=== PATIENT | female | born 1955 | race Caucasian/White ===

== ENCOUNTER 2024-01-09 12:54 | Outpatient (OUT) | payer BC, SELFPAY ==
--- NOTE | 2024-01-09 12:58 | VEIN_ITS ---
Patient Name: JS JETT MR#: [id number] : 1955 Exam Date: 01/09/2024 Ordering Doctor: DR VELVET GARCIA M.D. RADIOLOGY REPORT PROCEDURE: [facility] - OFFICE VISIT INITIAL COMPARISON: None. PROGRESS NOTES: [age] year old female who presents with a 36 year history of dilated bulging veins, discolored veins, leg pain and swelling, muscle cramping, itching. The patient's leg symptoms are symmetric bilaterally. There has been a progression of symptoms over time. This increases with prolonged leg dependency. The patient describes an improvement with rest, elevation, compression stockings. The patient denies any signs and symptoms to suggest arterial ischemia. The patient describes a family history of varicose veins on maternal side. The patient has drinking and smoking history of : Occasional alcohol consumption; remote history of smoking.. Patient has a past medical history significant for main disease. The patient denies a history of deep venous thrombus or pulmonary embolus. See separate history and physical for medication list. Prior treatment for varicose in 2018 consisting of ablation of the great saphenous veins. Current use of compression stockings. After review of nurse notes, history and physical exam I discussed at length the pathophysiology of venous hypertension and possible treatments, therapies and strategies available. We discussed at length the importance of elevating the lower extremities above the level of the heart, increased physical activity and compression stocking use. Ultrasound venous reflux study performed today was discussed at length with the patient. The report demonstrates abnormally dilated and incompetent branch saphenous varicosities bilaterally. Closure of right great saphenous vein and majority of left great saphenous vein. PHYSICAL EXAM: The right leg demonstrates several superficial varicosities, numerous reticular and spider veins, no ulceration, mild edema, no skin discoloration. The left leg demonstrates several superficial varicosities, numerous reticular and spider veins, no ulceration, mild edema, no skin discoloration. Both thighs, legs and feet were symmetrically warm to the touch. Good posterior tibial and dorsalis pedis pulses were present bilaterally. VEIN/[facility] Facility EST Comprehensive IMPRESSION: 1. Bilateral lower extremity venous insufficiency 2. Bilateral lower extremity varicose veins 3. Mild bilateral lower extremity subcutaneous edema 4. No flow significant arterial disease 5. CEAP: C3, EC, , CT PLAN: 1. Continued use of compression stockings 2. Elevated legs and increased physical activity symptomatic relief 3. Microfoam chemical ablation of dilated and incompetent branch saphenous varicosities of right leg and left leg. 4. Sclerotherapy of numerous bilateral reticular and spider veins. Nurse notes, history and physical were reviewed and confirmed, see attached forms. The nurse was present throughout the physical exam and consultation Dictated by: Ike Horvath M.D. on 01/09/2024 at 15:43 Approved by: Ike Horvath M.D. on 01/09/2024 at 15:48
--- NOTE | 2024-01-09 12:58 | VEIN_ITS ---
Patient Name: JS JETT MR#: [id number] : 1955 Exam Date: 01/09/2024 Ordering Doctor: DR VELVET GARCIA M.D. RADIOLOGY REPORT PROCEDURE: [facility] EXT VENOUS REFLUX DANIELLA LMTD COMPARISON: None. INDICATIONS: Pain due to varicose veins of bilateral legs I83.813 TECHNIQUE: Duplex imaging of the lower extremity to assess the deep and superficial venous system for the presence of deep or superficial venous incompetence and to document the location and severity of disease. The study includes evaluation of the great saphenous vein (GSV), anterior accessory saphenous vein (AASV) and small saphenous vein (SSV). Patient scanned in reverse Trendelenburg and standing. FINDINGS: RIGHT LOWER EXTREMITY: Saphenofemoral Junction Reflux: Yes mm sec GSV: Diam (mm) Reflux/ Time (sec) Proximal Thigh No Mid Thigh No Distal Thigh No Prox Calf No Mid Calf No Saphenopopliteal Junction Reflux: 3.0mm No SSV: Proximal Calf 2.2 No Mid Calf 2.7 No AASV: Not present Proximal Thigh Mid Thigh Distal Thigh Thrombi: No acute or chronic thrombus visualized. Compressibility: Normal Flow: Normal Preforator: Mid/Med calf 1.4 mm with 0s. Tech Note: GSV previously treated. Patent varicose vein Mid/Med calf 4.4 mm with 2.1s of reflux. Patent varicose vein Mid/Med calf 6.0 mm with 2.8s of reflux. LEFT LOWER EXTREMITY: Saphenofemoral Junction Reflux: mm sec GSV: Diam (mm) Reflux/Time (sec) Proximal Thigh No Mid Thigh 4.5 N/A Distal Thigh 5.1 Yes 1.8 Prox Calf N/A Mid Calf N/A Saphenopopliteal Junction Relux: 2.5 mm No SSV: Proximal Calf 2.9 No Mid Calf 2.9 No AASV: Proximal Thigh 4.5 No Mid Thigh 3.6 Yes 1.7 Distal Thigh Thrombi: Chronic thrombus visualized in GSV. Compressibility: Partial compression to GSV. Flow: Normal Interactive Media Designer: Distal/Med calf 3.1 mm with 0s. Tech Note: GSV previously treated. Patent varicose vein Prox/Med calf with 4.2 mm with 3.2s of reflux. Patent varicose vein Prox/Med calf with 4.7mm with 3.8s of reflux. CONCLUSION: 1. Prior ablation of great saphenous vein bilaterally. 2. Dilated and incompetent branch saphenous varicosities bilaterally. Dictated by: Ike Horvath M.D. on 01/09/2024 at 14:32 Approved by: Ike Horvath M.D. on 01/09/2024 at 15:43
== END 2024-01-09 12:55 | disposition home or self-care (01) ==
LOC: VC 12:55
PROVIDERS: PCP Radiology Diagnostic Radiology; Visit Provider Radiology Diagnostic Radiology
DX: I83.813 Varicose veins of bilateral lower extremities with pain (principal)
CPT/HCPCS: 93970; G0463

== ENCOUNTER 2024-05-13 10:59 | Outpatient (OUT) | payer BC, SELFPAY ==
--- NOTE | 2024-05-10 13:50 | V.VEINS.HP ---
Vital Signs 05/13/24 11:10 Height 5 ft 2 in Weight 68.039 kg BMI 27.4 BP 118/70 BP Location Right Brachial BP Position Sitting BP Cuff Size Adult BP Source Manual Cuff Respiration 16 Pulse 75 Pulse Source Monitor Pulse Oximetry (%) 97 Oxygen Delivery Method Room Air Varicose Veins Patient is a 68 year old female in this day with c/o bilateral leg pain and edema. Patient has a history of varicose vein disease and has been breated with vein stripping in 2017. Patient in this day for microfoam chemical ablation. Haresh Yates MD personally performed the services described in this documentation, as scribed by Sergo Ríos RN in my presence and it is both accurate and complete. ISergo RN, am scribing for, and in the presence of, Dr. Haresh King and in the presence of the patient. . thigh: bilateral (bilateral symptoms), knee: bilateral, calf: bilateral, ankle: bilateral and yousif: bilateral aching, cramping, intermittent and tender 4 36 years Worsened in recent months: Yes standing analgesics, elevating extremities, compression stockings and exercise Reports muscle spasms of leg, fatigue, heaviness, limb pain, edema and leg edema History of lower extremity trauma: No Superficial thrombophlebitis: No Family history of varicose veins: yes (Patient's grandmother) Has patient had previous lower extremity venous surgery: Yes Patient has previously received the following treatment(s) for lower extremity varicose veins: Reports vein ablation, sclerotherapy and foam therapy Does patient have a history of : yes Does patient intend to have future pregnancies: no Has patient had lower extremity venous scan with relux testing: Yes Support hose used: Yes Problems walking or doing physical activity: Yes How does it affect you: often has to stop exercise rest and elevate legs due to pain Do you walk much: Yes Do you stand much: Yes Review of Systems ROS Narrative Haresh Yates MD personally performed the services described in this documentation, as scribed by Sergo Ríos RN in my presence and it is both accurate and complete. Sergo Yates RN, am scribing for, and in the presence of, Dr. Haresh King and in the presence of the patient. Status of ROS 10 or more systems reviewed and unremarkable except as noted in history and below Cardiovascular Reports: edema Integumentary/Breast Reports: itching and changes in skin color Neurological Reports: weakness in extremities PFSH PFS Medical History (Updated 05/13/24 @ 12:01 by Sergo Ríos) Varicose veins of bilateral lower extremities with pain ?I83.813 - Varicose veins of bilateral lower extremities with pain (ICD-10) Surgical History (Updated 05/13/24 @ 12:49 by Sergo Ríos) H/O medial meniscus repair of left knee ?Z98.890 - Other specified postprocedural states (ICD-10) H/O lateral meniscus repair of right knee ?Z98.890 - Other specified postprocedural states (ICD-10) Hx laparoscopic cholecystectomy ?Z90.49 - Acquired absence of other specified parts of digestive tract (ICD-10) Family History (Updated 05/13/24 @ 12:50 by Sergo Ríos) Other Heart disease Parkinson disease Varicose veins of bilateral lower extremities with pain Social History (Updated 05/13/24 @ 12:49 by Sergo Ríos) Within the past year, how often did you have a drink containing alcohol: 2-4 times a month Smoking status: Never smoker Non-prescribed substance use: denies use Meds Home Medications and Allergies Home Medications ?Medication ?Instructions ?Recorded ?Confirmed ?Type No Known Home Medications 05/13/24 05/13/24 History Allergies Allergy/AdvReac Type Severity Reaction Status Date / Time No Known Drug Allergies Allergy Verified 05/13/24 12:03 Exam Narrative Exam Narrative: Haresh Yates MD personally performed the services described in this documentation, as scribed by Sergo Ríos RN in my presence and it is both accurate and complete. Sergo Yates RN, am scribing for, and in the presence of, Dr. Haresh King and in the presence of the patient. Constitutional Documenting provider has reviewed patient's vital signs: yes Common normals: oriented x3 Cardio Peripheral pulses: posterior tibial pulses present and dorsalis pedis pulses present Extremity Common normals: normal capillary refill General: edema Right lower extremity: lower leg Right lower leg: inspection and palpation Left lower extremity: lower leg Left lower leg: inspection and palpation Neuro Common normals: oriented x3 Assessment and Plan Assessment and Plan (1) Varicose veins of bilateral lower extremities with pain: Plan f/u evaluation with physician along with right leg limited u/s Haresh Yates MD personally performed the services described in this documentation, as scribed by Sergo Ríos RN in my presence and it is both accurate and complete. ISergo RN, am scribing for, and in the presence of, Dr. Haresh King and in the presence of the patient. Procedures Procedure Instructions Procedures Right leg microfoam chemical ablation/Varithena: Risks and benefits of the procedure were discussed at length and informed written consent was obtained.? Time-out procedure was performed and the correct patient and procedure were confirmed.? Staff present during time-out: Sergo Ríos RN and Haresh King MD.? Patient prepped and procedure performed in usual sterile fashion.? Patient was placed in Trendelenburg prior to Polidocanol/Varithena injections. Sclerosing Agent:?? 15cc 1% Polidocanol/Varithena Site Injected: 8cc varithena administered in to a mid medial lower leg 7cc varithena administered in to a proximal medial lower leg Number of Injections:? 2 The patient tolerated the procedure well without complication.? Hemostasis was obtained and thigh-high compression stocking was applied with foam pads.? Instructed patient to wear stocking for at least 96 hours and sleep with it and only remove for showering.? The patient was instructed to? wear stocking for 2 weeks.? Patient verbalizes understanding and states they will comply.? Patient was given post-procedure instructions. Patient was discharged in good condition.? Scheduled to undergo limited venous ultrasound and? exam on 05/20/2024. Haresh Yates MD personally performed the services described in this documentation, as scribed by Sergo Ríos RN in my presence and it is both accurate and complete. ISergo RN, am scribing for, and in the presence of, Dr. Haresh King and in the presence of the patient.
--- NOTE | 2024-05-13 07:19 | P.DS_ITS ---
Discharge Plan Discharge Disposition: Home, Self-Care Outpatient Diagnostics: [facility] Facility EST LMTD (Routine) Timeframe: 2 Weeks Facility: [facility] - Location: Vein Center Ordered By: Haresh King VC EXT Venous RT LMTD (Routine) Timeframe: 2 Weeks Facility: [facility] - Location: Vein Center Ordered By: Haresh King Follow Up Appointments: 05/20/2024 Plan of Treatment: f/u evaluation with physician along with right leg limited u/s Patient Instructions: Polidocanol (By injection) (Mona Blankenship) Print Language: Ethiopian Discharge Date/Time: 05/13/24 12:05
--- NOTE | 2024-05-13 11:02 | VEIN_ITS ---
[address] [address] Patient Name: JS JETT MRN: [id number] date: 1955 Sex: F Assigned Patient Location: Current Patient Location: Accession/Order Number: [id number] Exam Date: 05/13/2024 11:02 Report Date: 05/13/2024 14:55 At the request of: VELVET GARCIA Procedure: VC INJ Foam Sclerosant WUS PLAY WRITER PROCEDURE: VC INJ Foam Sclerosant WUS PLAY WRITER COMPARISON: None. HISTORY: Pain due to varicose veins of bilateral legs I83.813 Pre-operative Diagnosis: CEAP class C3 venous insufficiency with pain, tenderness, edema and incompetent right saphenous and varicose vein(s), chronic venous insufficiency right leg secondary to venous incompetence Post-operative Diagnosis: CEAP class C3 venous insufficiency with pain, tenderness, edema and incompetent right saphenous and varicose vein(s), chronic venous insufficiency right leg secondary to venous incompetence Procedure Performed: 1. Ultrasound-guided microfoam chemical ablation with Varithenaregistered 2. Intraoperative ultrasound guidance Anesthesia: None Indications for Procedure: 68-year-old female who presents with a long history of lower extremity pain and swelling. The patient failed conservative medical therapy including medical compression stockings, exercise and analgesics. Prior procedures include saphenous ablation performed elsewhere. Multiple incompetent varicosities of the right leg. Duplex scan showed reflux and enlarged diameters up to 6 mm. The patient underwent informed consent including management options where the complications of infection, bleeding, pain, and skin injury were discussed. Particular attention was spent discussing thrombus extension and deep vein thrombosis as well as the possibility of pulmonary embolus and treatment with oral or injectable blood thinners. Procedure: The patient walked to the procedure room. All applicable staff donned appropriate apparel. A procedure timeout was performed to confirm correct patient, correct extremity, correct procedure, and correct room set-up including presence of all applicable supplies, devices, and drugs. A duplex ultrasound, performed by myself confirmed the location and incompetence of branch saphenous varicosities and their course was marked on the skin together with the dilated tributaries. The extent of treatment of the vein and the associated varicosities was determined through ultrasound mapping. The skin was prepped and then punctured with a butterfly needle and advanced under ultrasound guidance. The Varithenaregistered canister was activated and the canister was primed and purged as required in the instructions for use. Varithenaregistered was drawn into a sterile syringe. The following injections were made: 8 cc injected into a 6 mm varicose vein mid medial right lower leg 7 cc into a 5 mm varicose vein proximal medial right lower leg Varithenaregistered was slowly administered at 0.5-1.0 cc/second with close observation by ultrasound of its course in the vessels. Total volume utilized was: 15 cc. Following administration of Varithenaregistered the leg was elevated and the patient was asked to repeatedly dorsiflex the ankle to limit flow of Varithenaregistered into perforating veins. Once appropriate spasm had been confirmed in the treated veins, the vascular catheter was removed from the leg and light pressure was applied over the puncture site for hemostasis. The common femoral and deep superficial veins were then evaluated for flow and compressibility prior to dressing placement. The lower extremity was kept elevated at 45 degrees above the horizontal and cording material was applied over the saphenous segments and tributaries to allow for eccentric compression over the target vessels including the targeted saphenous vein(s). A multilayer dressing was applied consisting of foam pads, coban and thigh-high 20-30 mm Hg compression elastic support hose were placed on the patient. The leg was lowered only after compression had been applied and the patient was immediately ambulatory. The patient ambulated 10 minutes under supervision and was without apparent concerns at time of release. Post-care instructions include advising patient to keep post-treatment bandages in place and dry for 48 hours, avoid extended periods of inactivity, avoid heavy exercise for one week, wear compression stockings on the treated leg continuously for two weeks, to walk daily for 10 minutes over the next month. The patient was instructed to take an anti-inflammatory medicine as needed and to follow up for color duplex scan of the Saphenous veins, the treated branch saphenous varicosities, the adjacent deep veins, and additional treatment within 7 days. PERSONNEL: Sergo Ríos RN Electronically authenticated by: VELVET GARCIA Date: 05/13/2024 14:55
[2024-05-13 11:10] VITALS: BP 118/70; PULSE 75; O2SAT 97; BMI 27.4
--- OUTSIDE RECORDS SUMMARY | 2024-05-13 11:20 | XMS_ITS | CCD ---
Author Organization [facility] Care Team Providers Care Tack Cutter Name Role Phone SAIDA BENSON Admitting Unavailable SAIDA BENSON Attending Unavailable SAIDA BENSON Referring Unavailable Jasmin Bobby Unavailable TUTU Bobby Primary Care Provider TUTU Bobby Attending Provider [phone] SAMI ADAMS Attending Unavailable Chicho Kauffman DO Unavailable [phone] Jasmin Bobby Attending Unavailable Jasmin Bobby Admitting Unavailable Jasmin Bobby Primary Care Unavailable Jasmin Bobby Attending Unavailable Jasmin Bobby Admitting Unavailable Jasmin Bobby Primary Care Unavailable Jasmin Bobby CNP Primary Care Provider [phone] JENNIFER DEGROOT Attending Unavailable Medications Current Medications Medication Drug Class(es) Dates Sig (Normalized) Sig (Original) aspirin 81 mg delayed release oral tablet (1 source) Platelet Aggregation Inhibitor, Nonsteroidal Anti-inflammatory Drug Start: 09-25-2023 take 1 tablet by mouth every twenty-four hours Aspirin 81 81 MG 1 tablet Orally Once a day for 30 day(s) Sep, Active Biotin (3 sources) take 1 capsule by mouth once daily Biotin 5000 5 MG 1 capsule Orally Once a day OTC Active cholecalciferol 0.125 mg oral capsule (3 sources) Vitamin D Vitamin D3 Maximum Strength 125 MCG (5000 UT) as directed Orally OTC Active esomeprazole 40 mg delayed release oral capsule (1 source) Proton Pump Inhibitor Start: 09-25-2023 take 1 capsule by mouth every twenty-four hours Esomeprazole Magnesium 40 MG 1 capsule Orally Once a day for 30 day(s) Sep, Active Magnesium (3 sources) take 1 tablet by mouth once daily Magnesium 250 MG 1 tablet with a meal Orally Once a day OTC Active omeprazole 20 mg delayed release oral tablet (2 sources) Proton Pump Inhibitor Start: 09-11-2023 take 1 tablet by mouth once daily Omeprazole Magnesium 20 MG 1 tablet 30 minutes before morning meal Orally Once a day for 30 days Sep, Active traZODone hydrochloride 50 mg oral tablet (1 source) Serotonin Reuptake Inhibitor Start: 09-25-2023 take 1 tablet by mouth every twenty-four hours traZODone HCl 50 MG 1 tablet at bedtime as needed Orally Once a day for 14 days Sep, Active Turmeric extract (3 sources) Turmeric OTC Active vitamin B12 (2 sources) Vitamin B12 Vitamin B12 OTC, daily Active Completed/Discontinued Medications Medication Drug Class(es) Dates Sig (Normalized) Sig (Original) Mupirocin (3 sources) RNA Synthetase Inhibitor Antibacterial Bactroban 2 % 1 application to affected area Externally Three times a day for 7 days Not-Taking/PRN Bactroban 2 % 1 application to affected area Externally Three times a day for 7 days Active Problems Problem Classification Problem Date Documented Da te Episodic/Chronic Diseases of mouth; excluding dental (6 sources) Xerostomia; Translations: [Disturbances of salivary secretion] Onset: 4 Episodic Disorders of lipid metabolism (4 sources) Mixed hyperlipidemia; Translations: [Mixed hyperlipidemia] Chronic Esophageal disorders (8 sources) Gastroesophageal reflux disease; Translations: [Gastro-esophageal reflux disease without esophagitis] Chronic Malaise and fatigue (6 sources) Fatigue; Translations: [Chronic fatigue, unspecified] Onset: 4 Chronic Mood disorders (3 sources) Depressive disorder; Translations: [Major depressive disorder, single episode, unspecified] Chronic Nausea and vomiting (3 sources) Nausea; Translations: [Nausea] Episodic Osteoarthritis (3 sources) Osteoarthritis of left knee joint; Translations: [Unilateral primary osteoarthritis, left knee] Chronic Other eye disorders (1 source) Dry eyes; Translations: [Dry eye syndrome of bilateral lacrimal glands] Episodic Other eye disorders (1 source) Dry eye syndrome of bilateral lacrimal glands Episodic Other gastrointestinal disorders (3 sources) Irritable bowel syndrome 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; 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 Other hereditary and degenerative nervous system conditions (3 sources) Restless legs; Translations: [Restless legs syndrome] Chronic Other hereditary and degenerative nervous system conditions (3 sources) Restless legs syndrome; Translations: [Restless legs syndrome] Onset: 4 Chronic Other injuries and conditions due to external causes (3 sources) H/O: knee problem; Translations: [Personal history of other (healed) physical injury and trauma] Episodic Other nervous system disorders (3 sources) Neuropathy of lower limb; 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] Chronic Other nervous system disorders (3 sources) Chronic pain; Translations: [Other chronic pain] Chronic Other nervous system disorders (3 sources) Paresthesia; Translations: [Paresthesia of skin] Episodic Other nervous system disorders (2 sources) Paresthesia of skin; Translations: [Paresthesia of skin] Onset: 4 Episodic Other non-traumatic joint disorders (3 sources) Pain in right knee; Translations: [Right knee pain] Episodic Other screening for suspected conditions (not mental disorders or infectious disease) (2 sources) Encounter for screening for cardiovascular disorders; Translations: [Encounter for screening for cardiovascular disorders] Onset: 4 Episodic Other skin disorders (3 sources) Xeroderma; Translations: [Xerosis cutis] Episodic Other skin disorders (2 sources) Xerosis cutis; Translations: [Xerosis cutis] Onset: 4 Episodic Residual codes; unclassified (1 source) Difficulty sleeping ; Translations: [Sleep disorder, unspecified] Episodic Residual codes; unclassified (1 source) Sleep disorder, unspecified Episodic Skin and subcutaneous tissue infections (4 sources) Impetigo; Translations: [Impetigo, unspecified] Episodic Unclassified (2 sources) 68393/G0121 - Epigastric pain, screening; Translations: [24506/G0121 - Epigastric pain, screening] Onset: 9 Unclassified (1 source) Chronic fatigue, unspecified; Translations: [Chronic fatigue, unspecified] Onset: 4 Varicose veins of lower extremity (3 sources) Varicose veins of lower extremity; Translations: [Asymptomatic varicose veins of bilateral lower extremities] Episodic Results Test Name Value Interpretation Reference Range Facility [facility] 04-08-2024 CNOV Office Visit (NEUBS ) LEANN GREENBERG ([id number]) 1955 F Date Time Provider Department 04/08/24 12:45 PM JENNIFER DEGROOT During your visit today, we recorded the following information about you: Jennifer Degroot, MANAGER SUPPLY CHAIN PLANNING.LOCKSTITCH WAISTLINE JOINER 04/08/2024 6:01 PM Addendum PCP does not have one at present-see MASHA Bobby DATE: April 08, 2024 PT. NAME: Leann Greenberg CCF#: [id number] IRB #: [id number] A. PROTOCOL: [facility] Brain Study Tank Inspector: Layla Saenz MD, , Pascual Ames MD, CCF blocker and cutter contact lens for study related questions: Katy Slater Is today the participant's first study visit? Yes Were there changes made to the informed consent since the last visit? Yes If yes, were changes reviewed and explained to subject? Yes Was a new copy of the informed consent signed, placed in the chart, placed in the study file and was a copy given to the patient? Yes Patient Identification was verified by asking the patients Name and Date Of : YES Subject continues to give consent for participation and for procedures related to study YES. Time:[id number] EKG/ECG was performed on patient. Patient tolerated procedure well. BP: 117/72 BP Site: right arm BP Position: sitting Cuff size: regular Pulse: 75 Resp: 18 SPO2: 99% Weight: 157.2 pounds Height: 5' 1 Result of Physical Exam Body System Eyes: Normal ,wears corrective lenses Ears, Nose, Mouth and Throat: Normal Cardiovascular: Normal Respiratory: Normal Musculoskeletal: Normal Integumentary: Normal Handedness: Right hand Results of Mental Status Assessment Mental Assessments Attention: Abnormality Present: No Memory Working Memory: Abnormality Present: No Recent (Episodic) Memory: Abnormality Present: No Remote (Semantic) Memory: Abnormality Present: No Language Spontaneous Speech: Abnormality Present: No Comprehension: Abnormality Present: No Naming: Abnormality Present: No Repetition: Abnormality Present: No Reading: Abnormality Present: No Affect: Abnormality Present: No Craninal Nerve Assessment Visual Lieberman: Normal EOM: Normal Nystagmus: Physiologic Pupils: Equal and reactive Ptosis: Absent Trigeminal: Normal CN VII: Normal CN VIII: Normal CN IX: Normal CN X: Normal CN XI: Normal CN XII: Normal Assessment of Motor and Bulk and Tones Motor Assessments Muscle bulk-global: Normal Muscle tone-global: Normal Motor Strength Assessment Shoulder flexion: Right 5 Left 5 Shoulder external rotation: Right 5 Left 5 Shoulder abduction: Right 5 Left 5 Shoulder adduction: Right 5 Left 5 Elbow flexion: Right 5 Left 5 Elbow extension: Right 5 Left 5 Wrist flexion: Right 5 Left 5 Wrist extension: Right 5 Left 5 Finger flexion/lunchroom worker: Right 5 Left 5 Flexor pollicis longus: Right 5 Left 5 Abductor pollicis brevis: Right 5 Left 5 Hip flexion: Right 5 Left 5 Hip extension: Right 5 Left 5 Hip abduction: Right 5 Left 5 Hip adduction: Right 5 Left 5 Knee flexion: Right 5 Left 5 Knee extension: Right 5 Left 5 Ankle eversion: Right 5 Left 5 Ankle inversion: Right 5 Left 5 Ankle plantar flexion: Right 5 Left 5 Ankle dorsiflexion: Right 5 Left 5 Extensor halluces longus: Right 5 Left 5 Flexor digitorum longus: Right 5 Left 5 Reflexes - MRC Grading Method Triceps: Right 1+ Left 1+ Biceps: Right 1+ Left 1+ Brachioradialis: Right 1+ Left 1+ Patellar: Right 1+ Left 1+ Achilles: Right 1+ Left 1+ Plantar: Right Downgoing Left Downgoing Weakness?: No Tremor: No Cerebellar/Coordination Assessment [id number]: Abnormality present: No, [id number]: Abnormality present: No, Finger Tapping - Abnormality present: No Fist Open/Close - Abnormality present: No Pronation/Supination of the Hand - Abnormality present: No Toe Tapping - Abnormality present: Yes - Extremity: RLE Comments: dysrrhythmokinesia Heel Tapping - Abnormality present: No Gait Gait-global assessment: Abnormal (posture lean forward when walk-per participant, all members in family do this) Toe Walk: Normal Heel Walk: Normal Tandem Walk: Abnormal (Slight difficulty maintaining balance at initiation of walk) Romberg: Negative (pass) Sensory/Sensation Sensory System-globlal assessment: Normal Jennifer Degroot APRN.LOCKSTITCH WAISTLINE JOINER Allergies As of Date: 04/08/2024 (Not on File) Date Reviewed: Never Reviewed Primary Visit Diagnosis:Examination of participant in clinical trial [Z00.6] Problem List As Of Date: 04/08/2024 (None) Disposition: Return in about 1 year (around 04/08/2025). Follow-up and Disposition History for Encounter Date Provider Department Center 04/08/2024 [id number] DEGROOT [facility] Encounter Status:Closed by JENNIFER DEGROOT on (more content not included)... [facility] ([id number]) 1955 F Date Time Provider Department 04/01/24 LIANA JACOBO During your visit today, we recorded the following information about you: Allergies As of Date: 04/01/2024 (Not on File) Date Reviewed: Never Reviewed Reason for Visit: Research [293] Cmt: IRB [id number] Problem List As Of Date: 04/01/2024 (None) Encounter Status:Closed by LIANA JACOBO on 04/02/24 [facility] 01-15-2024 CNPN Telephone ([employer]) LEANN GREENBERG ([id number]) 1955 F Date Time Provider Department 01/15/24 GRISELDA GONZALEZ During your visit today, we recorded the following information about you: Griselda Gonzalez, Research Coordinator 01/15/2024 3:44 PM Signed IRB [id number]. [facility] Brain Study (CCBS) Tank Inspector: Layla Saenz MD, , Pascual Ames MD, Supervisor Opening And Picking: Katy Slater and Email:[email or web address] Research Coordinator called and contacted Leann Greenberg on January 15, 2024 to reminded patient of appointment with the [facility] Brain Study, Griselda Gonzalez, Research Coordinator also let pt. Know about the option to DocuSign the constant form or Sign in person. Research Coordinator gave patient Contact information for if the patient had any questions about the study and or their appointment. Allergies As of Date: 01/15/2024 (Not on File) Date Reviewed: Never Reviewed Reason for Visit: Appointment [186] Cmt: IRB [id number] Problem List As Of Date: 01/15/2024 (None) Encounter Status:Closed by GRISELDA GONZALEZ on 01/15/24 Normal [facility] 11-05-2023 CNPN Telephone (NEUBSM) LEANN GREENBERG ([id number]) 1955 F Date Time Provider Department 11/05/23 NATHALIE MCKEON During your visit today, we recorded the following information about you: Nathalie Mckeon APRN.[facility] 11/05/2023 12:12 PM Signed IRB [id number]. [facility] Brain Study (CCBS) Tank Inspector: Layla Saenz MD, , Pascual Ames MD, Supervisor Opening And Picking: Katy Slater and Email: Contacted Leann Greenberg by phone to discuss the [facility] Brain Study (BS): Biomarkers and Predictors of Neurological Disorders IRB [id number]. Patient is eligible and agrees to participate. Requests call back December to schedule (going to [place]). Nathalie Mckeon APRN.LOCKSTITCH WAISTLINE JOINER Allergies As of Date: 11/05/2023 (Not on File) Date Reviewed: Never Reviewed Reason for Visit: Patient Update [1234] Problem List As Of Date: 11/05/2023 (None) Encounter Status:Closed by NATHALIE MCKEON on 11/05/23 Normal [facility] Basophils Auto (Bld) [#/Vol] Ordered By: Jasmin Bobby on 09-19-2023 Basophils (Bld) [#/Vol] 0.0 10*3/uL 0.0-0.2 [facility] Basophils/100 WBC Auto (Bld) Ordered By: Jasmin Bobby on 09-19-2023 Basophils/100 WBC (Bld) 0.6 % . [facility] Complete Blood Count Auto Di ffon 09-19-2023 Basophils (Bld) [#/Vol] 0.0 10*3/uL Normal 0.0-0.2 [facility] Comment on above: Result Comment: PERF ORMED BY: [place] [address] PATHOLOGIST PROBATION AND PATROL AGENT TEODORA RAPHAEL M.D. Performed By: #### F E and TIBC, CRP, LIPID, MG, TSH3 wRFLX, B12, CMP, BALAJI, ESR #### [facility] [address] [place] [address] #### SJOGRENS, MENDEZ CHOICE, RA #### [facility] , Basophils/100 WBC (Bld) 0.6 % Normal . [facility] Comment on above: Performed By: #### F E and TIBC, CRP, LIPID, MG, TSH3 wRFLX, B12, CMP, BALAJI, ESR #### [facility] [address] [place] [address] [place] #### SJOGRENS, MENDEZ CHOICE, RA #### [facility] , Eosinophils (Bld) [#/Vol] 0.0 10*3/uL Normal 0.0-0.45 [facility] Comment on above: Performed By: #### F E and TIBC, CRP, LIPID, MG, TSH3 wRFLX, B12, CMP, BALAJI, ESR #### [place] [address] [place] #### SJOGRENS, MENDEZ CHOICE, RA #### [facility] , Eosinophils/100 WBC (Bld) 1.0 % Normal . [facility] Comment on above: Performed By: #### F E and TIBC, CRP, LIPID, MG, TSH3 wRFLX, B12, CMP, BALAJI, ESR #### [address] #### SJOGRENS, MENDEZ CHOICE, RA #### [facility] , Erythrocyte distribution width (RBC) [Ratio] 13.6 % Normal 11.9-15.3 [facility] Comment on above: Performed By: #### F E and TIBC, CRP, LIPID, MG, TSH3 wRFLX, B12, CMP, BALAJI, ESR #### [address] #### SJOGRENS, MENDEZ CHOICE, RA #### [facility] , Hematocrit (Bld) [Volume fraction] 38.3 % Normal 34.0-46.4 [facility] Comment on above: Performed By: #### F E and TIBC, CRP, LIPID, MG, TSH3 wRFLX, B12, CMP, BALAJI, ESR #### [place] [address] [place] #### SJOGRENS, MENDEZ CHOICE, RA #### [facility] , Hemoglobin (Bld) [Mass/Vol] 12.9 g/dL Normal 11.8-15.4 [facility] Comment on above: Performed By: #### F E and TIBC, CRP, LIPID, MG, TSH3 wRFLX, B12, CMP, BALAJI, ESR #### [place] [address] [place] #### SJOGRENS, MENDEZ CHOICE, RA #### [facility] , Lymphocytes (Bld) [#/Vol] 1.3 10*3/uL Normal 1.00-4.8 [facility] Comment on above: Performed By: #### F E and TIBC, CRP, LIPID, MG, TSH3 wRFLX, B12, CMP, BALAJI, ESR #### [address] #### SJOGRENS, MENDEZ CHOICE, RA #### [facility] , Lymphocytes/100 WBC (Bld) 39.6 % Normal . [facility] Comment on above: Performed By: #### F E and TIBC, CRP, LIPID, MG, TSH3 wRFLX, B12, CMP, BALAJI, ESR #### [address] #### SJOGRENS, MENDEZ CHOICE, RA #### [facility] , MCH (RBC) [Entitic mass] 30.9 pg Normal 24.7-34.3 [facility] Comment on above: Performed By: #### F E and TIBC, CRP, LIPID, MG, TSH3 wRFLX, B12, CMP, BALAJI, ESR #### [place] [address] [place] #### SJOGRENS, MENDEZ CHOICE, RA #### [facility] , MCV (RBC) [Entitic vol] 91.6 fL Normal 80-100 [facility] Comment on above: Performed By: #### F E and TIBC, CRP, LIPID, MG, TSH3 wRFLX, B12, CMP, BALAJI, ESR #### [address] #### SJOGRENS, MENDEZ CHOICE, RA #### [facility] , Mean Corpuscular HGB Conc 33.7 g/dL Normal 32.0-35.0 [facility] Comment on above: Performed By: #### F E and TIBC, CRP, LIPID, MG, TSH3 wRFLX, B12, CMP, BALAJI, ESR #### [address] #### SJOGRENS, MENDEZ CHOICE, RA #### [facility] , Monocytes (Bld) [#/Vol] 0.2 10*3/uL Normal 0.0-0.8 [facility] Comment on above: Performed By: #### F E and TIBC, CRP, LIPID, MG, TSH3 wRFLX, B12, CMP, BALAJI, ESR #### [address] #### SJOGRENS, MENDEZ CHOICE, RA #### [facility] , Monocytes/100 WBC (Bld) 5.7 % Normal . [facility] Comment on above: Performed By: #### F E and TIBC, CRP, LIPID, MG, TSH3 wRFLX, B12, CMP, BALAJI, ESR #### [facility] [address] [place] [address] #### SJOGRENS, MENDEZ CHOICE, RA #### [facility] , Neutrophils (Bld) [#/Vol] 1.7 10*3/uL Low 1.8-7.7 [facility] Comment on above: Performed By: #### F E and TIBC, CRP, LIPID, MG, TSH3 wRFLX, B12, CMP, BALAJI, ESR #### [place] [address] [place] #### SJOGRENS, MENDEZ CHOICE, RA #### [facility] , Neutrophils/100 WBC (Bld) 53.1 % Normal . [facility] Comment on above: Performed By: #### F E and TIBC, CRP, LIPID, MG, TSH3 wRFLX, B12, CMP, BALAJI, ESR #### [address] #### SJOGRENS, MENDEZ CHOICE, RA #### [facility] , NRBC% 0.1 /100{WBC} Normal 0-0.5 [facility] Comment on above: Performed By: #### F E and TIBC, CRP, LIPID, MG, TSH3 wRFLX, B12, CMP, BALAJI, ESR #### [address] #### SJOGRENS, MENDEZ CHOICE, RA #### [facility] , Platelet mean volume (Bld) [Entitic vol] 8.4 fL Normal 6.3-10.7 [facility] Comment on above: Performed By: #### F E and TIBC, CRP, LIPID, MG, TSH3 wRFLX, B12, CMP, BALAJI, ESR #### [address] #### SJOGRENS, MENDEZ CHOICE, RA #### [facility] , Platelets (Bld) [#/Vol] 155 10*3/uL Normal 150-450 [facility] Comment on above: Performed By: #### F E and TIBC, CRP, LIPID, MG, TSH3 wRFLX, B12, CMP, BALAJI, ESR #### [address] #### SJOGRENS, MENDEZ CHOICE, RA #### [facility] , RBC (Bld) [#/Vol] 4.18 10*6/uL Normal 3.60-5.00 [place] [facility] Comment on above: Performed By: #### F E and TIBC, CRP, LIPID, MG, TSH3 wRFLX, B12, CMP, BALAJI, ESR #### [place] [address] [place] #### SJOGRENS, MENDEZ CHOICE, RA #### [facility] , WBC (Bld) [#/Vol] 3.2 10*3/uL Low 3.8-11.6 [facility] [place] [facility] Comment on above: Performed By: #### F E and TIBC, CRP, LIPID, MG, TSH3 wRFLX, B12, CMP, BALAJI, ESR #### [facility] [address] #### SJOGRENS, MENDEZ CHOICE, RA #### [facility] , Eosinophils Auto (Bld) [#/Vo l]Ordered By: Jasmin Mccauleynorfolk on 09-19-2023 Eosinophils (Bld) [#/Vol] 0.0 10*3/uL 0.0-0.45 [facility] Eosinophils/100 WBC Auto (Bl d)Ordered By: [facility] on 09-19-2023 Eosinophils/100 WBC (Bld) 1.0 % . [facility] Erythrocyte distribution wid th Auto (RBC) [Ratio]Ordered By: [facility] on 09-19-2023 Erythrocyte distribution width (RBC) [Ratio] 13.6 % 11.9-15.3 [facility] Hematocrit Auto (Bld) [Volum e fraction]Ordered By: [facility] on 09-19-2023 Hematocrit (Bld) [Volume fraction] 38.3 % 34.0-46.4 [facility] Hemoglobin [Mass/volume] in BloodOrdered By: Jasmin [facility] on 09-19-2023 Hemoglobin (Bld) [Mass/Vol] 12.9 g/dL 11.8-15.4 [facility] Leukocytes [#/volume] correc santos for nucleated erythrocytes in Blood by Automated counOrdered By: [facility] WBC corrected for nucl RBC Auto (Bld) [#/Vol] 3.2 10*3/uL 3.8-11.6 [facility] Lymphocytes Auto (Bld) [#/Vo l]Ordered By: Jasmin [facility] on 09-19-2023 Lymphocytes (Bld) [#/Vol] 1.3 10*3/uL 1.00-4.8 [facility] Lymphocytes/100 WBC Auto (Bl d)Ordered By: Jasmin [facility] on 09-19-2023 Lymphocytes/100 WBC (Bld) 39.6 % . [facility] MCH Auto (RBC) [Entitic mass ]Ordered By: Jasmin Bobby on 09-19-2023 MCH (RBC) [Entitic mass] 30.9 pg 24.7-34.3 [facility] MCHC Auto (RBC) [Mass/Vol]Or dered By: Jasmin Bobby on 09-19-2023 MCHC (RBC) [Mass/Vol] 33.7 g/dL 32.0-35.0 [facility] MCV Auto (RBC) [Entitic vol] Ordered By: Jasmin Bobby on 09-19-2023 MCV (RBC) [Entitic vol] 91.6 fL 80-100 [facility] Monocytes Auto (Bld) [#/Vol] Ordered By: Jasmin Bobby on 09-19-2023 Monocytes (Bld) [#/Vol] 0.2 10*3/uL 0.0-0.8 [facility] Monocytes/100 WBC Auto (Bld) Ordered By: Jasmin Bobby on 09-19-2023 Monocytes/100 WBC (Bld) 5.7 % . [facility] Neutrophils Auto (Bld) [#/Vo l]Ordered By: Jasmin Bobby on 09-19-2023 Neutrophils (Bld) [#/Vol] 1.7 10*3/uL 1.8-7.7 [facility] Neutrophils/100 WBC Auto (Bl d)Ordered By: Jasmin Bobby on 09-19-2023 Neutrophils/100 WBC (Bld) 53.1 % . [facility] Nucleated erythrocytes [Pres ence] in Blood by Automated countOrdered By: Jasmin Bobby on 09-19-2023 Nucleated RBC Auto Ql (Bld) 0.1 /100{WBC} 0-0.5 [facility] Platelet mean volume Auto (B ld) [Entitic vol]Ordered By: Jasmin Bobby on 09-19-2023 Platelet mean volume (Bld) [Entitic vol] 8.4 fL 6.3-10.7 [facility] Platelets Auto (Bld) [#/Vol] Ordered By: Jasmin Bobby on 09-19-2023 Platelets (Bld) [#/Vol] 155 10*3/uL 150-450 [facility] RBC Auto (Bld) [#/Vol]Ordere d By: Jasmin Bobby on 09-19-2023 RBC (Bld) [#/Vol] 4.18 10*6/uL 3.60-5.00 [place] [facility] WBC Auto (Bld) [#/Vol]Ordere d By: Jasmin Bobby on 09-19-2023 WBC (Bld) [#/Vol] 3.2 10*3/uL 3.8-11.6 [facility] [place] [facility] MENDEZ with Reflexon 09-18-2023 MENDEZ with Reflex Negative Normal Negative [facility] Comment on above: Order Comment: Reaso n for Exam Chronic fatigue Reason for Exam Chronic fatigue;Restless leg;Paresthesias Reason for Exam Restless leg Reason for Exam Chronic fatigue;Xerostomia;Dry skin Reason for Exam Screening for cardiovascular condition Reason for Exam Paresthesias Reason for Exam Chronic fatigue;Dry skin Result Comment: Perf ormed at: CB - [facility] [address] [id number] Guest Services Associate: Alphonse Harris PhD, Phone: [phone] Performed By: #### F E and TIBC, CRP, LIPID, MG, TSH3 wRFLX, B12, CMP, BALAJI, ESR #### [facility] [address] [place] [address] #### SJOGRENS, MENDEZ CHOICE, RA #### [facility] , Alanine aminotransferase [En zymatic activity/volume] in Serum or PlasmaOrdered By: Jasmin Bobby on 09-18-2023 ALT [Catalytic activity/Vol] 11 U/L 7-52 [facility] Albumin [Mass/volume] in Ser um or Plasma by Bromocresol green (BCG) dye binding methoOrdered By: Jasmin Bobby on 09-18-2023 Albumin BCG dye [Mass/Vol] 4.2 g/dL 3.5-5.7 [facility] Alkaline phosphatase [Enzyma tic activity/volume] in Serum or PlasmaOrdered By: Jasmin Bobby on 09-18-2023 ALP [Catalytic activity/Vol] 69 U/L 34-104 [facility] Aspartate aminotransferase [ Enzymatic activity/volume] in Serum or PlasmaOrdered By: Jasmin Bobby on 09-18-2023 AST [Catalytic activity/Vol] 17 U/L 13-39 [facility] Bilirubin.total [Mass/volume ] in Serum or PlasmaOrdered By: Jasmin Bobby on 09-18-2023 Bilirubin [Mass/Vol] 0.6 mg/dL 0.3-1.0 [facility] C reactive protein [Mass/vol ume] in Serum or PlasmaOrdered By: Jasmin Bobby on 09-18-2023 CRP [Mass/Vol] < 0.5 mg/dL 0.0-0.5 [facility] C-Reactive Proteinon 024 CRP [Mass/Vol] mg/L Normal 0.0-0.5 [facility] Comment on above: Order Comment: Reaso n for Exam Chronic fatigue Reason for Exam Chronic fatigue;Restless leg;Paresthesias Reason for Exam Restless leg Reason for Exam Chronic fatigue;Xerostomia;Dry skin Reason for Exam Screening for cardiovascular condition Reason for Exam Paresthesias Reason for Exam Chronic fatigue;Dry skin Performed By: #### F E and TIBC, CRP, LIPID, MG, TSH3 wRFLX, B12, CMP, BALAJI, ESR #### [facility] [address] [place] [address] #### SJOGRENS, MENDEZ CHOICE, RA #### [facility] , Calcium [Mass/volume] in Ser um or PlasmaOrdered By: Jasmin Bobby on 09-18-2023 Calcium [Mass/Vol] 9.3 mg/dL 8.6-10.3 [facility] [place] [facility] Carbon dioxide, total [Moles /volume] in Serum or PlasmaOrdered By: Jasmin Bobby on 09-18-2023 CO2 [Moles/Vol] 30.1 mmol/L 21.0-31.0 [facility] Chloride [Moles/volume] in S wolf or PlasmaOrdered By: Jasmin Bobby on 09-18-2023 Chloride [Moles/Vol] 105 mmol/L 98-107 [facility] Cholesterol [Mass/volume] in Serum or PlasmaOrdered By: Jasmin Bobby on 09-18-2023 Cholesterol [Mass/Vol] 293 mg/dL 140-200 [facility] Comment on above: Chol less than 200 m g/dl low riskChol 201-239 mg/dl borderline riskChol 240 mg/dl and greater high risk Cholesterol in LDL Calc [Mas s/Vol]Ordered By: Jasmin Bobby on 09-18-2023 Cholesterol in LDL [Mass/Vol] 205 mg/dL 0-100 [facility] Comment on above: LDL ATP III CLASSIFI CATIONLDL less than 100 mg/dL OptimalLDL 100-129 mg/dL Near or above optimalLDL 130-159 mg/dL Borderline highLDL 160-189 mg/dL HighLDL greater than 189 mg/dL Very high Cholesterol in VLDL Calc [Ma ss/Vol]Ordered By: Jasmin Bobby on 09-18-2023 Cholesterol in VLDL [Mass/Vol] 15 mg/dL [facility] Comprehensive Metabolic Pane manolo 09-18-2023 Albumin [Mass/Vol] 4.2 g/dL Normal 3.5-5.7 [facility] [place] [facility] Comment on above: Order Comment: Reaso n for Exam Chronic fatigue Reason for Exam Chronic fatigue;Restless leg;Paresthesias Reason for Exam Restless leg Reason for Exam Chronic fatigue;Xerostomia;Dry skin Reason for Exam Screening for cardiovascular condition Reason for Exam Paresthesias Reason for Exam Chronic fatigue;Dry skin Performed By: #### F E and TIBC, CRP, LIPID, MG, TSH3 wRFLX, B12, CMP, BALAJI, ESR #### [facility] [address] #### SJOGRENS, MENDEZ CHOICE, RA #### [facility] , Albumin/Globulin [Mass ratio] 1.6 {ratio} Normal [facility] Comment on above: Order Comment: Reaso n for Exam Chronic fatigue Reason for Exam Chronic fatigue;Restless leg;Paresthesias Reason for Exam Restless leg Reason for Exam Chronic fatigue;Xerostomia;Dry skin Reason for Exam Screening for cardiovascular condition Reason for Exam Paresthesias Reason for Exam Chronic fatigue;Dry skin Performed By: #### F E and TIBC, CRP, LIPID, MG, TSH3 wRFLX, B12, CMP, BALAJI, ESR #### [facility] [address] #### SJOGRENS, MENDEZ CHOICE, RA #### [facility] , ALP [Catalytic activity/Vol] 69 U/L Normal 34-104 [facility] Comment on above: Order Comment: Reaso n for Exam Chronic fatigue Reason for Exam Chronic fatigue;Restless leg;Paresthesias Reason for Exam Restless leg Reason for Exam Chronic fatigue;Xerostomia;Dry skin Reason for Exam Screening for cardiovascular condition Reason for Exam Paresthesias Reason for Exam Chronic fatigue;Dry skin Performed By: #### F E and TIBC, CRP, LIPID, MG, TSH3 wRFLX, B12, CMP, BALAJI, ESR #### [facility] [address] [place] [address] [place] #### SJOGRENS, MENDEZ CHOICE, RA #### [facility] , ALT [Catalytic activity/Vol] 11 U/L Normal 7-52 [facility] Comment on above: Order Comment: Reaso n for Exam Chronic fatigue Reason for Exam Chronic fatigue;Restless leg;Paresthesias Reason for Exam Restless leg Reason for Exam Chronic fatigue;Xerostomia;Dry skin Reason for Exam Screening for cardiovascular condition Reason for Exam Paresthesias Reason for Exam Chronic fatigue;Dry skin Performed By: #### F E and TIBC, CRP, LIPID, MG, TSH3 wRFLX, B12, CMP, BALAJI, ESR #### [facility] [address] [place] [address] #### SJOGRENS, MENDEZ CHOICE, RA #### [facility] , Anion gap [Moles/Vol] 9.5 mmol/L Normal 6.0-15.0 [facility] Comment on above: Order Comment: Reaso n for Exam Chronic fatigue Reason for Exam Chronic fatigue;Restless leg;Paresthesias Reason for Exam Restless leg Reason for Exam Chronic fatigue;Xerostomia;Dry skin Reason for Exam Screening for cardiovascular condition Reason for Exam Paresthesias Reason for Exam Chronic fatigue;Dry skin Performed By: #### F E and TIBC, CRP, LIPID, MG, TSH3 wRFLX, B12, CMP, BALAJI, ESR #### [place] [address] [place] #### SJOGRENS, MENDEZ CHOICE, RA #### [facility] , AST [Catalytic activity/Vol] 17 U/L Normal 13-39 [facility] Comment on above: Order Comment: Reaso n for Exam Chronic fatigue Reason for Exam Chronic fatigue;Restless leg;Paresthesias Reason for Exam Restless leg Reason for Exam Chronic fatigue;Xerostomia;Dry skin Reason for Exam Screening for cardiovascular condition Reason for Exam Paresthesias Reason for Exam Chronic fatigue;Dry skin Performed By: #### F E and TIBC, CRP, LIPID, MG, TSH3 wRFLX, B12, CMP, BALAJI, ESR #### [place] [address] [place] #### SJOGRENS, MENDEZ CHOICE, RA #### [facility] , Bilirubin [Mass/Vol] 0.6 mg/dL Normal 0.3-1.0 [facility] Comment on above: Order Comment: Reaso n for Exam Chronic fatigue Reason for Exam Chronic fatigue;Restless leg;Paresthesias Reason for Exam Restless leg Reason for Exam Chronic fatigue;Xerostomia;Dry skin Reason for Exam Screening for cardiovascular condition Reason for Exam Paresthesias Reason for Exam Chronic fatigue;Dry skin Performed By: #### F E and TIBC, CRP, LIPID, MG, TSH3 wRFLX, B12, CMP, BALAJI, ESR #### [place] [address] [place] #### SJOGRENS, MENDEZ CHOICE, RA #### [facility] , Calcium [Mass/Vol] 9.3 mg/dL Normal 8.6-10.3 [facility] [place] [facility] Comment on above: Order Comment: Reaso n for Exam Chronic fatigue Reason for Exam Chronic fatigue;Restless leg;Paresthesias Reason for Exam Restless leg Reason for Exam Chronic fatigue;Xerostomia;Dry skin Reason for Exam Screening for cardiovascular condition Reason for Exam Paresthesias Reason for Exam Chronic fatigue;Dry skin Performed By: #### F E and TIBC, CRP, LIPID, MG, TSH3 wRFLX, B12, CMP, BALAJI, ESR #### [place] [address] [place] #### SJOGRENS, MENDEZ CHOICE, RA #### [facility] , Chloride [Moles/Vol] 105 mmol/L Normal 98-107 [facility] Comment on above: Order Comment: Reaso n for Exam Chronic fatigue Reason for Exam Chronic fatigue;Restless leg;Paresthesias Reason for Exam Restless leg Reason for Exam Chronic fatigue;Xerostomia;Dry skin Reason for Exam Screening for cardiovascular condition Reason for Exam Paresthesias Reason for Exam Chronic fatigue;Dry skin Performed By: #### F E and TIBC, CRP, LIPID, MG, TSH3 wRFLX, B12, CMP, BALAJI, ESR #### [place] [address] [place] #### SJOGRENS, MENDEZ CHOICE, RA #### [facility] , CO2 [Moles/Vol] 30.1 mmol/L Normal 21.0-31.0 [facility] Comment on above: Order Comment: Reaso n for Exam Chronic fatigue Reason for Exam Chronic fatigue;Restless leg;Paresthesias Reason for Exam Restless leg Reason for Exam Chronic fatigue;Xerostomia;Dry skin Reason for Exam Screening for cardiovascular condition Reason for Exam Paresthesias Reason for Exam Chronic fatigue;Dry skin Performed By: #### F E and TIBC, CRP, LIPID, MG, TSH3 wRFLX, B12, CMP, BALAJI, ESR #### [place] [address] [place] #### SJOGRENS, MENDEZ CHOICE, RA #### [facility] , Creatinine [Mass/Vol] 0.62 mg/dL Normal 0.60-1.20 [facility] Comment on above: Order Comment: Reaso n for Exam Chronic fatigue Reason for Exam Chronic fatigue;Restless leg;Paresthesias Reason for Exam Restless leg Reason for Exam Chronic fatigue;Xerostomia;Dry skin Reason for Exam Screening for cardiovascular condition Reason for Exam Paresthesias Reason for Exam Chronic fatigue;Dry skin Performed By: #### F E and TIBC, CRP, LIPID, MG, TSH3 wRFLX, B12, CMP, BALAJI, ESR #### [address] #### SJOGRENS, MENDEZ CHOICE, RA #### [facility] , GFR/1.73 sq M.predicted MDRD (S/P/Bld) [Vol rate/Area] mL/min/{1.73_m2} [facility] Comment on above: Order Comment: Reaso n for Exam Chronic fatigue Reason for Exam Chronic fatigue;Restless leg;Paresthesias Reason for Exam Restless leg Reason for Exam Chronic fatigue;Xerostomia;Dry skin Reason for Exam Screening for cardiovascular condition Reason for Exam Paresthesias Reason for Exam Chronic fatigue;Dry skin Performed By: #### F E and TIBC, CRP, LIPID, MG, TSH3 wRFLX, B12, CMP, BALAJI, ESR #### [address] #### SJOGRENS, MENDEZ CHOICE, RA #### [facility] , Globulin (S) [Mass/Vol] 2.6 g/dL Normal [facility] Comment on above: Order Comment: Reaso n for Exam Chronic fatigue Reason for Exam Chronic fatigue;Restless leg;Paresthesias Reason for Exam Restless leg Reason for Exam Chronic fatigue;Xerostomia;Dry skin Reason for Exam Screening for cardiovascular condition Reason for Exam Paresthesias Reason for Exam Chronic fatigue;Dry skin Performed By: #### F E and TIBC, CRP, LIPID, MG, TSH3 wRFLX, B12, CMP, BALAJI, ESR #### [facility] [address] [place] [address] [place] #### SJOGRENS, MENDEZ CHOICE, RA #### [facility] , Glucose [Mass/Vol] 95 mg/dL Normal 70-100 [facility] [place] [facility] Comment on above: Order Comment: Reaso n for Exam Chronic fatigue Reason for Exam Chronic fatigue;Restless leg;Paresthesias Reason for Exam Restless leg Reason for Exam Chronic fatigue;Xerostomia;Dry skin Reason for Exam Screening for cardiovascular condition Reason for Exam Paresthesias Reason for Exam Chronic fatigue;Dry skin Result Comment: [facility] Glucose Reference Range is dependent on time and content of last meal. Glucose of more than 200 mg/dL in a nonstressed, ambulatory subject supports the diagnosis of Diabetes Mellitus. ADA recommended reference range Performed By: #### F E and TIBC, CRP, LIPID, MG, TSH3 wRFLX, B12, CMP, BALAJI, ESR #### [address] #### SJOGRENS, MENDEZ CHOICE, RA #### [facility] , Potassium [Moles/Vol] 4.6 mmol/L Normal 3.5-5.1 [facility] Comment on above: Order Comment: Reaso n for Exam Chronic fatigue Reason for Exam Chronic fatigue;Restless leg;Paresthesias Reason for Exam Restless leg Reason for Exam Chronic fatigue;Xerostomia;Dry skin Reason for Exam Screening for cardiovascular condition Reason for Exam Paresthesias Reason for Exam Chronic fatigue;Dry skin Performed By: #### F E and TIBC, CRP, LIPID, MG, TSH3 wRFLX, B12, CMP, BALAJI, ESR #### [place] [address] [place] #### SJOGRENS, MENDEZ CHOICE, RA #### [facility] , Protein [Mass/Vol] 6.8 g/dL Normal 6.4-8.9 [facility] [place] [facility] Comment on above: Order Comment: Reaso n for Exam Chronic fatigue Reason for Exam Chronic fatigue;Restless leg;Paresthesias Reason for Exam Restless leg Reason for Exam Chronic fatigue;Xerostomia;Dry skin Reason for Exam Screening for cardiovascular condition Reason for Exam Paresthesias Reason for Exam Chronic fatigue;Dry skin Performed By: #### F E and TIBC, CRP, LIPID, MG, TSH3 wRFLX, B12, CMP, BALAJI, ESR #### [place] [address] [place] #### SJOGRENS, MENDEZ CHOICE, RA #### [facility] , Sodium [Moles/Vol] 140 mmol/L Normal 136-145 [facility] [place] [facility] Comment on above: Order Comment: Reaso n for Exam Chronic fatigue Reason for Exam Chronic fatigue;Restless leg;Paresthesias Reason for Exam Restless leg Reason for Exam Chronic fatigue;Xerostomia;Dry skin Reason for Exam Screening for cardiovascular condition Reason for Exam Paresthesias Reason for Exam Chronic fatigue;Dry skin Performed By: #### F E and TIBC, CRP, LIPID, MG, TSH3 wRFLX, B12, CMP, BALAJI, ESR #### [facility] [address] [place] [address] #### SJOGRENS, MENDEZ CHOICE, RA #### [facility] , Urea nitrogen [Mass/Vol] 13 mg/dL Normal 7-25 [facility] Comment on above: Order Comment: Reaso n for Exam Chronic fatigue Reason for Exam Chronic fatigue;Restless leg;Paresthesias Reason for Exam Restless leg Reason for Exam Chronic fatigue;Xerostomia;Dry skin Reason for Exam Screening for cardiovascular condition Reason for Exam Paresthesias Reason for Exam Chronic fatigue;Dry skin Performed By: #### F E and TIBC, CRP, LIPID, MG, TSH3 wRFLX, B12, CMP, BALAJI, ESR #### [facility] [address] [place] [address] [place] #### SJOGRENS, MENDEZ CHOICE, RA #### [facility] , Creatinine [Mass/volume] in Serum or PlasmaOrdered By: Jasmin Bobby on 09-18-2023 Creatinine [Mass/Vol] 0.62 mg/dL 0.60-1.20 [facility] Erythrocyte Sedimentation Ra chiara 09-18-2023 ESR (Bld) [Velocity] 37 mm/h High 0-29 [facility] Comment on above: Order Comment: Reaso n for Exam Chronic fatigue Reason for Exam Chronic fatigue;Xerostomia;Dry skin Result Comment: PERF ORMED BY: [place] [address] PATHOLOGIST [employer] AGENT TEODORA RAPHAEL M.D. Performed By: #### F E and TIBC, CRP, LIPID, MG, TSH3 wRFLX, B12, CMP, BALAJI, ESR #### [facility] [address] [place] [address] [place] #### JADEOGRMENDEZ BROWN, RA #### [facility] , Erythrocyte sedimentation ra te by Photometric methodOrdered By: Jasmin Bobby on 09-18-2023 ESR Photometric method (Bld) [Velocity] 37 mm/hr 0-29 [facility] Ferritinon 09-18-2023 Ferritin [Mass/Vol] 221.1 ng/mL Normal 11.0-306.8 [facility] Comment on above: Order Comment: Reaso n for Exam Chronic fatigue Reason for Exam Chronic fatigue;Restless leg;Paresthesias Reason for Exam Restless leg Reason for Exam Chronic fatigue;Xerostomia;Dry skin Reason for Exam Screening for cardiovascular condition Reason for Exam Paresthesias Reason for Exam Chronic fatigue;Dry skin Performed By: #### F E and TIBC, CRP, LIPID, MG, TSH3 wRFLX, B12, CMP, BALAJI, ESR #### [facility] [address] #### JADEOGRMENDEZ BROWN, RA #### [facility] , Ferritin [Mass/volume] in Se rum or PlasmaOrdered By: Jasmin Bobby on 09-18-2023 Ferritin [Mass/Vol] 221.1 ng/mL 11.0-306.8 [facility] Globulin Calc (S) [Mass/Vol] Ordered By: Jasmin Bobby on 09-18-2023 Globulin (S) [Mass/Vol] 2.6 g/dL [facility] Glucose [Mass/volume] in Ser um or PlasmaOrdered By: Jasmin Bobby on 09-18-2023 Glucose [Mass/Vol] 95 mg/dL 70-100 [facility] [place] [facility] Comment on above: ADA recommended refe rence rangeRandom Glucose Reference Range is dependent on time and content of last meal. Glucose of more than 200 mg/dL in a nonstressed, ambulatory subject supports the diagnosis of Diabetes Mellitus. Iron [Mass/volume] in Serum or PlasmaOrdered By: Jasmin Bobby on 09-18-2023 Iron [Mass/Vol] 115 ug/dL 50-212 [facility] Iron and TIBC Profileon 09-04 % Iron Saturation 40.5 % Normal 20-50 [facility] Comment on above: Order Comment: Reaso n for Exam Chronic fatigue Reason for Exam Chronic fatigue;Restless leg;Paresthesias Reason for Exam Restless leg Reason for Exam Chronic fatigue;Xerostomia;Dry skin Reason for Exam Screening for cardiovascular condition Reason for Exam Paresthesias Reason for Exam Chronic fatigue;Dry skin Performed By: #### F E and TIBC, CRP, LIPID, MG, TSH3 wRFLX, B12, CMP, BALAJI, ESR #### [facility] [address] [place] [address] #### SJOGRENS, MENDEZ CHOICE, RA #### [facility] , Iron [Mass/Vol] 115 ug/dL Normal 50-212 [facility] Comment on above: Order Comment: Reaso n for Exam Chronic fatigue Reason for Exam Chronic fatigue;Restless leg;Paresthesias Reason for Exam Restless leg Reason for Exam Chronic fatigue;Xerostomia;Dry skin Reason for Exam Screening for cardiovascular condition Reason for Exam Paresthesias Reason for Exam Chronic fatigue;Dry skin Performed By: #### F E and TIBC, CRP, LIPID, MG, TSH3 wRFLX, B12, CMP, BALAJI, ESR #### [facility] [address] [place] [address] [place] #### SJOGRENS, MENDEZ CHOICE, RA #### [facility] , Total Iron Binding Capacity 284 ug/dL Normal 255-450 [facility] Comment on above: Order Comment: Reaso n for Exam Chronic fatigue Reason for Exam Chronic fatigue;Restless leg;Paresthesias Reason for Exam Restless leg Reason for Exam Chronic fatigue;Xerostomia;Dry skin Reason for Exam Screening for cardiovascular condition Reason for Exam Paresthesias Reason for Exam Chronic fatigue;Dry skin Performed By: #### F E and TIBC, CRP, LIPID, MG, TSH3 wRFLX, B12, CMP, BALAJI, ESR #### [facility] [address] [place] [address] [place] #### SJOGRENS, MENDEZ CHOICE, RA #### [facility] , Transferrin [Mass/Vol] 203 mg/dL Normal 203-362 [facility] Comment on above: Order Comment: Reaso n for Exam Chronic fatigue Reason for Exam Chronic fatigue;Restless leg;Paresthesias Reason for Exam Restless leg Reason for Exam Chronic fatigue;Xerostomia;Dry skin Reason for Exam Screening for cardiovascular condition Reason for Exam Paresthesias Reason for Exam Chronic fatigue;Dry skin Performed By: #### F E and TIBC, CRP, LIPID, MG, TSH3 wRFLX, B12, CMP, BLAAJI, ESR #### [facility] [address] [place] [address] [place] #### SJOGRENS, MENDEZ CHOICE, RA #### [facility] , Iron binding capacity [Mass/ volume] in Serum or PlasmaOrdered By: Jasmin Bobby on 09-18-2023 Iron binding capacity [Mass/Vol] 284 ug/dL 255-450 [facility] Iron saturation [Mass Fracti on] in Serum or PlasmaOrdered By: Jasmin Bobby on 09-18-2023 Iron saturation [Mass fraction] 40.5 % 20-50 [facility] Lipid Panelon 09-18-2023 Cholesterol [Mass/Vol] 293 mg/dL High 140-200 [facility] Comment on above: Order Comment: Reaso n for Exam Chronic fatigue Reason for Exam Chronic fatigue;Restless leg;Paresthesias Reason for Exam Restless leg Reason for Exam Chronic fatigue;Xerostomia;Dry skin Reason for Exam Screening for cardiovascular condition Reason for Exam Paresthesias Reason for Exam Chronic fatigue;Dry skin Result Comment: Chol less than 200 mg/dl low risk Chol 201-239 mg/dl borderline risk Chol 240 mg/dl and greater high risk Performed By: #### F E and TIBC, CRP, LIPID, MG, TSH3 wRFLX, B12, CMP, BALAJI, ESR #### [facility] [address] [place] [address] [place] #### SJOGRENS, MENDEZ CHOICE, RA #### [facility] , Cholesterol in HDL [Mass/Vol] 73 mg/dL Normal 23-92 [facility] Comment on above: Order Comment: Reaso n for Exam Chronic fatigue Reason for Exam Chronic fatigue;Restless leg;Paresthesias Reason for Exam Restless leg Reason for Exam Chronic fatigue;Xerostomia;Dry skin Reason for Exam Screening for cardiovascular condition Reason for Exam Paresthesias Reason for Exam Chronic fatigue;Dry skin Result Comment: HDL CHOL ATP-III CLASSIFICATION Cardiovascular Risk HDL > or equal to 60 mg/dL LOW HDL < 40 mg/dL HIGH Performed By: #### F E and TIBC, CRP, LIPID, MG, TSH3 wRFLX, B12, CMP, BALAJI, ESR #### [facility] [address] #### SJOGRENS, MENDEZ CHOICE, RA #### [facility] , Cholesterol.total/Fernanda sterol in HDL [Mass ratio] 4.0 {ratio} Normal <5.0 [facility] Comment on above: Order Comment: Reaso n for Exam Chronic fatigue Reason for Exam Chronic fatigue;Restless leg;Paresthesias Reason for Exam Restless leg Reason for Exam Chronic fatigue;Xerostomia;Dry skin Reason for Exam Screening for cardiovascular condition Reason for Exam Paresthesias Reason for Exam Chronic fatigue;Dry skin Performed By: #### F E and TIBC, CRP, LIPID, MG, TSH3 wRFLX, B12, CMP, BALAJI, ESR #### [facility] [address] [place] [address] [place] #### SJOGRENS, MENDEZ CHOICE, RA #### [facility] , LDL Cholesterol,Calculated 205 mg/dL High 0-100 [facility] Comment on above: Order Comment: Reaso n for Exam Chronic fatigue Reason for Exam Chronic fatigue;Restless leg;Paresthesias Reason for Exam Restless leg Reason for Exam Chronic fatigue;Xerostomia;Dry skin Reason for Exam Screening for cardiovascular condition Reason for Exam Paresthesias Reason for Exam Chronic fatigue;Dry skin Result Comment: LDL ATP III CLASSIFICATION LDL less than 100 mg/dL Optimal LDL 100-129 mg/dL Near or above optimal LDL 130-159 mg/dL Borderline high LDL 160-189 mg/dL High LDL greater than 189 mg/dL Very high Performed By: #### F E and TIBC, CRP, LIPID, MG, TSH3 wRFLX, B12, CMP, BALAJI, ESR #### [facility] [address] [place] [address] [place] #### SJOGRENS, MENDEZ CHOICE, RA #### [facility] , Triglyceride w/Reflex 75 mg/dL Normal 0-149 [facility] Comment on above: Order Comment: Reaso n for Exam Chronic fatigue Reason for Exam Chronic fatigue;Restless leg;Paresthesias Reason for Exam Restless leg Reason for Exam Chronic fatigue;Xerostomia;Dry skin Reason for Exam Screening for cardiovascular condition Reason for Exam Paresthesias Reason for Exam Chronic fatigue;Dry skin Result Comment: TRIG ATP III CLASSIFICATION TRIG less than 150 mg/dL Normal TRIG 150-199 mg/dL Borderline high TRIG 200-500 mg/dL High TRIG greater than 500 mg/dL Very high Standard traceable to the Center for Disease Conrtrol and Prevention (CDC) test method. Performed By: #### F E and TIBC, CRP, LIPID, MG, TSH3 wRFLX, B12, CMP, BALAJI, ESR #### [facility] [address] [place] [address] [place] #### SJOGRENS, MENDEZ CHOICE, RA #### [facility] , VLDL CHOLESTEROL 15 mg/dL Normal [facility] Comment on above: Order Comment: Reaso n for Exam Chronic fatigue Reason for Exam Chronic fatigue;Restless leg;Paresthesias Reason for Exam Restless leg Reason for Exam Chronic fatigue;Xerostomia;Dry skin Reason for Exam Screening for cardiovascular condition Reason for Exam Paresthesias Reason for Exam Chronic fatigue;Dry skin Performed By: #### F E and TIBC, CRP, LIPID, MG, TSH3 wRFLX, B12, CMP, BALAJI, ESR #### [facility] [address] [place] [address] [place] #### SJOGRENS, MENDEZ CHOICE, RA #### [facility] , Magnesiumon 09-18-2023 Magnesium [Mass/Vol] 2.0 mg/dL Normal 1.9-2.7 [facility] Comment on above: Order Comment: Reaso n for Exam Chronic fatigue Reason for Exam Chronic fatigue;Restless leg;Paresthesias Reason for Exam Restless leg Reason for Exam Chronic fatigue;Xerostomia;Dry skin Reason for Exam Screening for cardiovascular condition Reason for Exam Paresthesias Reason for Exam Chronic fatigue;Dry skin Performed By: #### F E and TIBC, CRP, LIPID, MG, TSH3 wRFLX, B12, CMP, BALAJI, ESR #### [facility] [address] #### SJOGRENS, MENDEZ CHOICE, RA #### [facility] , Magnesium [Mass/volume] in S wolf or PlasmaOrdered By: Jasmin Bobby on 09-18-2023 Magnesium [Mass/Vol] 2.0 mg/dL 1.9-2.7 [facility] No Panel InformationOrdered By: Jasmin Bobby on 09-18-2023 Estimated GFR (CKD-EPI) > 60.0 mL/Min [facility] Creatinine Clearance (Chem N/A [facility] Potassium [Moles/volume] in Serum or PlasmaOrdered By: Jasmin Bobby on 09-18-2023 Potassium [Moles/Vol] 4.6 mmol/L 3.5-5.1 [facility] Protein [Mass/volume] in Ser um or PlasmaOrdered By: Jasmin Bobby on 09-18-2023 Protein [Mass/Vol] 6.8 g/dL 6.4-8.9 [facility] [place] [facility] Rheumatoid Factoron 09-18-19 24 Rheumatoid Factor 10.6 Normal <14.0 [facility] Comment on above: Order Comment: Reaso n for Exam Chronic fatigue;Xerostomia;Dry skin Result Comment: Perf ormed at: - [facility] [address] [id number] Guest Services Associate: Alphonse Harris PhD, Phone: [phone] Performed By: #### F E and TIBC, CRP, LIPID, MG, TSH3 wRFLX, B12, CMP, BALAJI, ESR #### [facility] [address] #### SJOGRENS, MENDEZ CHOICE, RA #### [facility] , Serum Sjogrens syndrome-A ex tractable nuclear antibody assay (units/volume)Ordered By: Jasmin Bobby on 09-18-2023 Sjogrens syndrome-A extractable nuclear Ab Qn (S) <0.2 AI 0.0-0.9 [facility] Serum Sjogrens syndrome-B ex tractable nuclear antibody assay (units/volume)Ordered By: Jasmin Bobby on 09-18-2023 Sjogrens syndrome-B extractable nuclear Ab Qn (S) <0.2 AI 0.0-0.9 [facility] Serum or plasma albumin/glob ulin mass ratioOrdered By: Jasmin Bobby on 09-18-2023 Albumin/Globulin [Mass ratio] 1.6 {ratio} [facility] Serum or plasma anion gap de terminationOrdered By: Jasmin Bobby on 09-18-2023 Anion gap [Moles/Vol] 9.5 mmol/L 6.0-15.0 [facility] Serum or plasma free cefurox demario measurement (mass/volume)Ordered By: Jasmin Bobby on 09-18-2023 Cefuroxime free [Mass/Vol] Negative Negative [facility] Comment on above: Performed at: [facility] Director: Alphonse Harris PhD, Phone: [phone] Serum or plasma high density lipoprotein (HDL) cholesterol measurementOrdered By: Jasmin Bobby on 09-18-2023 Cholesterol in HDL [Mass/Vol] 73 mg/dL 23-92 [facility] Comment on above: HDL CHOL ATP-III CLA SSIFICATION Cardiovascular RiskHDL > or equal to 60 mg/dL LOWHDL < 40 mg/dL HIGH Serum or plasma rheumatoid f actor measurement (units/volume)Ordered By: Jasmin Bobby on 09-18-2023 Rheumatoid factor Qn 10.6 [IU]/mL <14.0 [facility] Comment on above: Performed at: [facility] [employer] [place], [place] [id number] Director: Alphonse Harris PhD, Phone: [phone] Serum or plasma total choles terol/high density lipoprotein (HDL) cholesterol mass ratOrdered By: Jasmin Bobby on 09-18-2023 Cholesterol.total/Fernanda sterol in HDL [Mass ratio] 4.0 {ratio} <5.0 [facility] Sjogrens Anti-SSA/SSBon 09-04 SS-A/Ro Sjogrens Antibody <0.2 Normal 0.0-0.9 [facility] Comment on above: Order Comment: Reaso n for Exam Chronic fatigue Reason for Exam Chronic fatigue;Restless leg;Paresthesias Reason for Exam Restless leg Reason for Exam Chronic fatigue;Xerostomia;Dry skin Reason for Exam Screening for cardiovascular condition Reason for Exam Paresthesias Reason for Exam Chronic fatigue;Dry skin Performed By: #### F E and TIBC, CRP, LIPID, MG, TSH3 wRFLX, B12, CMP, BALAJI, ESR #### [facility] [address] [place] [address] #### SJOGRENS, MENDEZ CHOICE, RA #### [facility] , SS-B/La Sjogrens Antibody <0.2 Normal 0.0-0.9 [facility] Comment on above: Order Comment: Reaso n for Exam Chronic fatigue Reason for Exam Chronic fatigue;Restless leg;Paresthesias Reason for Exam Restless leg Reason for Exam Chronic fatigue;Xerostomia;Dry skin Reason for Exam Screening for cardiovascular condition Reason for Exam Paresthesias Reason for Exam Chronic fatigue;Dry skin Result Comment: PERF ORMED BY: [place] [address] PATHOLOGIST PROBATION AND PATROL AGENT TEODORA RAPHAEL M.D. Performed By: #### F E and TIBC, CRP, LIPID, MG, TSH3 wRFLX, B12, CMP, BALAJI, ESR #### [facility] [address] [place] [address] #### SJOGRENS, MENDEZ CHOICE, RA #### [facility] , Sodium [Moles/volume] in Ser um or PlasmaOrdered By: Jasmin Bobby on 09-18-2023 Sodium [Moles/Vol] 140 mmol/L 136-145 [facility] [place] [facility] Thyroid Stim Hormone w/Rflxo n 09-18-2023 Thyroid Stim Hormone w/Rflx 1.98 u[iU]/mL Normal 0.45-5.33 [facility] Comment on above: Order Comment: Reaso n for Exam Chronic fatigue Reason for Exam Chronic fatigue;Restless leg;Paresthesias Reason for Exam Restless leg Reason for Exam Chronic fatigue;Xerostomia;Dry skin Reason for Exam Screening for cardiovascular condition Reason for Exam Paresthesias Reason for Exam Chronic fatigue;Dry skin Result Comment: PERF ORMED BY: [place] [address] PATHOLOGIST PROBATION AND PATROL AGENT TEODORA RAPHAEL M.D. Performed By: #### F E and TIBC, CRP, LIPID, MG, TSH3 wRFLX, B12, CMP, BALAJI, ESR #### [facility] [address] [place] [address] #### SJOGRENS, MENDEZ CHOICE, RA #### [facility] , Thyrotropin [Units/volume] i n Serum or PlasmaOrdered By: Jasmin Bobby on 09-18-2023 TSH Qn 1.98 m[IU]/L 0.45-5.33 [facility] Transferrin [Mass/volume] in Serum or PlasmaOrdered By: Jasmin Bobby on 09-18-2023 Transferrin [Mass/Vol] 203 mg/dL 203-362 [facility] Triglyceride [Mass/volume] i n Serum or PlasmaOrdered By: Jasmin Bobby on 09-18-2023 Triglyceride [Mass/Vol] 75 mg/dL 0-149 [facility] Comment on above: TRIG ATP III CLASSIF ICATIONTRIG less than 150 mg/dL NormalTRIG 150-199 mg/dL Borderline highTRIG 200-500 mg/dL High TRIG greater than 500 mg/dL Very highStandard traceable to the Center for Disease Conrtrol and Prevention (CDC) test method. Urea nitrogen [Mass/volume] in Serum or PlasmaOrdered By: Jasmin Bobby on 09-18-2023 Urea nitrogen [Mass/Vol] 13 mg/dL 03-28 [facility] Vitamin B12on 09-18-2023 Cobalamin (Vitamin B12) [Mass/Vol] 1166 pg/mL High [address] [place] [address] Comment on above: Order Comment: Reaso n for Exam Chronic fatigue Reason for Exam Chronic fatigue;Restless leg;Paresthesias Reason for Exam Restless leg Reason for Exam Chronic fatigue;Xerostomia;Dry skin Reason for Exam Screening for cardiovascular condition Reason for Exam Paresthesias Reason for Exam Chronic fatigue;Dry skin Performed By: #### F E and TIBC, CRP, LIPID, MG, TSH3 wRFLX, B12, CMP, BALAJI, ESR #### [facility] [address] #### SJOGRENS, MENDEZ CHOICE, RA #### [facility] , Vitamin B12 ser/plasOrdered By: Jasmin Bobby on 09-18-2023 Cobalamin (Vitamin B12) [Mass/Vol] 1166 pg/mL [address] [place] [address] CT CARDIAC SCORINGon 07-0 CT CARDIAC SCORING Addendum Begins Patient Name: LEANN GREENBERG ADDENDUM: Technical: The following is to serve as an over-read for an unenhanced cardiac CT, to evaluate the extra vascular structures. Contiguous unenhanced CT sections are performed from the level of the ene to the upper abdomen. Findings: A 5 mm subpleural nodules identified in the lateral left lower lobe (image 38). There is an equivocal 3 mm subpleural density posteriorly in the left lower lobe (image 32). There is minor dependent subpleural atelectasis. There is no sign of pathologic lymph node enlargement. There is no pericardial or pleural effusion. Images through the upper abdomen are unremarkable. The visualized osseous and soft tissue structures of the chest wall are intact. Impression: 2 small nodules in the left lung base. Continued surveillance is recommended with follow-up CT examination in 6 months. The extra vascular structures otherwise have an unremarkable CT appearance. Electronically signed by: NATALI SUNSHINE MD Addendum Ends Patient Name: LEANN GREENBERG STUDY: CT CARDIAC SCORING; 03/09/2021 9:03 am INDICATION: Mixed hyperlipidemia ct of coronary arteries. COMPARISON: None. ACCESSION NUMBER(S): [id number] ORDERING CLINICIAN: JASMIN BOBBY TECHNIQUE: Using prospective ECG gating, CT scan of the coronary arteries was performed without intravenous contrast. Coronary calcium scoring was performed according to the method of Agatston. CT Dose-Length Product (DLP): 60.7 mGy*cm CT Dose Reduction Employed: Yes, prospective gating, iterative reconstruction. FINDINGS: The score and distribution of calcium in the coronary arteries is as follows: LM 0 LAD 15 LCx 0 RCA 0 Total 15 The visualized ascending thoracic aorta measures 3.3 cm in diameter. The heart is normal in size. No pericardial effusion is present. The main pulmonary artery, right and left pulmonary artery are normal in size. IMPRESSION: 1. Coronary artery calcium score of 15*. 2. RESENDIZ 67th percentile for age, gender, and race in asymptomatic patients. *Coronary Artery Agatston score Score risk Very low 1-99 Mildly increased 100-299 Moderately increased >300 Moderate to severely increased >800 Bhavesh et al. JCCT 2016 (http://dx.doi.org/10.1 016/j.jcct.2016.11.003) RESENDIZ Percentile In general, greater than 75th percentile for age, gender, and race is considered to be a higher relative risk and higher lifetime risk condition. Greater than 75th percentile=moderate to severely increased relative risk irrespective of the score. Advise using RESENDIZ 10 year CHD risk calculator below for better discrimination of risk. RESENDIZ 10-Year CHD Risk with Coronary Artery Calcification can be calcuate using link below https://www.resendiz-nhlbi. org/MESACHDRisk/MesaRis kScore/RiskScore.aspx Femi et al. JACC 2015 (http://dx.doi.org/10.1 016/j.j acc.2015.08.035) Reading Internist Medical Doctor Md: Dr. Gilmer Garcia, Date: 03/09/2021 12:46 pm Electronically signed by: NATALI SUNSHINE MD [facility] Surgical Specimenon 09-26-19 Surgical Specimen [facility] Comment on above: Result Comment: [facility] [address] [place] [id number] FINAL SURGICAL PATHOLOGY REPORT Patient Name: LEANN GREENBERG Accession No: [id number] Age Sex: 1955 Location: [facility] Account No: [id number] Collected: 09/26/2018 Med Rec No: [id number] Received: 09/27/2018 Attend Phys: SAIDA BENSON Completed: 10/05/2018 Perform Phys: SAIDA BENSON FINAL DIAGNOSIS: A. 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 NO EVIDENCE OF INTESTINAL METAPLASIA. NEGATIVE FOR H. PYLORI ON IMMUNOHISTOCHEMISTRY STAINING. B. GASTRIC BIOPSIES- ANTRAL-TYPE OF GASTRIC MUCOSA WITH MILD CHRONIC GASTRITIS. NO EVIDENCE OF INTESTINAL METAPLASIA. NEGATIVE FOR H. PYLORI ON IMMUNOHISTOCHEMISTRY STAINING (CONTROL IS SATISFACTORY). C. SIGMOID POLYP- TUBULAR ADENOMA. NEY/NEY CLINICAL INFORMATION: Epigastric pain, screening. SPECIMEN: A. Gastric Polyp B. Gastric Biopsies C. Sigmoid Polyp GROSS DESCRIPTION: A. Specimen container is labeled with the patient's name and designated stomach . In formalin is a single fragment of pizano tissue measuring 0.9 cm in greatest dimension. In toto, one cassette. B. Specimen container is labeled with the patient's name and designated stomach . In formalin are two fragments of pizano tissue measuring up to 0.6 cm in greatest dimension. In toto, one cassette. C. Specimen container is labeled with the patient's name and designated colon . In formalin is a single fragment of pizano tissue measuring 0.4 cm in greatest dimension. In toto, one cassette. JARET/BRENDEN CPT: 49868 X3 62456 X2 ALEXI DEAL M.D. 10/05/2018 Electronically signed out by Page 1 of 1 Vital Signs Date Time Vital Sign Value Performing Clinician Facility 09-25-2023 09:45-0500 Body height 157.48 cm [facility] Other [facility] 09-25-2023 09:45-0500 Body mass index (BMI) [Ratio] 28.53 kg/m2 [facility] Other [facility] 09-25-2023 09:45-0500 Body temperature 97.4 [degF] Jasmin Easterwood Other [facility] 09-25-2023 09:45-0500 Body weight 70.76 kg Jasmin Easterwood Other [facility] 09-25-2023 09:45-0500 Diastolic blood pressure 78 mm[Hg] Jasmin Easterwood Other [facility] 09-25-2023 09:45-0500 Respiratory rate 20 /min Jasmin Easterwood Other [facility] 09-25-2023 09:45-0500 SaO2% (BldA) [Mass fraction] 98 % Jasmin Easterwood Other [facility] 09-25-2023 09:45-0500 Systolic blood pressure 126 mm[Hg] Jasmin Easterwood Other [facility] 09-11-2023 09:30-0500 Body height 157.48 cm Jasmin Easterwood Other [facility] 09-11-2023 09:30-0500 Body mass index (BMI) [Ratio] 28.53 kg/m2 Jasmin Easterwood Other [facility] 09-11-2023 09:30-0500 Body temperature 97.9 [degF] Jasmin Easterwood Other [facility] 09-11-2023 09:30-0500 Body weight 70.76 kg Jasmin Easterwood Other [facility] 09-11-2023 09:30-0500 Diastolic blood pressure 84 mm[Hg] Jasmin Bobby Other [facility] 09-11-2023 09:30-0500 Respiratory rate 20 /min Jasmin Bobby Other [facility] 09-11-2023 09:30-0500 SaO2% (BldA) [Mass fraction] 98 % [facility] [employer] Other [facility] 09-11-2023 09:30-0500 Systolic blood pressure 132 mm[Hg] [facility] Encounters Encounter Date Encounter Type Care Provider Facility Start: 04-08-2024 End: 04-08-2024 ambulatory Sharona Ervin Research Coordinator Work Phone: Neurology Comment on above: Informed Consent (IR B [id number]) Start: 04-08-2024 End: 04-08-2024 Patient encounter procedure Jennifer Degroot APRN.LOCKSTITCH WAISTLINE JOINER Work Phone: Neurology Comment on above: Examination of parti cipant in clinical trial (Primary Dx) Start: 04-01-2024 Telephone encounter Liana carlisle Research Coordinator Work Phone: Neurology Comment on above: Research (IRB [id number] ) Start: 01-15-2024 Telephone encounter Griselda chavez Research Coordinator Neurology Comment on above: Appointment (IRB [id number]) Start: 11-05-2023 Telephone encounter Nathalie lazaro APRN.LOCKSTITCH WAISTLINE JOINER Work Phone: Neurology Comment on above: Patient Update Start: 09-29-2023 End: 09-29-2023 ambulatory SAMI ADAMS Not Available Start: 09-25-2023 End: 09-25-2023 ambulatory Jasmin Bobby Other [facility] Start: 09-25-2023 Office outpatient visit 40 minutes Jasmin Mccauleywood [facility] Start: 09-21-2023 End: 09-21-2023 ambulatory Jasmin Bobby Other [facility] Start: 09-21-2023 Telephone encounter Jasmin Bobby [facility] Start: 09-19-2023 End: 09-19-2023 ambulatory Jasmin Bobby Facility:[facility] Start: 09-19-2023 End: 09-19-2023 ambulatory MANAGER SUPPLY CHAIN PLANNING Jasmin Bobby Work Phone: [facility] Work Phone: Start: 09-19-2023 End: 09-19-2023 Patient encounter procedure MANAGER SUPPLY CHAIN PLANNING Jasmin Bobby Work Phone: [facility] [address] Work Phone: Start: 09-18-2023 End: 09-18-2023 ambulatory Jasmin Bobby Facility:[facility] Start: 09-18-2023 End: 09-18-2023 ambulatory MANAGER SUPPLY CHAIN PLANNING Jasmin Bobby Work Phone: [facility] Work Phone: Start: 09-18-2023 End: 09-18-2023 Patient encounter procedure MANAGER SUPPLY CHAIN PLANNING Jasmin Bobby Work Phone: [facility] [address] Work Phone: Start: 09-11-2023 End: 09-11-2023 ambulatory Jasmin Bobby Other [facility] Start: 09-11-2023 Office outpatient visit 25 minutes Jasmin Mccauleywood [facility] Start: 09-26-2018 End: 09-26-2018 Patient encounter procedure SAIDA WASSERMANK [facility] Procedures Date Procedure Procedure Detail Performing Clinician Start: 09-26-2018 SURGICAL PATHOLOGY TOD BENSON Start: 09-26-2018 PULSE OXIMETRY SPOT CHECK SAIDA BENSON Start: 09-26-2018 BEDREST SAIDA CARVER Start: 09-26-2018 Continuous pulse oximetry SAIDA BENSON Start: 09-26-2018 ENCOURAGE DEEP BREAT MIKEY AND COUGHING SAIDA BENSON Start: 09-26-2018 INITIATE OXYGEN THER APY PROTOCOL SAIDA BENSON Start: 09-26-2018 NOTIFY PHYSICIAN (SPECIFY) SAIDA BENSON Start: 09-26-2018 NURSING COMMUNICATION N KATELYN BENSON Start: 09-26-2018 VITAL SIGNS SAIDA CARVER Plan of Treatment Date Care Activity Detail Author Start: 05-05-2024 Influenza vaccination [facility] Start: 04-08-2024 End: 04-08-2024 Patient encounter procedure 04/08/2024 12:45 PM EDT Office Visit Neurology [address] [place] [address] Anat Nieto PA-C [address] [place] [address] [facility] Comment on above: [facility] Start: 09-04-2023 Advance Directive Discussion Advance Directive Discussion [facility] Start: 09-04-2023 Behavioral Health Screening Behavioral Health Screening [facility] Start: 09-04-2023 Depression Assessment Depression Ass essment [facility] Start: 05-05-2023 Covid-19 Vaccine ( season) Covid-19 Vaccine ( season) [facility] Start: 05-05-2023 Covid-19 Vaccine ( season) Covid-19 Vaccine ( season) [facility] Start: 05-05-2023 Influenza vaccination Influenza Vacc ine (#1) [facility] Start: 2022 Pneumococcal Vaccine : 65+ (1 of 1 - PCV) Pneumococcal Vaccine: 65+ (1 of 1 - PCV) [facility] Start: 2022 Screening for osteoporosis Bone Density Screening [facility] Start: 2017 RSV Vaccine (1 - 1-d ose 60+ series) RSV Vaccine (1 - 1-dose 60+ series) [facility] Start: 11-24-2007 Shingrix Vaccine (1 of 2) Shingrix Vaccine (1 of 2) [facility] Start: 2002 Diabetes Screening Diabetes Screenin g [facility] Start: 2002 Lipid panel Lipid Screening [facility] Start: 2002 Screening for malign ant neoplasm of colon [facility] Start: 1997 Screening for malign ant neoplasm of breast Mammogram Screening [facility] Start: 1976 Urine microalbumin profile DTaP,Tdap,Td Vaccine (1 - Tdap) [facility] Start: 11-24-1975 Anxiety Screening Anxiety Screening [facility] Start: 11-24-1975 Depression Screening Depression Scre ening [facility] Start: 11-24-1975 Hepatitis C screening Hepatitis C Sc reening [facility] Start: 11-24-1975 HIV screening HIV Screening [facility] Start: 05-26-1956 Covid-19 Vaccine (#1) Covid-19 Vacci ne (#1) [facility] Cefuroxime free [Mass/volume] in Serum or Plasma [facility] Rheumatoid factor [Units/volume] in Serum or Plasma [facility] Sjogrens syndrome-A extractable nuclear Ab [Units/volume] in Serum [facility] Sjogrens syndrome-B extractable nuclear Ab [Units/volume] in Serum [facility] Payers Date Payer Category Payer Medicare [id number] 2023 Self-pay [id number] 2022 Blue Cross Blue Shield [id number] 2019 Unknown [employer] BLUE CARD PPO OOS [id number] 2019-Present [phone] [address] [place] [address] PPO [id number] 2015 Unknown [id number] 1955 Unknown [id number] 1955 Unknown [id number] Unknown Jennifer BC/BS [id number] Unknown [id number] Unknown [id number] Social History Date Type Detail Facility Sex Assigned At [facility] Start: 1955 Sex Assigned At Female [facility] Tobacco smoking status VTIS Tobacco smoking consumption unknown [facility] Work Phone: Start: 1955 Sex Assigned At Not on file [facility] Clinical Notes 09-11-2023 to 04-08-2024 Sharona Ervin, Research Coordinator - 04/08/2024 4:43 PM EDTBJennifer castillo APRN.LOCKSTITCH WAISTLINE JOINER - 04/08/2024 12:45 PM EDTTelephone Encounter - Griselda Gonzalez, Research Coordinator - 01/15/2024 3:44 PM EDT Note Date & Type Note Facility 04-08-2024 Note HNO ID: [id number] Author: SHARONA ERVIN Research Coordinator Service: ? Author Type: Research Type: Progress Notes Filed: 04/08/2024 16:43 Note Text: DATE:April 08, 2024 PT. NAME: Leann Greenberg [facility]#: [id number] IRB #: [id number]. PROTOCOL: [facility] Brain Study Tank Inspector: Layla Saenz MD, , Pascual Ames MD, [facility] blocker and cutter contact lens for study related questions: Katy Slater Subject continues to give consent for participation and for procedures related to study YES. Were there changes made to the informed consent since the last visit? Y. If yes, were changes reviewed and explained to subject? Y Was a new copy of the informed consent signed, placed in the chart, placed in the study file and was a copy given to the patient? Y Patient Identification was verified by asking the patient's Name and Date Of : YES Time: 13:25 Blood drawn with vacutainer and labs drawn per protocol. Butterfly removed after blood draw and secured with sterile gauze. Patient tolerated procedure well. Sharona Ervin, Research Coordinator [facility] 04-08-2024 History of Present illness Narrative DATE:April 08, 2024 PT. NAME: Leann Greenberg [facility]#: [id number] IRB #: [id number]. PROTOCOL: [facility] Brain Study Tank Inspector: Layla Saenz MD, , Pascual Ames MD, [facility] blocker and cutter contact lens for study related questions: Katy Slater Subject continues to give consent for participation and for procedures related to study YES. Were there changes made to the informed consent since the last visit? Y. If yes, were changes reviewed and explained to subject? Y Was a new copy of the informed consent signed, placed in the chart, placed in the study file and was a copy given to the patient? Y Patient Identification was verified by asking the patient's Name and Date Of : YES Time: 13:25 Blood drawn with vacutainer and labs drawn per protocol. Butterfly removed after blood draw and secured with sterile gauze. Patient tolerated procedure well. Sharona Ervin, Research Coordinator documented in this encounter [facility] 04-08-2024 History of Present illness Narrative PCP does not have one at present-see MASHA Bobby DATE: April 08, 2024 PT. NAME: Leann Greenberg CC#: [id number] IRB #: [id number]. PROTOCOL: [facility] Brain Study Tank Inspector: Layla Saenz MD, , Pascual Ames MD, [facility] blocker and cutter contact lens for study related questions: Katy Slater Is today the participant's first study visit? Yes Were there changes made to the informed consent since the last visit? Yes If yes, were changes reviewed and explained to subject? Yes Was a new copy of the informed consent signed, placed in the chart, placed in the study file and was a copy given to the patient? Yes Patient Identification was verified by asking the patients Name and Date Of : YES Subject continues to give consent for participation and for procedures related to study YES. Time:[id number] EKG/ECG was performed on patient. Patient tolerated procedure well. BP: 117/72 BP Site: right arm BP Position: sitting Cuff size: regular Pulse: 75 Resp: 18 SPO2: 99% Weight: 157.2 pounds Height: 5' 1 Result of Physical Exam Body System Eyes: Normal ,wears corrective lenses Ears, Nose, Mouth and Throat: Normal Cardiovascular: Normal Respiratory: Normal Musculoskeletal: Normal Integumentary: Normal Handedness: Right hand Results of Mental Status Assessment Mental Assessments Attention: Abnormality Present: No Memory Working Memory: Abnormality Present: No Recent (Episodic) Memory: Abnormality Present: No Remote (Semantic) Memory: Abnormality Present: No Language Spontaneous Speech: Abnormality Present: No Comprehension: Abnormality Present: No Naming: Abnormality Present: No Repetition: Abnormality Present: No Reading: Abnormality Present: No Affect: Abnormality Present: No Craninal Nerve Assessment Visual Lieberman: Normal EOM: Normal Nystagmus: Physiologic Pupils: Equal and reactive Ptosis: Absent Trigeminal: Normal CN VII: Normal CN VIII: Normal CN IX: Normal CN X: Normal CN XI: Normal CN XII: Normal Assessment of Motor and Bulk and Tones Motor Assessments Muscle bulk-global: Normal Muscle tone-global: Normal Motor Strength Assessment Shoulder flexion: Right 5 Left 5 Shoulder external rotation: Right 5 Left 5 Shoulder abduction: Right 5 Left 5 Shoulder adduction: Right 5 Left 5 Elbow flexion: Right 5 Left 5 Elbow extension: Right 5 Left 5 Wrist flexion: Right 5 Left 5 Wrist extension: Right 5 Left 5 Finger flexion/lunchroom worker: Right 5 Left 5 Flexor pollicis longus: Right 5 Left 5 Abductor pollicis brevis: Right 5 Left 5 Hip flexion: Right 5 Left 5 Hip extension: Right 5 Left 5 Hip abduction: Right 5 Left 5 Hip adduction: Right 5 Left 5 Knee flexion: Right 5 Left 5 Knee extension: Right 5 Left 5 Ankle eversion: Right 5 Left 5 Ankle inversion: Right 5 Left 5 Ankle plantar flexion: Right 5 Left 5 Ankle dorsiflexion: Right 5 Left 5 Extensor halluces longus: Right 5 Left 5 Flexor digitorum longus: Right 5 Left 5 Reflexes - MRC Grading Method Triceps: Right 1+ Left 1+ Biceps: Right 1+ Left 1+ Brachioradialis: Right 1+ Left 1+ Patellar: Right 1+ Left 1+ Achilles: Right 1+ Left 1+ Plantar: Right Downgoing Left Downgoing Weakness?: No Tremor: No Cerebellar/Coordination Assessment [id number]-rl-[id number]: Abnormality present: No, Qbck-si-Zkys: Abnormality present: No, Finger Tapping - Abnormality present: No Fist Open/Close - Abnormality present: No Pronation/Supination of the Hand - Abnormality present: No Toe Tapping - Abnormality present: Yes - Extremity: RLE Comments: dysrrhythmokinesia Heel Tapping - Abnormality present: No Gait Gait-global assessment: Abnormal (posture lean forward when walk-per participant, all members in family do this) Toe Walk: Normal Heel Walk: Normal Tandem Walk: Abnormal (Slight difficulty maintaining balance at initiation of walk) Romberg: Negative (pass) Sensory/Sensation Sensory System-globlal assessment: Normal Jennifer Degroot APRN.LOCKSTITCH WAISTLINE JOINER documented in this encounter [facility] 04-08-2024 Note HNO ID: [id number] Author: JENNIFER DEGROOT APRN.LOCKSTITCH WAISTLINE JOINER Service: ? Author Type: Nurse Practitioner Type: Progress Notes Filed: 04/08/2024 18:01 Note Text: PCP does not have one at present-see MASHA Bobby DATE: April 08, 2024 PT. NAME: Leann Greenberg [facility]#: [id number] IRB #: [id number]. PROTOCOL: [facility] Brain Study Tank Inspector: Layla Saenz MD, , Pascual Ames MD, [facility] blocker and cutter contact lens for study related questions: Katy Slater Is today the participant's first study visit? Yes Were there changes made to the informed consent since the last visit? Yes If yes, were changes reviewed and explained to subject? Yes Was a new copy of the informed consent signed, placed in the chart, placed in the study file and was a copy given to the patient? Yes Patient Identification was verified by asking the patients Name and Date Of : YES Subject continues to give consent for participation and for procedures related to study YES. Time:[id number] EKG/ECG was performed on patient. Patient tolerated procedure well. BP: 117/72 BP Site: right arm BP Position: sitting Cuff size: regular Pulse: 75 Resp: 18 SPO2: 99% Weight: 157.2 pounds Height: 5' 1 Result of Physical Exam Body System Eyes: Normal ,wears corrective lenses Ears, Nose, Mouth and Throat: Normal Cardiovascular: Normal Respiratory: Normal Musculoskeletal: Normal Integumentary: Normal Handedness: Right hand Results of Mental Status Assessment Mental Assessments Attention: Abnormality Present: No Memory Working Memory: Abnormality Present: No Recent (Episodic) Memory: Abnormality Present: No Remote (Semantic) Memory: Abnormality Present: No Language Spontaneous Speech: Abnormality Present: No Comprehension: Abnormality Present: No Naming: Abnormality Present: No Repetition: Abnormality Present: No Reading: Abnormality Present: No Affect: Abnormality Present: No Craninal Nerve Assessment Visual Lieberman: Normal EOM: Normal Nystagmus: Physiologic Pupils: Equal and reactive Ptosis: Absent Trigeminal: Normal CN VII: Normal CN VIII: Normal CN IX: Normal CN X: Normal CN XI: Normal CN XII: Normal Assessment of Motor and Bulk and Tones Motor Assessments Muscle bulk-global: Normal Muscle tone-global: Normal Motor Strength Assessment Shoulder flexion: Right 5 Left 5 Shoulder external rotation: Right 5 Left 5 Shoulder abduction: Right 5 Left 5 Shoulder adduction: Right 5 Left 5 Elbow flexion: Right 5 Left 5 Elbow extension: Right 5 Left 5 Wrist flexion: Right 5 Left 5 Wrist extension: Right 5 Left 5 Finger flexion/lunchroom worker: Right 5 Left 5 Flexor pollicis longus: Right 5 Left 5 Abductor pollicis brevis: Right 5 Left 5 Hip flexion: Right 5 Left 5 Hip extension: Right 5 Left 5 Hip abduction: Right 5 Left 5 Hip adduction: Right 5 Left 5 Knee flexion: Right 5 Left 5 Knee extension: Right 5 Left 5 Ankle eversion: Right 5 Left 5 Ankle inversion: Right 5 Left 5 Ankle plantar flexion: Right 5 Left 5 Ankle dorsiflexion: Right 5 Left 5 Extensor halluces longus: Right 5 Left 5 Flexor digitorum longus: Right 5 Left 5 Reflexes - MRC Grading Method Triceps: Right 1+ Left 1+ Biceps: Right 1+ Left 1+ Brachioradialis: Right 1+ Left 1+ Patellar: Right 1+ Left 1+ Achilles: Right 1+ Left 1+ Plantar: Right Downgoing Left Downgoing Weakness?: No Tremor: No Cerebellar/Coordination Assessment [id number]-[id number]-[id number]: Abnormality present: No, [id number]-uv-[id number]: Abnormality present: No, Finger Tapping - Abnormality present: No Fist Open/Close - Abnormality present: No Pronation/Supination of the Hand - Abnormality present: No Toe Tapping - Abnormality present: Yes - Extremity: RLE Comments: dysrrhythmokinesia Heel Tapping - Abnormality present: No Gait Gait-global assessment: Abnormal (posture lean forward when walk-per participant, all members in family do this) Toe Walk: Normal Heel Walk: Normal Tandem Walk: Abnormal (Slight difficulty maintaining balance at initiation of walk) Romberg: Negative (pass) Sensory/Sensation Sensory System-globlal assessment: Normal Jennifer Degroot APRN.LOCKSTITCH WAISTLINE JOINER [facility] 01-15-2024 Telephone encounter Note IRB [id number]. [facility] Brain Study ([facility]) Tank Inspector: Layla Saenz MD, , Pascual Ames MD, Supervisor Opening And Picking: Katy Slater and Email:[email or web address] Research Coordinator called and contacted Leann Greenberg on January 15, 2024 to reminded patient of appointment with the [facility] Brain Study, Griselda Gonzalez Research Coordinator also let pt. Know about the option to DocuSign the constant form or Sign in person. Research Coordinator gave patient Contact information for if the patient had any questions about the study and or their appointment. [facility] 01-15-2024 Miscellaneous Notes IRB [id number]. [facility] Brain Study ([facility]) Tank Inspector: Layla Saenz MD, , Pascual Ames MD, Supervisor Opening And Picking: Katy Slater and Email:[email or web address] Research Coordinator called and contacted Leann Dionicio on January 15, 2024 to reminded patient of appointment with the [facility] Brain Study, Griselda Gonzalez, Research Coordinator also let pt. Know about the option to DocuSign the constant form or Sign in person. Research Coordinator gave patient Contact information for if the patient had any questions about the study and or their appointment. documented in this encounter [facility] 11-05-2023 Miscellaneous Notes IRB [id number]. [facility] Brain Study ([facility]) Tank Inspector: Layla Saenz MD, , Pascual Ames MD, Supervisor Opening And Picking: Katy Slater and Email:[email or web address] Contacted Leann Greenberg by phone to discuss the [facility] Brain Study ([facility]): Biomarkers and Predictors of Neurological Disorders IRB [id number]. Patient is eligible and agrees to participate. Requests call back December to schedule (going to [place]). Nathalie Mckeon APRN.MEE documented in this encounter [facility] 09-25-2023 Evaluation note Encounter Date Diagnosis Assessment Notes Sep, GERD (gastroesophageal reflux disease) (ICD-10 - K21.9) Please continue PPI. Discussed the 8-week course and consistency. Discussed weaning off process and rebound gastritis. Discussed options going forward. At this time I do not feel she needs further evaluation by gastroenterology . Sep, Moderate mixed hyperlipidemia not requiring statin therapy (ICD-10 - E78.2) Discussed LDL and previous coronary artery scan. I would highly recommend patient initiate daily baby aspirin in the morning. We will defer statin therapy at this time. We will take into account the family history of cardiovascular disease. She is relatively healthy without hypertension, diabetes or significant obesity. Non-smoker. Will rescan coronary arteries in 1 to 2 years. Patient verbalizes understanding and I did make her aware of the 4.5% ASCVD risk score. Sep, Restless leg (ICD-10 - G25.81) Discussed the restless legs. Of note ferritin is normal. I encouraged her to try 1 cup of tonic water before bed nightly x 2 to 3 weeks to see if symptoms improve. Patient does not wish for further evaluation from sleep medicine office or such workup as EMG at this time. Discussed the possibility of treatment with Requip in the future if desired. Patient politely declines today. Sep, Xerostomia (ICD-10 - K11.7) Discussed the dry mouth and dry eyes. Conservative measures discussed such as eyedrops and medicated beth from dentistry. I would recommend she reach out to dentistry to discuss further. No thrush noted at this time. All labs essentially normal. I did explain to her tenting reveals some dehydration. Discussed requirements of water intake for this patient specifically. I highly recommend she start to drink 2 more bottles of water daily if possible and do this consistently for 2 to 4 weeks to see if symptoms start to improve. Sep, Dry eyes (ICD-10 - H04.123) Discussed the dry mouth and dry eyes. Conservative measures discussed such as eyedrops and medicated beth from dentistry. I would recommend she reach out to dentistry to discuss further. No thrush noted at this time. All labs essentially normal. I did explain to her tenting reveals some dehydration. Discussed requirements of water intake for this patient specifically. I highly recommend she start to drink 2 more bottles of water daily if possible and do this consistently for 2 to 4 weeks to see if symptoms start to improve. Sep, Difficulty sleeping (ICD-10 - G47.9) Discussed the sleeping difficulties. I do not necessarily feel she has overwhelming concerns from a mental health perspective. Discussed conservative measures and sleep hygiene. She is agreeable to trialing a short course of trazodone to see if she can stay asleep and have more restful sleep each night. Patient to call in 2 weeks with an update. Sep, Chronic fatigue (ICD-10 - R53.82) Has the chronic fatigue. Is not overwhelmingly fatigued in regards to insidious pathology. Patient will monitor closely. Did discuss extensive lab panel in detail today. Did discuss the possibility of sleep medicine referral for evaluation of possible sleep apnea however patient politely declines today. The offer still on the table if desired in the near future. Sep, Other *Progress note was completed with the assistance of voice recognition software for dictation purposes. Please excuse any grammatical errors that were not corrected during review process. I have spent 50 minutes with this patient and over 50% of the visit was counseling done by myself, Jasmin DIANE-Agusto. [facility] Other 01-08-2024 Evaluation note* Encounter Date Diagnosis Assessment Notes Treatment Notes Treatment Clinical Notes Sep, Gastroesophageal reflux disease without esophagitis (ICD-10 - K21.9) Given the history of acid reflux, improvement of symptoms when taking PPI, low-lying but persistent nausea daily, I would like her to reinitiate PPI x 8 weeks. Encourage consistency and explained how the medication works over time. Patient verbalizes understanding. Sep, Impetigo (ICD-10 - L01.00) I am not quite sure what to make of the dermatitis at this time. With the reports of some honey crusted appearance intermittently, and her exposure to young children, I would like to treat empirically at this time as impetigo to see if symptoms resolve. Never apply steroids to the face unless absolutely warranted and recommended by healthcare provider. Patient verbalizes understanding. Sep, Chronic fatigue (ICD-10 - R53.82) Based on her widespread reported symptoms, we did discuss labs would be appropriate to draw at this time for initial evaluation. Will follow-up once these labs are resulted. Sep, Xerostomia (ICD-10 - K11.7) Based on her widespread reported symptoms, we did discuss labs would be appropriate to draw at this time for initial evaluation. Will follow-up once these labs are resulted. Sep, Dry skin (ICD-10 - L85.3) Based on her widespread reported symptoms, we did discuss labs would be appropriate to draw at this time for initial evaluation. Will follow-up once these labs are resulted. Sep, Restless leg (ICD-10 - G25.81) Based on her widespread reported symptoms, we did discuss labs would be appropriate to draw at this time for initial evaluation. Will follow-up once these labs are resulted. Sep, Paresthesias (ICD-10 - R20.2) Based on her widespread reported symptoms, we did discuss labs would be appropriate to draw at this time for initial evaluation. Will follow-up once these labs are resulted. Sep, Screening for cardiovascular condition (ICD-10 - Z13.6) Based on her widespread reported symptoms, we did discuss labs would be appropriate to draw at this time for initial evaluation. Will follow-up once these labs are resulted. Sep, Other *Progress note was completed with the assistance of voice recognition software for dictation purposes. Please excuse any grammatical errors that were not corrected during review process. [facility] Other Evaluation noteNo assessment information available [facility] Work Phone: Evaluation noteNo InformationNort BemDireto Other Evaluation note* Diagnosis Examination of participant in clinical trial- Primary [facility] - [facility]orted* Type Description Date Medical History GERD (gastroesophageal reflux di sease) Medical History Osteoarthritis of left knee, uns pecified osteoarthritis type Medical History History of meniscal tear Medical History Mixed irritable bowel syndrome Medical History Depressive episode Medical History Other chronic pain Medical History Chronic fatigue Medical History Varicose veins of rosemarie th lower extremities, unspecified whether complicated Medical History Moderate mixed hyperlipidemia no t requiring statin therapy Medical History Right knee pain Medical History Neuropathy of both feet Surgical History Left knee surgery - torn menisc us repair 2010 Surgical History Cholecystectomy 2019 Surgical History Right knee surgery - torn menis cus repair 2020 [facility] Other Hismiif general Narrative - Reported* Type Description Date Medical History GERD (gastroesophageal reflux di sease) Medical History Osteoarthritis of left knee, uns pecified osteoarthritis type Medical History History of meniscal tear Medical History Mixed irritable bowel syndrome Medical History Depressive episode Medical History Other chronic pain Medical History Chronic fatigue Medical History Varicose veins of rosemarie th lower extremities, unspecified whether complicated Medical History Moderate mixed hyperlipidemia no t requiring statin therapy Medical History Right knee pain Medical History Neuropathy of both feet Medical History Xerostomia Medical History Restless leg Medical History Paresthesias Medical History Dry skin Medical History Impetigo Surgical History Left knee surgery - torn menisc us repair 2010 Surgical History Cholecystectomy 2019 Surgical History Right knee surgery - torn menis cus repair 2020 [facility] Other Summary Purpose Family History No Family History Records FoundNo Family History Records FoundNo Family History Records FoundNo Family History Records FoundNo Family History Records Found Advance Directives No Advanced Directives Records Found Advance Directive Response Recorded Date/ Time Advance Directives No January 12 12:06pm Chief Complaint and Reason for Visit Chief Complaint r53.82 Chief Complaint r53.82 Lab Redraw Additional Source Comments INFORMATION SOURCE (unrecogn ized section and content) DATE [facility]ATED [facility] DATE CREATED AUTHOR AUTHOR'S ORGANIZ ATION 03/11/2021 [facility] DATE CREATED AUTHOR AUTHOR'S ORGANIZ ATION 09/30/2023 [facility] EPIC DATE CREATED AUTHOR AUTHOR'S ORGANIZ ATION 11/21/2023 [facility] DATE CREATED AUTHOR AUTHOR'S ORGANIZ ATION 04/10/2024 [facility] REASON FOR VISIT (unrecogniz ed section and content) Reason Comments Patient Update Reason Comments Appointment IRB 21 834 Reason Comments Research IRB [id number] Reason Comments Informed Consent IRB [id number] Care Teams (unrecognized sec tion and content) Team Status: Active Member Role Status Dates Jasmin Bobby APRN Primary Care Provider Active Team Status: Inactive Member Role Status Dates Jasmin Bobby APRN Primary Care Provider, Attend [facility] Provider Active Tack Cutter Relationship Specialty Start Date End Date Chicho Kauffman DO [address] [place] [id number] Referring Family Medicine 08/18/20 Tack Cutter Relationship Specialty Start Date End Date Chicho Kauffman DO [address] [place] [id number] Referring Family Medicine 08/18/20 Tack Cutter Relationship Specialty Start Date End Date Jasmin Bobby CNP [address] [place] [id number] PCP - General Family Medicine 04/08/24 Chicho Kauffman DO [address] [place] [address] Referring Family Medicine 08/18/20 Tack Cutter Relationship Specialty Start Date End Date Jasmin Bobby CNP [address] [place] [id number] PCP - General Family Medicine 04/08/24 Chicho Kauffman DO [address] [place] [address] Referring Family Medicine 08/18/20 Goals (unrecognized section and content) Goals may be documented in a n alternate section Source Comments (unrecognize d section and content) In the event this informatio n is protected by the Federal Confidentiality of Alcohol and Drug Abuse Patient Records regulations: The Federal rules restrict any use of the information to criminally investigate or prosecute any alcohol or drug abuse patient.[facility] the event this information is protected by the Federal Confidentiality of Alcohol and Drug Abuse Patient Records regulations: The Federal rules restrict any use of the information to criminally investigate or prosecute any alcohol or drug abuse patient.[facility] the event this information is protected by the Federal Confidentiality of Alcohol and Drug Abuse Patient Records regulations: The Federal rules restrict any use of the information to criminally investigate or prosecute any alcohol or drug abuse patient.[facility] Center[facility] the event this information is protected by the Federal Confidentiality of Alcohol and Drug Abuse Patient Records regulations: The Federal rules restrict any use of the information to criminally investigate or prosecute any alcohol or drug abuse patient.[facility] the event this information is protected by the Federal Confidentiality of Alcohol and Drug Abuse Patient Records regulations: The Federal rules restrict any use of the information to criminally investigate or prosecute any alcohol or drug abuse patient.[facility] FOR RECORDS PERTAINING TO PATIENTS WHO ARE OR HAVE BEEN ENROLLED IN A CHEMICAL DEPENDENCY/SUBSTANCEABUSE PROGRAM, SOME INFORMATION MAY BE OMITTED. This clinical summary was aggregated from multiple sources. Caution should be exercised in using it in the provision of clinical care. This summary normalizes information from multiple sources, and as a consequence, information in this document may materially change the coding, format and clinical context of patient data. In addition, data may be omitted in some cases. CLINICAL DECISIONS SHOULD BE BASED ON THE PRIMARY CLINICAL RECORDS. [facility], [facility]. provides no warranty or guarantee of the accuracy or completeness of information in this document.
== END 2024-05-13 12:05 | disposition home or self-care (01) ==
LOC: VC 10:59
PROVIDERS: PCP Radiology Diagnostic Radiology; Visit Provider Radiology Diagnostic Radiology
DX: I83.813 Varicose veins of bilateral lower extremities with pain (principal)
CPT/HCPCS: 36466

== ENCOUNTER 2024-05-20 11:22 | Outpatient (OUT) | payer BC, SELFPAY ==
--- NOTE | 2024-05-17 13:36 | VEINCLINIC_ITS ---
Vital Signs 05/20/24 11:49 Height 5 ft 2 in Weight 68 kg BMI 27.4 Varicose Veins Patient in today for follow up ultrasound of right lower extremity following treatment of Varithena/microfoam completed on 05/13/24. Haresh Yates MD personally performed the services described in this documentation, as scribed by Edel Sotelo RDMS in my presence and it is both accurate and complete. I, Edel Sotelo RDMS, am scribing for, and in the presence of, Dr. Haresh King and in the presence of the patient. thigh: bilateral (bilateral symptoms), knee: bilateral, calf: bilateral, ankle: bilateral and oyusif: bilateral aching, cramping, intermittent and tender 4 36 years Worsened in recent months: Yes standing analgesics, elevating extremities, compression stockings and exercise Reports muscle spasms of leg, fatigue, heaviness, limb pain, edema and leg edema History of lower extremity trauma: No Superficial thrombophlebitis: No Family history of varicose veins: yes (Patient's grandmother) Has patient had previous lower extremity venous surgery: Yes Patient has previously received the following treatment(s) for lower extremity varicose veins: Reports vein ablation, sclerotherapy and foam therapy Does patient have a history of : yes Does patient intend to have future pregnancies: no Has patient had lower extremity venous scan with relux testing: Yes Support hose used: Yes Problems walking or doing physical activity: Yes How does it affect you: often has to stop exercise rest and elevate legs due to pain Do you walk much: Yes Do you stand much: Yes Review of Systems ROS Narrative Haresh Yates MD personally performed the services described in this documentation, as scribed by Edel Sotelo RDMS in my presence and it is both accurate and complete. I, Edel Sotelo RDMS, am scribing for, and in the presence of, Dr. Haresh King and in the presence of the patient. Status of ROS 10 or more systems reviewed and unremark able except as noted in history and below Cardiovascular Reports: edema Integumentary/Breast Reports: itching and changes in skin color Neurological Reports: weakness in extremities [facility] Medical History (Updated 05/17/24 @ 13:37 by Edel Sotelo) Phlebitis and thrombophlebitis of superficial vessels of right lower extremity ?I80.01 - Phlebitis and thrombophlebitis of superficial vessels of right lower extremity (ICD-10) Varicose veins of bilateral lower extremities with pain ?I83.813 - Varicose veins of bilateral lower extremities with pain (ICD-10) Surgical History (Updated 05/13/24 @ 12:49 by Sergo Ríos) H/O medial meniscus repair of left knee ?Z98.890 - Other specified postprocedural states (ICD-10) H/O lateral meniscus repair of right knee ?Z98.890 - Other specified postprocedural states (ICD-10) Hx laparoscopic cholecystectomy ?Z90.49 - Acquired absence of other specified parts of digestive tract (ICD- 10) Family History (Updated 05/13/24 @ 12:50 by Sergo Ríos) Other Heart disease Parkinson disease Varicose veins of bilateral lower extremities with pain Social History (Updated 05/13/24 @ 12:49 by Sergo Ríos) Within the past year, how often did you have a drink containing alcohol: 2-4 times a month Smoking status: Never smoker Non-prescribed substance use: denies use Meds Home Medications and Allergies Home Medications ?Medication ?Instructions ?Recorded ?Confirmed ?Type No Known Home Medications 05/13/24 05/13/24 History Allergies Allergy/AdvReac Type Severity Reaction Status Date / Time No Known Drug Allergies Allergy Verified 05/13/24 12:03 Exam Narrative Exam Narrative: Haresh Yates MD personally performed the services described in this documentation, as scribed by Edel Sotelo RDMS in my presence and it is both accurate and complete. Edel Yates RDMS, am scribing for, and in the presence of, Dr. Haresh King and in the presence of the patient. Constitutional Documenting provider has reviewed patient's vital signs: yes Common normals: oriented x3 Cardio Peripheral pulses: posterior tibial pulses present and dorsalis pedis pulses present Extremity Common normals: normal capillary refill General: edema Right lower extremity: lower leg Right lower leg: inspection and palpation Left lower extremity: lower leg Left lower leg: inspection and palpation Neuro Common normals: oriented x3 Results Imaging Venous US: Radiologist's impression: Chemically induced thrombus in multiple varicose veins right lower leg. Haresh Yates MD personally performed the services described in this documentation, as scribed by Edel Sotelo RDMS in my presence and it is both accurate and complete. I, Edel Sotelo RDMS, am scribing for, and in the presence of, Dr. Haresh King and in the presence of the patient. Assessment and Plan Assessment and Plan (1) Phlebitis and thrombophlebitis of superficial vessels of right lower extremity: Plan Plan is for patient to return for Varithena/microfoam of left leg on 06/03/24. I, Haresh King MD personally performed the services described in this documentation, as scribed by Edel Sotelo RDMS in my presence and it is both accurate and complete. I, Edel Sotelo RDMS, am scribing for, and in the presence of, Dr. Haresh King and in the presence of the patient.
--- NOTE | 2024-05-20 11:25 | VEIN_ITS ---
Patient Name: JS JETT MR#: [id number] : 1955 Exam Date: 05/20/2024 Ordering Doctor: DR HARESH KING M.D. RADIOLOGY REPORT PROCEDURE: VC EXT VENOUS RT LMTD COMPARISON: None. INDICATIONS: I80.01 - Phlebitis and thrombophlebitis of superficial veins right leg TECHNIQUE: Lower extremity johnson scale and Duplex Doppler evaluation of the deep venous system from the inguinal ligament through the calf veins. FINDINGS: REGION: Right lower extremity. THROMBI: Negative for DVT. Chemically induced thrombus in multiple varicose veins in right lower leg. COMPRESSIBILITY: Non-compressible segments corresponding to thrombus FLOW: Areas of no flow corresponding to thrombus OTHER: Patent varicose vein distal medial thigh measures 5.1 mm. CONCLUSION: Post ablation occlusion of treated right leg varicose veins. Residual incompetent varicose vein measuring 5.1 mm Dictated by: Haresh King MD on 05/20/2024 at 12:05 Approved by: Haresh King MD on 05/20/2024 at 12:06
--- NOTE | 2024-05-20 11:25 | VEIN_ITS ---
Patient Name: JS JETT MR#: [id number] : 1955 Exam Date: 05/20/2024 Ordering Doctor: DR HARESH KING M.D. RADIOLOGY REPORT PROCEDURE: FACILITY EST [facility] - OFFICE VISIT FOLLOW UP COMPARISON: None. PROGRESS NOTES: The patient reports no significant problems of following micro foam chemical ablation incompetent right leg varicose veins for the patient did not require oral analgesics. The patient has tried exercise and has worn compression stocking. Patient did have concern that the left leg was asymmetrically enlarged to the right, physical exam demonstrated the legs to be symmetric in size. Physical exam demonstrates multiple thrombosed right leg varicose veins. No erythema or warmth to suggest cellulitis or thrombophlebitis. No active ulceration. Review of the ultrasound performed the same day demonstrates occlusive thrombus extending throughout the treated right leg varicose veins. No deep vein thrombus. Residual incompetent varicose vein measuring 5.1 mm in diameter. The patient expressed a desire to proceed with treatment of incompetent left leg varicose veins. VEIN/ Facility EST TD IMPRESSION: 1. Successful ablation of treated incompetent right leg varicose veins 2. Persistent bilateral incompetent varicose veins. PLAN: Micro foam chemical ablation left leg incompetent varicose veins Nurse notes, history and physical were reviewed and confirmed, see attached forms. The nurse was present throughout the physical exam and consultation Dictated by: Haresh King MD on 05/20/2024 at 12:06 Approved by: Haresh King MD on 05/20/2024 at 12:15
--- OUTSIDE RECORDS SUMMARY | 2024-05-20 11:38 | XMS_ITS | CCD ---
Author Organization [facility] Care Team Providers [employer] Executive Name Role Phone SAIDA BENSON Admitting Unavailable SAIDA BENSON Attending Unavailable SAIDA BENSON Referring Unavailable Jasmin Bobby Unavailable TUTU Bobby Primary Care Provider TUTU Bobby Attending Provider SAMI ADAMS Attending Unavailable Chicho Kauffman DO Unavailable [phone] Jasmin Bobby Attending Unavailable Jasmin Bobby Admitting Unavailable Jasmin Bobby Primary Care Unavailable Jasmin Bobby Attending Unavailable Jasmin Bobby Admitting Unavailable Jasmin Bobby Primary Care Unavailable Jasmin Bobby CNP Primary Care Provider [phone] JENNIFER DEGROOT Attending Unavailable Medications Current Medications [...] Translations: [Impetigo, unspecified] Episodic Unclassified (2 sources) 84959/G0121 - Epigastric pain, screening; Translations: [28815/G0121 - Epigastric pain, screening] Onset: 9 Unclassified (1 source) Chronic fatigue, unspecified; Translations: [Chronic fatigue, unspecified] Onset: 4 Varicose veins of lower extremity (3 sources) Varicose veins of lower extremity; Translations: [Asymptomatic varicose veins of bilateral lower extremities] Episodic Results Test Name Value Interpretation Reference Range Facility [facility] 04-08-2024 CNOV Office Visit (NEUBS ) LEANN GREENBERG ([id number]) 1955 F Date Time Provider Department 04/08/24 12:45 PM JENNIEFR DEGROOT During your visit today, we recorded the following information about you: Jennifer Degroot, PLANER MILL GRADER.AUTO PAINTER HELPER 04/08/2024 6:01 PM Addendum PCP does not have one at present-see MASHA Bobby DATE: April 08, 2024 PT. NAME: Leann Greenberg CCF#: [id number] IRB #: [id number] A. PROTOCOL: [facility] Brain Study Cloth Finishing Range Back Tender: Layla Saenz MD, , Pascual Ames MD, CCF salesperson pianos and organs for study related questions: Katy Slater Is [...] and for procedures related to study YES. Time:[id number] EKG/ECG was performed on patient. Patient tolerated [...] Wrist extension: Right 5 Left 5 Finger flexion/gelatin maker utility: Right 5 Left 5 Flexor pollicis longus: [...] Downgoing Weakness?: No Tremor: No Cerebellar/Coordination Assessment Jqeqhg-[id number]-[id number]: Abnormality present: No, Zimw-zw-Hlxg: Abnormality present: No, Finger Tapping - Abnormality [...] Sensory/Sensation Sensory System-globlal assessment: Normal Jennifer Degroot APRN.AUTO PAINTER HELPER Allergies As of Date: 04/08/2024 (Not on File) Date Reviewed: Never Reviewed Primary Visit Diagnosis:Examination of participant in clinical trial [Z00.6] Problem List As Of Date: 04/08/2024 (None) Disposition: Return in about 1 year (around 04/08/2025). Follow-up and Disposition History for Encounter Date Provider Department Center 04/08/2024 [id number] [facility] Encounter Status:Closed by JENNIFER DEGROOT on (more content not included)... [facility] ([id number]) 1955 F Date Time Provider Department 04/01/24 LIANA JACOBO During your visit today, we recorded the following information about you: Allergies As of Date: 04/01/2024 (Not on File) Date Reviewed: Never Reviewed Reason for Visit: Research [293] Cmt: IRB [id number] Problem List As Of Date: 04/01/2024 (None) Encounter Status:Closed by LIANA JACOBO on 04/02/24 [facility] 01-15-2024 CNPN Telephone (Xactium) LEANN GREENBERG ([id number]) 1955 F Date Time Provider Department 01/15/24 GRISELDA GONZALEZ During your visit today, we recorded the following information about you: Griselda Gonzalez, Research Coordinator 01/15/2024 3:44 PM Signed IRB [id number]. [facility] Brain Study (CCBS) Cloth Finishing Range Back Tender: Layla Saenz MD, , Pascual Ames MD, Supervisor [employer]: Katy Slater and Email:[email or web address] Research Coordinator called and contacted Leann Greenberg on January 15, 2024 to reminded patient of appointment with the [facility] Brain Study, Griselda Gonzalez, Research Coordinator also [...] Status:Closed by GRISELDA GONZALEZ on 01/15/24 Normal [facility] 11-05-2023 CNPN Telephone (NEUBSM) LEANN GREENBERG ([id number]) 1955 F Date Time Provider Department 11/05/23 NATHALIE MCKEON During your visit today, we recorded the following information about you: Nathalie Mckeon APRN.[facility] 11/05/2023 12:12 PM Signed IRB [id number]. [facility] Brain Study (CCBS) Cloth Finishing Range Back Tender: Layla Saenz MD, , Pascual Ames MD, Supervisor [employer]: Katy Slater and Email: Contacted Leann Greenberg by phone to discuss the [facility] Brain Study (BS): Biomarkers and Predictors of Neurological Disorders IRB [id number]. Patient is eligible and agrees to participate. Requests call back December to schedule (going to [place]). Nathalie Mckeon APRN.AUTO PAINTER HELPER Allergies As of Date: 11/05/2023 (Not on File) Date Reviewed: Never Reviewed Reason for Visit: Patient Update [1234] Problem List As Of Date: 11/05/2023 (None) Encounter Status:Closed by NATHALIE MCKEON on 11/05/23 Normal [facility] Basophils Auto (Bld) [#/Vol] Ordered By: Jasmin Bobby on 09-19-2023 Basophils (Bld) [#/Vol] 0.0 10*3/uL 0.0-0.2 [facility] Basophils/100 WBC Auto (Bld) Ordered By: Jasmin Bobby on 09-19-2023 Basophils/100 WBC (Bld) 0.6 % . F [facility] Complete Blood Count Auto Di ffon 09-19-2023 Basophils (Bld) [#/Vol] 0.0 10*3/uL Normal 0.0-0.2 [facility] Comment on above: Result Comment: PERF ORMED BY: [place] [address] PATHOLOGIST VP [employer] TEODORA RAPHAEL M.D. Performed By: #### F E and TIBC, CRP, LIPID, MG, TSH3 wRFLX, B12, CMP, BALAJI, ESR #### [facility] [address] [place] [address] #### SJOGRENS, MENDEZ CHOICE, RA #### [facility] , Basophils/100 WBC (Bld) 0.6 % Normal . [facility] Comment on above: Performed By: #### F E and TIBC, CRP, LIPID, MG, TSH3 wRFLX, B12, CMP, BALAJI, ESR #### [facility] [address] [place] [address] [place] #### SJOGRENS, MENDEZ CHOICE, RA #### [facility] , Eosinophils (Bld) [#/Vol] 0.0 10*3/uL Normal 0.0-0.45 [facility] Comment on above: Performed By: #### F E and TIBC, CRP, LIPID, MG, TSH3 wRFLX, B12, CMP, BALAJI, ESR #### [place] [address] [place] #### SJOGRENS, MENDEZ CHOICE, RA #### [facility] , Eosinophils/100 WBC (Bld) 1.0 % Normal . [facility] Comment on above: Performed By: #### F E and TIBC, CRP, LIPID, MG, TSH3 wRFLX, B12, CMP, BALAJI, ESR #### [address] #### SJOGRENS, MENDEZ CHOICE, RA #### [facility] , Erythrocyte distribution width (RBC) [Ratio] 13.6 % Normal 11.9-15.3 [facility] Comment on above: Performed By: #### F E and TIBC, CRP, LIPID, MG, TSH3 wRFLX, B12, CMP, BALAJI, ESR #### [address] #### SJOGRENS, MENDEZ CHOICE, RA #### [facility] , Hematocrit (Bld) [Volume fraction] 38.3 % Normal 34.0-46.4 [facility] Comment on above: Performed By: #### F E and TIBC, CRP, LIPID, MG, TSH3 wRFLX, B12, CMP, BALAJI, ESR #### [place] [address] [place] #### SJOGRENS, MENDEZ CHOICE, RA #### [facility] , Hemoglobin (Bld) [Mass/Vol] 12.9 g/dL Normal 11.8-15.4 [facility] Comment on above: Performed By: #### F E and TIBC, CRP, LIPID, MG, TSH3 wRFLX, B12, CMP, BALAJI, ESR #### [place] [address] [place] #### SJOGRENS, MENDEZ CHOICE, RA #### [facility] , Lymphocytes (Bld) [#/Vol] 1.3 10*3/uL Normal 1.00-4.8 [facility] Comment on above: Performed By: #### F E and TIBC, CRP, LIPID, MG, TSH3 wRFLX, B12, CMP, BALAJI, ESR #### [address] #### SJOGRENS, MENDEZ CHOICE, RA #### [facility] , Lymphocytes/100 WBC (Bld) 39.6 % Normal . [facility] Comment on above: Performed By: #### F E and TIBC, CRP, LIPID, MG, TSH3 wRFLX, B12, CMP, BALAJI, ESR #### [address] #### SJOGRENS, MENDEZ CHOICE, RA #### [facility] , MCH (RBC) [Entitic mass] 30.9 pg Normal 24.7-34.3 [facility] Comment on above: Performed By: #### F E and TIBC, CRP, LIPID, MG, TSH3 wRFLX, B12, CMP, BALAJI, ESR #### [place] [address] [place] #### SJOGRENS, MENDEZ CHOICE, RA #### [facility] , MCV (RBC) [Entitic vol] 91.6 fL Normal 80-100 [facility] Comment on above: Performed By: #### F E and TIBC, CRP, LIPID, MG, TSH3 wRFLX, B12, CMP, BALAJI, ESR #### [address] #### SJOGRENS, MENDEZ CHOICE, RA #### [facility] , Mean Corpuscular HGB Conc 33.7 g/dL Normal 32.0-35.0 [facility] Comment on above: Performed By: #### F E and TIBC, CRP, LIPID, MG, TSH3 wRFLX, B12, CMP, BALAJI, ESR #### [address] #### SJOGRENS, MENDEZ CHOICE, RA #### [facility] , Monocytes (Bld) [#/Vol] 0.2 10*3/uL Normal 0.0-0.8 [facility] Comment on above: Performed By: #### F E and TIBC, CRP, LIPID, MG, TSH3 wRFLX, B12, CMP, BALAJI, ESR #### [address] #### SJOGRENS, MENDEZ CHOICE, RA #### [facility] , Monocytes/100 WBC (Bld) 5.7 % Normal . [facility] Comment on above: Performed By: #### F E and TIBC, CRP, LIPID, MG, TSH3 wRFLX, B12, CMP, BALAJI, ESR #### [facility] [address] [place] [address] #### SJOGRENS, MENDEZ CHOICE, RA #### [facility] , Neutrophils (Bld) [#/Vol] 1.7 10*3/uL Low 1.8-7.7 [facility] Comment on above: Performed By: #### F E and TIBC, CRP, LIPID, MG, TSH3 wRFLX, B12, CMP, BALAIJ, ESR #### [place] [address] [place] #### SJOGRENS, MENDEZ CHOICE, RA #### [facility] , Neutrophils/100 WBC (Bld) 53.1 % Normal . [facility] Comment on above: Performed By: #### F E and TIBC, CRP, LIPID, MG, TSH3 wRFLX, B12, CMP, BALAJI, ESR #### [address] #### SJOGRENS, MENDEZ CHOICE, RA #### [facility] , NRBC% 0.1 /100{WBC} Normal 0-0.5 [facility] Comment on above: Performed By: #### F E and TIBC, CRP, LIPID, MG, TSH3 wRFLX, B12, CMP, BALAJI, ESR #### [address] #### SJOGRENS, MENDEZ CHOICE, RA #### [facility] , Platelet mean volume (Bld) [Entitic vol] 8.4 fL Normal 6.3-10.7 [facility] Comment on above: Performed By: #### F E and TIBC, CRP, LIPID, MG, TSH3 wRFLX, B12, CMP, BALAJI, ESR #### [address] #### SJOGRENS, MENDEZ CHOICE, RA #### [facility] , Platelets (Bld) [#/Vol] 155 10*3/uL Normal 150-450 [facility] Comment on above: Performed By: #### F E and TIBC, CRP, LIPID, MG, TSH3 wRFLX, B12, CMP, BALAJI, ESR #### [address] #### SJOGRENS, MENDEZ CHOICE, RA #### [facility] , RBC (Bld) [#/Vol] 4.18 10*6/uL Normal 3.60-5.00 [facility] Comment on above: Performed By: #### F E and TIBC, CRP, LIPID, MG, TSH3 wRFLX, B12, CMP, BALAJI, ESR #### [place] [address] [place] #### SJOGRENS, MENDEZ CHOICE, RA #### [facility] , WBC (Bld) [#/Vol] 3.2 10*3/uL Low 3.8-11.6 [facility] Comment on above: Performed By: #### F E and TIBC, CRP, LIPID, MG, TSH3 wRFLX, B12, CMP, BALAJI, ESR #### [facility] [address] #### SJOGRENS, MENDEZ CHOICE, RA #### [facility] , Eosinophils Auto (Bld) [#/Vo l]Ordered By: [place]asmin [place] on 09-19-2023 Eosinophils (Bld) [#/Vol] 0.0 10*3/uL 0.0-0.45 [facility] Eosinophils/100 WBC Auto (Bl d)Ordered By: [facility] on 09-19-2023 Eosinophils/100 WBC (Bld) 1.0 % . [facility] Erythrocyte distribution wid th Auto (RBC) [Ratio]Ordered By: [facility] on 09-19-2023 Erythrocyte distribution width (RBC) [Ratio] 13.6 % 11.9-15.3 [facility] Hematocrit Auto (Bld) [Volum e fraction]Ordered By: [facility] on 09-19-2023 Hematocrit (Bld) [Volume fraction] 38.3 % 34.0-46.4 [facility] Hemoglobin [Mass/volume] in BloodOrdered By: Jasmin [facility] on 09-19-2023 Hemoglobin (Bld) [Mass/Vol] 12.9 g/dL 11.8-15.4 [facility] Leukocytes [#/volume] correc santos for nucleated erythrocytes in Blood by Automated counOrdered By: [facility]23 WBC corrected for nucl RBC Auto (Bld) [#/Vol] 3.2 10*3/uL 3.8-11.6 [facility] Lymphocytes Auto (Bld) [#/Vo l]Ordered By: Jasmin [facility] on 09-19-2023 Lymphocytes (Bld) [#/Vol] 1.3 10*3/uL 1.00-4.8 [facility] Lymphocytes/100 WBC Auto (Bl d)Ordered By: Jasmin [facility] on 09-19-2023 Lymphocytes/100 WBC (Bld) 39.6 % . [facility] MCH Auto (RBC) [Entitic mass ]Ordered By: Jasmin Bobby on 09-19-2023 MCH (RBC) [Entitic mass] 30.9 pg 24.7-34.3 [facility] MCHC Auto (RBC) [Mass/Vol]Or dered By: Jasmin Bobby on 09-19-2023 MCHC (RBC) [Mass/Vol] 33.7 g/dL 32.0-35.0 [facility] MCV Auto (RBC) [Entitic vol] Ordered By: Jasmin Bobby on 09-19-2023 MCV (RBC) [Entitic vol] 91.6 fL 80-100 [facility] Monocytes Auto (Bld) [#/Vol] Ordered By: Jasmin Bobby on 09-19-2023 Monocytes (Bld) [#/Vol] 0.2 10*3/uL 0.0-0.8 [facility] Monocytes/100 WBC Auto (Bld) Ordered By: Jasmin Bobby on 09-19-2023 Monocytes/100 WBC (Bld) 5.7 % . F [facility] Neutrophils Auto (Bld) [#/Vo l]Ordered By: Jasmin Bobby on 09-19-2023 Neutrophils (Bld) [#/Vol] 1.7 10*3/uL 1.8-7.7 [facility] Neutrophils/100 WBC Auto (Bl d)Ordered By: Jasmin Bobby on 09-19-2023 Neutrophils/100 WBC (Bld) 53.1 % . [facility] Nucleated erythrocytes [Pres ence] in Blood by Automated countOrdered By: Jasmin Bobby on 09-19-2023 Nucleated RBC Auto Ql (Bld) 0.1 /100{WBC} 0-0.5 [facility] Platelet mean volume Auto (B ld) [Entitic vol]Ordered By: Jasmin Bobby on 09-19-2023 Platelet mean volume (Bld) [Entitic vol] 8.4 fL 6.3-10.7 [facility] Platelets Auto (Bld) [#/Vol] Ordered By: Jasmin Bobby on 09-19-2023 Platelets (Bld) [#/Vol] 155 10*3/uL 150-450 [facility] RBC Auto (Bld) [#/Vol]Ordere d By: Jasmin Bobby on 09-19-2023 RBC (Bld) [#/Vol] 4.18 10*6/uL 3.60-5.00 [facility] WBC Auto (Bld) [#/Vol]Ordere d By: Jasmin Bobby on 09-19-2023 WBC (Bld) [#/Vol] 3.2 10*3/uL 3.8-11.6 [facility] MENDEZ with Reflexon 09-18-2023 MENDEZ with Reflex Negative Normal Negative [facility] Comment on above: Order Comment: Reaso n for Exam Chronic fatigue Reason for Exam Chronic fatigue;Restless leg;Paresthesias Reason for Exam Restless leg Reason for Exam Chronic fatigue;Xerostomia;Dry skin Reason for Exam Screening for cardiovascular condition Reason for Exam Paresthesias Reason for Exam Chronic fatigue;Dry skin Result Comment: Perf ormed at: CB - [facility] [address] [id number] [employer] Lead Worker: Alphonse Harris PhD, Phone: [phone] Performed By: #### F E and TIBC, CRP, LIPID, MG, TSH3 wRFLX, B12, CMP, BALAJI, ESR #### [facility] [address] [place] [address] #### SJOGRENS, MENDEZ CHOICE, RA #### [facility] , Alanine aminotransferase [En zymatic activity/volume] in Serum or PlasmaOrdered By: Jasmin Bobby on 09-18-2023 ALT [Catalytic activity/Vol] 11 U/L 7-52 [facility] Albumin [Mass/volume] in Ser um or Plasma by Bromocresol green (BCG) dye binding methoOrdered By: Jasmin Bobby on 09-18-2023 Albumin BCG dye [Mass/Vol] 4.2 g/dL 3.5-5.7 [facility] Alkaline phosphatase [Enzyma tic activity/volume] in Serum or PlasmaOrdered By: Jasmin Bobby on 09-18-2023 ALP [Catalytic activity/Vol] 69 U/L 34-104 [facility] Aspartate aminotransferase [ Enzymatic activity/volume] in Serum or PlasmaOrdered By: Jasmin Bobby on 09-18-2023 AST [Catalytic activity/Vol] 17 U/L 13-39 [facility] Bilirubin.total [Mass/volume ] in Serum or PlasmaOrdered By: Jasmin Bobby on 09-18-2023 Bilirubin [Mass/Vol] 0.6 mg/dL 0.3-1.0 [facility] C reactive protein [Mass/vol ume] in Serum or PlasmaOrdered By: Jasmin Bobby on 09-18-2023 CRP [Mass/Vol] < 0.5 mg/dL 0.0-0.5 [facility] C-Reactive Proteinon 024 CRP [Mass/Vol] mg/L Normal 0.0-0.5 [facility] Comment on above: Order Comment: Reaso n for Exam Chronic fatigue Reason for Exam Chronic fatigue;Restless leg;Paresthesias Reason for Exam Restless leg Reason for Exam Chronic fatigue;Xerostomia;Dry skin Reason for Exam Screening for cardiovascular condition Reason for Exam Paresthesias Reason for Exam Chronic fatigue;Dry skin Performed By: #### F E and TIBC, CRP, LIPID, MG, TSH3 wRFLX, B12, CMP, BALAJI, ESR #### [facility] [address] [place] [address] #### SJOGRENS, MENDEZ CHOICE, RA #### [facility] , Calcium [Mass/volume] in Ser um or PlasmaOrdered By: Jasmin Bobby on 09-18-2023 Calcium [Mass/Vol] 9.3 mg/dL 8.6-10.3 [facility] Carbon dioxide, total [Moles /volume] in Serum or PlasmaOrdered By: Jasmin Bobby on 09-18-2023 CO2 [Moles/Vol] 30.1 mmol/L 21.0-31.0 [facility] Chloride [Moles/volume] in S wolf or PlasmaOrdered By: Jasmin Bobby on 09-18-2023 Chloride [Moles/Vol] 105 mmol/L 98-107 [facility] Cholesterol [Mass/volume] in Serum or PlasmaOrdered By: Jasmin Bobby on 09-18-2023 Cholesterol [Mass/Vol] 293 mg/dL 140-200 [facility] Comment on above: Chol less than 200 m g/dl low riskChol 201-239 mg/dl borderline riskChol 240 mg/dl and greater high risk Cholesterol in LDL Calc [Mas s/Vol]Ordered By: Jasmin Bobby on 09-18-2023 Cholesterol in LDL [Mass/Vol] 205 mg/dL 0-100 [facility] Comment on above: LDL ATP III CLASSIFI CATIONLDL less than 100 mg/dL OptimalLDL 100-129 mg/dL Near or above optimalLDL 130-159 mg/dL Borderline highLDL 160-189 mg/dL HighLDL greater than 189 mg/dL Very high Cholesterol in VLDL Calc [Ma ss/Vol]Ordered By: Jasmin Bobby on 09-18-2023 Cholesterol in VLDL [Mass/Vol] 15 mg/dL [facility] Comprehensive Metabolic Pane manolo 09-18-2023 Albumin [Mass/Vol] [...] TSH3 wRFLX, B12, CMP, BALAJI, ESR #### [facility] [address] #### SJOGRENS, MENDEZ CHOICE, RA #### [facility] , Albumin/Globulin [Mass ratio] 1.6 {ratio} Normal [facility] Comment on above: Order Comment: Reaso n for Exam Chronic fatigue Reason for Exam Chronic fatigue;Restless leg;Paresthesias Reason for Exam Restless leg Reason for Exam Chronic fatigue;Xerostomia;Dry skin Reason for Exam Screening for cardiovascular condition Reason for Exam Paresthesias Reason for Exam Chronic fatigue;Dry skin Performed By: #### F E and TIBC, CRP, LIPID, MG, TSH3 wRFLX, B12, CMP, BALAJI, ESR #### [facility] [address] #### SJOGRENS, MENDEZ CHOICE, RA #### [facility] , ALP [Catalytic activity/Vol] 69 U/L Normal 34-104 [facility] Comment on above: Order Comment: Reaso n for Exam Chronic fatigue Reason for Exam Chronic fatigue;Restless leg;Paresthesias Reason for Exam Restless leg Reason for Exam Chronic fatigue;Xerostomia;Dry skin Reason for Exam Screening for cardiovascular condition Reason for Exam Paresthesias Reason for Exam Chronic fatigue;Dry skin Performed By: #### F E and TIBC, CRP, LIPID, MG, TSH3 wRFLX, B12, CMP, BALAJI, ESR #### [facility] [address] [place] [address] [place] #### SJOGRENS, MENDEZ CHOICE, RA #### [facility] , ALT [Catalytic activity/Vol] 11 U/L Normal 7-52 [facility] Comment on above: Order Comment: Reaso n for Exam Chronic fatigue Reason for Exam Chronic fatigue;Restless leg;Paresthesias Reason for Exam Restless leg Reason for Exam Chronic fatigue;Xerostomia;Dry skin Reason for Exam Screening for cardiovascular condition Reason for Exam Paresthesias Reason for Exam Chronic fatigue;Dry skin Performed By: #### F E and TIBC, CRP, LIPID, MG, TSH3 wRFLX, B12, CMP, BALAJI, ESR #### [facility] [address] [place] [address] #### SJOGRENS, MENDEZ CHOICE, RA #### [facility] , Anion gap [Moles/Vol] 9.5 mmol/L Normal 6.0-15.0 [facility] Comment on above: Order Comment: [...] TSH3 wRFLX, B12, CMP, BALAJI, ESR #### [place] [address] [place] #### SJOGRENS, MENDEZ CHOICE, RA #### [facility] , AST [Catalytic activity/Vol] 17 U/L Normal 13-39 [facility] Comment on above: Order Comment: Reaso n for Exam Chronic fatigue Reason for Exam Chronic fatigue;Restless leg;Paresthesias Reason for Exam Restless leg Reason for Exam Chronic fatigue;Xerostomia;Dry skin Reason for Exam Screening for cardiovascular condition Reason for Exam Paresthesias Reason for Exam Chronic fatigue;Dry skin Performed By: #### F E and TIBC, CRP, LIPID, MG, TSH3 wRFLX, B12, CMP, BALAJI, ESR #### [place] [address] [place] #### SJOGRENS, MENDEZ CHOICE, RA #### [facility] , Bilirubin [Mass/Vol] 0.6 mg/dL Normal 0.3-1.0 [facility] Comment on above: Order Comment: Reaso n for Exam Chronic fatigue Reason for Exam Chronic fatigue;Restless leg;Paresthesias Reason for Exam Restless leg Reason for Exam Chronic fatigue;Xerostomia;Dry skin Reason for Exam Screening for cardiovascular condition Reason for Exam Paresthesias Reason for Exam Chronic fatigue;Dry skin Performed By: #### F E and TIBC, CRP, LIPID, MG, TSH3 wRFLX, B12, CMP, BALAJI, ESR #### [place] [address] [place] #### SJOGRENS, MENDEZ CHOICE, RA #### [...] TSH3 wRFLX, B12, CMP, BALAJI, ESR #### [place] [address] [place] #### SJOGRENS, MENDEZ CHOICE, RA #### [facility] , Chloride [Moles/Vol] 105 mmol/L Normal 98-107 [facility] Comment on above: Order Comment: Reaso n for Exam Chronic fatigue Reason for Exam Chronic fatigue;Restless leg;Paresthesias Reason for Exam Restless leg Reason for Exam Chronic fatigue;Xerostomia;Dry skin Reason for Exam Screening for cardiovascular condition Reason for Exam Paresthesias Reason for Exam Chronic fatigue;Dry skin Performed By: #### F E and TIBC, CRP, LIPID, MG, TSH3 wRFLX, B12, CMP, BALAJI, ESR #### [place] [address] [place] #### SJOGRENS, MENDEZ CHOICE, RA #### [facility] , CO2 [Moles/Vol] 30.1 mmol/L Normal 21.0-31.0 [facility] Comment on above: Order Comment: Reaso n for Exam Chronic fatigue Reason for Exam Chronic fatigue;Restless leg;Paresthesias Reason for Exam Restless leg Reason for Exam Chronic fatigue;Xerostomia;Dry skin Reason for Exam Screening for cardiovascular condition Reason for Exam Paresthesias Reason for Exam Chronic fatigue;Dry skin Performed By: #### F E and TIBC, CRP, LIPID, MG, TSH3 wRFLX, B12, CMP, BALAJI, ESR #### [place] [address] [place] #### SJOGRENS, MENDEZ CHOICE, RA #### [facility] , Creatinine [Mass/Vol] 0.62 mg/dL Normal 0.60-1.20 [facility] Comment on above: Order Comment: [...] TSH3 wRFLX, B12, CMP, BALAJI, ESR #### [address] #### SJOGRENS, MENDEZ CHOICE, RA #### [facility] , GFR/1.73 sq M.predicted MDRD (S/P/Bld) [Vol rate/Area] mL/min/{1.73_m2} [facility] Comment on above: Order Comment: Reaso n for Exam Chronic fatigue Reason for Exam Chronic fatigue;Restless leg;Paresthesias Reason for Exam Restless leg Reason for Exam Chronic fatigue;Xerostomia;Dry skin Reason for Exam Screening for cardiovascular condition Reason for Exam Paresthesias Reason for Exam Chronic fatigue;Dry skin Performed By: #### F E and TIBC, CRP, LIPID, MG, TSH3 wRFLX, B12, CMP, BALAJI, ESR #### [address] #### SJOGRENS, MENDEZ CHOICE, RA #### [facility] , Globulin (S) [Mass/Vol] 2.6 g/dL Normal [facility] Comment on above: Order Comment: Reaso n for Exam Chronic fatigue Reason for Exam Chronic fatigue;Restless leg;Paresthesias Reason for Exam Restless leg Reason for Exam Chronic fatigue;Xerostomia;Dry skin Reason for Exam Screening for cardiovascular condition Reason for Exam Paresthesias Reason for Exam Chronic fatigue;Dry skin Performed By: #### F E and TIBC, CRP, LIPID, MG, TSH3 wRFLX, B12, CMP, BALAJI, ESR #### [facility] [address] [place] [address] [place] #### SJOGRENS, MENDEZ CHOICE, RA #### [...] for Exam Chronic fatigue;Dry skin Result Comment: [facility] Glucose Reference Range is dependent on time and content of last meal. Glucose of more than 200 mg/dL in a nonstressed, ambulatory subject supports the diagnosis of Diabetes Mellitus. ADA recommended reference range Performed By: #### F E and TIBC, CRP, LIPID, MG, TSH3 wRFLX, B12, CMP, BALAJI, ESR #### [address] #### SJOGRENS, MENDEZ CHOICE, RA #### [facility] , Potassium [Moles/Vol] 4.6 mmol/L Normal 3.5-5.1 [facility] Comment on above: Order Comment: [...] TSH3 wRFLX, B12, CMP, BALAJI, ESR #### [place] [address] [place] #### SJOGRENS, MENDEZ CHOICE, RA #### [...] TSH3 wRFLX, B12, CMP, BALAJI, ESR #### [place] [address] [place] #### SJOGRENS, MENDEZ CHOICE, RA #### [...] TSH3 wRFLX, B12, CMP, BALAJI, ESR #### [facility] [address] [place] [address] #### SJOGRENS, MENDEZ CHOICE, RA #### [facility] , Urea nitrogen [Mass/Vol] 13 mg/dL Normal 7-25 [facility] Comment on above: Order Comment: Reaso n for Exam Chronic fatigue Reason for Exam Chronic fatigue;Restless leg;Paresthesias Reason for Exam Restless leg Reason for Exam Chronic fatigue;Xerostomia;Dry skin Reason for Exam Screening for cardiovascular condition Reason for Exam Paresthesias Reason for Exam Chronic fatigue;Dry skin Performed By: #### F E and TIBC, CRP, LIPID, MG, TSH3 wRFLX, B12, CMP, BALAJI, ESR #### [facility] [address] [place] [address] [place] #### SJOGRENS, MENDEZ CHOICE, RA #### [facility] , Creatinine [Mass/volume] in Serum or PlasmaOrdered By: Jasmin Bobby on 09-18-2023 Creatinine [Mass/Vol] 0.62 mg/dL 0.60-1.20 [facility] Erythrocyte Sedimentation Ra chiara 09-18-2023 ESR (Bld) [Velocity] 37 mm/h High 0-29 [facility] Comment on above: Order Comment: Reaso n for Exam Chronic fatigue Reason for Exam Chronic fatigue;Xerostomia;Dry skin Result Comment: PERF ORMED BY: [place] [address] PATHOLOGIST VP [employer]OD[employer]A RAPHAEL M.D. Performed By: #### F E and TIBC, CRP, LIPID, MG, TSH3 wRFLX, B12, CMP, BALAJI, ESR #### [facility] [address] [place] [address] [place] #### JADEOGRMENDEZ BROWN, RA #### [facility] , Erythrocyte sedimentation ra te by Photometric methodOrdered By: Jasmin Bobby on 09-18-2023 ESR Photometric method (Bld) [Velocity] 37 mm/hr 0-29 [facility] Ferritinon 09-18-2023 Ferritin [Mass/Vol] 221.1 ng/mL Normal 11.0-306.8 [facility] Comment on above: Order Comment: Reaso n for Exam Chronic fatigue Reason for Exam Chronic fatigue;Restless leg;Paresthesias Reason for Exam Restless leg Reason for Exam Chronic fatigue;Xerostomia;Dry skin Reason for Exam Screening for cardiovascular condition Reason for Exam Paresthesias Reason for Exam Chronic fatigue;Dry skin Performed By: #### F E and TIBC, CRP, LIPID, MG, TSH3 wRFLX, B12, CMP, BALAJI, ESR #### [facility] [address] #### JADEOGRMENDEZ BROWN, RA #### [facility] , Ferritin [Mass/volume] in Se rum or PlasmaOrdered By: Jasmin Bobby on 09-18-2023 Ferritin [Mass/Vol] 221.1 ng/mL 11.0-306.8 [facility] Globulin Calc (S) [Mass/Vol] Ordered By: Jasmin Bobby on 09-18-2023 Globulin (S) [Mass/Vol] 2.6 g/dL [facility] Glucose [Mass/volume] in Ser um or PlasmaOrdered [...] on 09-18-2023 Iron [Mass/Vol] 115 ug/dL 50-212 [facility] Iron and TIBC Profileon 09-04 % Iron Saturation 40.5 % Normal 20-50 [facility] Comment on above: Order Comment: Reaso n for Exam Chronic fatigue Reason for Exam Chronic fatigue;Restless leg;Paresthesias Reason for Exam Restless leg Reason for Exam Chronic fatigue;Xerostomia;Dry skin Reason for Exam Screening for cardiovascular condition Reason for Exam Paresthesias Reason for Exam Chronic fatigue;Dry skin Performed By: #### F E and TIBC, CRP, LIPID, MG, TSH3 wRFLX, B12, CMP, BALAJI, ESR #### [facility] [address] [place] [address] #### SJOGRENS, MENDEZ CHOICE, RA #### [facility] , Iron [Mass/Vol] 115 ug/dL Normal 50-212 [facility] Comment on above: Order Comment: Reaso n for Exam Chronic fatigue Reason for Exam Chronic fatigue;Restless leg;Paresthesias Reason for Exam Restless leg Reason for Exam Chronic fatigue;Xerostomia;Dry skin Reason for Exam Screening for cardiovascular condition Reason for Exam Paresthesias Reason for Exam Chronic fatigue;Dry skin Performed By: #### F E and TIBC, CRP, LIPID, MG, TSH3 wRFLX, B12, CMP, BALAJI, ESR #### [facility] [address] [place] [address] [place] #### SJOGRENS, MENDEZ CHOICE, RA #### [facility] , Total Iron Binding Capacity 284 ug/dL Normal 255-450 [facility] Comment on above: Order Comment: Reaso n for Exam Chronic fatigue Reason for Exam Chronic fatigue;Restless leg;Paresthesias Reason for Exam Restless leg Reason for Exam Chronic fatigue;Xerostomia;Dry skin Reason for Exam Screening for cardiovascular condition Reason for Exam Paresthesias Reason for Exam Chronic fatigue;Dry skin Performed By: #### F E and TIBC, CRP, LIPID, MG, TSH3 wRFLX, B12, CMP, BALAJI, ESR #### [facility] [address] [place] [address] [place] #### SJOGRENS, MENDEZ CHOICE, RA #### [facility] , Transferrin [Mass/Vol] 203 mg/dL Normal 203-362 [facility] Comment on above: Order Comment: Reaso n for Exam Chronic fatigue Reason for Exam Chronic fatigue;Restless leg;Paresthesias Reason for Exam Restless leg Reason for Exam Chronic fatigue;Xerostomia;Dry skin Reason for Exam Screening for cardiovascular condition Reason for Exam Paresthesias Reason for Exam Chronic fatigue;Dry skin Performed By: #### F E and TIBC, CRP, LIPID, MG, TSH3 wRFLX, B12, CMP, BALAJI, ESR #### [facility] [address] [place] [address] [place] #### SJOGRENS, MENDEZ CHOICE, RA #### [facility] , Iron binding capacity [Mass/ volume] in Serum or PlasmaOrdered By: Jasmin Bobby on 09-18-2023 Iron binding capacity [Mass/Vol] 284 ug/dL 255-450 [facility] Iron saturation [Mass Fracti on] in Serum or PlasmaOrdered By: Jasmin Bobby on 09-18-2023 Iron saturation [Mass fraction] 40.5 % 20-50 [facility] Lipid Panelon 09-18-2023 Cholesterol [Mass/Vol] 293 mg/dL High 140-200 [facility] Comment on above: Order Comment: Reaso n [...] TSH3 wRFLX, B12, CMP, BALAJI, ESR #### [facility] [address] [place] [address] [place] #### SJOGRENS, MENDEZ CHOICE, RA #### [facility] , Cholesterol in HDL [Mass/Vol] 73 mg/dL Normal 23-92 [facility] Comment on above: Order Comment: Reaso [...] TSH3 wRFLX, B12, CMP, BALAJI, ESR #### [facility] [address] #### SJOGRENS, MENDEZ CHOICE, RA #### [facility] , Cholesterol.total/Fernanda sterol in HDL [Mass ratio] 4.0 {ratio} Normal <5.0 [facility] Comment on above: Order Comment: Reaso n for Exam Chronic fatigue Reason for Exam Chronic fatigue;Restless leg;Paresthesias Reason for Exam Restless leg Reason for Exam Chronic fatigue;Xerostomia;Dry skin Reason for Exam Screening for cardiovascular condition Reason for Exam Paresthesias Reason for Exam Chronic fatigue;Dry skin Performed By: #### F E and TIBC, CRP, LIPID, MG, TSH3 wRFLX, B12, CMP, BALAJI, ESR #### [facility] [address] [place] [address] [place] #### SJOGRENS, MENDEZ CHOICE, RA #### [facility] , LDL Cholesterol,Calculated 205 mg/dL High 0-100 [facility] Comment on above: Order Comment: Reaso [...] TSH3 wRFLX, B12, CMP, BALAJI, ESR #### [facility] [address] [place] [address] [place] #### SJOGRENS, MENDEZ CHOICE, RA #### [facility] , Triglyceride w/Reflex 75 mg/dL Normal 0-149 [facility] Comment on above: Order Comment: [...] TSH3 wRFLX, B12, CMP, BALAJI, ESR #### [facility] [address] [place] [address] [place] #### SJOGRENS, MENDEZ CHOICE, RA #### [facility] , VLDL CHOLESTEROL 15 mg/dL Normal [facility] Comment on above: Order Comment: Reaso n for Exam Chronic fatigue Reason for Exam Chronic fatigue;Restless leg;Paresthesias Reason for Exam Restless leg Reason for Exam Chronic fatigue;Xerostomia;Dry skin Reason for Exam Screening for cardiovascular condition Reason for Exam Paresthesias Reason for Exam Chronic fatigue;Dry skin Performed By: #### F E and TIBC, CRP, LIPID, MG, TSH3 wRFLX, B12, CMP, BALAJI, ESR #### [facility] [address] [place] [address] [place] #### SJOGRENS, MENDEZ CHOICE, RA #### [facility] , Magnesiumon 09-18-2023 Magnesium [Mass/Vol] 2.0 mg/dL Normal 1.9-2.7 [facility] Comment on above: Order Comment: Reaso n for Exam Chronic fatigue Reason for Exam Chronic fatigue;Restless leg;Paresthesias Reason for Exam Restless leg Reason for Exam Chronic fatigue;Xerostomia;Dry skin Reason for Exam Screening for cardiovascular condition Reason for Exam Paresthesias Reason for Exam Chronic fatigue;Dry skin Performed By: #### F E and TIBC, CRP, LIPID, MG, TSH3 wRFLX, B12, CMP, BALAJI, ESR #### [facility] [address] #### SJOGRENS, MENDEZ CHOICE, RA #### [facility] , Magnesium [Mass/volume] in S wolf or PlasmaOrdered By: Jasmin Bobby on 09-18-2023 Magnesium [Mass/Vol] 2.0 mg/dL 1.9-2.7 [facility] No Panel InformationOrdered By: Jasmin Bobby on 09-18-2023 Estimated GFR (CKD-EPI) > 60.0 mL/Min [facility] Creatinine Clearance (Chem N/A [facility] Potassium [Moles/volume] in Serum or PlasmaOrdered By: Jasmin Bobby on 09-18-2023 Potassium [Moles/Vol] 4.6 mmol/L 3.5-5.1 [facility] Protein [Mass/volume] in Ser um or PlasmaOrdered By: Jasmin Bobby on 09-18-2023 Protein [Mass/Vol] 6.8 g/dL 6.4-8.9 [facility] Rheumatoid Factoron 09-18-19 24 Rheumatoid Factor 10.6 Normal <14.0 [facility] Comment on above: Order Comment: Reaso n for Exam Chronic fatigue;Xerostomia;Dry skin Result Comment: Perf ormed at: - [facility] [address] [id number] [employer] Lead Worker: Alphonse Harris PhD, Phone: [phone] Performed By: #### F E and TIBC, CRP, LIPID, MG, TSH3 wRFLX, B12, CMP, BALAJI, ESR #### [facility] [address] #### SJOGRENS, MENDEZ CHOICE, RA #### [facility] , Serum Sjogrens syndrome-A ex tractable nuclear antibody assay (units/volume)Ordered By: Jasmin Bobby on 09-18-2023 Sjogrens syndrome-A extractable nuclear Ab Qn (S) <0.2 AI 0.0-0.9 [facility] Serum Sjogrens syndrome-B ex tractable nuclear antibody assay (units/volume)Ordered By: Jasmin Bobby on 09-18-2023 Sjogrens syndrome-B extractable nuclear Ab Qn (S) <0.2 AI 0.0-0.9 [facility] Serum or plasma albumin/glob ulin mass ratioOrdered By: Jasmin Bobby on 09-18-2023 Albumin/Globulin [Mass ratio] 1.6 {ratio} [facility] Serum or plasma anion gap de terminationOrdered By: Jasmin Bobby on 09-18-2023 Anion gap [Moles/Vol] 9.5 mmol/L 6.0-15.0 [facility] Serum or plasma free cefurox demario measurement (mass/volume)Ordered By: Jasmin Bobby on 09-18-2023 Cefuroxime free [Mass/Vol] Negative Negative [facility] Comment on above: Performed at: [facility] Director: Alphonse Harris PhD, Phone: [phone] Serum or plasma high density lipoprotein (HDL) cholesterol measurementOrdered By: Jasmin Bobby on 09-18-2023 Cholesterol in HDL [Mass/Vol] 73 mg/dL 23-92 [facility] Comment on above: HDL CHOL ATP-III CLA SSIFICATION Cardiovascular RiskHDL > or equal to 60 mg/dL LOWHDL < 40 mg/dL HIGH Serum or plasma rheumatoid f actor measurement (units/volume)Ordered By: Jasmin Bobby on 09-18-2023 Rheumatoid factor Qn 10.6 [IU]/mL <14.0 [facility] Comment on above: Performed at: [facility] [place], [place] [id number] Director: Alphonse Harris PhD, Phone: [phone] Serum or plasma total choles terol/high density lipoprotein (HDL) cholesterol mass ratOrdered By: Jasmin Bobby on 09-18-2023 Cholesterol.total/Fernanda sterol in HDL [Mass ratio] 4.0 {ratio} <5.0 [facility] Sjogrens Anti-SSA/SSBon 09-04 SS-A/Ro Sjogrens Antibody <0.2 Normal 0.0-0.9 [facility] Comment on above: Order Comment: Reaso n for Exam Chronic fatigue Reason for Exam Chronic fatigue;Restless leg;Paresthesias Reason for Exam Restless leg Reason for Exam Chronic fatigue;Xerostomia;Dry skin Reason for Exam Screening for cardiovascular condition Reason for Exam Paresthesias Reason for Exam Chronic fatigue;Dry skin Performed By: #### F E and TIBC, CRP, LIPID, MG, TSH3 wRFLX, B12, CMP, BALAJI, ESR #### [facility] [address] [place] [address] #### SJOGRENS, MENDEZ CHOICE, RA #### [facility] , SS-B/La Sjogrens Antibody <0.2 Normal 0.0-0.9 [facility] Comment on above: Order Comment: Reaso n for Exam Chronic fatigue Reason for Exam Chronic fatigue;Restless leg;Paresthesias Reason for Exam Restless leg Reason for Exam Chronic fatigue;Xerostomia;Dry skin Reason for Exam Screening for cardiovascular condition Reason for Exam Paresthesias Reason for Exam Chronic fatigue;Dry skin Result Comment: PERF ORMED BY: [place] [address] PATHOLOGIST VP [employer]OD[employer]A RAPHAEL M.D. Performed By: #### F E and TIBC, CRP, LIPID, MG, TSH3 wRFLX, B12, CMP, BALAJI, ESR #### [facility] [address] [place] [address] #### SJOGRENS, MENDEZ CHOICE, RA #### [facility] , Sodium [Moles/volume] in Ser um or PlasmaOrdered By: Jasmin Bobby on 09-18-2023 Sodium [Moles/Vol] 140 mmol/L 136-145 [facility] Thyroid Stim Hormone w/Rflxo n 09-18-2023 Thyroid Stim Hormone w/Rflx 1.98 u[iU]/mL Normal 0.45-5.33 [facility] Comment on above: Order Comment: Reaso n for Exam Chronic fatigue Reason for Exam Chronic fatigue;Restless leg;Paresthesias Reason for Exam Restless leg Reason for Exam Chronic fatigue;Xerostomia;Dry skin Reason for Exam Screening for cardiovascular condition Reason for Exam Paresthesias Reason for Exam Chronic fatigue;Dry skin Result Comment: PERF ORMED BY: [place] [address] PATHOLOGIST VP [employer]A RAPHAEL M.D. Performed By: #### F E and TIBC, CRP, LIPID, MG, TSH3 wRFLX, B12, CMP, BALAJI, ESR #### [facility] [address] [place] [address] #### SJOGRENS, MENDEZ CHOICE, RA #### [facility] , Thyrotropin [Units/volume] i n Serum or PlasmaOrdered By: Jasmin Bobby on 09-18-2023 TSH Qn 1.98 m[IU]/L 0.45-5.33 [facility] Transferrin [Mass/volume] in Serum or PlasmaOrdered By: Jasmin Bobby on 09-18-2023 Transferrin [Mass/Vol] 203 mg/dL 203-362 [facility] Triglyceride [Mass/volume] i n Serum or PlasmaOrdered By: Jasmin Bobby on 09-18-2023 Triglyceride [Mass/Vol] 75 mg/dL 0-149 [facility] Comment on above: TRIG ATP III CLASSIF ICATIONTRIG less than 150 mg/dL NormalTRIG 150-199 mg/dL Borderline highTRIG 200-500 mg/dL High TRIG greater than 500 mg/dL Very highStandard traceable to the Center for Disease Conrtrol and Prevention (CDC) test method. Urea nitrogen [Mass/volume] in Serum or PlasmaOrdered By: Jasmin Bobby on 09-18-2023 Urea nitrogen [Mass/Vol] 13 mg/dL 03-28 [facility] Vitamin B12on 09-18-2023 Cobalamin (Vitamin B12) [Mass/Vol] 1166 pg/mL High 180-[address] [place] [address] Comment on above: Order Comment: Reaso n for Exam Chronic fatigue Reason for Exam Chronic fatigue;Restless leg;Paresthesias Reason for Exam Restless leg Reason for Exam Chronic fatigue;Xerostomia;Dry skin Reason for Exam Screening for cardiovascular condition Reason for Exam Paresthesias Reason for Exam Chronic fatigue;Dry skin Performed By: #### F E and TIBC, CRP, LIPID, MG, TSH3 wRFLX, B12, CMP, BALAJI, ESR #### [facility] [address] #### SJOGRENS, MENDEZ CHOICE, RA #### [facility] , Vitamin B12 ser/plasOrdered By: Jasmin Bobby on 09-18-2023 Cobalamin (Vitamin B12) [Mass/Vol] 1166 pg/mL 180-[address] [place] [address] CT CARDIAC SCORINGon 07-0 CT CARDIAC SCORING [...] of coronary arteries. COMPARISON: None. ACCESSION NUMBER(S): [id number] ORDERING CLINICIAN: JASMIN BOBBY TECHNIQUE: Using prospective [...] al. JACC 2015 (http://dx.doi.org/10.1 016/j.j acc.2015.08.035) Reading Chocolate Maker: Dr. Gilmer Garcia, Date: 03/09/2021 12:46 pm Electronically signed by: NATALI SUNSHINE MD [facility] Surgical Specimenon 09-26-19 Surgical Specimen [facility] Comment on above: Result Comment: [facility] [address] [place] [address] FINAL SURGICAL PATHOLOGY REPORT Patient Name: LEANN GREENBERG Accession No: [id number] Age Sex: 1955 Location: [facility] Account No: [id number] Collected: 09/26/2018 Med Rec No: [id number] Received: 09/27/2018 Attend Phys: SAIDA BENSON Completed: [...] dimension. In toto, one cassette. JARET/BRENDEN CPT: 68569 X3 26715 X2 ALEXI DEAL M.D. 10/05/2018 Electronically signed out by Page 1 of 1 Vital Signs Date Time Vital Sign Value Performing Clinician Facility 09-25-2023 09:45-0500 Body height 157.48 cm [facility] Other [facility] Other 09-25-2023 09:45-0500 Body mass index (BMI) [Ratio] 28.53 kg/m2 [facility] Other [facility] Other 09-25-2023 09:45-0500 Body temperature 97.4 [degF] Jasmin [facility] Other [facility] Other 09-25-2023 09:45-0500 Body weight 70.76 kg Jasmin [place] Other [facility] Other 09-25-2023 09:45-0500 Diastolic blood pressure 78 mm[Hg] Jasmin [facility]wood Other [facility] Other 09-25-2023 09:45-0500 Respiratory rate 20 /min Jasmin [facility] Other [facility] Other 09-25-2023 09:45-0500 SaO2% (BldA) [Mass fraction] 98 % Jasmin [place] Other [facility] Other 09-25-2023 09:45-0500 Systolic blood pressure 126 mm[Hg] Jasmin [facility] Other [facility] Other 09-11-2023 09:30-0500 Body height 157.48 cm Jasmin [place] Other [facility] Other 09-11-2023 09:30-0500 Body mass index (BMI) [Ratio] 28.53 kg/m2 Jasmin [facility] Other [facility] Other 09-11-2023 09:30-0500 Body temperature 97.9 [degF] Jasmin [facility] Other [facility] Other 09-11-2023 09:30-0500 Body weight 70.76 kg Jasmin [place] Other [facility] Other 09-11-2023 09:30-0500 Diastolic blood pressure 84 mm[Hg] Jasmin Bobby Other [facility] Other 09-11-2023 09:30-0500 Respiratory rate 20 /min Jasmin Bobby Other [facility] Other 09-11-2023 09:30-0500 SaO2% (BldA) [Mass fraction] 98 % Jasmin [employer] Other [facility] Other 09-11-2023 09:30-0500 Systolic blood pressure 132 mm[Hg] [facility] [employer] [employer] Other [facility] Other Encounters Encounter Date Encounter Type Care Provider Facility Start: 04-08-2024 End: 04-08-2024 ambulatory Sharona Ervin Research Coordinator Work Phone: Neurology Comment on above: Informed Consent (IR B [id number]) Start: 04-08-2024 End: 04-08-2024 Patient encounter procedure Jennifer Degroot APRN.AUTO PAINTER HELPER Work Phone: Neurology Comment on above: Examination of parti cipant in clinical trial (Primary Dx) Start: 04-01-2024 Telephone encounter Liana carlisle Research Coordinator Work Phone: Neurology Comment on above: Research (IRB [id number] ) Start: 01-15-2024 Telephone encounter Griselda chavez Research Coordinator Neurology Comment on above: Appointment (IRB [id number]) Start: 11-05-2023 Telephone encounter Nathalie lazaro APRN.AUTO PAINTER HELPER Work Phone: Neurology Comment on above: Patient Update Start: 09-29-2023 End: 09-29-2023 ambulatory SAMI ADAMS Not Available Start: 09-25-2023 End: 09-25-2023 ambulatory Jasmin Bobby Other [facility] Other Start: 09-25-2023 Office outpatient visit 40 minutes Jasmin Mccauleywood [facility] Start: 09-21-2023 End: 09-21-2023 ambulatory Jasmin Bobby Other [facility] Other Start: 09-21-2023 Telephone encounter Jasmin Bobby [facility] Start: 09-19-2023 End: 09-19-2023 ambulatory Jasmin Bobby Facility:[facility] Start: 09-19-2023 End: 09-19-2023 ambulatory [employer] Jasmin Bobby Work Phone: [facility] Work Phone: Start: 09-19-2023 End: 09-19-2023 Patient encounter procedure [employer] Jasmin Bobby Work Phone: [facility] [address] Work Phone: Start: 09-18-2023 End: 09-18-2023 ambulatory Jasmin Bobby Facility:[facility] Start: 09-18-2023 End: 09-18-2023 ambulatory [employer] GRAD[employer] Jasmin Bobby Work Phone: [facility] Work Phone: Start: 09-18-2023 End: 09-18-2023 Patient encounter procedure [employer] Jasmin Bobby Work Phone: [facility] [address] Work Phone: Start: 09-11-2023 End: 09-11-2023 ambulatory Jasmin Bobby Other [facility] Other Start: 09-11-2023 Office outpatient visit 25 minutes Jasmin Mccauleywood [facility] Start: 09-26-2018 End: 09-26-2018 Patient encounter procedure SAIDA WASSERMANK [facility] Procedures Date Procedure Procedure Detail Performing Clinician [...] Detail Author Start: 05-05-2024 Influenza vaccination C [facility] Start: 04-08-2024 End: 04-08-2024 Patient encounter procedure 04/08/2024 12:45 PM EDT Office Visit Neurology [address] [place] [address] Anat Nieto PA-C [address] [place] [address] [facility] Comment on above: [facility] Start: 09-04-2023 Advance Directive Discussion Advance Directive Discussion [facility] Start: 09-04-2023 Behavioral Health Screening Behavioral Health Screening [facility] Start: 09-04-2023 Depression Assessment Depression Ass essment [facility] Start: 05-05-2023 Covid-19 Vaccine ( season) Covid-19 Vaccine ( season) [facility] Start: 05-05-2023 Covid-19 Vaccine ( season) Covid-19 Vaccine ( season) [facility] Start: 05-05-2023 Influenza vaccination Influenza Vacc ine (#1) [facility] Start: 2022 Pneumococcal Vaccine : 65+ (1 of 1 - PCV) Pneumococcal Vaccine: 65+ (1 of 1 - PCV) [facility] Start: 2022 Screening for osteoporosis Bone Density Screening [facility] Start: 2017 RSV Vaccine (1 - 1-d ose 60+ series) RSV Vaccine (1 - 1-dose 60+ series) [facility] Start: 11-24-2007 Shingrix Vaccine (1 of 2) Shingrix Vaccine (1 of 2) [facility] Start: 2002 Diabetes Screening Diabetes Screenin g [facility] Start: 2002 Lipid panel Lipid Screening [facility] Start: 2002 Screening for malign ant neoplasm of colon [facility] Start: 1997 Screening for malign ant neoplasm of breast Mammogram Screening [facility] Start: 1976 Urine microalbumin profile DTaP,Tdap,Td Vaccine (1 - Tdap) [facility] Start: 11-24-1975 Anxiety Screening Anxiety Screening [facility] Start: 11-24-1975 Depression Screening Depression Scre ening [facility] Start: 11-24-1975 Hepatitis C screening Hepatitis C Sc reening [facility] Start: 11-24-1975 HIV screening HIV Screening [facility] Start: 05-26-1958 Covid-19 Vaccine (#1) Covid-19 Vacci ne (#1) [facility] Cefuroxime free [Mass/volume] in Serum or Plasma [facility] Rheumatoid factor [Units/volume] in Serum or Plasma [facility] Sjogrens syndrome-A extractable nuclear Ab [Units/volume] in Serum [facility] Sjogrens syndrome-B extractable nuclear Ab [Units/volume] in Serum [facility] Payers Date Payer Category Payer Medicare [id number] 2023 Self-pay [id number] 2022 Blue Cross Blue Shield [id number] 2019 Unknown [employer]THEM BLUE CARD PPO OOS [id number] 2019-Present [phone] [id number] [place] [address] PPO [id number] 2015 Unknown [id number] 1955 Unknown [id number] 1955 Unknown [id number] Unknown Jennifer BC/BS [id number] Unknown [id number] Unknown [id number] Social History Date Type Detail Facility Sex Assigned At [facility] Other Start: 1955 Sex Assigned At Female F [facility] Tobacco smoking status MSIS Tobacco smoking consumption unknown [facility] Work Phone: Start: 1955 Sex Assigned At Not on file C [facility] Clinical Notes 09-11-2023 to 04-08-2024 Sharona Ervin, Research Coordinator - 04/08/2024 4:43 PM EDTBJennifer castillo APRN.AUTO PAINTER HELPER - 04/08/2024 12:45 PM EDTTelephone Encounter - Griselda Gonzalez, Research Coordinator - 01/15/2024 3:44 PM EDT Note Date & Type Note Facility 04-08-2024 Note HNO ID: [id number] Author: SHARONA ERVIN Research Coordinator Service: ? Author Type: Research Type: Progress Notes Filed: 04/08/2024 16:43 Note Text: DATE:April 08, 2024 PT. NAME: Leann Greenberg [facility]#: [id number] IRB #: [id number] A. PROTOCOL: [place] [facility] Cloth Finishing Range Back Tender: Layla Saenz MD, , Pascual Ames MD, [facility] salesperson pianos and organs for study related questions: Katy Slater Subject [...] tolerated procedure well. Sharona Ervin, Research Coordinator [facility] 04-08-2024 History of Present illness Narrative DATE:April 08, 2024 PT. NAME: Leann Greenberg [facility]#: [id number] IRB #: [id number]. PROTOCOL: [facility] Cloth Finishing Range Back Tender: Layla Saenz MD, , Pascual Ames MD, [facility] salesperson pianos and organs for study related questions: Katy Slater Subject [...] Ervin, Research Coordinator documented in this encounter [facility] 04-08-2024 History of Present illness Narrative PCP does not have one at present-see MASHA Bobby DATE: April 08, 2024 PT. NAME: Leann Greenberg CC#: [id number] IRB #: [id number]. PROTOCOL: [facility] Cloth Finishing Range Back Tender: Layla Saenz MD, , Pascual Ames MD, [facility] salesperson pianos and organs for study related questions: Katy Slater Is [...] and for procedures related to study YES. Time:[id number] EKG/ECG was performed on patient. Patient tolerated [...] Wrist extension: Right 5 Left 5 Finger flexion/gelatin maker utility: Right 5 Left 5 Flexor pollicis longus: [...] Downgoing Weakness?: No Tremor: No Cerebellar/Coordination Assessment Vecchd-pi-Zuxk: Abnormality present: No, Odrs-jh-Cbzz: Abnormality present: No, Finger Tapping - Abnormality [...] Sensory/Sensation Sensory System-globlal assessment: Normal Jennifer Degroot APRN.AUTO PAINTER HELPER documented in this encounter [facility] 04-08-2024 Note HNO ID: [id number] Author: JENNIFER DEGROOT APRN.AUTO PAINTER HELPER Service: ? Author Type: Nurse Practitioner Type: Progress Notes Filed: 04/08/2024 18:01 Note Text: PCP does not have one at present-see MASHA Bobby DATE: April 08, 2024 PT. NAME: Leann Greenberg [facility]#: [id number] IRB #: [id number]. PROTOCOL: [facility] Cloth Finishing Range Back Tender: Layla Saenz MD, , Pascual Ames MD, [facility] salesperson pianos and organs for study related questions: Katy Slater Is [...] and for procedures related to study YES. Time:[id number] EKG/ECG was performed on patient. Patient tolerated [...] Wrist extension: Right 5 Left 5 Finger flexion/gelatin maker utility: Right 5 Left 5 Flexor pollicis longus: [...] Downgoing Weakness?: No Tremor: No Cerebellar/Coordination Assessment Whlalm-qn-Hxaj: Abnormality present: No, Qvph-ll-Nqqn: Abnormality present: No, Finger Tapping - Abnormality [...] Sensory/Sensation Sensory System-globlal assessment: Normal Jennifer Degroot APRN.AUTO PAINTER HELPER [facility] 01-15-2024 Telephone encounter Note IRB [id number]. [facility] ([facility]) Cloth Finishing Range Back Tender: Layla Saenz MD, , Pascual Ames MD, Supervisor [employer]: Katy Slater and Email:[email or web address] Research Coordinator called and contacted Leann Greenberg on January 15, 2024 to reminded patient of appointment with the [facility], Griselda Gonzalez Research Coordinator also let pt. Know about the option to DocuSign the constant form or Sign in person. Research Coordinator gave patient Contact information for if the patient had any questions about the study and or their appointment. [facility] 01-15-2024 Miscellaneous Notes IRB [id number]. [facility] ([facility]) Cloth Finishing Range Back Tender: Layla Saenz MD, , Pascual Ames MD, Supervisor [employer]: Katy Slater and Email:[email or web address] Research Coordinator called and contacted Leann Dionicio on January 15, 2024 to reminded patient of appointment with the [facility], Griselda Gonzalez, Research Coordinator also let pt. Know about the option to DocuSign the constant form or Sign in person. Research Coordinator gave patient Contact information for if the patient had any questions about the study and or their appointment. documented in this encounter [facility] 11-05-2023 Miscellaneous Notes IRB [id number]. [facility] ([facility]) Cloth Finishing Range Back Tender: Layla Saenz MD, , Pascual Ames MD, Supervisor [employer]: Katy Slater and Email:[email or web address] Contacted Leann Greenberg by phone to discuss the [facility] ([facility]): Biomarkers and Predictors of Neurological Disorders IRB [id number]. Patient is eligible and agrees to participate. Requests call back December to schedule (going to [place]). Nathalie Mckeon APRN.MEE documented in this encounter [facility] 09-25-2023 Evaluation note Encounter Date Diagnosis Assessment [...] was counseling done by myself, Jasmin DIANE-Agusto. [facility] Other 01-08-2024 Evaluation note* Encounter Date Diagnosis [...] that were not corrected during review process. [facility] Other Evaluation noteNo assessment information available [facility] Work Phone: Evaluation noteNo InformationNort [employer] Other Evaluation note* Diagnosis Examination of participant in clinical trial- Primary [facility] - [facility]orted* Type Description Date [...] surgery - torn menis cus repair 2020 [facility] Other Hisjyav general Narrative - Reported* Type Description Date [...] surgery - torn menis cus repair 2020 [facility] Other Summary Purpose Family History No Family [...] section and content) DATE CREATED [facility] DATE CREATED AUTHOR AUTHOR'S ORGANIZ ATION 03/11/2021 [facility] DATE CREATED AUTHOR AUTHOR'S ORGANIZ ATION 09/30/2023 [facility] EPIC DATE CREATED AUTHOR AUTHOR'S ORGANIZ ATION 11/21/2023 [facility] DATE CREATED AUTHOR AUTHOR'S ORGANIZ ATION 04/10/2024 [facility] REASON FOR VISIT (unrecogniz ed section and [...] Jasmin Bobby APRN Primary Care Provider, Attend [facility] Provider Active [employer] Executive Relationship Specialty Start Date End Date Chicho Kuaffman DO [address] [place] [id number] Referring Family Medicine 08/18/20 [employer] Executive Relationship Specialty Start Date End Date Chicho Kauffman DO [address] [place] [id number] Referring Family Medicine 08/18/20 [employer] Executive Relationship Specialty Start Date End Date Jasmin Bobby CNP [address] [place] [id number] PCP - General Family Medicine 04/08/24 Chicho Kauffman DO [address] [place] [address] Referring Family Medicine 08/18/20 [employer] Executive Relationship Specialty Start Date End Date Jasmin Bobby CNP [address] [place] [id number] PCP - General Family Medicine 04/08/24 Chicho Kauffman DO [address] [place] [address] Referring Family Medicine 08/18/20 Goals (unrecognized section [...] or prosecute any alcohol or drug abuse patient.[facility] Foundation[facility] the event this information is protected by the Federal Confidentiality of Alcohol and Drug Abuse Patient Records regulations: The Federal rules restrict any use of the information to criminally investigate or prosecute any alcohol or drug abuse patient.[facility] Foundation[facility] the event this information is protected by the Federal Confidentiality of Alcohol and Drug Abuse Patient Records regulations: The Federal rules restrict any use of the information to criminally investigate or prosecute any alcohol or drug abuse patient.[facility] Foundation[facility] the event this information is protected by the Federal Confidentiality of Alcohol and Drug Abuse Patient Records regulations: The Federal rules restrict any use of the information to criminally investigate or prosecute any alcohol or drug abuse patient.[facility] Foundation[facility] the event this information is protected by the Federal Confidentiality of Alcohol and Drug Abuse Patient Records regulations: The Federal rules restrict any use of the information to criminally investigate or prosecute any alcohol or drug abuse patient.[facility] FOR RECORDS PERTAINING TO PATIENTS WHO ARE [...] BE BASED ON THE PRIMARY CLINICAL RECORDS. [facility], [facility]. provides no warranty or guarantee of the accuracy or completeness of information in this document.
[2024-05-20 11:49] VITALS: BMI 27.4
--- NOTE | 2024-05-20 12:05 | W.VEIN ---
Discharge Plan Discharge Disposition: Home, Self-Care Outpatient Diagnostics: VC INJ Foam Sclerosant WUS CUSTODIAN (Routine) Timeframe: 1 Month Facility: [facility] - Location: [facility] Ordered By: Haresh King Follow Up Appointments: 06/03/24 Plan of Treatment: Varithena/microfoam left leg Print Language: Hong Konger Discharge Date/Time: 05/20/24 12:05
--- NOTE | 2024-05-20 12:05 | P.DS_ITS ---
Discharge Plan Discharge Disposition: Home, Self-Care Outpatient Diagnostics: VC INJ Foam Sclerosant WUS PROFESSOR OF POULTRY SCIENCE (Routine) Timeframe: 1 Month Facility: - Location: [facility] Ordered By: Haresh King Follow Up Appointments: 06/03/24 Plan of Treatment: Varithena/microfoam left leg Print Language: Burmese Discharge Date/Time: 05/20/24 12:05
== END 2024-05-20 12:05 | disposition home or self-care (01) ==
PROVIDERS: PCP Radiology Diagnostic Radiology; Visit Provider Radiology Diagnostic Radiology
DX: I80.01 Phlebitis and thrombophlebitis of superficial vessels of right lower extremity (principal)
CPT/HCPCS: 93971; G0463

== ENCOUNTER 2024-06-03 08:49 | Outpatient (OUT) | payer BC, SELFPAY ==
--- NOTE | 2024-06-03 08:20 | VEINCLINIC_ITS ---
Vital Signs 06/03/24 09:05 BP 124/75 BP Location Left Brachial BP Position Sitting BP Cuff Size Adult BP Source Automatic Cuff Respiration 16 Pulse 73 Pulse Source Monitor Pulse Oximetry (%) 97 Oxygen Delivery Method Room Air Comment The patient's blood pressure is elevated. Varicose Veins Patient in today for microfoam chemical ablation Ike Yates MD personally performed the services described in this documentation, as scribed by Sergo Ríos RN in my presence and it is both accurate and complete. ISegro RN, am scribing for, and in the presence of, Dr. Ike Horvath and in the presence of the patient. thigh: bilateral (bilateral symptoms), knee: bilateral, calf: bilateral, ankle: bilateral and yousif: bilateral aching, cramping, intermittent and tender 4 36 years Worsened in recent months: Yes standing analgesics, elevating extremities, compression stockings and exercise Reports muscle spasms of leg, fatigue, heaviness, limb pain, edema and leg edema History of lower extremity trauma: No Superficial thrombophlebitis: No Family history of varicose veins: yes (Patient's grandmother) Has patient had previous lower extremity venous surgery: Yes Patient has previously received the following treatment(s) for lower extremity varicose veins: Reports vein ablation, sclerotherapy and foam therapy Does patient have a history of : yes Does patient intend to have future pregnancies: no Has patient had lower extremity venous scan with relux testing: Yes Support hose used: Yes Problems walking or doing physical activity: Yes How does it affect you: often has to stop exercise rest and elevate legs due to pain Do you walk much: Yes Do you stand much: Yes Review of Systems ROS Narrative Ike Yates MD personally performed the services described in this documentation, as scribed by Sergo Ríos RN in my presence and it is both accurate and complete. Sergo Yates RN, am scribing for, and in the presence of, Dr. Ike Horvath and in the presence of the patient. Status of ROS 10 or more systems reviewed and unremark able except as noted in history and below Cardiovascular Reports: edema Integumentary/Breast Reports: itching and changes in skin color Neurological Reports: weakness in extremities [facility] Medical History (Updated 05/17/24 @ 13:37 by Edel Sotelo) Phlebitis and thrombophlebitis of superficial vessels of right lower extremity ?I80.01 - Phlebitis and thrombophlebitis of superficial vessels of right lower extremity (ICD-10) Varicose veins of bilateral lower extremities with pain ?I83.813 - Varicose veins of bilateral lower extremities with pain (ICD-10) Surgical History (Updated 06/03/24 @ 09:53 by Sergo Ríos) S/P sclerotherapy of varicose veins ?Z98.890 - Other specified postprocedural states (ICD-10) ?Z86.79 - Personal history of other diseases of the circulatory system (ICD- 10) S/P sclerotherapy of varicose veins ?Z98.890 - Other specified postprocedural states (ICD-10) ?Z86.79 - Personal history of other diseases of the circulatory system (ICD- 10) H/O medial meniscus repair of left knee ?Z98.890 - Other specified postprocedural states (ICD-10) H/O lateral meniscus repair of right knee ?Z98.890 - Other specified postprocedural states (ICD-10) Hx laparoscopic cholecystectomy ?Z90.49 - Acquired absence of other specified parts of digestive tract (ICD- 10) Family History (Updated 05/13/24 @ 12:50 by Sergo Ríos) Other Heart disease Parkinson disease Varicose veins of bilateral lower extremities with pain Social History (Updated 05/13/24 @ 12:49 by Sergo Ríos) Within the past year, how often did you have a drink containing alcohol: 2-4 times a month Smoking status: Never smoker Non-prescribed substance use: denies use Meds Home Medications and Allergies Home Medications ?Medication ?Instructions ?Recorded ?Confirmed ?Type No Known Home Medications 05/13/24 05/13/24 History Allergies Allergy/AdvReac Type Severity Reaction Status Date / Time No Known Drug Allergies Allergy Verified 05/13/24 12:03 Exam Narrative Exam Narrative: IIke MD personally performed the services described in this documentation, as scribed by Sergo Ríos RN in my presence and it is both accurate and complete. ISergo RN, am scribing for, and in the presence of, Dr. Ike Horvath and in the presence of the patient. Constitutional Documenting provider has reviewed patient's vital signs: yes Common normals: oriented x3 Cardio Peripheral pulses: posterior tibial pulses present and dorsalis pedis pulses present Extremity Common normals: normal capillary refill General: edema Right lower extremity: lower leg Right lower leg: inspection and palpation Left lower extremity: lower leg Left lower leg: inspection and palpation Neuro Common normals: oriented x3 Assessment and Plan Assessment and Plan Plan f/u evaluation with physician along with left leg limited u/s Ike Yates MD personally performed the services described in this documentation, as scribed by Sergo Ríos RN in my presence and it is both accurate and complete. Sergo Yates RN, am scribing for, and in the presence of, Dr. Ike Horvath and in the presence of the patient. Procedures Procedure Instructions Procedures Left leg microfoam chemical ablation/Varithena: Risks and benefits of the procedure were discussed at length and informed written consent was obtained.? Time-out procedure was performed and the correct patient and procedure were confirmed.? Staff present during time-out: Sergo Ríos RN and Ike Horvath MD.? Patient prepped and procedure performed in usual sterile fashion.? Patient was placed in Trendelenburg prior to Polidocanol/Varithena injections. Sclerosing Agent:??14 cc 1% Polidocanol/Varithena Site Injected: left lecc varithena administered in to a 4mm varicose vein mid medial lower leg 6cc varithena administered in to a 4mm varicose vein anterior distal upper leg Number of Injections:? 2 The patient tolerated the procedure well without complication.? Hemostasis was obtained and thigh-high compression stocking was applied with foam pads.? Instructed patient to wear stocking for at least 96 hours and sleep with it and only remove for showering.? The patient was instructed to? wear stocking for 2 weeks.? Patient verbalizes understanding and states they will comply.? Patient was given post-procedure instructions. Patient was discharged in good condition.? Scheduled to undergo limited venous ultrasound and? exam on 06/10/2024. Ike Yates MD personally performed the services described in this documentation, as scribed by Sergo Ríos RN in my presence and it is both accurate and complete. Sergo Yates RN, am scribing for, and in the presence of, Dr. Ike Horvath and in the presence of the patient.
--- NOTE | 2024-06-03 08:30 | W.VEIN ---
Discharge Plan Discharge Disposition: Home, Self-Care Outpatient Diagnostics: VC Facility EST LMTD (Routine) Timeframe: 2 Weeks Facility: [facility] - Location: Vein Center Ordered By: Ike Horvath VC EXT Venous LT Limited (Routine) Timeframe: 2 Weeks Facility: [facility] - Location: Vein Center Ordered By: Ike Horvath Follow Up Appointments: 06/10/2024 Plan of Treatment: f/u evaluation with physician along with left leg limited u/s Patient Instructions: Polidocanol (By injection) (Asclera, Varithena) Print Language: Nicaraguan Discharge Date/Time: 06/03/24 09:57
--- NOTE | 2024-06-03 08:56 | VEIN_ITS ---
[address] [address] Patient Name: JS JETT MRN: [id number] date: 1955 Sex: F Assigned Patient Location: Current Patient Location: Accession/Order Number: [id number] Exam Date: 06/03/2024 08:56 Report Date: 06/03/2024 10:04 At the request of: VELVET GARCIA Procedure: VC INJ Foam Sclerosant WUS PLANT RELIABILITY ENGINEER PROCEDURE: VC INJ Foam Sclerosant WUS PLANT RELIABILITY ENGINEER HISTORY: I83.813 - Varicose veins of bilateral lower extremities w... Pre-operative Diagnosis: CEAP class C3 venous insufficiency with pain, tenderness, edema and incompetent branch saphenous vein(s), chronic venous insufficiency left leg secondary to venous incompetence Post-operative Diagnosis: CEAP class C3 venous insufficiency with pain, tenderness, edema and incompetent branch saphenous vein(s), chronic venous insufficiency left leg secondary to venous incompetence Procedure Performed: 1. Ultrasound-guided microfoam chemical ablation with Varithenaregistered 2. Intraoperative ultrasound guidance Physician: Ike Horvath M.D. Anesthesia: None Indications for Procedure: 68 year old female. Symptoms including lower extremity pain, dilated bulging veins, heaviness, edema for many years despite conservative medical therapy including medical compression stockings, exercise and analgesics. Prior procedures include [microfoam chemical ablation with remote history of laser ablation. Multiple incompetent varicosities of the left leg. Duplex scan showed reflux and enlarged diameters up to 4 mm. The patient underwent informed consent including management options where the complications of infection, bleeding, pain, and skin injury were discussed. Particular attention was spent discussing thrombus extension and deep vein thrombosis as well as the possibility of pulmonary embolus and treatment with oral or injectable blood thinners. Procedure: The patient walked to the procedure room. All applicable staff donned appropriate apparel. A procedure timeout was performed to confirm correct patient, correct extremity, correct procedure, and correct room set-up including presence of all applicable supplies, devices, and drugs. A duplex ultrasound, performed by myself confirmed the location and incompetence of branch saphenous varicosities and their course was marked on the skin together with the dilated tributaries. The extent of treatment of the vein and the associated varicosities was determined through ultrasound mapping. The skin was prepped and then punctured with a butterfly needle and advanced under ultrasound guidance. The Varithenaregistered canister was activated and the canister was primed and purged as required in the instructions for use. Varithenaregistered was drawn into a sterile syringe. Varithenaregistered was slowly administered at 0.5-1.0 cc/second with close observation by ultrasound of its course in the vessels. Total volume utilized was: 14 mL (8 mL into a 4 mm varicosity within mid medial lower left leg; 6 mL into a 4 mm varicosity anterior distal upper leg).. Following administration of Varithenaregistered the leg was elevated and the patient was asked to repeatedly dorsiflex the ankle to limit flow of Varithenaregistered into perforating veins. Once appropriate spasm had been confirmed in the treated veins, the vascular catheter was removed from the leg and light pressure was applied over the puncture site for hemostasis. The common femoral and deep superficial veins were then evaluated for flow and compressibility prior to dressing placement. The lower extremity was kept elevated at 45 degrees above the horizontal and cording material was applied over the saphenous segments and tributaries to allow for eccentric compression over the target vessels including the targeted saphenous vein(s). A multilayer dressing was applied consisting of foam pads, coban and thigh-high 20-30 mm Hg compression elastic support hose were placed on the patient. The leg was lowered only after compression had been applied and the patient was immediately ambulatory. The patient ambulated 10 minutes under supervision and was without apparent concerns at time of release. Post-care instructions include advising patient to keep post-treatment bandages in place and dry for 48 hours, avoid extended periods of inactivity, avoid heavy exercise for one week, wear compression stockings on the treated leg continuously for two weeks, to walk daily for 10 minutes over the next month. The patient was instructed to take an anti-inflammatory medicine as needed and to follow up for color duplex scan of the Saphenous veins, the treated branch saphenous varicosities, the adjacent deep veins, and additional treatment within 7 days. PERSONNEL: Sergo Ríos RN Electronically authenticated by: IKE HORVATH Date: 06/03/2024 10:04
[2024-06-03 09:05] VITALS: BP 124/75; PULSE 73; O2SAT 97
== END 2024-06-03 09:57 | disposition home or self-care (01) ==
LOC: VC 08:54
PROVIDERS: PCP Radiology Diagnostic Radiology; Visit Provider Radiology Diagnostic Radiology
DX: I83.813 Varicose veins of bilateral lower extremities with pain (principal)
CPT/HCPCS: 36466

== ENCOUNTER 2024-06-10 09:16 | Outpatient (OUT) | payer BC, SELFPAY ==
[2024-06-10 09:11] VITALS: BMI 27.4
--- NOTE | 2024-06-10 09:11 | V.VEINS.HP ---
Vital Signs 06/10/24 09:11 Height 5 ft 2 in Weight 68 kg BMI 27.4 Varicose Veins Patient in today for follow up ultrasound of left lower extremity following treatment of Varithena/microfoam completed on 06/03/24. Haresh Yates MD personally performed the services described in this documentation, as scribed by Edel Sotelo RDMS in my presence and it is both accurate and complete. I, Edel Sotelo RDMS, am scribing for, and in the presence of, Dr. Haresh King and in the presence of the patient. thigh: bilateral (bilateral symptoms), knee: bilateral, calf: bilateral, ankle: bilateral and yousif: bilateral aching, cramping, intermittent and tender 4 36 years Worsened in recent months: Yes standing analgesics, elevating extremities, compression stockings and exercise Reports muscle spasms of leg, fatigue, heaviness, limb pain, edema and leg edema History of lower extremity trauma: No Superficial thrombophlebitis: No Family history of varicose veins: yes (Patient's grandmother) Has patient had previous lower extremity venous surgery: Yes Patient has previously received the following treatment(s) for lower extremity varicose veins: Reports vein ablation, sclerotherapy and foam therapy Does patient have a history of : yes Does patient intend to have future pregnancies: no Has patient had lower extremity venous scan with relux testing: Yes Support hose used: Yes Problems walking or doing physical activity: Yes How does it affect you: often has to stop exercise rest and elevate legs due to pain Do you walk much: Yes Do you stand much: Yes Review of Systems ROS Narrative Haresh Yates MD personally performed the services described in this documentation, as scribed by Edel Sotelo RDMS in my presence and it is both accurate and complete. I, Edel Sotelo RDMS, am scribing for, and in the presence of, Dr. Haresh King and in the presence of the patient. Status of ROS 10 or more systems reviewed and unremarkable except as noted in history and below Cardiovascular Reports: edema Integumentary/Breast Reports: itching and changes in skin color Neurological Reports: weakness in extremities PFSH [facility] Medical History (Updated 06/10/24 @ 09:13 by Edel Sotelo) Phlebitis and thrombophlebitis of superficial vessels of left lower extremity ?I80.02 - Phlebitis and thrombophlebitis of superficial vessels of left lower extremity (ICD-10) Phlebitis and thrombophlebitis of superficial vessels of right lower extremity ?I80.01 - Phlebitis and thrombophlebitis of superficial vessels of right lower extremity (ICD-10) Varicose veins of bilateral lower extremities with pain ?I83.813 - Varicose veins of bilateral lower extremities with pain (ICD-10) Surgical History (Updated 06/03/24 @ 09:53 by Sergo Ríos) S/P sclerotherapy of varicose veins ?Z98.890 - Other specified postprocedural states (ICD-10) ?Z86.79 - Personal history of other diseases of the circulatory system (ICD-10) S/P sclerotherapy of varicose veins ?Z98.890 - Other specified postprocedural states (ICD-10) ?Z86.79 - Personal history of other diseases of the circulatory system (ICD-10) H/O medial meniscus repair of left knee ?Z98.890 - Other specified postprocedural states (ICD-10) H/O lateral meniscus repair of right knee ?Z98.890 - Other specified postprocedural states (ICD-10) Hx laparoscopic cholecystectomy ?Z90.49 - Acquired absence of other specified parts of digestive tract (ICD-10) Family History (Updated 05/13/24 @ 12:50 by Sergo Ríos) Other Heart disease Parkinson disease Varicose veins of bilateral lower extremities with pain Social History (Updated 05/13/24 @ 12:49 by Sergo Ríos) Within the past year, how often did you have a drink containing alcohol: 2-4 times a month Smoking status: Never smoker Non-prescribed substance use: denies use Meds Home Medications and Allergies Home Medications ?Medication ?Instructions ?Recorded ?Confirmed ?Type No Known Home Medications 05/13/24 05/13/24 History Allergies Allergy/AdvReac Type Severity Reaction Status Date / Time No Known Drug Allergies Allergy Verified 05/13/24 12:03 Exam Narrative Exam Narrative: Patient has no complaints today. IHaresh MD personally performed the services described in this documentation, as scribed by Edel Sotelo RDMS in my presence and it is both accurate and complete. I, Edel Sotelo RDMS, am scribing for, and in the presence of, Dr. Haresh King and in the presence of the patient. Constitutional Documenting provider has reviewed patient's vital signs: yes Common normals: oriented x3 Cardio Peripheral pulses: posterior tibial pulses present and dorsalis pedis pulses present Extremity Common normals: normal capillary refill General: edema Right lower extremity: lower leg Right lower leg: inspection and palpation Left lower extremity: lower leg Left lower leg: inspection and palpation Neuro Common normals: oriented x3 Results Imaging Venous US: Radiologist's impression: Chemically induced thrombus in multiple varicose veins left lower leg. Haresh Yates MD personally performed the services described in this documentation, as scribed by Edel Sotelo RDMS in my presence and it is both accurate and complete. Edel Yates RDMS am scribing for, and in the presence of, Dr. Haresh King and in the presence of the patient. Assessment and Plan Assessment and Plan (1) Phlebitis and thrombophlebitis of superficial vessels of left lower extremity: Plan Plan is for patient to return for Varithena/microfoam of right leg on 06/19/24. Haresh Yates MD personally performed the services described in this documentation, as scribed by Edel Sotelo RDMS in my presence and it is both accurate and complete. Edel Yates RDMS am scribing for, and in the presence of, Dr. Haresh King and in the presence of the patient.
--- NOTE | 2024-06-10 09:25 | VEIN_ITS ---
Patient Name: JS JETT MR#: [id number] : 1955 Exam Date: 06/10/2024 Ordering Doctor: DR INNA SANFORD M.D. RADIOLOGY REPORT PROCEDURE: VC EXT VENOUS LT LIMITED COMPARISON: None. INDICATIONS: I80.02 - Phlebitis and thrombophlebitis of superficial veins left leg TECHNIQUE: Lower extremity johnson scale and Duplex Doppler evaluation of the deep venous system from the inguinal ligament through the calf veins. FINDINGS: REGION: Left lower extremity. THROMBI: Negative for DVT. Chemically induced thrombus in left leg varicose veins. Thrombus in AASV approximately 5.3 cm from SFJ and extends to distal thigh. COMPRESSIBILITY: Non-compressible segments corresponding to thrombus FLOW: Areas of no flow corresponding to thrombus OTHER: Small varicose vein remains distal lateral thigh measures 2.3 mm. CONCLUSION: 1. Post ablation occlusion of treated left leg varicose veins with no deep vein thrombus or residual varicose veins. Dictated by: Haresh King MD on 06/10/2024 at 10:02 Approved by: Haresh King MD on 06/10/2024 at 10:02
--- NOTE | 2024-06-10 09:25 | VEIN_ITS ---
Patient Name: JS JETT MR#: [id number] : 1955 Exam Date: 06/10/2024 Ordering Doctor: DR INNA SANFORD M.D. RADIOLOGY REPORT PROCEDURE: [facility] - OFFICE VISIT FOLLOW UP [facility]. PROGRESS NOTES: The patient reports no significant problems following micro foam chemical ablation of left leg incompetent varicose veins. The patient did wear her compression stocking and tried exercise. The patient did not require oral analgesics. Physical exam demonstrates scattered thrombosed varicose veins. No erythema or warmth to suggest cellulitis or thrombophlebitis. No active ulceration. Reticular and spider veins are noted. Review of the ultrasound performed the same day demonstrates occlusive thrombus extending throughout the treated left leg varicose veins. No deep vein thrombus. Residual 5 mm incompetent right leg varicose vein The patient expressed a desire to proceed with treatment of incompetent right leg varicose veins. [facility] IMPRESSION: 1. Successful ablation of treated left leg incompetent varicose veins 2. Persistent incompetent right leg varicose veins. PLAN: Micro foam chemical ablation right leg Nurse notes, history and physical were reviewed and confirmed, see attached forms. The nurse was present throughout the physical exam and consultation Dictated by: Haresh King MD on 06/10/2024 at 10:03 Approved by: Haresh King MD on 06/10/2024 at 10:07
--- OUTSIDE RECORDS SUMMARY | 2024-06-10 09:38 | XMS_ITS | CCD ---
Author Organization [facility] Care Team Providers Care Community Organization Worker Name Role Phone SAIDA BENSON Admitting Unavailable SAIDA BENSON Attending Unavailable SAIDA BENSON Referring Unavailable Jasmin Bobby Unavailable TUTU Bobby Primary Care Provider TUTU Bobby Attending Provider [phone] SAMI ADAMS Attending Unavailable Chicho Kauffman DO Unavailable Jasmin Bobby Attending Unavailable Jasmin Bobby Admitting Unavailable Jasmin Bobby Primary Care Unavailable Jasmin Bobby Attending Unavailable Jasmin Bobby Admitting Unavailable Jasmin Bobby Primary Care Unavailable Jasmin Bobby CNP Primary Care Provider [phone] JENNIFER DEGROOT Attending Unavailable Medications Current Medications [...] Translations: [Impetigo, unspecified] Episodic Unclassified (2 sources) 09438/G0121 - Epigastric pain, screening; Translations: [60503/G0121 - Epigastric pain, screening] Onset: 9 Unclassified (1 source) Chronic fatigue, unspecified; Translations: [Chronic fatigue, unspecified] Onset: 4 Varicose veins of lower extremity (3 sources) Varicose veins of lower extremity; Translations: [Asymptomatic varicose veins of bilateral lower extremities] Episodic Results Test Name Value Interpretation Reference Range Facility Research [facility] 04-08-2024 CNOV Office Visit (NEUBS ) LEANN GREENBERG ([id number]) 1955 F Date Time Provider Department 04/08/24 12:45 PM JENNIFER DEGROOT During your visit today, we recorded the following information about you: Jennifer Degroot, STEAM GENERATING POWERPLANT MECHANIC.VEHICLE MECHANIC 04/08/2024 6:01 PM Addendum PCP does not have one at present-see MASHA Bobby DATE: April 08, 2024 PT. NAME: Leann Greenberg CCF#: [id number] IRB #: [id number] A. PROTOCOL: [facility] Brain Study Carpet Sewing Machine Operator: Layla Saenz MD, , Pascual Ames MD, [facility] contact agent for study related questions: Katy Slater Is [...] and for procedures related to study YES. Time:[id number] EKG/ECG was performed on patient. Patient tolerated [...] Wrist extension: Right 5 Left 5 Finger flexion/carbide grinder: Right 5 Left 5 Flexor pollicis longus: [...] Downgoing Weakness?: No Tremor: No Cerebellar/Coordination Assessment [id number]: Abnormality present: No, [id number]-[id number]: Abnormality present: No, Finger Tapping - Abnormality [...] Sensory/Sensation Sensory System-globlal assessment: Normal Jennifer Degroot APRN.VEHICLE MECHANIC Allergies As of Date: 04/08/2024 (Not on File) Date Reviewed: Never Reviewed Primary Visit Diagnosis:Examination of participant in clinical trial [Z00.6] Problem List As Of Date: 04/08/2024 (None) Disposition: Return in about 1 year (around 04/08/2025). Follow-up and Disposition History for Encounter Date Provider Department Center 04/08/2024 [id number] DEGROOT [facility] Encounter Status:Closed by JENNIFER DEGROOT on (more content not included)... Normal [facility]Inside[facility] LEANN GREENBERG ([id number]) 1955 F Date Time Provider Department 04/01/24 LIANA JACOBO During your visit today, we recorded the following information about you: Allergies As of Date: 04/01/2024 (Not on File) Date Reviewed: Never Reviewed Reason for Visit: Research [293] Cmt: IRB [id number] Problem List As Of Date: 04/01/2024 (None) Encounter Status:Closed by LIANA JACOBO on 04/02/24 [facility] 01-15-2024 CNPN Telephone ([facility] (InsideTracker)) LEANN GREENBERG ([id number]) 1955 F Date Time Provider Department 01/15/24 GRISELDA GONZALEZ During your visit today, we recorded the following information about you: Griselda Gonzalez, Research Coordinator 01/15/2024 3:44 PM Signed IRB [id number]. [facility] Brain Study (CCBS) Carpet Sewing Machine Operator: Layla Saenz MD, , Pascual Ames MD, Waste Water Or Water Plant Operator: Katy Slater and Email:[email or web address] Research Coordinator called and contacted Leann Greenberg on January 15, 2024 to reminded patient of appointment with the [facility] Brain Study, Griselda Gonzalez, Research Coordinator [...] Status:Closed by GRISELDA GONZALEZ on 01/15/24 Normal [facility] 11-05-2023 CNPN Telephone (NEUBSM) LEANN GREENBERG ([id number]) 1955 F Date Time Provider Department 11/05/23 NATHALIE MCKEON During your visit today, we recorded the following information about you: Nathalie Mckeon APRN.[facility] 11/05/2023 12:12 PM Signed IRB [id number]. [facility] Brain Study (CCBS) Carpet Sewing Machine Operator: Layla Saenz MD, , Pascual Ames MD, Waste Water Or Water Plant Operator: Katy Slater and Email: Contacted Leann Greenberg by phone to discuss the [facility] Brain Study (BS): Biomarkers and Predictors of Neurological Disorders IRB [id number]. Patient is eligible and agrees to participate. Requests call back December to schedule (going to [place]). Nathalie Mckeon APRN.VEHICLE MECHANIC Allergies As of Date: 11/05/2023 (Not on File) Date Reviewed: Never Reviewed Reason for Visit: Patient Update [1234] Problem List As Of Date: 11/05/2023 (None) Encounter Status:Closed by NATHALIE MCKEON on 11/05/23 Normal [facility] Basophils Auto (Bld) [#/Vol] Ordered By: Jasmin Bobby on 09-19-2023 Basophils (Bld) [#/Vol] 0.0 10*3/uL 0.0-0.2 [facility] Basophils/100 WBC Auto (Bld) Ordered By: Jasmin Bobby on 09-19-2023 Basophils/100 WBC (Bld) 0.6 % . [facility] Complete Blood Count Auto Di ffon 09-19-2023 Basophils (Bld) [#/Vol] 0.0 10*3/uL Normal 0.0-0.2 [facility] Comment on above: Result Comment: PERF ORMED BY: [place] [address] PATHOLOGIST DIE FORGER TEODORA RAPHAEL M.D. Performed By: #### F E and TIBC, CRP, LIPID, MG, TSH3 wRFLX, B12, CMP, BALAJI, ESR #### [facility] [address] [place] [address] #### SJOGRENS, MENDEZ CHOICE, RA #### [facility] , Basophils/100 WBC (Bld) 0.6 % Normal . [facility] Comment on above: Performed By: #### F E and TIBC, CRP, LIPID, MG, TSH3 wRFLX, B12, CMP, BALAJI, ESR #### [facility] [address] [place] [address] [place] #### SJOGRENS, MENDEZ CHOICE, RA #### [facility] , Eosinophils (Bld) [#/Vol] 0.0 10*3/uL Normal 0.0-0.45 [facility] Comment on above: Performed By: #### F E and TIBC, CRP, LIPID, MG, TSH3 wRFLX, B12, CMP, BALAJI, ESR #### [place] [address] [place] #### SJOGRENS, MENDEZ CHOICE, RA #### [facility] , Eosinophils/100 WBC (Bld) 1.0 % Normal . [facility] Comment on above: Performed By: #### F E and TIBC, CRP, LIPID, MG, TSH3 wRFLX, B12, CMP, BALAJI, ESR #### [address] #### SJOGRENS, MENDEZ CHOICE, RA #### [facility] , Erythrocyte distribution width (RBC) [Ratio] 13.6 % Normal 11.9-15.3 [facility] Comment on above: Performed By: #### F E and TIBC, CRP, LIPID, MG, TSH3 wRFLX, B12, CMP, BALAJI, ESR #### [address] #### SJOGRENS, MENDEZ CHOICE, RA #### [facility] , Hematocrit (Bld) [Volume fraction] 38.3 % Normal 34.0-46.4 [facility] Comment on above: Performed By: #### F E and TIBC, CRP, LIPID, MG, TSH3 wRFLX, B12, CMP, BALAJI, ESR #### [place] [address] [place] #### SJOGRENS, MENDEZ CHOICE, RA #### [facility] , Hemoglobin (Bld) [Mass/Vol] 12.9 g/dL Normal 11.8-15.4 [facility] Comment on above: Performed By: #### F E and TIBC, CRP, LIPID, MG, TSH3 wRFLX, B12, CMP, BALAJI, ESR #### [place] [address] [place] #### SJOGRENS, MENDEZ CHOICE, RA #### [facility] , Lymphocytes (Bld) [#/Vol] 1.3 10*3/uL Normal 1.00-4.8 [facility] Comment on above: Performed By: #### F E and TIBC, CRP, LIPID, MG, TSH3 wRFLX, B12, CMP, BALAJI, ESR #### [address] #### SJOGRENS, MENDEZ CHOICE, RA #### [facility] , Lymphocytes/100 WBC (Bld) 39.6 % Normal . [facility] Comment on above: Performed By: #### F E and TIBC, CRP, LIPID, MG, TSH3 wRFLX, B12, CMP, BALAJI, ESR #### [address] #### SJOGRENS, MENDEZ CHOICE, RA #### [facility] , MCH (RBC) [Entitic mass] 30.9 pg Normal 24.7-34.3 [facility] Comment on above: Performed By: #### F E and TIBC, CRP, LIPID, MG, TSH3 wRFLX, B12, CMP, BALAJI, ESR #### [place] [address] [place] #### SJOGRENS, MENDEZ CHOICE, RA #### [facility] , MCV (RBC) [Entitic vol] 91.6 fL Normal 80-100 [facility] Comment on above: Performed By: #### F E and TIBC, CRP, LIPID, MG, TSH3 wRFLX, B12, CMP, BALAJI, ESR #### [address] #### SJOGRENS, MENDEZ CHOICE, RA #### [facility] , Mean Corpuscular HGB Conc 33.7 g/dL Normal 32.0-35.0 [facility] Comment on above: Performed By: #### F E and TIBC, CRP, LIPID, MG, TSH3 wRFLX, B12, CMP, BALAJI, ESR #### [address] #### SJOGRENS, MENDEZ CHOICE, RA #### [facility] , Monocytes (Bld) [#/Vol] 0.2 10*3/uL Normal 0.0-0.8 [facility] Comment on above: Performed By: #### F E and TIBC, CRP, LIPID, MG, TSH3 wRFLX, B12, CMP, BALAJI, ESR #### [address] #### SJOGRENS, MENDEZ CHOICE, RA #### [facility] , Monocytes/100 WBC (Bld) 5.7 % Normal . [facility] Comment on above: Performed By: #### F E and TIBC, CRP, LIPID, MG, TSH3 wRFLX, B12, CMP, BALAJI, ESR #### [facility] [address] [place] [address] #### SJOGRENS, MENDEZ CHOICE, RA #### [facility] , Neutrophils (Bld) [#/Vol] 1.7 10*3/uL Low 1.8-7.7 [facility] Comment on above: Performed By: #### F E and TIBC, CRP, LIPID, MG, TSH3 wRFLX, B12, CMP, BALAJI, ESR #### [place] [address] [place] #### SJOGRENS, MENDEZ CHOICE, RA #### [facility] , Neutrophils/100 WBC (Bld) 53.1 % Normal . [facility] Comment on above: Performed By: #### F E and TIBC, CRP, LIPID, MG, TSH3 wRFLX, B12, CMP, BALAJI, ESR #### [address] #### SJOGRENS, MENDEZ CHOICE, RA #### [facility] , NRBC% 0.1 /100{WBC} Normal 0-0.5 [facility] Comment on above: Performed By: #### F E and TIBC, CRP, LIPID, MG, TSH3 wRFLX, B12, CMP, BALAJI, ESR #### [address] #### SJOGRENS, MENDEZ CHOICE, RA #### [facility] , Platelet mean volume (Bld) [Entitic vol] 8.4 fL Normal 6.3-10.7 [facility] Comment on above: Performed By: #### F E and TIBC, CRP, LIPID, MG, TSH3 wRFLX, B12, CMP, BALAJI, ESR #### [address] #### SJOGRENS, MENDEZ CHOICE, RA #### [facility] , Platelets (Bld) [#/Vol] 155 10*3/uL Normal 150-450 [facility] Comment on above: Performed By: #### F E and TIBC, CRP, LIPID, MG, TSH3 wRFLX, B12, CMP, BALAJI, ESR #### [address] #### SJOGRENS, MENDEZ CHOICE, RA #### [facility] , RBC (Bld) [#/Vol] 4.18 10*6/uL Normal 3.60-5.00 [facility] Comment on above: Performed By: #### F E and TIBC, CRP, LIPID, MG, TSH3 wRFLX, B12, CMP, BALAJI, ESR #### [place] [address] [place] #### SJOGRENS, MENDEZ CHOICE, RA #### [facility] , WBC (Bld) [#/Vol] 3.2 10*3/uL Low 3.8-11.6 [facility] Comment on above: Performed By: #### F E and TIBC, CRP, LIPID, MG, TSH3 wRFLX, B12, CMP, BALAJI, ESR #### [facility] [address] #### SJOGRENS, MENDEZ CHOICE, RA #### [facility] , Eosinophils Auto (Bld) [#/Vo l]Ordered By: Jasmin Mccauleyeckerty on 09-19-2023 Eosinophils (Bld) [#/Vol] 0.0 10*3/uL 0.0-0.45 [facility] Eosinophils/100 WBC Auto (Bl d)Ordered By: [facility] on 09-19-2023 Eosinophils/100 WBC (Bld) 1.0 % . [facility] Erythrocyte distribution wid th Auto (RBC) [Ratio]Ordered By: [facility] on 09-19-2023 Erythrocyte distribution width (RBC) [Ratio] 13.6 % 11.9-15.3 [facility] Hematocrit Auto (Bld) [Volum e fraction]Ordered By: [facility] on 09-19-2023 Hematocrit (Bld) [Volume fraction] 38.3 % 34.0-46.4 [facility] Hemoglobin [Mass/volume] in BloodOrdered By: Jasmin [facility] on 09-19-2023 Hemoglobin (Bld) [Mass/Vol] 12.9 g/dL 11.8-15.4 [facility] Leukocytes [#/volume] correc santos for nucleated erythrocytes in Blood by Automated counOrdered By: [facility] WBC corrected for nucl RBC Auto (Bld) [#/Vol] 3.2 10*3/uL 3.8-11.6 [facility] Lymphocytes Auto (Bld) [#/Vo l]Ordered By: Jasmin [facility] on 09-19-2023 Lymphocytes (Bld) [#/Vol] 1.3 10*3/uL 1.00-4.8 [facility] Lymphocytes/100 WBC Auto (Bl d)Ordered By: Jasmin [facility] on 09-19-2023 Lymphocytes/100 WBC (Bld) 39.6 % . [facility] MCH Auto (RBC) [Entitic mass ]Ordered By: Jasmin Bobby on 09-19-2023 MCH (RBC) [Entitic mass] 30.9 pg 24.7-34.3 [facility] MCHC Auto (RBC) [Mass/Vol]Or dered By: Jasmin Bobby on 09-19-2023 MCHC (RBC) [Mass/Vol] 33.7 g/dL 32.0-35.0 [facility] MCV Auto (RBC) [Entitic vol] Ordered By: Jasmin Bobby on 09-19-2023 MCV (RBC) [Entitic vol] 91.6 fL 80-100 [facility] Monocytes Auto (Bld) [#/Vol] Ordered By: Jasmin Bobby on 09-19-2023 Monocytes (Bld) [#/Vol] 0.2 10*3/uL 0.0-0.8 [facility] Monocytes/100 WBC Auto (Bld) Ordered By: Jasmin Bobby on 09-19-2023 Monocytes/100 WBC (Bld) 5.7 % . [facility] Neutrophils Auto (Bld) [#/Vo l]Ordered By: Jasmin Bobby on 09-19-2023 Neutrophils (Bld) [#/Vol] 1.7 10*3/uL 1.8-7.7 [facility] Neutrophils/100 WBC Auto (Bl d)Ordered By: Jasmin Bobby on 09-19-2023 Neutrophils/100 WBC (Bld) 53.1 % . [facility] Nucleated erythrocytes [Pres ence] in Blood by Automated countOrdered By: Jasmin Bobby on 09-19-2023 Nucleated RBC Auto Ql (Bld) 0.1 /100{WBC} 0-0.5 [facility] Platelet mean volume Auto (B ld) [Entitic vol]Ordered By: Jasmin Bobby on 09-19-2023 Platelet mean volume (Bld) [Entitic vol] 8.4 fL 6.3-10.7 [facility] Platelets Auto (Bld) [#/Vol] Ordered By: Jasmin Bobby on 09-19-2023 Platelets (Bld) [#/Vol] 155 10*3/uL 150-450 [facility] RBC Auto (Bld) [#/Vol]Ordere d By: Jasmin Bobby on 09-19-2023 RBC (Bld) [#/Vol] 4.18 10*6/uL 3.60-5.00 [facility] WBC Auto (Bld) [#/Vol]Ordere d By: Jamsin Bobby on 09-19-2023 WBC (Bld) [#/Vol] 3.2 10*3/uL 3.8-11.6 [facility] MENDEZ with Reflexon 09-18-2023 MENDEZ with Reflex Negative Normal Negative [facility] Comment on above: Order Comment: Reaso n for Exam Chronic fatigue Reason for Exam Chronic fatigue;Restless leg;Paresthesias Reason for Exam Restless leg Reason for Exam Chronic fatigue;Xerostomia;Dry skin Reason for Exam Screening for cardiovascular condition Reason for Exam Paresthesias Reason for Exam Chronic fatigue;Dry skin Result Comment: Perf ormed at: CB - [facility] [address] [id number] Evidence Custodian: Alphonse Harris PhD, Phone: [phone] Performed By: #### F E and TIBC, CRP, LIPID, MG, TSH3 wRFLX, B12, CMP, BALAJI, ESR #### [facility] [address] [place] [address] #### SJOGRENS, MENDEZ CHOICE, RA #### [facility] , Alanine aminotransferase [En zymatic activity/volume] in Serum or PlasmaOrdered By: Jasmin Bobby on 09-18-2023 ALT [Catalytic activity/Vol] 11 U/L 7-52 [facility] Albumin [Mass/volume] in Ser um or Plasma by Bromocresol green (BCG) dye binding methoOrdered By: Jasmin Bobby on 09-18-2023 Albumin BCG dye [Mass/Vol] 4.2 g/dL 3.5-5.7 [facility] Alkaline phosphatase [Enzyma tic activity/volume] in Serum or PlasmaOrdered By: Jasmin Bobby on 09-18-2023 ALP [Catalytic activity/Vol] 69 U/L 34-104 [facility] Aspartate aminotransferase [ Enzymatic activity/volume] in Serum or PlasmaOrdered By: Jasmin Bobby on 09-18-2023 AST [Catalytic activity/Vol] 17 U/L 13-39 [facility] Bilirubin.total [Mass/volume ] in Serum or PlasmaOrdered By: Jasmin Bobby on 09-18-2023 Bilirubin [Mass/Vol] 0.6 mg/dL 0.3-1.0 [facility] C reactive protein [Mass/vol ume] in Serum or PlasmaOrdered By: Jasmin Bobby on 09-18-2023 CRP [Mass/Vol] < 0.5 mg/dL 0.0-0.5 [facility] C-Reactive Proteinon 024 CRP [Mass/Vol] mg/L Normal 0.0-0.5 [facility] Comment on above: Order Comment: [...] TSH3 wRFLX, B12, CMP, BALAJI, ESR #### [facility] [address] [place] [address] #### SJOGRENS, MENDEZ CHOICE, RA #### [facility] , Calcium [Mass/volume] in Ser um or PlasmaOrdered By: Jsamin Bobby on 09-18-2023 Calcium [Mass/Vol] 9.3 mg/dL 8.6-10.3 [facility] Carbon dioxide, total [Moles /volume] in Serum or PlasmaOrdered By: Jasmin Bobby on 09-18-2023 CO2 [Moles/Vol] 30.1 mmol/L 21.0-31.0 [facility] Chloride [Moles/volume] in S wolf or PlasmaOrdered By: Jasmin Bobby on 09-18-2023 Chloride [Moles/Vol] 105 mmol/L 98-107 [facility] Cholesterol [Mass/volume] in Serum or PlasmaOrdered By: Jasmin Bobby on 09-18-2023 Cholesterol [Mass/Vol] 293 mg/dL 140-200 [facility] Comment on above: Chol less than 200 m g/dl low riskChol 201-239 mg/dl borderline riskChol 240 mg/dl and greater high risk Cholesterol in LDL Calc [Mas s/Vol]Ordered By: Jasmin Bobby on 09-18-2023 Cholesterol in LDL [Mass/Vol] 205 mg/dL 0-100 [facility] Comment on above: LDL ATP III CLASSIFI CATIONLDL less than 100 mg/dL OptimalLDL 100-129 mg/dL Near or above optimalLDL 130-159 mg/dL Borderline highLDL 160-189 mg/dL HighLDL greater than 189 mg/dL Very high Cholesterol in VLDL Calc [Ma ss/Vol]Ordered By: Jasmin Bobby on 09-18-2023 Cholesterol in VLDL [Mass/Vol] 15 mg/dL [facility] Comprehensive Metabolic Pane manolo 09-18-2023 Albumin [Mass/Vol] 4.2 g/dL Normal 3.5-5.7 [facility] Comment on above: Order Comment: Reaso n for Exam Chronic fatigue Reason for Exam Chronic fatigue;Restless leg;Paresthesias Reason for Exam Restless leg Reason for Exam Chronic fatigue;Xerostomia;Dry skin Reason for Exam Screening for cardiovascular condition Reason for Exam Paresthesias Reason for Exam Chronic fatigue;Dry skin Performed By: #### F E and TIBC, CRP, LIPID, MG, TSH3 wRFLX, B12, CMP, BALAJI, ESR #### [facility] [address] #### SJOGRENS, MENDEZ CHOICE, RA #### [facility] , Albumin/Globulin [Mass ratio] 1.6 {ratio} Normal [facility] Comment on above: Order Comment: [...] TSH3 wRFLX, B12, CMP, BALAJI, ESR #### [facility] [address] #### SJOGRENS, MENDEZ CHOICE, RA #### [facility] , ALP [Catalytic activity/Vol] 69 U/L Normal 34-104 [facility] Comment on above: Order Comment: [...] TSH3 wRFLX, B12, CMP, BALAJI, ESR #### [facility] [address] [place] [address] [place] #### SJOGRENS, MENDEZ CHOICE, RA #### [facility] , ALT [Catalytic activity/Vol] 11 U/L Normal 7-52 [facility] Comment on above: Order Comment: [...] TSH3 wRFLX, B12, CMP, BALAJI, ESR #### [facility] [address] [place] [address] #### SJOGRENS, MENDEZ CHOICE, RA #### [facility] , Anion gap [Moles/Vol] 9.5 mmol/L Normal 6.0-15.0 [facility] Comment on above: Order Comment: Reaso n for Exam Chronic fatigue Reason for Exam Chronic fatigue;Restless leg;Paresthesias Reason for Exam Restless leg Reason for Exam Chronic fatigue;Xerostomia;Dry skin Reason for Exam Screening for cardiovascular condition Reason for Exam Paresthesias Reason for Exam Chronic fatigue;Dry skin Performed By: #### F E and TIBC, CRP, LIPID, MG, TSH3 wRFLX, B12, CMP, BALAJI, ESR #### [place] [address] [place] #### SJOGRENS, MENDEZ CHOICE, RA #### [facility] , AST [Catalytic activity/Vol] 17 U/L Normal 13-39 [facility] Comment on above: Order Comment: [...] TSH3 wRFLX, B12, CMP, BALAJI, ESR #### [place] [address] [place] #### SJOGRENS, MENDEZ CHOICE, RA #### [facility] , Bilirubin [Mass/Vol] 0.6 mg/dL Normal 0.3-1.0 [facility] Comment on above: Order Comment: [...] TSH3 wRFLX, B12, CMP, BALAJI, ESR #### [place] [address] [place] #### SJOGRENS, MENDEZ CHOICE, RA #### [facility] , Calcium [Mass/Vol] 9.3 mg/dL Normal 8.6-10.3 [facility] Comment on above: Order Comment: Reaso n for Exam Chronic fatigue Reason for Exam Chronic fatigue;Restless leg;Paresthesias Reason for Exam Restless leg Reason for Exam Chronic fatigue;Xerostomia;Dry skin Reason for Exam Screening for cardiovascular condition Reason for Exam Paresthesias Reason for Exam Chronic fatigue;Dry skin Performed By: #### F E and TIBC, CRP, LIPID, MG, TSH3 wRFLX, B12, CMP, BALAJI, ESR #### [place] [address] [place] #### SJOGRENS, MENDEZ CHOICE, RA #### [facility] , Chloride [Moles/Vol] 105 mmol/L Normal 98-107 [facility] Comment on above: Order Comment: [...] TSH3 wRFLX, B12, CMP, BALAJI, ESR #### [place] [address] [place] #### SJOGRENS, MENDEZ CHOICE, RA #### [facility] , CO2 [Moles/Vol] 30.1 mmol/L Normal 21.0-31.0 [facility] Comment on above: Order Comment: [...] TSH3 wRFLX, B12, CMP, BALAJI, ESR #### [place] [address] [place] #### SJOGRENS, MENDEZ CHOICE, RA #### [facility] , Creatinine [Mass/Vol] 0.62 mg/dL Normal 0.60-1.20 [facility] Comment on above: Order Comment: Reaso n for Exam Chronic fatigue Reason for Exam Chronic fatigue;Restless leg;Paresthesias Reason for Exam Restless leg Reason for Exam Chronic fatigue;Xerostomia;Dry skin Reason for Exam Screening for cardiovascular condition Reason for Exam Paresthesias Reason for Exam Chronic fatigue;Dry skin Performed By: #### F E and TIBC, CRP, LIPID, MG, TSH3 wRFLX, B12, CMP, BALAJI, ESR #### [address] #### SJOGRENS, MENDEZ CHOICE, RA #### [facility] , GFR/1.73 sq M.predicted MDRD (S/P/Bld) [Vol rate/Area] mL/min/{1.73_m2} [facility] Comment on above: Order Comment: Reaso n for Exam Chronic fatigue Reason for Exam Chronic fatigue;Restless leg;Paresthesias Reason for Exam Restless leg Reason for Exam Chronic fatigue;Xerostomia;Dry skin Reason for Exam Screening for cardiovascular condition Reason for Exam Paresthesias Reason for Exam Chronic fatigue;Dry skin Performed By: #### F E and TIBC, CRP, LIPID, MG, TSH3 wRFLX, B12, CMP, BALAJI, ESR #### [address] #### SJOGRENS, MENDEZ CHOICE, RA #### [facility] , Globulin (S) [Mass/Vol] 2.6 g/dL Normal [facility] Comment on above: Order Comment: [...] TSH3 wRFLX, B12, CMP, BALAJI, ESR #### [facility] [address] [place] [address] [place] #### SJOGRENS, MENDEZ CHOICE, RA #### [facility] , Glucose [Mass/Vol] 95 mg/dL Normal 70-100 [facility] Comment on above: Order Comment: Reaso n for Exam Chronic fatigue Reason for Exam Chronic fatigue;Restless leg;Paresthesias Reason for Exam Restless leg Reason for Exam Chronic fatigue;Xerostomia;Dry skin Reason for Exam Screening for cardiovascular condition Reason for Exam Paresthesias Reason for Exam Chronic fatigue;Dry skin Result Comment: [facility] Glucose Reference Range is dependent on time and content of last meal. Glucose of more than 200 mg/dL in a nonstressed, ambulatory subject supports the diagnosis of Diabetes Mellitus. ADA recommended reference range Performed By: #### F E and TIBC, CRP, LIPID, MG, TSH3 wRFLX, B12, CMP, BALAJI, ESR #### [address] #### SJOGRENS, MENDEZ CHOICE, RA #### [facility] , Potassium [Moles/Vol] 4.6 mmol/L Normal 3.5-5.1 [facility] Comment on above: Order Comment: Reaso n for Exam Chronic fatigue Reason for Exam Chronic fatigue;Restless leg;Paresthesias Reason for Exam Restless leg Reason for Exam Chronic fatigue;Xerostomia;Dry skin Reason for Exam Screening for cardiovascular condition Reason for Exam Paresthesias Reason for Exam Chronic fatigue;Dry skin Performed By: #### F E and TIBC, CRP, LIPID, MG, TSH3 wRFLX, B12, CMP, BALAJI, ESR #### [place] [address] [place] #### SJOGRENS, MENDEZ CHOICE, RA #### [facility] , Protein [Mass/Vol] 6.8 g/dL Normal 6.4-8.9 [facility] Comment on above: Order Comment: Reaso n for Exam Chronic fatigue Reason for Exam Chronic fatigue;Restless leg;Paresthesias Reason for Exam Restless leg Reason for Exam Chronic fatigue;Xerostomia;Dry skin Reason for Exam Screening for cardiovascular condition Reason for Exam Paresthesias Reason for Exam Chronic fatigue;Dry skin Performed By: #### F E and TIBC, CRP, LIPID, MG, TSH3 wRFLX, B12, CMP, BALAJI, ESR #### [place] [address] [place] #### SJOGRENS, MENDEZ CHOICE, RA #### [facility] , Sodium [Moles/Vol] 140 mmol/L Normal 136-145 [facility] Comment on above: Order Comment: Reaso n for Exam Chronic fatigue Reason for Exam Chronic fatigue;Restless leg;Paresthesias Reason for Exam Restless leg Reason for Exam Chronic fatigue;Xerostomia;Dry skin Reason for Exam Screening for cardiovascular condition Reason for Exam Paresthesias Reason for Exam Chronic fatigue;Dry skin Performed By: #### F E and TIBC, CRP, LIPID, MG, TSH3 wRFLX, B12, CMP, BALAJI, ESR #### [facility] [address] [place] [address] #### SJOGRENS, MENDEZ CHOICE, RA #### [facility] , Urea nitrogen [Mass/Vol] 13 mg/dL Normal 7-25 [facility] Comment on above: Order Comment: [...] TSH3 wRFLX, B12, CMP, BALAJI, ESR #### [facility] [address] [place] [address] [place] #### SJOGRENS, MENDEZ CHOICE, RA #### [facility] , Creatinine [Mass/volume] in Serum or PlasmaOrdered By: Jasmin Bobby on 09-18-2023 Creatinine [Mass/Vol] 0.62 mg/dL 0.60-1.20 [facility] Erythrocyte Sedimentation Ra chiara 09-18-2023 ESR (Bld) [Velocity] 37 mm/h High 0-29 [facility] Comment on above: Order Comment: Reaso n for Exam Chronic fatigue Reason for Exam Chronic fatigue;Xerostomia;Dry skin Result Comment: PERF ORMED BY: [place] [address] PATHOLOGIST DIE FORGER TEODORA RAPHAEL M.D. Performed By: #### F E and TIBC, CRP, LIPID, MG, TSH3 wRFLX, B12, CMP, BALAJI, ESR #### [facility] [address] [place] [address] [place] #### JADEOGRMENDEZ BROWN, RA #### [facility] , Erythrocyte sedimentation ra te by Photometric methodOrdered By: Jasmin Bobby on 09-18-2023 ESR Photometric method (Bld) [Velocity] 37 mm/hr 0-29 [facility] Ferritinon 09-18-2023 Ferritin [Mass/Vol] 221.1 ng/mL Normal 11.0-306.8 [facility] Comment on above: Order Comment: [...] TSH3 wRFLX, B12, CMP, BALAJI, ESR #### [facility] [address] #### JADEOGRMENDEZ BROWN, RA #### [facility] , Ferritin [Mass/volume] in Se rum or PlasmaOrdered By: Jasmin Bobby on 09-18-2023 Ferritin [Mass/Vol] 221.1 ng/mL 11.0-306.8 [facility] Globulin Calc (S) [Mass/Vol] Ordered By: Jasmin Bobby on 09-18-2023 Globulin (S) [Mass/Vol] 2.6 g/dL [facility] Glucose [Mass/volume] in Ser um or PlasmaOrdered By: Jasmin Bobby on 09-18-2023 Glucose [Mass/Vol] 95 mg/dL 70-100 [facility] Comment on above: ADA recommended refe rence rangeRandom Glucose Reference Range is dependent on time and content of last meal. Glucose of more than 200 mg/dL in a nonstressed, ambulatory subject supports the diagnosis of Diabetes Mellitus. Iron [Mass/volume] in Serum or PlasmaOrdered By: Jasmin Bobby on 09-18-2023 Iron [Mass/Vol] 115 ug/dL 50-212 [facility] Iron and TIBC Profileon 09-04 % Iron Saturation 40.5 % Normal 20-50 [facility] Comment on above: Order Comment: [...] TSH3 wRFLX, B12, CMP, BALAJI, ESR #### [facility] [address] [place] [address] #### SJOGRENS, MENDEZ CHOICE, RA #### [facility] , Iron [Mass/Vol] 115 ug/dL Normal 50-212 [facility] Comment on above: Order Comment: [...] TSH3 wRFLX, B12, CMP, BALAJI, ESR #### [facility] [address] [place] [address] [place] #### SJOGRENS, MENDEZ CHOICE, RA #### [facility] , Total Iron Binding Capacity 284 ug/dL Normal 255-450 [facility] Comment on above: Order Comment: [...] TSH3 wRFLX, B12, CMP, BALAJI, ESR #### [facility] [address] [place] [address] [place] #### SJOGRENS, MENDEZ CHOICE, RA #### [facility] , Transferrin [Mass/Vol] 203 mg/dL Normal 203-362 [facility] Comment on above: Order Comment: Reaso n for Exam Chronic fatigue Reason for Exam Chronic fatigue;Restless leg;Paresthesias Reason for Exam Restless leg Reason for Exam Chronic fatigue;Xerostomia;Dry skin Reason for Exam Screening for cardiovascular condition Reason for Exam Paresthesias Reason for Exam Chronic fatigue;Dry skin Performed By: #### F E and TIBC, CRP, LIPID, MG, TSH3 wRFLX, B12, CMP, BALAJI, ESR #### [facility] [address] [place] [address] [place] #### SJOGRENS, MENDEZ CHOICE, RA #### [facility] , Iron binding capacity [Mass/ volume] in Serum or PlasmaOrdered By: Jasmin Bobby on 09-18-2023 Iron binding capacity [Mass/Vol] 284 ug/dL 255-450 [facility] Iron saturation [Mass Fracti on] in Serum or PlasmaOrdered By: Jasmin Bobby on 09-18-2023 Iron saturation [Mass fraction] 40.5 % 20-50 [facility] Lipid Panelon 09-18-2023 Cholesterol [Mass/Vol] 293 mg/dL High 140-200 [facility] Comment on above: Order Comment: Reaso n [...] TSH3 wRFLX, B12, CMP, BALAJI, ESR #### [facility] [address] [place] [address] [place] #### SJOGRENS, MENDEZ CHOICE, RA #### [facility] , Cholesterol in HDL [Mass/Vol] 73 mg/dL Normal 23-92 [facility] Comment on above: Order Comment: [...] TSH3 wRFLX, B12, CMP, BALAJI, ESR #### [facility] [address] #### SJOGRENS, MENDEZ CHOICE, RA #### [facility] , Cholesterol.total/Fernanda sterol in HDL [Mass ratio] 4.0 {ratio} Normal <5.0 [facility] Comment on above: Order Comment: [...] TSH3 wRFLX, B12, CMP, BALAJI, ESR #### [facility] [address] [place] [address] [place] #### SJOGRENS, MENDEZ CHOICE, RA #### [facility] , LDL Cholesterol,Calculated 205 mg/dL High 0-100 [facility] Comment on above: Order Comment: [...] TSH3 wRFLX, B12, CMP, BALAJI, ESR #### [facility] [address] [place] [address] [place] #### SJOGRENS, MENDEZ CHOICE, RA #### [facility] , Triglyceride w/Reflex 75 mg/dL Normal 0-149 [facility] Comment on above: Order Comment: Reaso n [...] TSH3 wRFLX, B12, CMP, BALAJI, ESR #### [facility] [address] [place] [address] [place] #### SJOGRENS, MENDEZ CHOICE, RA #### [facility] , VLDL CHOLESTEROL 15 mg/dL Normal [facility] Comment on above: Order Comment: [...] TSH3 wRFLX, B12, CMP, BALAJI, ESR #### [facility] [address] [place] [address] [place] #### SJOGRENS, MENDEZ CHOICE, RA #### [facility] , Magnesiumon 09-18-2023 Magnesium [Mass/Vol] 2.0 mg/dL Normal 1.9-2.7 [facility] Comment on above: Order Comment: [...] TSH3 wRFLX, B12, CMP, BALAJI, ESR #### [facility] [address] #### SJOGRENS, MENDEZ CHOICE, RA #### [facility] , Magnesium [Mass/volume] in S wolf or PlasmaOrdered By: Jasmin Bobby on 09-18-2023 Magnesium [Mass/Vol] 2.0 mg/dL 1.9-2.7 [facility] No Panel InformationOrdered By: Jasmin Bobby on 09-18-2023 Estimated GFR (CKD-EPI) > 60.0 mL/Min [facility] Creatinine Clearance (Chem N/A [facility] Potassium [Moles/volume] in Serum or PlasmaOrdered By: Jasmin Bobby on 09-18-2023 Potassium [Moles/Vol] 4.6 mmol/L 3.5-5.1 [facility] Protein [Mass/volume] in Ser um or PlasmaOrdered By: Jasmin Bobby on 09-18-2023 Protein [Mass/Vol] 6.8 g/dL 6.4-8.9 [facility] Rheumatoid Factoron 09-18-19 24 Rheumatoid Factor 10.6 Normal <14.0 [facility] Comment on above: Order Comment: Reaso n for Exam Chronic fatigue;Xerostomia;Dry skin Result Comment: Perf ormed at: - [facility] [address] [id number] Evidence Custodian: Alphonse Harris PhD, Phone: [phone] Performed By: #### F E and TIBC, CRP, LIPID, MG, TSH3 wRFLX, B12, CMP, BALAJI, ESR #### [facility] [address] #### SJOGRENS, MENDEZ CHOICE, RA #### [facility] , Serum Sjogrens syndrome-A ex tractable nuclear antibody assay (units/volume)Ordered By: Jasmin Bobby on 09-18-2023 Sjogrens syndrome-A extractable nuclear Ab Qn (S) <0.2 AI 0.0-0.9 [facility] Serum Sjogrens syndrome-B ex tractable nuclear antibody assay (units/volume)Ordered By: Jasmin Bobby on 09-18-2023 Sjogrens syndrome-B extractable nuclear Ab Qn (S) <0.2 AI 0.0-0.9 [facility] Serum or plasma albumin/glob ulin mass ratioOrdered By: Jasmin Bobby on 09-18-2023 Albumin/Globulin [Mass ratio] 1.6 {ratio} [facility] Serum or plasma anion gap de terminationOrdered By: Jasmin Bobby on 09-18-2023 Anion gap [Moles/Vol] 9.5 mmol/L 6.0-15.0 [facility] Serum or plasma free cefurox demario measurement (mass/volume)Ordered By: Jasmin Bobby on 09-18-2023 Cefuroxime free [Mass/Vol] Negative Negative [facility] Comment on above: Performed at: [facility] Director: Alphonse Harris PhD, Phone: [phone] Serum or plasma high density lipoprotein (HDL) cholesterol measurementOrdered By: Jasmin Bobby on 09-18-2023 Cholesterol in HDL [Mass/Vol] 73 mg/dL 23-92 [facility] Comment on above: HDL CHOL ATP-III CLA SSIFICATION Cardiovascular RiskHDL > or equal to 60 mg/dL LOWHDL < 40 mg/dL HIGH Serum or plasma rheumatoid f actor measurement (units/volume)Ordered By: Jasmin Bobby on 09-18-2023 Rheumatoid factor Qn 10.6 [IU]/mL <14.0 [facility] Comment on above: Performed at: [facility] [place], [place] [id number] Director: Alphonse Harris PhD, Phone: [phone] Serum or plasma total choles terol/high density lipoprotein (HDL) cholesterol mass ratOrdered By: Jasmin Bobby on 09-18-2023 Cholesterol.total/Fernanda sterol in HDL [Mass ratio] 4.0 {ratio} <5.0 [facility] Sjogrens Anti-SSA/SSBon 09-04 SS-A/Ro Sjogrens Antibody <0.2 Normal 0.0-0.9 [facility] Comment on above: Order Comment: [...] TSH3 wRFLX, B12, CMP, BALAJI, ESR #### [facility] [address] [place] [address] #### SJOGRENS, MENDEZ CHOICE, RA #### [facility] , SS-B/La Sjogrens Antibody <0.2 Normal 0.0-0.9 [facility] Comment on above: Order Comment: Reaso n for Exam Chronic fatigue Reason for Exam Chronic fatigue;Restless leg;Paresthesias Reason for Exam Restless leg Reason for Exam Chronic fatigue;Xerostomia;Dry skin Reason for Exam Screening for cardiovascular condition Reason for Exam Paresthesias Reason for Exam Chronic fatigue;Dry skin Result Comment: PERF ORMED BY: [place] [address] PATHOLOGIST DIE FORGER TEODORA RAPHAEL M.D. Performed By: #### F E and TIBC, CRP, LIPID, MG, TSH3 wRFLX, B12, CMP, BALAJI, ESR #### [facility] [address] [place] [address] #### SJOGRENS, MENDEZ CHOICE, RA #### [facility] , Sodium [Moles/volume] in Ser um or PlasmaOrdered By: Jasmin Bobby on 09-18-2023 Sodium [Moles/Vol] 140 mmol/L 136-145 [facility] Thyroid Stim Hormone w/Rflxo n 09-18-2023 Thyroid Stim Hormone w/Rflx 1.98 u[iU]/mL Normal 0.45-5.33 [facility] Comment on above: Order Comment: Reaso n for Exam Chronic fatigue Reason for Exam Chronic fatigue;Restless leg;Paresthesias Reason for Exam Restless leg Reason for Exam Chronic fatigue;Xerostomia;Dry skin Reason for Exam Screening for cardiovascular condition Reason for Exam Paresthesias Reason for Exam Chronic fatigue;Dry skin Result Comment: PERF ORMED BY: [place] [address] PATHOLOGIST DIE FORGER TEODORA RAPHAEL M.D. Performed By: #### F E and TIBC, CRP, LIPID, MG, TSH3 wRFLX, B12, CMP, BALAJI, ESR #### [facility] [address] [place] [address] #### SJOGRENS, MENDEZ CHOICE, RA #### [facility] , Thyrotropin [Units/volume] i n Serum or PlasmaOrdered By: Jasmin Bobby on 09-18-2023 TSH Qn 1.98 m[IU]/L 0.45-5.33 [facility] Transferrin [Mass/volume] in Serum or PlasmaOrdered By: Jasmin Bobby on 09-18-2023 Transferrin [Mass/Vol] 203 mg/dL 203-362 [facility] Triglyceride [Mass/volume] i n Serum or PlasmaOrdered By: Jasmin Bobby on 09-18-2023 Triglyceride [Mass/Vol] 75 mg/dL 0-149 [facility] Comment on above: TRIG ATP III CLASSIF ICATIONTRIG less than 150 mg/dL NormalTRIG 150-199 mg/dL Borderline highTRIG 200-500 mg/dL High TRIG greater than 500 mg/dL Very highStandard traceable to the Center for Disease Conrtrol and Prevention (CDC) test method. Urea nitrogen [Mass/volume] in Serum or PlasmaOrdered By: Jasmin Bobby on 09-18-2023 Urea nitrogen [Mass/Vol] 13 mg/dL 03-28 [facility] Vitamin B12on 09-18-2023 Cobalamin (Vitamin B12) [Mass/Vol] 1166 pg/mL High 180-[address] [place] [address] Comment on above: Order Comment: Reaso n for Exam Chronic fatigue Reason for Exam Chronic fatigue;Restless leg;Paresthesias Reason for Exam Restless leg Reason for Exam Chronic fatigue;Xerostomia;Dry skin Reason for Exam Screening for cardiovascular condition Reason for Exam Paresthesias Reason for Exam Chronic fatigue;Dry skin Performed By: #### F E and TIBC, CRP, LIPID, MG, TSH3 wRFLX, B12, CMP, BALAJI, ESR #### [facility] [address] #### SJOGRENS, MENDEZ CHOICE, RA #### [facility] , Vitamin B12 ser/plasOrdered By: Jasmin Bobby on 09-18-2023 Cobalamin (Vitamin B12) [Mass/Vol] 1166 pg/mL [address] [place] [address] CT CARDIAC SCORINGon 07-0 CT CARDIAC SCORING [...] of coronary arteries. COMPARISON: None. ACCESSION NUMBER(S): [id number] ORDERING CLINICIAN: JASMIN BOBBY TECHNIQUE: Using prospective [...] al. JACC 2015 (http://dx.doi.org/10.1 016/j.j acc.2015.08.035) Reading Industrial Editor: Dr. Gilmer Garcia, Date: 03/09/2021 12:46 pm Electronically signed by: NATALI SUNSHINE MD [facility] Surgical Specimenon 09-26-19 Surgical Specimen [facility] Comment on above: Result Comment: [facility] [address] [place] [address] FINAL SURGICAL PATHOLOGY REPORT Patient Name: LEANN GREENBERG Accession No: [id number] Age Sex: 1955 Location: [facility] Account No: [id number] Collected: 09/26/2018 Med Rec No: [id number] Received: 09/27/2018 Attend Phys: SAIDA BENSON Completed: [...] dimension. In toto, one cassette. JARET/BRENDEN CPT: 67502 X3 06740 X2 ALEXI DEAL M.D. 10/05/2018 Electronically signed out by Page 1 of 1 Vital Signs Date Time Vital Sign Value Performing Clinician Facility 09-25-2023 09:45-0500 Body height 157.48 cm [facility] Other [employer] Other 09-25-2023 09:45-0500 Body mass index (BMI) [Ratio] 28.53 kg/m2 [facility] Other [employer] Other 09-25-2023 09:45-0500 Body temperature 97.4 [degF] Jasmin Easterwood Other [employer] Other 09-25-2023 09:45-0500 Body weight 70.76 kg Jasmin [place] Other [employer] Other 09-25-2023 09:45-0500 Diastolic blood pressure 78 mm[Hg] Jasmin Easterwood Other [employer] Other 09-25-2023 09:45-0500 Respiratory rate 20 /min Jasmin Easterwood Other [employer] Other 09-25-2023 09:45-0500 SaO2% (BldA) [Mass fraction] 98 % Jasmin Easterwood Other [employer] Other 09-25-2023 09:45-0500 Systolic blood pressure 126 mm[Hg] Jasmin Easterwood Other [employer] Other 09-11-2023 09:30-0500 Body height 157.48 cm Jasmin Easterwood Other [employer] Other 09-11-2023 09:30-0500 Body mass index (BMI) [Ratio] 28.53 kg/m2 Jasmin Easterwood Other [employer] Other 09-11-2023 09:30-0500 Body temperature 97.9 [degF] Jasmin Easterwood Other [employer] Other 09-11-2023 09:30-0500 Body weight 70.76 kg Jasmin Easterwood Other [employer] Other 09-11-2023 09:30-0500 Diastolic blood pressure 84 mm[Hg] Jasmin Bobby Other [employer] Other 09-11-2023 09:30-0500 Respiratory rate 20 /min Jasmin Bobby Other [employer] Other 09-11-2023 09:30-0500 SaO2% (BldA) [Mass fraction] 98 % Jasmin [employer] Other [employer] Other 09-11-2023 09:30-0500 Systolic blood pressure 132 mm[Hg] Jasmin MccauleyLa Más Mona Other [employer] Other Encounters Encounter Date Encounter Type Care Provider Facility Start: 04-08-2024 End: 04-08-2024 ambulatory Sharona Ervin Research Coordinator Work Phone: Neurology Comment on above: Informed Consent (IR B [id number]) Start: 04-08-2024 End: 04-08-2024 Patient encounter procedure Jennifer Degroot APRN.VEHICLE MECHANIC Work Phone: Neurology Comment on above: Examination of parti cipant in clinical trial (Primary Dx) Start: 04-01-2024 Telephone encounter Liana carlisle Research Coordinator Work Phone: Neurology Comment on above: Research (IRB [id number] ) Start: 01-15-2024 Telephone encounter Griselda chavez Research Coordinator Neurology Comment on above: Appointment (IRB [id number]) Start: 11-05-2023 Telephone encounter Nathalie lazaro APRN.VEHICLE MECHANIC Work Phone: Neurology Comment on above: Patient Update Start: 09-29-2023 End: 09-29-2023 ambulatory SAMI ADAMS Not Available Start: 09-25-2023 End: 09-25-2023 ambulatory Jasmin Bobby Other [employer] Other Start: 09-25-2023 Office outpatient visit 40 minutes Jasmin Mccauleywood [facility] Start: 09-21-2023 End: 09-21-2023 ambulatory Jasmin Bobby Other [employer] Other Start: 09-21-2023 Telephone encounter Jasmin Bobby [facility] Start: 09-19-2023 End: 09-19-2023 ambulatory Jasmin Bobby Facility:[facility] Start: 09-19-2023 End: 09-19-2023 ambulatory STEAM GENERATING POWERPLANT MECHANIC Jasmin Bobby Work Phone: [facility] Work Phone: Start: 09-19-2023 End: 09-19-2023 Patient encounter procedure STEAM GENERATING POWERPLANT MECHANIC Jasmin Bobby Work Phone: [facility] [address] Work Phone: Start: 09-18-2023 End: 09-18-2023 ambulatory Jasmin Bobby Facility:[facility] Start: 09-18-2023 End: 09-18-2023 ambulatory STEAM GENERATING POWERPLANT MECHANIC Jasmin Bobby Work Phone: [facility] Work Phone: Start: 09-18-2023 End: 09-18-2023 Patient encounter procedure STEAM GENERATING POWERPLANT MECHANIC Jasmin Bobby Work Phone: [facility] [address] Work Phone: Start: 09-11-2023 End: 09-11-2023 ambulatory Jasmin Bobby Other [employer] Other Start: 09-11-2023 Office outpatient visit 25 minutes Jasmin Mccauleywood [facility] Start: 09-26-2018 End: 09-26-2018 Patient encounter procedure SAIDA WASSERMANK [facility] Procedures Date Procedure Procedure Detail Performing Clinician [...] Detail Author Start: 05-05-2024 Influenza vaccination C [facility] Start: 04-08-2024 End: 04-08-2024 Patient encounter procedure 04/08/2024 12:45 PM EDT Office Visit Neurology [address] [place] [address] Anat Nieto PA-C [address] [place] [address] [facility] Comment on above: [facility] Start: 09-04-2023 Advance Directive Discussion Advance Directive Discussion [facility] Start: 09-04-2023 Behavioral Health Screening Behavioral Health Screening [facility] Start: 09-04-2023 Depression Assessment Depression Ass essment [facility] Start: 05-05-2023 Covid-19 Vaccine ( season) Covid-19 Vaccine ( season) [facility] Start: 05-05-2023 Covid-19 Vaccine ( season) Covid-19 Vaccine ( season) [facility] Start: 05-05-2023 Influenza vaccination Influenza Vacc ine (#1) [facility] Start: 2022 Pneumococcal Vaccine : 65+ (1 of 1 - PCV) Pneumococcal Vaccine: 65+ (1 of 1 - PCV) [facility] Start: 2022 Screening for osteoporosis Bone Density Screening [facility] Start: 2017 RSV Vaccine (1 - 1-d ose 60+ series) RSV Vaccine (1 - 1-dose 60+ series) [facility] Start: 11-24-2007 Shingrix Vaccine (1 of 2) Shingrix Vaccine (1 of 2) [facility] Start: 2002 Diabetes Screening Diabetes Screenin g [facility] Start: 2002 Lipid panel Lipid Screening [facility] Start: 2002 Screening for malign ant neoplasm of colon [facility] Start: 1997 Screening for malign ant neoplasm of breast Mammogram Screening [facility] Start: 1976 Urine microalbumin profile DTaP,Tdap,Td Vaccine (1 - Tdap) [facility] Start: 11-24-1975 Anxiety Screening Anxiety Screening [facility] Start: 11-24-1975 Depression Screening Depression Scre ening [facility] Start: 11-24-1975 Hepatitis C screening Hepatitis C Sc reening [facility] Start: 11-24-1975 HIV screening HIV Screening [facility] Start: [birth year]-26-1956 Covid-19 Vaccine (#1) Covid-19 Vacci ne (#1) [facility] Cefuroxime free [Mass/volume] in Serum or Plasma [facility] Rheumatoid factor [Units/volume] in Serum or Plasma [facility] Sjogrens syndrome-A extractable nuclear Ab [Units/volume] in Serum [facility] Sjogrens syndrome-B extractable nuclear Ab [Units/volume] in Serum [facility] Payers Date Payer Category Payer Medicare [id number] 2023 Self-pay [id number] 2022 Blue [employer] Blue [employer] [id number] 2019 Unknown [employer] BLUE CARD PPO OOS [id number] 2019-Present [phone] [address] [place] [address] PPO [id number] 2015 Unknown [id number] 1955 Unknown [id number] 1955 Unknown [id number] Unknown Jennifer BC/BS [id number] Unknown [id number] Unknown [id number] Social History Date Type Detail Facility Sex Assigned At [employer] Other Start: 1955 Sex Assigned At Female F [facility] Tobacco smoking status MOIS Tobacco smoking consumption unknown [facility] Work Phone: Start: 1955 Sex Assigned At Not on file C [facility] Clinical Notes 09-11-2023 to 04-08-2024 Sharona Ervin, Research Coordinator - 04/08/2024 4:43 PM EDTBJennifer castillo APRN.VEHICLE MECHANIC - 04/08/2024 12:45 PM EDTTelephone Encounter - Griselda Gonzalez, Research Coordinator - 01/15/2024 3:44 PM EDT Note Date & Type Note Facility 04-08-2024 Note HNO ID: [id number] Author: SHARONA ERVIN Research Coordinator Service: ? Author Type: Research Type: Progress Notes Filed: 04/08/2024 16:43 Note Text: DATE:April 08, 2024 PT. NAME: Leann Greenberg [facility]#: [id number] IRB #: [id number]. PROTOCOL: [facility] Brain Study Carpet Sewing Machine Operator: Layla Saenz MD, , Pascual Ames MD, [facility] contact agent for study related questions: Katy Slater Subject [...] tolerated procedure well. Sharona Ervin, Research Coordinator [facility] 04-08-2024 History of Present illness Narrative DATE:April 08, 2024 PT. NAME: Leann Greenberg [facility]#: [id number] IRB #: [id number]. PROTOCOL: [facility] Brain Study Carpet Sewing Machine Operator: Layla Saenz MD, , Pascual Ames MD, [facility] contact agent for study related questions: Katy Slater Subject [...] Ervin, Research Coordinator documented in this encounter [facility] 04-08-2024 History of Present illness Narrative PCP does not have one at present-see MASHA Bobby DATE: April 08, 2024 PT. NAME: Leann Greenberg CC#: [id number] IRB #: [id number]. PROTOCOL: [facility] Brain Study Carpet Sewing Machine Operator: Layla Saenz MD, , Pascual Ames MD, [facility] contact agent for study related questions: Katy Slater Is [...] and for procedures related to study YES. Time:[id number] EKG/ECG was performed on patient. Patient tolerated [...] Wrist extension: Right 5 Left 5 Finger flexion/carbide grinder: Right 5 Left 5 Flexor pollicis longus: [...] Downgoing Weakness?: No Tremor: No Cerebellar/Coordination Assessment Ivlvxn-bs-Afne: Abnormality present: No, Srvl-ay-Tyll: Abnormality present: No, Finger Tapping - Abnormality [...] Sensory/Sensation Sensory System-globlal assessment: Normal Jennifer Degroot APRN.VEHICLE MECHANIC documented in this encounter [facility] 04-08-2024 Note HNO ID: [id number] Author: JENNIFER DEGROOT APRN.VEHICLE MECHANIC Service: ? Author Type: Nurse Practitioner Type: Progress Notes Filed: 04/08/2024 18:01 Note Text: PCP does not have one at present-see MASHA Bobby DATE: April 08, 2024 PT. NAME: Leann Greenberg [facility]#: [id number] IRB #: [id number]. PROTOCOL: [facility] Brain Study Carpet Sewing Machine Operator: Layla Saenz MD, , Pascual Ames MD, [facility] contact agent for study related questions: Katy Slater Is [...] and for procedures related to study YES. Time:[id number] EKG/ECG was performed on patient. Patient tolerated [...] Wrist extension: Right 5 Left 5 Finger flexion/carbide grinder: Right 5 Left 5 Flexor pollicis longus: [...] Downgoing Weakness?: No Tremor: No Cerebellar/Coordination Assessment Skyfct-kn-Kntl: Abnormality present: No, Oafu-bw-Ojfw: Abnormality present: No, Finger Tapping - Abnormality [...] Sensory/Sensation Sensory System-globlal assessment: Normal Jennifer Degroot APRN.VEHICLE MECHANIC [facility] 01-15-2024 Telephone encounter Note IRB [id number]. [facility] Brain Study ([facility]) Carpet Sewing Machine Operator: Layla Saenz MD, , Pascual Ames MD, Waste Water Or Water Plant Operator: Katy Slater and Email:[email or web address] Research Coordinator called and contacted Leann Greenberg on January 15, 2024 to reminded patient of appointment with the [facility] Brain Study, Griselda Gonzalez Research Coordinator also let pt. Know about the option to DocuSign the constant form or Sign in person. Research Coordinator gave patient Contact information for if the patient had any questions about the study and or their appointment. [facility] 01-15-2024 Miscellaneous Notes IRB [id number]. [facility] Brain Study ([facility]) Carpet Sewing Machine Operator: Layla Saenz MD, , Pascual Ames MD, Waste Water Or Water Plant Operator: Katy Slater and Email:[email or web address] Research Coordinator called and contacted Leann Dionicio on January 15, 2024 to reminded patient of appointment with the [facility] Brain Study, Griselda Gonzalez, Research Coordinator also let pt. Know about the option to DocuSign the constant form or Sign in person. Research Coordinator gave patient Contact information for if the patient had any questions about the study and or their appointment. documented in this encounter [facility] 11-05-2023 Miscellaneous Notes IRB [id number]. [facility] Brain Study ([facility]) Carpet Sewing Machine Operator: Layla Saenz MD, , Pascual Ames MD, Waste Water Or Water Plant Operator: Katy Slater and Email:[email or web address] Contacted Leann Greenberg by phone to discuss the [facility] Brain Study ([facility]): Biomarkers and Predictors of Neurological Disorders IRB [id number]. Patient is eligible and agrees to participate. Requests call back December to schedule (going to [place]). Nathalie Mckeon APRN.MEE documented in this encounter [facility] 09-25-2023 Evaluation note Encounter Date Diagnosis [...] was counseling done by myself, Jasmin DIANE-Agusto. [employer] Other 01-08-2024 Evaluation note* Encounter Date Diagnosis [...] that were not corrected during review process. [employer] Other Evaluation noteNo assessment information available [facility] Work Phone: Evaluation noteNo InformationNort [employer] Other Evaluation note* Diagnosis Examination of participant in clinical trial- Primary [facility] N[facility] - Reported* Type Description [...] surgery - torn menis cus repair 2020 [employer] Other Hisgyzh general Narrative - Reported* Type Description Date [...] surgery - torn menis cus repair 2020 [employer] Other Summary Purpose Family History No Family [...] section and content) DATE CREATED AUTHOR 10/23/2018 [facility] DATE CREATED AUTHOR AUTHOR'S ORGANIZ ATION 03/11/2021 [facility] DATE CREATED AUTHOR AUTHOR'S ORGANIZ ATION 09/30/2023 [facility] EPIC DATE CREATED AUTHOR AUTHOR'S ORGANIZ ATION 11/21/2023 [facility] DATE CREATED AUTHOR AUTHOR'S ORGANIZ ATION 04/10/2024 [facility] REASON FOR VISIT (unrecogniz ed section [...] Jasmin Bobby APRN Primary Care Provider, Attend [facility] Provider Active Community Organization Worker Relationship Specialty Start Date End Date Chicho Kauffman DO [address] [place] [id number] Referring Family Medicine 08/18/20 Community Organization Worker Relationship Specialty Start Date End Date Chicho Kauffman DO [address] [place] [id number] Referring Family Medicine 08/18/20 Community Organization Worker Relationship Specialty Start Date End Date Jasmin Bobby CNP [address] [place] [id number] PCP - General Family Medicine 04/08/24 Chicho Kauffman DO [address] [place] [address] Referring Family Medicine 08/18/20 Community Organization Worker Relationship Specialty Start Date End Date Jasmin Bobby CNP [address] [place] [id number] PCP - General Family Medicine 04/08/24 Chicho Kauffman DO [address] [place] [address] [place] [address] Referring Family Medicine 08/18/20 Goals (unrecognized section [...] or prosecute any alcohol or drug abuse patient.[facility] the event this information is protected by the Federal Confidentiality of Alcohol and Drug Abuse Patient Records regulations: The Federal rules restrict any use of the information to criminally investigate or prosecute any alcohol or drug abuse patient.[facility] the event this information is protected by the Federal Confidentiality of Alcohol and Drug Abuse Patient Records regulations: The Federal rules restrict any use of the information to criminally investigate or prosecute any alcohol or drug abuse patient.[facility] the event this information is protected by the Federal Confidentiality of Alcohol and Drug Abuse Patient Records regulations: The Federal rules restrict any use of the information to criminally investigate or prosecute any alcohol or drug abuse patient.[facility] the event this information is protected by the Federal Confidentiality of Alcohol and Drug Abuse Patient Records regulations: The Federal rules restrict any use of the information to criminally investigate or prosecute any alcohol or drug abuse patient.[facility] FOR RECORDS PERTAINING TO PATIENTS WHO [...] BE BASED ON THE PRIMARY CLINICAL RECORDS. [facility], [facility]. provides no warranty or guarantee of the accuracy or completeness of information in this document.
--- NOTE | 2024-06-10 09:53 | W.VEIN ---
Discharge Plan Discharge Disposition: Home, Self-Care Outpatient Diagnostics: VC INJ Foam Sclerosant WUS ALMOND HULLER (Routine) Timeframe: 1 Month Facility: [facility] - Location: [facility] Center Ordered By: Haresh King Follow Up Appointments: 06/19/24 Plan of Treatment: Varithena/microfoam of right leg Print Language: Czech Discharge Date/Time: 06/10/24 10:50
== END 2024-06-10 10:50 | disposition home or self-care (01) ==
PROVIDERS: PCP Radiology Diagnostic Radiology; Visit Provider Radiology Diagnostic Radiology
DX: I80.02 Phlebitis and thrombophlebitis of superficial vessels of left lower extremity (principal)
CPT/HCPCS: 93971; G0463

== ENCOUNTER 2024-06-24 10:55 | Outpatient (OUT) | payer BC, SELFPAY ==
--- NOTE | 2024-06-21 09:58 | V.VEINS.HP ---
Varicose Veins Patient in today for microfoam chemical ablation Haresh Yates MD personally performed the services described in this documentation, as scribed by Sergo Ríos RN in my presence and it is both accurate and complete. ISergo RN, am scribing for, and in the presence of, Dr. Haresh King and in the presence of the patient. thigh: bilateral (bilateral symptoms), knee: bilateral, calf: bilateral, ankle: bilateral and yousif: bilateral aching, cramping, intermittent and tender 4 36 years Worsened in recent months: Yes standing analgesics, elevating extremities, compression stockings and exercise Reports muscle spasms of leg, fatigue, heaviness, limb pain, edema and leg edema History of lower extremity trauma: No Superficial thrombophlebitis: No Family history of varicose veins: yes (Patient's grandmother) Has patient had previous lower extremity venous surgery: Yes Patient has previously received the following treatment(s) for lower extremity varicose veins: Reports vein ablation, sclerotherapy and foam therapy Does patient have a history of : yes Does patient intend to have future pregnancies: no Has patient had lower extremity venous scan with relux testing: Yes Support hose used: Yes Problems walking or doing physical activity: Yes How does it affect you: often has to stop exercise rest and elevate legs due to pain Do you walk much: Yes Do you stand much: Yes Review of Systems ROS Narrative Haresh Yates MD personally performed the services described in this documentation, as scribed by Sergo Ríos RN in my presence and it is both accurate and complete. ISergo RN, am scribing for, and in the presence of, Dr. Haresh King and in the presence of the patient. Status of ROS 10 or more systems reviewed and unremarkable except as noted in history and below Cardiovascular Reports: edema Integumentary/Breast Reports: itching and changes in skin color Neurological Reports: weakness in extremities [facility] Medical History (Updated 06/10/24 @ 09:13 by Edel Sotelo) Phlebitis and thrombophlebitis of superficial vessels of left lower extremity ?I80.02 - Phlebitis and thrombophlebitis of superficial vessels of left lower extremity (ICD-10) Phlebitis and thrombophlebitis of superficial vessels of right lower extremity ?I80.01 - Phlebitis and thrombophlebitis of superficial vessels of right lower extremity (ICD-10) Varicose veins of bilateral lower extremities with pain ?I83.813 - Varicose veins of bilateral lower extremities with pain (ICD-10) Surgical History (Updated 06/03/24 @ 09:53 by Sergo Ríos) S/P sclerotherapy of varicose veins ?Z98.890 - Other specified postprocedural states (ICD-10) ?Z86.79 - Personal history of other diseases of the circulatory system (ICD-10) S/P sclerotherapy of varicose veins ?Z98.890 - Other specified postprocedural states (ICD-10) ?Z86.79 - Personal history of other diseases of the circulatory system (ICD-10) H/O medial meniscus repair of left knee ?Z98.890 - Other specified postprocedural states (ICD-10) H/O lateral meniscus repair of right knee ?Z98.890 - Other specified postprocedural states (ICD-10) Hx laparoscopic cholecystectomy ?Z90.49 - Acquired absence of other specified parts of digestive tract (ICD-10) Family History (Updated 05/13/24 @ 12:50 by Sergo Ríos) Other Heart disease Parkinson disease Varicose veins of bilateral lower extremities with pain Social History (Updated 05/13/24 @ 12:49 by Sergo Ríos) Within the past year, how often did you have a drink containing alcohol: 2-4 times a month Smoking status: Never smoker Non-prescribed substance use: denies use Meds Home Medications and Allergies Home Medications ?Medication ?Instructions ?Recorded ?Confirmed ?Type No Known Home Medications 05/13/24 05/13/24 History Allergies Allergy/AdvReac Type Severity Reaction Status Date / Time No Known Drug Allergies Allergy Verified 05/13/24 12:03 Exam Narrative Exam Narrative: Haresh Yates MD personally performed the services described in this documentation, as scribed by Sergo Ríos RN in my presence and it is both accurate and complete. ISergo RN, am scribing for, and in the presence of, Dr. Haresh King and in the presence of the patient. Constitutional Documenting provider has reviewed patient's vital signs: yes Common normals: oriented x3 Cardio Peripheral pulses: posterior tibial pulses present and dorsalis pedis pulses present Extremity Common normals: normal capillary refill General: edema Right lower extremity: lower leg Right lower leg: inspection and palpation Left lower extremity: lower leg Left lower leg: inspection and palpation Neuro Common normals: oriented x3 Assessment and Plan Assessment and Plan (1) Varicose veins of bilateral lower extremities with pain: Plan f/u evaluation along with right leg limited u/s Haresh Yates MD personally performed the services described in this documentation, as scribed by Sergo Ríos RN in my presence and it is both accurate and complete. I, Sergo Ríos RN, am scribing for, and in the presence of, Dr. Haresh King and in the presence of the patient. Procedures Procedure Instructions Procedures Right leg microfoam chemical ablation/Varithena: Risks and benefits of the procedure were discussed at length and informed written consent was obtained.? Time-out procedure was performed and the correct patient and procedure were confirmed.? Staff present during time-out: Sergo Ríos RN and Haresh King MD.? Patient prepped and procedure performed in usual sterile fashion.? Patient was placed in Trendelenburg prior to Polidocanol/Varithena injections. Sclerosing Agent:?? cc 1% Polidocanol/Varithena Site Injected: Right leg: Number of Injections:? The patient tolerated the procedure well without complication.? Hemostasis was obtained and thigh-high compression stocking was applied with foam pads.? Instructed patient to wear stocking for at least 96 hours and sleep with it and only remove for showering.? The patient was instructed to? wear stocking for 2 weeks.? Patient verbalizes understanding and states they will comply.? Patient was given post-procedure instructions. Patient was discharged in good condition.? Scheduled to undergo limited venous ultrasound and? exam on IHaresh MD personally performed the services described in this documentation, as scribed by Sergo Ríos RN in my presence and it is both accurate and complete. I, Sergo Ríos RN, am scribing for, and in the presence of, Dr. Haersh King and in the presence of the patient.
--- NOTE | 2024-06-21 10:03 | W.VEIN ---
Discharge Plan Discharge Disposition: Home, Self-Care Discharge Medications: No Action No Known Home Medications Plan of Treatment: f/u evaluation along with right leg limited u/s Patient Instructions: Polidocanol (By injection) (Mona Blankenship) Print Language: Honduran
--- NOTE | 2024-06-24 09:33 | VEINCLINIC_ITS ---
Vital Signs 06/24/24 11:07 BP Location Left Brachial BP Position Sitting BP Cuff Size Adult BP Source Manual Cuff Respiration 16 Pulse 67 Pulse Source Monitor Pulse Oximetry (%) 97 Oxygen Delivery Method Room Air Varicose Veins Patient in today for Varithena/microfoam chemical ablation to right leg. Haresh Yates MD personally performed the services described in this documentation, as scribed by Carmen Rocha RN in my presence and it is both accurate and complete. ICarmen RN, am scribing for, and in the presence of, Dr. Haresh King and in the presence of the patient. thigh: bilateral (bilateral symptoms), knee: bilateral, calf: bilateral, ankle: bilateral and yousif: bilateral aching, cramping, intermittent and tender 4 36 years Worsened in recent months: Yes standing analgesics, elevating extremities, compression stockings and exercise Reports muscle spasms of leg, fatigue, heaviness, limb pain, edema and leg edema History of lower extremity trauma: No Superficial thrombophlebitis: No Family history of varicose veins: yes (Patient's grandmother) Has patient had previous lower extremity venous surgery: Yes Patient has previously received the following treatment(s) for lower extremity varicose veins: Reports vein ablation, sclerotherapy and foam therapy Does patient have a history of : yes Does patient intend to have future pregnancies: no Has patient had lower extremity venous scan with relux testing: Yes Support hose used: Yes Problems walking or doing physical activity: Yes How does it affect you: often has to stop exercise rest and elevate legs due to pain Do you walk much: Yes Do you stand much: Yes Review of Systems ROS Narrative Haresh Yates MD personally performed the services described in this documentation, as scribed by Carmen Rocha RN in my presence and it is both accurate and complete. Carmen Yates RN, am scribing for, and in the presence of, Dr. Haresh King and in the presence of the patient. Status of ROS 10 or more systems reviewed and unremark able except as noted in history and below Cardiovascular Reports: edema Integumentary/Breast Reports: itching and changes in skin color Neurological Reports: weakness in extremities [facility] Medical History (Updated 06/10/24 @ 09:13 by Edel Sotelo) Phlebitis and thrombophlebitis of superficial vessels of left lower extremity ?I80.02 - Phlebitis and thrombophlebitis of superficial vessels of left lower extremity (ICD-10) Phlebitis and thrombophlebitis of superficial vessels of right lower extremity ?I80.01 - Phlebitis and thrombophlebitis of superficial vessels of right lower extremity (ICD-10) Varicose veins of bilateral lower extremities with pain ?I83.813 - Varicose veins of bilateral lower extremities with pain (ICD-10) Surgical History (Updated 06/03/24 @ 09:53 by Sergo Ríos) S/P sclerotherapy of varicose veins ?Z98.890 - Other specified postprocedural states (ICD-10) ?Z86.79 - Personal history of other diseases of the circulatory system (ICD- 10) S/P sclerotherapy of varicose veins ?Z98.890 - Other specified postprocedural states (ICD-10) ?Z86.79 - Personal history of other diseases of the circulatory system (ICD- 10) H/O medial meniscus repair of left knee ?Z98.890 - Other specified postprocedural states (ICD-10) H/O lateral meniscus repair of right knee ?Z98.890 - Other specified postprocedural states (ICD-10) Hx laparoscopic cholecystectomy ?Z90.49 - Acquired absence of other specified parts of digestive tract (ICD- 10) Family History (Updated 05/13/24 @ 12:50 by Sergo Ríos) Other Heart disease Parkinson disease Varicose veins of bilateral lower extremities with pain Social History (Updated 05/13/24 @ 12:49 by Sergo Ríos) Within the past year, how often did you have a drink containing alcohol: 2-4 times a month Smoking status: Never smoker Non-prescribed substance use: denies use Meds Home Medications and Allergies Home Medications ?Medication ?Instructions ?Recorded ?Confirmed ?Type No Known Home Medications 05/13/24 05/13/24 History Allergies Allergy/AdvReac Type Severity Reaction Status Date / Time No Known Drug Allergies Allergy Verified 05/13/24 12:03 Exam Narrative Exam Narrative: Haresh Yates MD personally performed the services described in this documentation, as scribed by Carmen Rocha RN in my presence and it is both accurate and complete. I, Carmen Rocha RN, am scribing for, and in the presence of, Dr. Haresh King and in the presence of the patient. Constitutional Documenting provider has reviewed patient's vital signs: yes Common normals: oriented x3 Cardio Peripheral pulses: posterior tibial pulses present and dorsalis pedis pulses present Extremity Common normals: normal capillary refill General: edema Right lower extremity: lower leg Right lower leg: inspection and palpation Left lower extremity: lower leg Left lower leg: inspection and palpation Neuro Common normals: oriented x3 Assessment and Plan Assessment and Plan (1) Varicose veins of bilateral lower extremities with pain: Plan leg microfoam chemical ablation/Varithena: right leg Risks and benefits of the procedure were discussed at length and informed written consent was obtained.? Time-out procedure was performed and the correct patient and procedure were confirmed.? Staff present during time-out: Carmen Rocha RN and Haresh King MD.? Patient prepped and procedure performed in usual sterile fashion.? Patient was placed in Trendelenburg prior to Polidocanol/Varithena injections. Sclerosing Agent:?? 4cc 1% Polidocanol/Varithena Site Injected: right leg Number of Injections:? 6cc into 4mm vein right distal medial thigh 3cc into 4mm vein right distal lateral thigh The patient tolerated the procedure well without complication.? Hemostasis was obtained and thigh-high compression stocking was applied with foam pads.? Instructed patient to wear stocking for at least 96 hours and sleep with it and only remove for showering.? The patient was instructed to? wear stocking for 2 weeks.? Patient verbalizes understanding and states they will comply.? Patient was given post-procedure instructions. Patient was discharged in good condition.? Scheduled to undergo limited venous ultrasound and? exam on 07/01/24. IHaresh MD personally performed the services described in this documentation, as scribed by Carmen Rocha RN in my presence and it is both accurate and complete. ICarmen RN, am scribing for, and in the presence of, Dr. Haresh King and in the presence of the patient. Procedures Procedure Note Procedure: Varithena/microfoam chemical ablation right leg 06/24/24
--- NOTE | 2024-06-24 09:36 | P.DS_ITS ---
Discharge Plan Discharge Disposition: Home, Self-Care Outpatient Diagnostics: VC Facility EST LMTD (Routine) Timeframe: 2 Weeks Facility: [facility] - Location: Vein Center Ordered By: Haresh King VC EXT Venous RT LMTD (Routine) Timeframe: 2 Weeks Facility: [facility] - Location: Vein Center Ordered By: Haresh King Follow Up Appointments: 07/01/24 Plan of Treatment: f/u evaluation along with right leg limited u/s Patient Instructions: Polidocanol (By injection) (Mona Blankenship) Print Language: Slovenian Discharge Date/Time: 06/24/24 12:04
--- NOTE | 2024-06-24 10:57 | VEIN_ITS ---
[address] [address] Patient Name: JS JETT MRN: [id number] date: 1955 Sex: F Assigned Patient Location: Current Patient Location: Accession/Order Number: [id number] Exam Date: 06/24/2024 10:57 Report Date: 06/24/2024 13:08 At the request of: VELVET GARCIA Procedure: VC INJ Foam Sclerosant WUS KENO ATTENDANT PROCEDURE: VC INJ Foam Sclerosant WUS KENO ATTENDANT COMPARISON: None. HISTORY: I83.813 - Varicose veins of bilateral lower extremities w... Pre-operative Diagnosis: CEAP class C3 venous insufficiency with pain, tenderness, edema and incompetent right saphenous and varicose vein(s), chronic venous insufficiency right leg secondary to venous incompetence Post-operative Diagnosis: CEAP class C3 venous insufficiency with pain, tenderness, edema and incompetent right saphenous and varicose vein(s), chronic venous insufficiency right leg secondary to venous incompetence Procedure Performed: 1. Ultrasound-guided microfoam chemical ablation with Varithenaregistered 2. Intraoperative ultrasound guidance Anesthesia: None Indications for Procedure: 68-year-old female who presents with a long history of lower extremity pain swelling and varicose veins. The patient failed conservative medical therapy including medical compression stockings, exercise and analgesics. Prior procedures include intervenous laser ablation and Microfoam chemical ablation. Multiple incompetent varicosities of the right leg. Duplex scan showed reflux and enlarged diameters up to 4 mm. The patient underwent informed consent including management options where the complications of infection, bleeding, pain, and skin injury were discussed. Particular attention was spent discussing thrombus extension and deep vein thrombosis as well as the possibility of pulmonary embolus and treatment with oral or injectable blood thinners. Procedure: The patient walked to the procedure room. All applicable staff donned appropriate apparel. A procedure timeout was performed to confirm correct patient, correct extremity, correct procedure, and correct room set-up including presence of all applicable supplies, devices, and drugs. A duplex ultrasound, performed by myself confirmed the location and incompetence of branch saphenous varicosities and their course was marked on the skin together with the dilated tributaries. The extent of treatment of the vein and the associated varicosities was determined through ultrasound mapping. The skin was prepped and then punctured with a butterfly needle and advanced under ultrasound guidance. The Varithenaregistered canister was activated and the canister was primed and purged as required in the instructions for use. Varithenaregistered was drawn into a sterile syringe. The following injections were made: 6 cc injected into a 4 mm varicose vein right distal medial thigh 3 cc injected into a 4 mm varicose vein distal lateral thigh Varithenaregistered was slowly administered at 0.5-1.0 cc/second with close observation by ultrasound of its course in the vessels. Total volume utilized was: 9 cc. Following administration of Varithenaregistered the leg was elevated and the patient was asked to repeatedly dorsiflex the ankle to limit flow of Varithenaregistered into perforating veins. Once appropriate spasm had been confirmed in the treated veins, the vascular catheter was removed from the leg and light pressure was applied over the puncture site for hemostasis. The common femoral and deep superficial veins were then evaluated for flow and compressibility prior to dressing placement. The lower extremity was kept elevated at 45 degrees above the horizontal and cording material was applied over the saphenous segments and tributaries to allow for eccentric compression over the target vessels including the targeted saphenous vein(s). A multilayer dressing was applied consisting of foam pads, coban and thigh-high 20-30 mm Hg compression elastic support hose were placed on the patient. The leg was lowered only after compression had been applied and the patient was immediately ambulatory. The patient ambulated 10 minutes under supervision and was without apparent concerns at time of release. Post-care instructions include advising patient to keep post-treatment bandages in place and dry for 48 hours, avoid extended periods of inactivity, avoid heavy exercise for one week, wear compression stockings on the treated leg continuously for two weeks, to walk daily for 10 minutes over the next month. The patient was instructed to take an anti-inflammatory medicine as needed and to follow up for color duplex scan of the Saphenous veins, the treated branch saphenous varicosities, the adjacent deep veins, and additional treatment within 7 days. PERSONNEL: Carmen Rocha RN Electronically authenticated by: VELVET GARCIA Date: 06/24/2024 13:08
--- OUTSIDE RECORDS SUMMARY | 2024-06-24 10:59 | XMS_ITS | CCD ---
Author Organization [facility] Care Team Providers Care It Specialist Name Role Phone SAIDA BENSON Admitting Unavailable SAIDA BENSON Attending Unavailable SAIDA BENSON Referring Unavailable Jasmin Bobby Unavailable TUTU Bobby Primary Care Provider [phone] TUTU Bobby Attending Provider SAMI ADAMS Attending Unavailable Chicho Kauffman DO Unavailable Jasmin Bobby Attending Unavailable Jasmin Bobby Admitting Unavailable Jasmin Bobby Primary Care Unavailable Jasmin Bobby Attending Unavailable Jasmin Bobby Admitting Unavailable Jasmin Bobby Primary Care Unavailable Jasmin Bobby CNP Primary Care Provider [phone] JENNIFER DEGROOT Attending Unavailable Medications Current Medications Medication Drug Class(es) Dates Sig (Normalized) Sig (Original) Magnesium (3 sources) take 1 tablet by mouth once daily Magnesium 250 MG 1 tablet with a meal Orally Once a day OTC Active magnesium oxide 250 mg oral tablet (1 source) Start: 11-20-2023 take 250 mg by mouth once daily Magnesium Oxide Active 250 MG PO Daily November 20, 2023 12:00am omeprazole 20 mg delayed release oral tablet (2 sources) Proton Pump Inhibitor Start: 09-11-2023 take 1 tablet by mouth once daily Omeprazole Magnesium 20 MG 1 tablet 30 minutes before morning meal Orally Once a day for 30 days Sep, Active vitamin B12 (2 sources) Vitamin B12 Vitamin B12 OTC, daily Active vitamin D3-vitamin K2 (1 source) Start: 06-06-2024 vitamin D3-vitamin K2 Active PO June 06, 2024 12:00am Completed/Discontinued Medications Medication Drug Class(es) Dates Sig (Normalized) Sig (Original) ALPRAZolam 0.25 mg oral tablet (1 source) Benzodiazepine Start: 11-20-2023 End: 06-06-2024 take 0.25 mg by mouth once daily Alprazolam Discontinued 0.25 MG PO Daily 3 3 November 20, 2023 12:00am June 06, 2024 2:39pm aspirin 81 mg delayed release oral tablet (2 sources) Platelet Aggregation Inhibitor, Nonsteroidal Anti-inflammatory Drug Start: 11-20-2023 End: 06-06-2024 Aspirin (Adult Low Dose Aspirin) 81 mg tablet,delayed release (DR/EC) Discontinued 81 MG PO Daily November 20, 2023 12:00am June 06, 2024 2:39pm Start: 09-25-2023 take 1 tablet by [place] every twenty-four hours Aspirin 81 81 MG 1 tablet Orally Once a day for 30 day(s) Sep, Active biotin 5 mg oral capsule (4 sources) Start: 11-20-2023 End: 06-06-2024 take 5 mg by mouth once daily Biotin Discontinued 5 MG PO Daily November 20, 2023 12:00am June 06, 2024 2:39pm take 1 capsule by mouth once ej ly Biotin 5000 5 MG 1 capsule Orally Once a day OTC Active cholecalciferol 0.125 mg oral capsule (4 sources) Vitamin D Start: 11-20-2023 End: 06-06-2024 take 125 ug by mouth once daily Cholecalciferol (Vitamin D3) Discontinued 125 MCG PO Daily November 20, 2023 12:00am June 06, 2024 2:40pm Vitamin D3 Maxim um Strength 125 MCG (5000 UT) as directed Orally OTC Active esomeprazole 40 mg delayed release oral capsule (2 sources) Proton Pump Inhibitor Start: 11-20-2023 End: 06-06-2024 take 40 mg by mouth once daily Esomeprazole Magnesium Discontinued 40 MG PO Daily November 20, 2023 12:00am June 06, 2024 2:39pm Start: 09-25-2023 take 1 capsule by mo [facility] every twenty-four hours Esomeprazole Magnesium 40 MG 1 capsule Orally Once a day for 30 day(s) Sep, Active Mupirocin (4 sources) RNA Synthetase Inhibitor Antibacterial Start: 11-20-2023 End: 06-06-2024 Mupirocin Calcium Discontinued APPLIC TOPICAL November 20, 2023 12:00am June 06, 2024 2:39pm Bactroban 2 % 1 application to affected area Externally Three times a day for 7 days Not-Taking/PRN Bactroban 2 % 1 application to affected area Externally Three times a day for 7 days Active traZODone hydrochloride 50 mg oral tablet (2 sources) Serotonin Reuptake Inhibitor Start: 11-20-2023 End: 06-06-2024 take 50 mg by mouth once daily at bedtime Trazodone Discontinued 50 MG PO Daily at bedtime November 20, 2023 12:00am June 06, 2024 2:39pm Start: 09-25-2023 take 1 tablet by lincoln th every twenty-four hours traZODone HCl 50 MG 1 tablet at bedtime as needed Orally Once a day for 14 days Sep, Active Turmeric extract (4 sources) Start: 11-20-2023 End: 06-06-2024 turmeric Discontinued PO Mar 2023 12:00am June 06, 2024 2:39pm Turmeric OTC Act harika Problems Problem Classification Problem Date Documented Da te Episodic/Chronic Anxiety disorders (1 source) Anxiety; Translations: [Anxiety disorder, unspecified] 11-20-2023 Chronic Diseases of mouth; excluding dental (7 sources) Xerostomia; Translations: [Disturbances of salivary secretion] Onset: 4 Episodic Disorders of lipid metabolism (6 sources) Mixed hyperlipidemia; Translations: [Mixed hyperlipidemia] Chronic Esophageal disorders (9 sources) Gastroesophageal reflux disease; Translations: [Gastro-esophageal reflux disease without esophagitis] Chronic Malaise and fatigue (8 sources) Fatigue; Translations: [Chronic fatigue, unspecified] Onset: 4 Chronic Mood disorders (4 sources) Depressive disorder; Translations: [Major depressive disorder, single episode, unspecified] 11-20-2023 Chronic Nausea and vomiting (3 sources) Nausea; Translations: [Nausea] Episodic Osteoarthritis (4 sources) Osteoarthritis of left knee joint; Translations: [Unilateral primary osteoarthritis, left knee] 11-20-2023 Chronic Other eye disorders (1 source) Dry eyes; Translations: [Dry eye syndrome of bilateral lacrimal glands] Episodic Other eye disorders (1 source) Dry eye syndrome of bilateral lacrimal glands Episodic Other gastrointestinal disorders (4 sources) Irritable bowel syndrome 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; Translations: [Mixed irritable bowel syndrome] 11-20-2023 Chronic Other hereditary and degenerative nervous system conditions (4 sources) Restless legs; Translations: [Restless legs syndrome] 11-20-2023 Chronic Other hereditary and degenerative nervous system conditions (3 sources) Restless legs syndrome; Translations: [Restless legs syndrome] Onset: 4 Chronic Other injuries and conditions due to external causes (4 sources) H/O: knee problem; Translations: [Personal history of other (healed) physical injury and trauma] 11-20-2023 Episodic Other nervous system disorders (3 sources) Neuropathy of lower limb; 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] Chronic Other nervous system disorders (4 sources) Chronic pain; Translations: [Other chronic pain] 11-20-2023 Chronic Other nervous system disorders (1 source) Bilateral peripheral neuropathy of lower limbs; 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] 11-20-2023 Chronic Other nervous system disorders (4 sources) Paresthesia; Translations: [Paresthesia of skin] 11-20-2023 Episodic Other nervous system disorders (2 sources) [...] cutis] Onset: 4 Episodic Residual codes; unclassified (2 sources) Difficulty sleeping ; Translations: [Sleep disorder, unspecified] 11-20-2023 Episodic Residual codes; unclassified (1 source) Sleep disorder, unspecified Episodic Skin and subcutaneous tissue infections (5 sources) Impetigo; Translations: [Impetigo, unspecified] Episodic Unclassified (2 sources) 84211/G0121 - Epigastric pain, screening; Translations: [55082/G0121 - Epigastric pain, screening] Onset: 9 Unclassified (1 source) Chronic fatigue, unspecified; Translations: [Chronic fatigue, unspecified] Onset: 4 Varicose veins of lower extremity (4 sources) Varicose veins of lower extremity; Translations: [Asymptomatic varicose veins of bilateral lower extremities] 11-20-2023 Episodic Results Test Name Value Interpretation Reference Range Facility CNOVon 04-08-2024 CNOV Office Visit (NEUBSM ) LEANN GREENBERG ([id number]) 1955 F Date Time Provider Department 04/08/24 12[facility] your visit today, we recorded the following information about you: Jennifer Degroot, TUTU.PRODUCTION HELPER 04/08/2024 6:01 PM Addendum PCP does not have one at present-see MASHA Bobby DATE: April 08, 2024 PT. NAME: Leann Greenberg [facility]#: [id number] IRB #: [id number] A. PROTOCOL: [facility] Brain Study Inward Toll Operator: Layla Saenz MD, , Pascual Ames MD, [facility] mandolin repair person for study related questions: Katy Slater Is [...] and for procedures related to study YES. Time:[id number] EKG/ECG was performed on patient. Patient tolerated [...] Wrist extension: Right 5 Left 5 Finger flexion/ceramic saw tender: Right 5 Left 5 Flexor pollicis longus: [...] Downgoing Weakness?: No Tremor: No Cerebellar/Coordination Assessment [id number]: Abnormality present: No, Osqc-bf-Vfbx: Abnormality present: No, Finger Tapping - Abnormality [...] Sensory/Sensation Sensory System-globlal assessment: Normal Jennifer Degroot APRN.PRODUCTION HELPER Allergies As of Date: 04/08/2024 (Not on File) Date Reviewed: Never Reviewed Primary Visit Diagnosis:Examination of participant in clinical trial [Z00.6] Problem List As Of Date: 04/08/2024 (None) Disposition: Return in about 1 year (around 04/08/2025). Follow-up and Disposition History for Encounter Date Provider Department Center 04/08/2024 [id number] DEGROOT [facility] Bldg Encounter Status:Closed by JENNIFER DEGROOT on (more content not included)... [facility] (KEYONA) LEANN GREENBERG ([id number]) 1955 F Date Time Provider Department 04/01/24 LIANA JACOBO During your visit today, we recorded the following information about you: Allergies As of Date: 04/01/2024 (Not on File) Date Reviewed: Never Reviewed Reason for Visit: Research [293] Cmt: IRB [id number] Problem List As Of Date: 04/01/2024 (None) Encounter Status:Closed by LIANA JACOBO on 04/02/24 [facility] 01-15-2024 CNPN Telephone (newMentor) LEANN GREENBERG ([id number]) 1955 F Date Time Provider Department 01/15/24 GRISELDA GONZALEZ During your visit today, we recorded the following information about you: Griselda Gonzalez, Research Coordinator 01/15/2024 3:44 PM Signed IRB [id number]. [facility] Brain Study ([facility]) Inward Toll Operator: Layla Saenz MD, , Pascual Ames MD, Occupational Health Specialist: Katy Slater and Email:[email or web address] Research Coordinator called and contacted Leann Greenberg on January 15, 2024 to reminded patient of appointment with the [facility] Brain Study, Griselda Gonzalez, Research Coordinator also [...] Encounter Status:Closed by GRISELDA GONZALEZ on 01/15/24 [facility] 11-05-2023 CNPN Telephone (newMentor) DIONICIOLEANN ([id number]) 1955 F Date Time Provider Department 11/05/23 NATHALIE MCKEON During your visit today, we recorded the following information about you: Nathalie Mckeon APRN.PRODUCTION HELPER 11/05/2023 12:12 PM Signed IRB [id number]. [facility] Brain Study ([facility]) Inward Toll Operator: Layla Saenz MD, , Pascual Ames MD, Occupational Health Specialist: Katy Slater and Email: Contacted Leann Greenberg by phone to discuss the [facility] Brain Study ([facility]): Biomarkers and Predictors of Neurological Disorders IRB [id number]. Patient is eligible and agrees to participate. Requests call back December to schedule (going to [place]). Nathalie Mckeon APRN.PRODUCTION HELPER Allergies As of Date: 11/05/2023 (Not on File) Date Reviewed: Never Reviewed Reason for Visit: Patient Update [1234] Problem List As Of Date: 11/05/2023 (None) Encounter Status:Closed by NATHALIE MCKEON on 11/05/23 Normal [facility] Basophils Auto (Bld) [#/Vol] Ordered By: Jasmin Bobby on 09-19-2023 Basophils (Bld) [#/Vol] 0.0 10*3/uL 0.0-0.2 [facility] Basophils/100 WBC Auto (Bld) Ordered By: Jasmin Bobby on 09-19-2023 Basophils/100 WBC (Bld) 0.6 % . [facility] Complete Blood Count Auto Di ffon 09-19-2023 Basophils (Bld) [#/Vol] 0.0 10*3/uL Normal 0.0-0.2 [facility] Comment on above: Result Comment: PERF ORMED BY: [facility] [address] [place] [address] PATHOLOGIST ACID FILLER TEODORA RAPHAEL M.D. Performed By: #### F E and TIBC, CRP, LIPID, MG, TSH3 wRFLX, B12, CMP, BALAJI, ESR #### [place] [address] [place] #### SJOGRENS, MENDEZ CHOICE, RA #### [facility] , Basophils/100 WBC (Bld) 0.6 % Normal . F [facility] Comment on above: Performed By: #### F E and TIBC, CRP, LIPID, MG, TSH3 wRFLX, B12, CMP, BALAJI, ESR #### [place] [address] [place] #### SJOGRENS, MENDEZ CHOICE, RA #### [facility] , Eosinophils (Bld) [#/Vol] 0.0 10*3/uL Normal 0.0-0.45 [facility] Comment on above: Performed By: #### F E and TIBC, CRP, LIPID, MG, TSH3 wRFLX, B12, CMP, BALAJI, ESR #### [address] #### SJOGRENS, MENDEZ CHOICE, RA #### [facility] , Eosinophils/100 WBC (Bld) 1.0 % Normal . [facility] Comment on above: Performed By: #### F E and TIBC, CRP, LIPID, MG, TSH3 wRFLX, B12, CMP, BALAJI, ESR #### [address] #### SJOGRENS, MENDEZ CHOICE, RA #### [facility] , Erythrocyte distribution width (RBC) [Ratio] 13.6 % Normal 11.9-15.3 [facility] Comment on above: Performed By: #### F E and TIBC, CRP, LIPID, MG, TSH3 wRFLX, B12, CMP, BALAJI, ESR #### [place] [address] [place] #### SJOGRENS, MENDEZ CHOICE, RA #### [facility] , Hematocrit (Bld) [Volume fraction] 38.3 % Normal 34.0-46.4 [facility] Comment on above: Performed By: #### F E and TIBC, CRP, LIPID, MG, TSH3 wRFLX, B12, CMP, BALAJI, ESR #### [place] [address] [place] #### SJOGRENS, MENDEZ CHOICE, RA #### [facility] , Hemoglobin (Bld) [Mass/Vol] 12.9 g/dL Normal 11.8-15.4 [facility] Comment on above: Performed By: #### F E and TIBC, CRP, LIPID, MG, TSH3 wRFLX, B12, CMP, BALAJI, ESR #### [address] #### SJOGRENS, MENDEZ CHOICE, RA #### [facility] , Lymphocytes (Bld) [#/Vol] 1.3 10*3/uL Normal 1.00-4.8 [facility] Comment on above: Performed By: #### F E and TIBC, CRP, LIPID, MG, TSH3 wRFLX, B12, CMP, BALAJI, ESR #### [address] #### SJOGRENS, MENDEZ CHOICE, RA #### [facility] , Lymphocytes/100 WBC (Bld) 39.6 % Normal . [facility] Comment on above: Performed By: #### F E and TIBC, CRP, LIPID, MG, TSH3 wRFLX, B12, CMP, BALAJI, ESR #### [place] [address] [place] #### SJOGRENS, MENDEZ CHOICE, RA #### [facility] , MCH (RBC) [Entitic mass] 30.9 pg Normal 24.7-34.3 [facility] Comment on above: Performed By: #### F E and TIBC, CRP, LIPID, MG, TSH3 wRFLX, B12, CMP, BALAJI, ESR #### [place] [address] [place] #### SJOGRENS, MENDEZ CHOICE, RA #### [facility] , MCV (RBC) [Entitic vol] 91.6 fL Normal 80-100 [facility] Comment on above: Performed By: #### F E and TIBC, CRP, LIPID, MG, TSH3 wRFLX, B12, CMP, BALAJI, ESR #### [facility] [address] [place] [address] #### SJOGRENS, MENDEZ CHOICE, RA #### [facility] , Mean Corpuscular HGB Conc 33.7 g/dL Normal 32.0-35.0 [facility] Comment on above: Performed By: #### F E and TIBC, CRP, LIPID, MG, TSH3 wRFLX, B12, CMP, BALAJI, ESR #### [address] #### SJOGRENS, MENDEZ CHOICE, RA #### [facility] , Monocytes (Bld) [#/Vol] 0.2 10*3/uL Normal 0.0-0.8 [facility] Comment on above: Performed By: #### F E and TIBC, CRP, LIPID, MG, TSH3 wRFLX, B12, CMP, BALAJI, ESR #### [facility] [address] [place] [address] #### SJOGRENS, MENDEZ CHOICE, RA #### [facility] , Monocytes/100 WBC (Bld) 5.7 % Normal . [facility] Comment on above: Performed By: #### F E and TIBC, CRP, LIPID, MG, TSH3 wRFLX, B12, CMP, BALAJI, ESR #### [facility] [address] [place] [address] [place] #### SJOGRENS, MENDEZ CHOICE, RA #### [facility] , Neutrophils (Bld) [#/Vol] 1.7 10*3/uL Low 1.8-7.7 [facility] Comment on above: Performed By: #### F E and TIBC, CRP, LIPID, MG, TSH3 wRFLX, B12, CMP, BALAJI, ESR #### [place] [address] [place] #### SJOGRENS, MENDEZ CHOICE, RA #### [facility] , Neutrophils/100 WBC (Bld) 53.1 % Normal . [facility] Comment on above: Performed By: #### F E and TIBC, CRP, LIPID, MG, TSH3 wRFLX, B12, CMP, BALAJI, ESR #### [address] #### SJOGRENS, MENDEZ CHOICE, RA #### [facility] , NRBC% 0.1 /100{WBC} Normal 0-0.5 [facility] Comment on above: Performed By: #### F E and TIBC, CRP, LIPID, MG, TSH3 wRFLX, B12, CMP, BALAJI, ESR #### [address] #### SJOGRENS, MENDEZ CHOICE, RA #### [facility] , Platelet mean volume (Bld) [Entitic vol] 8.4 fL Normal 6.3-10.7 [facility] Comment on above: Performed By: #### F E and TIBC, CRP, LIPID, MG, TSH3 wRFLX, B12, CMP, BALAJI, ESR #### [facility] [address] [place] [address] [place] #### SJOGRENS, MENDEZ CHOICE, RA #### [facility] , Platelets (Bld) [#/Vol] 155 10*3/uL Normal 150-450 [facility] Comment on above: Performed By: #### F E and TIBC, CRP, LIPID, MG, TSH3 wRFLX, B12, CMP, BALAJI, ESR #### [place] [address] [place] #### SJOGRENS, MENDEZ CHOICE, RA #### [facility] , RBC (Bld) [#/Vol] 4.18 10*6/uL Normal 3.60-5.00 [facility] Comment on above: Performed By: #### F E and TIBC, CRP, LIPID, MG, TSH3 wRFLX, B12, CMP, BALAJI, ESR #### [facility] [address] [place] [address] [place] #### SJOGRENS, MENDEZ CHOICE, RA #### [facility] , WBC (Bld) [#/Vol] 3.2 10*3/uL Low 3.8-11.6 [facility] Comment on above: Performed By: #### F E and TIBC, CRP, LIPID, MG, TSH3 wRFLX, B12, CMP, BALAJI, ESR #### [facility] [address] #### SJOGRENS, MENDEZ CHOICE, RA #### [facility] , Eosinophils Auto (Bld) [#/Vo l]Ordered By: Jasmin Bobby on 09-19-2023 Eosinophils (Bld) [#/Vol] 0.0 10*3/uL 0.0-0.45 [facility] Eosinophils/100 WBC Auto (Bl d)Ordered By: Jasmin Bobby on 09-19-2023 Eosinophils/100 WBC (Bld) 1.0 % . [facility] Erythrocyte distribution wid th Auto (RBC) [Ratio]Ordered By: Jasmin Bobby on 09-19-2023 Erythrocyte distribution width (RBC) [Ratio] 13.6 % 11.9-15.3 [facility] Hematocrit Auto (Bld) [Volum e fraction]Ordered By: Jasmin Bobby on 09-19-2023 Hematocrit (Bld) [Volume fraction] 38.3 % 34.0-46.4 [facility] Hemoglobin [Mass/volume] in BloodOrdered By: Jasmin Bobby on 09-19-2023 Hemoglobin (Bld) [Mass/Vol] 12.9 g/dL 11.8-15.4 [facility] Leukocytes [#/volume] correc santos for nucleated erythrocytes in Blood by Automated counOrdered By: Jasmin Bobby on 09-19-2023 WBC corrected for nucl RBC Auto (Bld) [#/Vol] 3.2 10*3/uL 3.8-11.6 [facility] Lymphocytes Auto (Bld) [#/Vo l]Ordered By: Jasmin Bobby on 09-19-2023 Lymphocytes (Bld) [#/Vol] 1.3 10*3/uL 1.00-4.8 [facility] Lymphocytes/100 WBC Auto (Bl d)Ordered By: Jasmin Bobby on 09-19-2023 Lymphocytes/100 WBC (Bld) 39.6 % . [facility] MCH Auto (RBC) [Entitic mass ]Ordered By: Jasmin Bobby on 09-19-2023 MCH (RBC) [Entitic mass] 30.9 pg 24.7-34.3 [facility] MCHC Auto (RBC) [Mass/Vol]Or dered By: Jasmin Bobby on 09-19-2023 MCHC (RBC) [Mass/Vol] 33.7 g/dL 32.0-35.0 [facility] MCV Auto (RBC) [Entitic vol] Ordered By: Jasmin Bobby on 09-19-2023 MCV (RBC) [Entitic vol] 91.6 fL 80-100 [facility] Monocytes Auto (Bld) [#/Vol] Ordered By: Jasmin Bobby on 09-19-2023 Monocytes (Bld) [#/Vol] 0.2 10*3/uL 0.0-0.8 [facility] Monocytes/100 WBC Auto (Bld) Ordered By: Jasmin Bobby on 09-19-2023 Monocytes/100 WBC (Bld) 5.7 % . [facility] Neutrophils Auto (Bld) [#/Vo l]Ordered By: Jasmin Bobby on 09-19-2023 Neutrophils (Bld) [#/Vol] 1.7 10*3/uL 1.8-7.7 [facility] Neutrophils/100 WBC Auto (Bl d)Ordered By: Jasmin Bobby on 09-19-2023 Neutrophils/100 WBC (Bld) 53.1 % . [facility] Nucleated erythrocytes [Pres ence] in Blood by Automated countOrdered By: Jasmin Bobby on 09-19-2023 Nucleated RBC Auto Ql (Bld) 0.1 /100{WBC} 0-0.5 [facility] Platelet mean volume Auto (B ld) [Entitic vol]Ordered By: Jasmin Bobby on 09-19-2023 Platelet mean volume (Bld) [Entitic vol] 8.4 fL 6.3-10.7 [facility] Platelets Auto (Bld) [#/Vol] Ordered By: Jasmin Bobby on 09-19-2023 Platelets (Bld) [#/Vol] 155 10*3/uL 150-450 [facility] RBC Auto (Bld) [#/Vol]Ordere d By: Jasmin Bobby on 09-19-2023 RBC (Bld) [#/Vol] 4.18 10*6/uL 3.60-5.00 [facility] WBC Auto (Bld) [#/Vol]Ordere d By: Jasmin Bobby on 09-19-2023 WBC (Bld) [#/Vol] 3.2 10*3/uL 3.8-11.6 [facility] MENDEZ with Reflexon 09-18-2023 MENDEZ with Reflex Negative Normal Negative [facility] Comment on above: Order Comment: Reaso n for Exam Chronic fatigue Reason for Exam Chronic fatigue;Restless leg;Paresthesias Reason for Exam Restless leg Reason for Exam Chronic fatigue;Xerostomia;Dry skin Reason for Exam Screening for cardiovascular condition Reason for Exam Paresthesias Reason for Exam Chronic fatigue;Dry skin Result Comment: Perf ormed at: CB - [facility] [address] [place], [place] [id number] Faculty Research Assistant: Alphonse Harris PhD, Phone: [phone] Performed By: #### F E and TIBC, CRP, LIPID, MG, TSH3 wRFLX, B12, CMP, BALAJI, ESR #### [facility] [address] #### SJOGRENS, MENDEZ CHOICE, RA #### [facility] , Alanine aminotransferase [En zymatic activity/volume] in Serum or PlasmaOrdered By: Jasmin Bobby on 09-18-2023 ALT [Catalytic activity/Vol] 11 U/L 7-52 [facility] Albumin [Mass/volume] in Ser um or Plasma by Bromocresol green (BCG) dye binding methoOrdered By: Jasmin Bobby on 09-18-2023 Albumin BCG dye [Mass/Vol] 4.2 g/dL 3.5-5.7 [facility] Alkaline phosphatase [Enzyma tic activity/volume] in Serum or PlasmaOrdered By: Jasmin Bobby on 09-18-2023 ALP [Catalytic activity/Vol] 69 U/L 34-104 [facility] Aspartate aminotransferase [ Enzymatic activity/volume] in Serum or PlasmaOrdered By: Jasmin Bobby on 09-18-2023 AST [Catalytic activity/Vol] 17 U/L 13-39 [facility] Bilirubin.total [Mass/volume ] in Serum or PlasmaOrdered By: Jasmin Bobby on 09-18-2023 Bilirubin [Mass/Vol] 0.6 mg/dL 0.3-1.0 [facility] C reactive protein [Mass/vol ume] in Serum or PlasmaOrdered By: Jasmin Bobby on 09-18-2023 CRP [Mass/Vol] < 0.5 mg/dL 0.0-0.5 [facility] C-Reactive Proteinon 024 CRP [Mass/Vol] mg/L Normal 0.0-0.5 [facility] Comment on above: Order Comment: Reaso n for Exam Chronic fatigue Reason for Exam Chronic fatigue;Restless leg;Paresthesias Reason for Exam Restless leg Reason for Exam Chronic fatigue;Xerostomia;Dry skin Reason for Exam Screening for cardiovascular condition Reason for Exam Paresthesias Reason for Exam Chronic fatigue;Dry skin Performed By: #### F E and TIBC, CRP, LIPID, MG, TSH3 wRFLX, B12, CMP, BALAJI, ESR #### [address] #### SJOGRENS, MENDEZ CHOICE, RA #### [facility] , Calcium [Mass/volume] in Ser um or PlasmaOrdered By: Jasmin Bobby on 09-18-2023 Calcium [Mass/Vol] 9.3 mg/dL 8.6-10.3 [facility] Carbon dioxide, total [Moles /volume] in Serum or PlasmaOrdered By: Jasmin Bobby on 09-18-2023 CO2 [Moles/Vol] 30.1 mmol/L 21.0-31.0 [facility] Chloride [Moles/volume] in S wolf or PlasmaOrdered By: Jasmin Bobby on 09-18-2023 Chloride [Moles/Vol] 105 mmol/L 98-107 [facility] Cholesterol [Mass/volume] in Serum or PlasmaOrdered By: Jasmin Bobby on 09-18-2023 Cholesterol [Mass/Vol] 293 mg/dL 140-200 [facility] Comment on above: Chol less than 200 m g/dl low riskChol 201-239 mg/dl borderline riskChol 240 mg/dl and greater high risk Cholesterol in LDL Calc [Mas s/Vol]Ordered By: Jasmin Bobby on 09-18-2023 Cholesterol in LDL [Mass/Vol] 205 mg/dL 0-100 [facility] Comment on above: LDL ATP III CLASSIFI CATIONLDL less than 100 mg/dL OptimalLDL 100-129 mg/dL Near or above optimalLDL 130-159 mg/dL Borderline highLDL 160-189 mg/dL HighLDL greater than 189 mg/dL Very high Cholesterol in VLDL Calc [Ma ss/Vol]Ordered By: Jasmin Bobby on 09-18-2023 Cholesterol in VLDL [Mass/Vol] 15 mg[facility]dL [facility] [facility] 09-18-2023 Albumin [Mass/Vol] 4.2 g/dL Normal 3.5-5.7 [facility] Comment on above: Order Comment: Reaso n for Exam Chronic fatigue Reason for Exam Chronic fatigue;Restless leg;Paresthesias Reason for Exam Restless leg Reason for Exam Chronic fatigue;Xerostomia;Dry skin Reason for Exam Screening for cardiovascular condition Reason for Exam Paresthesias Reason for Exam Chronic fatigue;Dry skin Performed By: #### F E and TIBC, CRP, LIPID, MG, TSH3 wRFLX, B12, CMP, BALAJI, ESR #### [facility] [address] #### SJOGRENS, MENDEZ CHOICE, RA #### [facility] , Albumin/Globulin [Mass ratio] 1.6 {ratio} Normal [facility] Comment on above: Order Comment: Reaso n for Exam Chronic fatigue Reason for Exam Chronic fatigue;Restless leg;Paresthesias Reason for Exam Restless leg Reason for Exam Chronic fatigue;Xerostomia;Dry skin Reason for Exam Screening for cardiovascular condition Reason for Exam Paresthesias Reason for Exam Chronic fatigue;Dry skin Performed By: #### F E and TIBC, CRP, LIPID, MG, TSH3 wRFLX, B12, CMP, BALAJI, ESR #### [address] #### SJOGRENS, MENDEZ CHOICE, RA #### [facility] , ALP [Catalytic activity/Vol] 69 U/L Normal 34-104 [facility] Comment on above: Order Comment: Reaso n for Exam Chronic fatigue Reason for Exam Chronic fatigue;Restless leg;Paresthesias Reason for Exam Restless leg Reason for Exam Chronic fatigue;Xerostomia;Dry skin Reason for Exam Screening for cardiovascular condition Reason for Exam Paresthesias Reason for Exam Chronic fatigue;Dry skin Performed By: #### F E and TIBC, CRP, LIPID, MG, TSH3 wRFLX, B12, CMP, BALAJI, ESR #### [place] [address] [place] #### SJOGRENS, MENDEZ CHOICE, RA #### [facility] , ALT [Catalytic activity/Vol] 11 U/L Normal 7-52 [facility] Comment on above: Order Comment: Reaso n for Exam Chronic fatigue Reason for Exam Chronic fatigue;Restless leg;Paresthesias Reason for Exam Restless leg Reason for Exam Chronic fatigue;Xerostomia;Dry skin Reason for Exam Screening for cardiovascular condition Reason for Exam Paresthesias Reason for Exam Chronic fatigue;Dry skin Performed By: #### F E and TIBC, CRP, LIPID, MG, TSH3 wRFLX, B12, CMP, BALAJI, ESR #### [address] [place] [address] [place] #### SJOGRENS, MENDEZ CHOICE, RA #### [facility] , Anion gap [Moles/Vol] 9.5 mmol/L Normal 6.0-15.0 [facility] Comment on above: Order Comment: Reaso n for Exam Chronic fatigue Reason for Exam Chronic fatigue;Restless leg;Paresthesias Reason for Exam Restless leg Reason for Exam Chronic fatigue;Xerostomia;Dry skin Reason for Exam Screening for cardiovascular condition Reason for Exam Paresthesias Reason for Exam Chronic fatigue;Dry skin Performed By: #### F E and TIBC, CRP, LIPID, MG, TSH3 wRFLX, B12, CMP, BALAJI, ESR #### [address] #### SJOGRENS, MENDEZ CHOICE, RA #### [facility] , AST [Catalytic activity/Vol] 17 U/L Normal 13-39 [facility] Comment on above: Order Comment: Reaso n for Exam Chronic fatigue Reason for Exam Chronic fatigue;Restless leg;Paresthesias Reason for Exam Restless leg Reason for Exam Chronic fatigue;Xerostomia;Dry skin Reason for Exam Screening for cardiovascular condition Reason for Exam Paresthesias Reason for Exam Chronic fatigue;Dry skin Performed By: #### F E and TIBC, CRP, LIPID, MG, TSH3 wRFLX, B12, CMP, BALAJI, ESR #### [facility] [address] [place] [address] [place] #### SJOGRENS, MENDEZ CHOICE, RA #### [facility] , Bilirubin [Mass/Vol] 0.6 mg/dL Normal 0.3-1.0 [facility] Comment on above: [...] TSH3 wRFLX, B12, CMP, BALAJI, ESR #### [facility] [address] [place] [address] [place] #### SJOGRENS, MENDEZ CHOICE, RA #### [facility] , Calcium [Mass/Vol] 9.3 mg/dL Normal 8.6-10.3 [facility] Comment on above: Order Comment: Reaso n for Exam Chronic fatigue Reason for Exam Chronic fatigue;Restless leg;Paresthesias Reason for Exam Restless leg Reason for Exam Chronic fatigue;Xerostomia;Dry skin Reason for Exam Screening for cardiovascular condition Reason for Exam Paresthesias Reason for Exam Chronic fatigue;Dry skin Performed By: #### F E and TIBC, CRP, LIPID, MG, TSH3 wRFLX, B12, CMP, BALAJI, ESR #### [address] #### SJOGRENS, MENDEZ CHOICE, RA #### [facility] , Chloride [Moles/Vol] 105 mmol/L Normal 98-107 [facility] Comment on above: [...] TSH3 wRFLX, B12, CMP, BALAJI, ESR #### [facility] [address] [place] [address] [place] #### SJOGRENS, MENDEZ CHOICE, RA #### [facility] , CO2 [Moles/Vol] 30.1 mmol/L Normal 21.0-31.0 [facility] Comment on above: Order Comment: Reaso n for Exam Chronic fatigue Reason for Exam Chronic fatigue;Restless leg;Paresthesias Reason for Exam Restless leg Reason for Exam Chronic fatigue;Xerostomia;Dry skin Reason for Exam Screening for cardiovascular condition Reason for Exam Paresthesias Reason for Exam Chronic fatigue;Dry skin Performed By: #### F E and TIBC, CRP, LIPID, MG, TSH3 wRFLX, B12, CMP, BALAJI, ESR #### [facility] [address] [place] [address] [place] #### SJOGRENS, MENDEZ CHOICE, RA #### [facility] , Creatinine [Mass/Vol] 0.62 mg/dL Normal 0.60-1.20 [facility] Comment on above: Order Comment: Reaso n for Exam Chronic fatigue Reason for Exam Chronic fatigue;Restless leg;Paresthesias Reason for Exam Restless leg Reason for Exam Chronic fatigue;Xerostomia;Dry skin Reason for Exam Screening for cardiovascular condition Reason for Exam Paresthesias Reason for Exam Chronic fatigue;Dry skin Performed By: #### F E and TIBC, CRP, LIPID, MG, TSH3 wRFLX, B12, CMP, BALAJI, ESR #### [address] #### SJOGRENS, MENDEZ CHOICE, RA #### [facility] , GFR/1.73 sq M.predicted MDRD (S/P/Bld) [Vol rate/Area] mL/min/{1.73_m2} [facility] Comment on above: Order Comment: Reaso n for Exam Chronic fatigue Reason for Exam Chronic fatigue;Restless leg;Paresthesias Reason for Exam Restless leg Reason for Exam Chronic fatigue;Xerostomia;Dry skin Reason for Exam Screening for cardiovascular condition Reason for Exam Paresthesias Reason for Exam Chronic fatigue;Dry skin Performed By: #### F E and TIBC, CRP, LIPID, MG, TSH3 wRFLX, B12, CMP, BALAJI, ESR #### [place] [address] [place] #### SJOGRENS, MENDEZ CHOICE, RA #### [facility] , Globulin (S) [Mass/Vol] 2.6 g/dL Normal [facility] Comment on above: Order Comment: Reaso n for Exam Chronic fatigue Reason for Exam Chronic fatigue;Restless leg;Paresthesias Reason for Exam Restless leg Reason for Exam Chronic fatigue;Xerostomia;Dry skin Reason for Exam Screening for cardiovascular condition Reason for Exam Paresthesias Reason for Exam Chronic fatigue;Dry skin Performed By: #### F E and TIBC, CRP, LIPID, MG, TSH3 wRFLX, B12, CMP, BALAJI, ESR #### [facility] [address] [place] [address] [place] #### SJOGRENS, MENDEZ CHOICE, RA #### [facility] , Glucose [Mass/Vol] 95 mg/dL Normal 70-100 [facility] Comment on above: Order Comment: Reaso n for Exam Chronic fatigue Reason for Exam Chronic fatigue;Restless leg;Paresthesias Reason for Exam Restless leg Reason for Exam Chronic fatigue;Xerostomia;Dry skin Reason for Exam Screening for cardiovascular condition Reason for Exam Paresthesias Reason for Exam Chronic fatigue;Dry skin Result Comment: [facility] Glucose Reference Range is dependent on time and content of last meal. Glucose of more than 200 mg/dL in a nonstressed, ambulatory subject supports the diagnosis of Diabetes Mellitus. ADA recommended reference range Performed By: #### F E and TIBC, CRP, LIPID, MG, TSH3 wRFLX, B12, CMP, BALAJI, ESR #### [facility] [address] [place] [address] [place] #### SJOGRENS, MENDEZ CHOICE, RA #### [facility] , Potassium [Moles/Vol] 4.6 mmol/L Normal 3.5-5.1 [facility] Comment on above: Order Comment: Reaso n for Exam Chronic fatigue Reason for Exam Chronic fatigue;Restless leg;Paresthesias Reason for Exam Restless leg Reason for Exam Chronic fatigue;Xerostomia;Dry skin Reason for Exam Screening for cardiovascular condition Reason for Exam Paresthesias Reason for Exam Chronic fatigue;Dry skin Performed By: #### F E and TIBC, CRP, LIPID, MG, TSH3 wRFLX, B12, CMP, BALAJI, ESR #### [facility] [address] [place] [address] [place] #### SJOGRENS, MENDEZ CHOICE, RA #### [facility] , Protein [Mass/Vol] 6.8 g/dL Normal 6.4-8.9 [facility] Comment on above: Order Comment: Reaso n for Exam Chronic fatigue Reason for Exam Chronic fatigue;Restless leg;Paresthesias Reason for Exam Restless leg Reason for Exam Chronic fatigue;Xerostomia;Dry skin Reason for Exam Screening for cardiovascular condition Reason for Exam Paresthesias Reason for Exam Chronic fatigue;Dry skin Performed By: #### F E and TIBC, CRP, LIPID, MG, TSH3 wRFLX, B12, CMP, BALAJI, ESR #### [facility] [address] [place] [address] [place] #### SJOGRENS, MENDEZ CHOICE, RA #### [facility] , Sodium [Moles/Vol] 140 mmol/L Normal 136-145 [facility] Comment on above: Order Comment: Reaso n for Exam Chronic fatigue Reason for Exam Chronic fatigue;Restless leg;Paresthesias Reason for Exam Restless leg Reason for Exam Chronic fatigue;Xerostomia;Dry skin Reason for Exam Screening for cardiovascular condition Reason for Exam Paresthesias Reason for Exam Chronic fatigue;Dry skin Performed By: #### F E and TIBC, CRP, LIPID, MG, TSH3 wRFLX, B12, CMP, BALAJI, ESR #### [facility] [address] [place] [address] [place] #### SJOGRENS, MENDEZ CHOICE, RA #### [facility] , Urea nitrogen [Mass/Vol] 13 mg/dL Normal 7-25 [facility] Comment on above: Order Comment: Reaso n for Exam Chronic fatigue Reason for Exam Chronic fatigue;Restless leg;Paresthesias Reason for Exam Restless leg Reason for Exam Chronic fatigue;Xerostomia;Dry skin Reason for Exam Screening for cardiovascular condition Reason for Exam Paresthesias Reason for Exam Chronic fatigue;Dry skin Performed By: #### F E and TIBC, CRP, LIPID, MG, TSH3 wRFLX, B12, CMP, BALAJI, ESR #### [facility] [address] [place] [address] [place] #### SJOGRENS, MENDEZ CHOICE, RA #### [facility] , Creatinine [Mass/volume] in Serum or PlasmaOrdered By: Jasmin Bobby on 09-18-2023 Creatinine [Mass/Vol] 0.62 mg/dL 0.60-1.20 [facility] Erythrocyte Sedimentation Ra chiara 09-18-2023 ESR (Bld) [Velocity] 37 mm/h High 0-29 [facility] Comment on above: Order Comment: Reaso n for Exam Chronic fatigue Reason for Exam Chronic fatigue;Xerostomia;Dry skin Result Comment: PERF ORMED BY: [place] [address] PATHOLOGIST ACID FILLER TEODORA RAPHAEL M.D. Performed By: #### F E and TIBC, CRP, LIPID, MG, TSH3 wRFLX, B12, CMP, BALAJI, ESR #### [facility] [address] [place] [address] #### SJOGRENS, MENDEZ CHOICE, RA #### [facility] , Erythrocyte sedimentation ra te by Photometric methodOrdered By: Jasmin Bobby on 09-18-2023 ESR Photometric method (Bld) [Velocity] 37 mm/hr 0-29 [facility] Ferritinon 09-18-2023 Ferritin [Mass/Vol] 221.1 ng/mL Normal 11.0-306.8 [facility] Comment on above: [...] TSH3 wRFLX, B12, CMP, BALAJI, ESR #### [facility] [address] [place] [address] [place] #### SJOGRENS, MENDEZ CHOICE, RA #### [facility] , Ferritin [Mass/volume] in Se rum or PlasmaOrdered By: Jasmin Bobby on 09-18-2023 Ferritin [Mass/Vol] 221.1 ng/mL 11.0-306.8 [facility] Globulin Calc (S) [Mass/Vol] Ordered By: Jasmin Bobby on 09-18-2023 Globulin (S) [Mass/Vol] 2.6 g/dL [facility] Glucose [Mass/volume] in Ser um or PlasmaOrdered By: Jasmin Bobby on 09-18-2023 Glucose [Mass/Vol] 95 mg/dL 70-100 [facility] Comment on above: ADA recommended refe rence rangeRandom Glucose Reference Range is dependent on time and content of last meal. Glucose of more than 200 mg/dL in a nonstressed, ambulatory subject supports the diagnosis of Diabetes Mellitus. Iron [Mass/volume] in Serum or PlasmaOrdered By: Jasmin Bobby on 09-18-2023 Iron [Mass/Vol] 115 ug/dL 50-212 [facility] Iron and TIBC Profileon 09-04 % Iron Saturation 40.5 % Normal 20-50 [facility] Comment on above: Order Comment: Reaso n for Exam Chronic fatigue Reason for Exam Chronic fatigue;Restless leg;Paresthesias Reason for Exam Restless leg Reason for Exam Chronic fatigue;Xerostomia;Dry skin Reason for Exam Screening for cardiovascular condition Reason for Exam Paresthesias Reason for Exam Chronic fatigue;Dry skin Performed By: #### F E and TIBC, CRP, LIPID, MG, TSH3 wRFLX, B12, CMP, BALAJI, ESR #### [facility] [address] [place] [address] [place] #### SJOGRENS, MENDEZ CHOICE, RA #### [facility] , Iron [Mass/Vol] 115 ug/dL Normal 50-212 [facility] Comment on above: Order Comment: Reaso n for Exam Chronic fatigue Reason for Exam Chronic fatigue;Restless leg;Paresthesias Reason for Exam Restless leg Reason for Exam Chronic fatigue;Xerostomia;Dry skin Reason for Exam Screening for cardiovascular condition Reason for Exam Paresthesias Reason for Exam Chronic fatigue;Dry skin Performed By: #### F E and TIBC, CRP, LIPID, MG, TSH3 wRFLX, B12, CMP, BALAJI, ESR #### [facility] [address] [place] [address] [place] #### SJOGRENS, MENDEZ CHOICE, RA #### [facility] , Total Iron Binding Capacity 284 ug/dL Normal 255-450 [facility] Comment on above: Order Comment: Reaso n for Exam Chronic fatigue Reason for Exam Chronic fatigue;Restless leg;Paresthesias Reason for Exam Restless leg Reason for Exam Chronic fatigue;Xerostomia;Dry skin Reason for Exam Screening for cardiovascular condition Reason for Exam Paresthesias Reason for Exam Chronic fatigue;Dry skin Performed By: #### F E and TIBC, CRP, LIPID, MG, TSH3 wRFLX, B12, CMP, BALAJI, ESR #### [facility] [address] [place] [address] #### SJOGRENS, MENDEZ CHOICE, RA #### [facility] , Transferrin [Mass/Vol] 203 mg/dL Normal 203-362 [facility] Comment on above: Order Comment: Reaso n for Exam Chronic fatigue Reason for Exam Chronic fatigue;Restless leg;Paresthesias Reason for Exam Restless leg Reason for Exam Chronic fatigue;Xerostomia;Dry skin Reason for Exam Screening for cardiovascular condition Reason for Exam Paresthesias Reason for Exam Chronic fatigue;Dry skin Performed By: #### F E and TIBC, CRP, LIPID, MG, TSH3 wRFLX, B12, CMP, BALAJI, ESR #### [facility] [address] [place] [address] [place] #### SJOGRENS, MENDEZ CHOICE, RA #### [facility] , Iron binding capacity [Mass/ volume] in Serum or PlasmaOrdered By: Jasmin Bobby on 09-18-2023 Iron binding capacity [Mass/Vol] 284 ug/dL 255-450 [facility] Iron saturation [Mass Fracti on] in Serum or PlasmaOrdered By: Jasmin Bobby on 09-18-2023 Iron saturation [Mass fraction] 40.5 % 20-50 [facility] Lipid Panelon 09-18-2023 Cholesterol [Mass/Vol] 293 mg/dL High 140-200 [facility] Comment on above: Order Comment: Reaso [...] TSH3 wRFLX, B12, CMP, BALAJI, ESR #### [address] #### SJOGRENS, MENDEZ CHOICE, RA #### [facility] , Cholesterol in HDL [Mass/Vol] 73 mg/dL Normal 23-92 [facility] Comment on above: Order Comment: Reaso n [...] TSH3 wRFLX, B12, CMP, BALAJI, ESR #### [place] [address] [place] #### SJOGRENS, MENDEZ CHOICE, RA #### [facility] , Cholesterol.total/Fernanda sterol in HDL [Mass ratio] 4.0 {ratio} Normal <5.0 [facility] Comment on above: Order Comment: Reaso n for Exam Chronic fatigue Reason for Exam Chronic fatigue;Restless leg;Paresthesias Reason for Exam Restless leg Reason for Exam Chronic fatigue;Xerostomia;Dry skin Reason for Exam Screening for cardiovascular condition Reason for Exam Paresthesias Reason for Exam Chronic fatigue;Dry skin Performed By: #### F E and TIBC, CRP, LIPID, MG, TSH3 wRFLX, B12, CMP, BALAJI, ESR #### [address] #### SJOGRENS, MENDEZ CHOICE, RA #### [facility] , LDL Cholesterol,Calculated 205 mg/dL High 0-100 [facility] Comment on above: Order Comment: Reaso n [...] TSH3 wRFLX, B12, CMP, BALAJI, ESR #### [facility] [address] [place] [address] [place] #### SJOGRENS, MENDEZ CHOICE, RA #### [facility] , Triglyceride w/Reflex 75 mg/dL Normal 0-149 [facility] Comment on above: Order Comment: Reaso [...] TSH3 wRFLX, B12, CMP, BALAJI, ESR #### [facility] [address] [place] [address] [place] #### SJOGRENS, MENDEZ CHOICE, RA #### [facility] , VLDL CHOLESTEROL 15 mg/dL Normal [facility] Comment on above: Order Comment: Reaso n for Exam Chronic fatigue Reason for Exam Chronic fatigue;Restless leg;Paresthesias Reason for Exam Restless leg Reason for Exam Chronic fatigue;Xerostomia;Dry skin Reason for Exam Screening for cardiovascular condition Reason for Exam Paresthesias Reason for Exam Chronic fatigue;Dry skin Performed By: #### F E and TIBC, CRP, LIPID, MG, TSH3 wRFLX, B12, CMP, BALAJI, ESR #### [facility] [address] [place] [address] [place] #### SJOGRENS, MENDEZ CHOICE, RA #### [facility] , Magnesiumon 09-18-2023 Magnesium [Mass/Vol] 2.0 mg/dL Normal 1.9-2.7 [facility] Comment on above: [...] TSH3 wRFLX, B12, CMP, BALAJI, ESR #### [facility] [address] [place] [address] [place] #### SJOGRENS, MENDEZ CHOICE, RA #### [facility] , Magnesium [Mass/volume] in S wolf or PlasmaOrdered By: Jasmin Bobby on 09-18-2023 Magnesium [Mass/Vol] 2.0 mg/dL 1.9-2.7 [facility] No Panel InformationOrdered By: Jasmin Bobby on 09-18-2023 Estimated GFR (CKD-EPI) > 60.0 mL/Min [facility] Creatinine Clearance (Chem N/A [facility] Potassium [Moles/volume] in Serum or PlasmaOrdered By: Jasmin Bobby on 09-18-2023 Potassium [Moles/Vol] 4.6 mmol/L 3.5-5.1 [facility] Protein [Mass/volume] in Ser um or PlasmaOrdered By: Jasmin Bobby on 09-18-2023 Protein [Mass/Vol] 6.8 g/dL 6.4-8.9 [facility] Rheumatoid Factoron 09-18-19 Rheumatoid Factor 10.6 Normal <14.0 [facility] Comment on above: Order Comment: Reaso n for Exam Chronic fatigue;Xerostomia;Dry skin Result Comment: Perf ormed at: [facility] - [facility] [address] [place], [place] [id number] Faculty Research Assistant: Alphonse Harris PhD, Phone: [phone] Performed By: #### F E and TIBC, CRP, LIPID, MG, TSH3 wRFLX, B12, CMP, BALAJI, ESR #### [facility] [address] #### SJOGRENS, MENDEZ CHOICE, RA #### [facility] , Serum Sjogrens syndrome-A ex tractable nuclear antibody assay (units/volume)Ordered By: Jasmin Bobby on 09-18-2023 Sjogrens syndrome-A extractable nuclear Ab Qn (S) <0.2 AI 0.0-0.9 [facility] Serum Sjogrens syndrome-B ex tractable nuclear antibody assay (units/volume)Ordered By: Jasmin Bobby on 09-18-2023 Sjogrens syndrome-B extractable nuclear Ab Qn (S) <0.2 AI 0.0-0.9 [facility] Serum or plasma albumin/glob ulin mass ratioOrdered By: Jasmin Bobby on 09-18-2023 Albumin/Globulin [Mass ratio] 1.6 {ratio} [facility] Serum or plasma anion gap de terminationOrdered By: Jasmin Bobby on 09-18-2023 Anion gap [Moles/Vol] 9.5 mmol/L 6.0-15.0 [facility] Serum or plasma free cefurox demario measurement (mass/volume)Ordered By: Jasmin Bobby on 09-18-2023 Cefuroxime free [Mass/Vol] Negative Negative [facility] Comment on above: Performed at: [facility] [address] [id number] Director: Alphonse Harris PhD, Phone: [phone] Serum or plasma high density lipoprotein (HDL) cholesterol measurementOrdered By: Jasmin Bobby on 09-18-2023 Cholesterol in HDL [Mass/Vol] 73 mg/dL [facility] Comment on above: HDL CHOL ATP-III CLA SSIFICATION Cardiovascular RiskHDL > or equal to 60 mg/dL LOWHDL < 40 mg/dL HIGH Serum or plasma rheumatoid f actor measurement (units/volume)Ordered By: Jasmin Bobby on 09-18-2023 Rheumatoid factor Qn 10.6 [IU]/mL <14.0 [facility] Comment on above: Performed at: [place] [id number] Director: Alphonse Harris PhD, Phone: [phone] Serum or plasma total choles terol/high density lipoprotein (HDL) cholesterol mass ratOrdered By: Jasmin Bobby on 09-18-2023 Cholesterol.total/Fernanda sterol in HDL [Mass ratio] 4.0 {ratio} <5.0 [facility] Sjogrens Anti-SSA/SSBon 09-04 SS-A/Ro Sjogrens Antibody <0.2 Normal 0.0-0.9 [facility] Comment on above: Order Comment: Reaso n for Exam Chronic fatigue Reason for Exam Chronic fatigue;Restless leg;Paresthesias Reason for Exam Restless leg Reason for Exam Chronic fatigue;Xerostomia;Dry skin Reason for Exam Screening for cardiovascular condition Reason for Exam Paresthesias Reason for Exam Chronic fatigue;Dry skin Performed By: #### F E and TIBC, CRP, LIPID, MG, TSH3 wRFLX, B12, CMP, BALAJI, ESR #### [facility] [address] #### SJOGRENS, MENDEZ CHOICE, RA #### [facility] , SS-B/La Sjogrens Antibody <0.2 Normal 0.0-0.9 [facility] Comment on above: Order Comment: Reaso n for Exam Chronic fatigue Reason for Exam Chronic fatigue;Restless leg;Paresthesias Reason for Exam Restless leg Reason for Exam Chronic fatigue;Xerostomia;Dry skin Reason for Exam Screening for cardiovascular condition Reason for Exam Paresthesias Reason for Exam Chronic fatigue;Dry skin Result Comment: PERF ORMED BY: [place] [address] PATHOLOGIST ACID FILLER TEODORA RAPHAEL M.D. Performed By: #### F E and TIBC, CRP, LIPID, MG, TSH3 wRFLX, B12, CMP, BALAJI, ESR #### [address] #### SJOGRENS, MENDEZ CHOICE, RA #### [facility] , Sodium [Moles/volume] in Ser um or PlasmaOrdered By: Jasmin Bobby on 09-18-2023 Sodium [Moles/Vol] 140 mmol/L 136-145 [facility] Thyroid Stim Hormone w/Rflxo n 09-18-2023 Thyroid Stim Hormone w/Rflx 1.98 u[iU]/mL Normal 0.45-5.33 [facility] Comment on above: Order Comment: Reaso n for Exam Chronic fatigue Reason for Exam Chronic fatigue;Restless leg;Paresthesias Reason for Exam Restless leg Reason for Exam Chronic fatigue;Xerostomia;Dry skin Reason for Exam Screening for cardiovascular condition Reason for Exam Paresthesias Reason for Exam Chronic fatigue;Dry skin Result Comment: PERF ORMED BY: [place] [address] PATHOLOGIST ACID FILLER TEODORA RAPHAEL M.D. Performed By: #### F E and TIBC, CRP, LIPID, MG, TSH3 wRFLX, B12, CMP, BALAJI, ESR #### [facility] [address] [place] [address] #### SJOGRENSMENDEZ, RA #### [facility] , Thyrotropin [Units/volume] i n Serum or PlasmaOrdered By: Jasmin Bobby on 09-18-2023 TSH Qn 1.98 m[IU]/L 0.45-5.33 [facility] Transferrin [Mass/volume] in Serum or PlasmaOrdered By: Jasmin Bobby on 09-18-2023 Transferrin [Mass/Vol] 203 mg/dL 203-362 [facility] Triglyceride [Mass/volume] i n Serum or PlasmaOrdered By: Jasmin Bobby on 09-18-2023 Triglyceride [Mass/Vol] 75 mg/dL 0-149 [facility] Comment on above: TRIG ATP III CLASSIF ICATIONTRIG less than 150 mg/dL NormalTRIG 150-199 mg/dL Borderline highTRIG 200-500 mg/dL High TRIG greater than 500 mg/dL Very highStandard traceable to the Center for Disease Conrtrol and Prevention (CDC) test method. Urea nitrogen [Mass/volume] in Serum or PlasmaOrdered By: Jasmin Bobby on 09-18-2023 Urea nitrogen [Mass/Vol] 13 mg/dL 7 [facility] Vitamin B12on 09-18-2023 Cobalamin (Vitamin B12) [Mass/Vol] 1166 pg/mL High 180-[address] [place] [address] Comment on above: Order Comment: Reaso n for Exam Chronic fatigue Reason for Exam Chronic fatigue;Restless leg;Paresthesias Reason for Exam Restless leg Reason for Exam Chronic fatigue;Xerostomia;Dry skin Reason for Exam Screening for cardiovascular condition Reason for Exam Paresthesias Reason for Exam Chronic fatigue;Dry skin Performed By: #### F E and TIBC, CRP, LIPID, MG, TSH3 wRFLX, B12, CMP, BALAJI, ESR #### [facility] [address] [place] [address] #### SJOGRENS, MENDEZ CHOICE, RA #### [facility] , Vitamin B12 ser/plasOrdered By: Jasmin Bobby on 09-18-2023 Cobalamin (Vitamin B12) [Mass/Vol] 1166 pg/mL [address] [place] [address] CARDIAC SCORINGon 07-0 CT CARDIAC SCORING [...] of coronary arteries. COMPARISON: None. ACCESSION NUMBER(S): [id number] ORDERING CLINICIAN: JASMIN BOBBY TECHNIQUE: Using prospective [...] using link below https://www.resendiz-[email or web address]/[email or web address]/MesaRis [email or web address].aspx Femi rivera al. JACC 2015 (http://dx.doi.org/10.1 016/j.j acc.2015.08.035) Reading System Specialist: Dr. Gilmer Garcia, Date: 03/09/2021 12:46 pm Electronically signed by: NATALI SUNSHINE MD [facility] Surgical Specimenon 09-26-19 Surgical Specimen [facility] Comment on above: Result Comment: [facility] [address] [id number] FINAL SURGICAL PATHOLOGY REPORT Patient Name: LEANN GREENBERG Accession No: [id number] Age Sex: 1955 Location: [facility] Account No: [id number] Collected: 09/26/2018 Med Rec No: [id number] Received: 09/27/2018 Attend Phys: SAIDA BENSON Completed: [...] IS SATISFACTORY). C. SIGMOID POLYP- TUBULAR ADENOMA. SIVES/SIVES CLINICAL INFORMATION: Epigastric pain, screening. SPECIMEN: A. [...] dimension. In toto, one cassette. JARET/BRENDEN CPT: 32250 X3 61269 X2 ALEXI DEAL M.D. 10/05/2018 Electronically signed out by Page 1 of 1 Vital Signs Date Time Vital Sign Value Performing Clinician Facility 06-06-2024 14:30-0400 Body height 157.48 cm [facility] 06-06-2024 14:30-0400 Body mass index (BMI) [Ratio] 28.1 kg/m2 [facility] 06-06-2024 14:30-0400 Body temperature 97 [degF] [facility] 06-06-2024 14:30-0400 Body weight 69.85 kg [facility] 06-06-2024 14:30-0400 Diastolic blood pressure 80 mm[Hg] [facility] 06-06-2024 14:30-0400 Heart rate 76 /min [facility] 06-06-2024 14:30-0400 Respiratory rate 20 /min [facility] 06-06-2024 14:30-0400 SaO2% (BldA) [Mass fraction] 98 % [facility] 06-06-2024 14:30-0400 Systolic blood pressure 122 mm[Hg] [facility] 09-25-2023 09:45-0500 Body height 157.48 cm [employer] Other [facility] [employer] Other 09-25-2023 09:45-0500 Body mass index (BMI) [Ratio] 28.53 kg/m2 [employer] Other [employer] Other 09-25-2023 09:45-0500 Body temperature 97.4 [degF] Jasmin [employer] Other [employer] Other 09-25-2023 09:45-0500 Body weight 70.76 kg Jasmin [employer] Other [employer] Other 09-25-2023 09:45-0500 Diastolic blood pressure 78 mm[Hg] Jasmin [facility] [employer] Other [employer] Other 09-25-2023 09:45-0500 Respiratory rate 20 /min Jasmin Easterwood Other [employer] Other 09-25-2023 09:45-0500 SaO2% (BldA) [Mass fraction] 98 % Jasmin Easterwood Other [employer] Other 09-25-2023 09:45-0500 Systolic blood pressure 126 mm[Hg] Jasmin Easterwood Other [employer] Other 09-11-2023 09:30-0500 Body height 157.48 cm Jasmin Easterwood Other [employer] Other 09-11-2023 09:30-0500 Body mass index (BMI) [Ratio] 28.53 kg/m2 Jasmin Easterwood Other [employer] Other 09-11-2023 09:30-0500 Body temperature 97.9 [degF] Jasmin Easterwood Other [employer] Other 09-11-2023 09:30-0500 Body weight 70.76 kg Jasmin Easterwood Other [employer] Other 09-11-2023 09:30-0500 Diastolic blood pressure 84 mm[Hg] Jasmin Easterwood Other [employer] Other 09-11-2023 09:30-0500 Respiratory rate 20 /min Jasmin Easterwood Other [employer] Other 09-11-2023 09:30-0500 SaO2% (BldA) [Mass fraction] 98 % Jasmin Bobby Other [employer] Other 09-11-2023 09:30-0500 Systolic blood pressure 132 mm[Hg] Jasmin Bobby Other [employer] Other Encounters Encounter Date Encounter Type Care Provider Facility Start: 06-06-2024 End: 06-06-2024 ambulatory [facility] Work Phone: Start: 06-06-2024 End: 06-06-2024 Patient encounter procedure [facility] Work Phone: Start: 04-08-2024 End: 04-08-2024 ambulatory Sharona Ervin Research Coordinator Work Phone: Neurology Comment on above: Informed Consent (IR B [id number]) Start: 04-08-2024 End: 04-08-2024 Patient encounter procedure Jennifer Degroot INVENTORY CONTROL/SHIPPING RECEIVING.PRODUCTION HELPER Work Phone: Neurology Comment on above: Examination of parti cipant in clinical trial (Primary Dx) Start: 04-01-2024 Telephone encounter Liana carlisle Research Coordinator Work Phone: Neurology Comment on above: Research (IRB [id number] ) Start: 01-15-2024 Telephone encounter Griselda chavez Research Coordinator Neurology Comment on above: Appointment (IRB [id number]) Start: 11-05-2023 Telephone encounter Nathalie lazaro APRN.PRODUCTION HELPER Work Phone: Neurology Comment on above: Patient Update Start: 09-29-2023 End: 09-29-2023 ambulatory SAMI ADAMS Not Available Start: 09-25-2023 End: 09-25-2023 ambulatory Jasmin Bobby Other [employer] Other Start: 09-25-2023 Office outpatient visit 40 minutes Jasmin Bobby [facility] Start: 09-21-2023 End: 09-21-2023 ambulatory Jasmin Bobby Other [employer] Other Start: 09-21-2023 Telephone encounter Jasmin Bobby [facility] Start: 09-19-2023 End: 09-19-2023 ambulatory Jasmin Bobby Facility:[facility] Start: 09-19-2023 End: 09-19-2023 ambulatory INVENTORY CONTROL/SHIPPING RECEIVING Jasmin Bobby Work Phone: [facility] Work Phone: Start: 09-19-2023 End: 09-19-2023 Patient encounter procedure INVENTORY CONTROL/SHIPPING RECEIVING Jasmin Bobby Work Phone: [facility] [address] Work Phone: Start: 09-18-2023 End: 09-18-2023 ambulatory Jasmin Bobby Facility:[facility] Start: 09-18-2023 End: 09-18-2023 ambulatory INVENTORY CONTROL/SHIPPING RECEIVING Jasmin Bobby Work Phone: [facility] Work Phone: Start: 09-18-2023 End: 09-18-2023 Patient encounter procedure INVENTORY CONTROL/SHIPPING RECEIVING Jasmin Bobby Work Phone: [facility] [address] Work Phone: Start: 09-11-2023 End: 09-11-2023 ambulatory Jasmin Bobby Other [employer] Other Start: 09-11-2023 Office outpatient visit 25 minutes Jasmin Bobby [facility] Start: 09-26-2018 End: 09-26-2018 Patient encounter procedure SAIDA BENSON [facility] Procedures Date Procedure Procedure Detail Performing Clinician Start: 09-26-2018 SURGICAL PATHOLOGY TOD BENSON Start: 09-26-2018 PULSE OXIMETRY SPOT CHECK SAIDA BENSON Start: 09-26-2018 BEDREST SAIAD CARVER Start: 09-26-2018 Continuous pulse oximetry SAIDA BENSON Start: 09-26-2018 ENCOURAGE DEEP BREAT MIKEY AND COUGHING SAIDA BENSON Start: 09-26-2018 INITIATE OXYGEN THER APY PROTOCOL SAIDA BENSON Start: 09-26-2018 NOTIFY PHYSICIAN (SPECIFY) SAIDA BENSON Start: 09-26-2018 NURSING COMMUNICATION N KATELYN BENSON Start: 09-26-2018 VITAL SIGNS SAIDA CARVER Plan of Treatment Date Care Activity Detail Author Start: 05-05-2024 Influenza vaccination C [facility] Start: 04-08-2024 End: 04-08-2024 Patient encounter procedure 04/08/2024 12:45 PM EDT Office Visit Neurology [address] [place] [address] Anat Nieto PA-C [address] [place] [address] [facility] Comment on above: [facility] Start: 09-04-2023 Advance Directive Discussion Advance Directive Discussion [facility] Start: 09-04-2023 Behavioral Health Screening Behavioral Health Screening [facility] Start: 09-04-2023 Depression Assessment Depression Ass essment [facility] Start: 05-05-2023 Covid-19 Vaccine ( season) Covid-19 Vaccine ( season) [facility] Start: 05-05-2023 Covid-19 Vaccine ( season) Covid-19 Vaccine ( season) [facility] Start: 05-05-2023 Influenza vaccination Influenza Vacc ine (#1) [facility] Start: 2022 Pneumococcal Vaccine : 65+ (1 of 1 - PCV) Pneumococcal Vaccine: 65+ (1 of 1 - PCV) [facility] Start: 2022 Screening for osteoporosis Bone Density Screening [facility] Start: 2017 RSV Vaccine (1 - 1-d ose 60+ series) RSV Vaccine (1 - 1-dose 60+ series) [facility] Start: 11-24-2007 Shingrix Vaccine (1 of 2) Shingrix Vaccine (1 of 2) [facility] Start: 2002 Diabetes Screening Diabetes Screenin g [facility] Start: 2002 Lipid panel Lipid Screening [facility] Start: 2002 Screening for malign ant neoplasm of colon [facility] Start: 1997 Screening for malign ant neoplasm of breast Mammogram Screening [facility] Start: 1976 Urine microalbumin profile DTaP,Tdap,Td Vaccine (1 - Tdap) [facility] Start: 11-24-1975 Anxiety Screening Anxiety Screening [facility] Start: 11-24-1975 Depression Screening Depression Scre ening [facility] Start: 11-24-1975 Hepatitis C screening Hepatitis C Sc reening [facility] Start: 11-24-1975 HIV screening HIV Screening [facility] Start: [birth year]26-1956 Covid-19 Vaccine (#1) Covid-19 Vacci ne (#1) [facility] Cefuroxime free [Mass/volume] in Serum or Plasma [facility] Rheumatoid factor [Units/volume] in Serum or Plasma [facility] Sjogrens syndrome-A extractable nuclear Ab [Units/volume] in Serum [facility] Sjogrens syndrome-B extractable nuclear Ab [Units/volume] in Serum [facility] Payers Date Payer Category Payer Medicare [id number] 2023 Self-pay [id number] 2022 Blue Cross Blue Shield [id number] 2019 Unknown [employer] BLUE CARD PPO OOS [id number] 2019-Present [phone] [address] [place] [address] PPO [id number] 2015 Unknown [id number] 1955 Unknown [id number] 1955 Unknown [id number] Unknown [place] KATARZYNA/BRIANNA [id number] Unknown [id number] Unknown [id number] Social History Date Type Detail Facility Sex Assigned At [employer] Other Start: 1955 Sex Assigned At Female F [facility] Tobacco smoking status [facility] Tobacco smoking consumption unknown [facility] Work Phone: Start: 1955 Sex Assigned At Not on file [facility] Start: 06-06-2024 Tobacco smoking status WIIS Ex-smoker (finding) [facility] Clinical Notes 09-11-2023 to 04-08-2024 Sharona Ervin, Research Coordinator - 04/08/2024 4:43 PM EDJennifer Sawant APRN.PRODUCTION HELPER - 04/08/2024 12:45 PM EDTTelephone Encounter - Griselda Gonzalez Research Coordinator - 01/15/2024 3:44 PM EDT Note Date & Type Note Facility 04-08-2024 Note HNO ID: [id number] Author: SHARONA ERVIN, Research Coordinator Service: ? Author Type: Research Type: Progress Notes Filed: 04/08/2024 16:43 Note Text: DATE:April 08, 2024 PT. NAME: Leann Greenberg [facility]#: [id number] IRB #: [id number] A. PROTOCOL: [facility] Brain Study Inward Toll Operator: Layla Saenz MD, , Pascual Ames MD, [facility] mandolin repair person for study related questions: Katy Slater Subject [...] sterile gauze. Patient tolerated procedure well. Sharona Ervin Research Coordinator [facility] 04-08-2024 History of Present illness Narrative DATE:April 08, 2024 PT. NAME: Leann Dionicio CC#: [id number] IRB #: A. PROTOCOL: [facility] Brain Study Inward Toll Operator: Layla Saenz MD, , Pascual Ames MD, [facility] mandolin repair person for study related questions: Katy Slater Subject [...] sterile gauze. Patient tolerated procedure well. Sharona Ervin Research Coordinator documented in this encounter [facility] 04-08-2024 History of Present illness Narrative PCP does not have one at present-see MASHA Bobby DATE: April 08, 2024 PT. NAME: Leann Greenberg CC#: [id number] IRB #: A. PROTOCOL: [facility] Brain Study Inward Toll Operator: Layla Saenz MD, , Pascual Ames MD, [facility] mandolin repair person for study related questions: Katy Slater Is [...] and for procedures related to study YES. Time:[id number] EKG/ECG was performed on patient. Patient tolerated [...] Wrist extension: Right 5 Left 5 Finger flexion/ceramic saw tender: Right 5 Left 5 Flexor pollicis longus: [...] Downgoing Weakness?: No Tremor: No Cerebellar/Coordination Assessment Cnritg-jm-Knnc: Abnormality present: No, Xyjs-qo-Vyyt: Abnormality present: No, Finger Tapping - Abnormality [...] Sensory/Sensation Sensory System-globlal assessment: Normal Jennifer Degroot APRN.PRODUCTION HELPER documented in this encounter [facility] 04-08-2024 Note HNO ID: [id number] Author: JENNIFER DEGROOT APRN.PRODUCTION HELPER Service: ? Author Type: Nurse Practitioner Type: Progress Notes Filed: 04/08/2024 18:01 Note Text: PCP does not have one at present-see MASHA Bboby DATE: April 08, 2024 PT. NAME: Leann Greenberg [facility]#: [id number] IRB #: [id number] A. PROTOCOL: [facility] Brain Study Inward Toll Operator: Layla Saenz MD, , Pascual Ames MD, CC mandolin repair person for study related questions: Katy Slater Is [...] and for procedures related to study YES. Time:[id number] EKG/ECG was performed on patient. Patient tolerated [...] Wrist extension: Right 5 Left 5 Finger flexion/ceramic saw tender: Right 5 Left 5 Flexor pollicis longus: [...] Downgoing Weakness?: No Tremor: No Cerebellar/Coordination Assessment Enqxfq-ew-Biqr: Abnormality present: No, Bumu-de-Dcvn: Abnormality present: No, Finger Tapping - Abnormality [...] Sensory/Sensation Sensory System-globlal assessment: Normal Jennifer Degroot APRN.PRODUCTION HELPER [facility] 01-15-2024 Telephone encounter Note IRB [id number]. [facility] Brain Study ([facility]) Inward Toll Operator: Layla Saenz MD, , Pascual Ames MD, Occupational Health Specialist: Katy Slater and Email:[email or web address] Research Coordinator called and contacted Leann Greenberg on January 15, 2024 to reminded patient of appointment with the [facility] Brain Study, Griselda Gonzalez, Research Coordinator also let pt. Know about the option to DocuSign the constant form or Sign in person. Research Coordinator gave patient Contact information for if the patient had any questions about the study and or their appointment. [facility] 01-15-2024 Miscellaneous Notes IRB [id number]. [facility] Brain Study ([facility]) Inward Toll Operator: Layla Saenz MD, , Pascual Ames MD, Occupational Health Specialist: Katy Slater and Email:[email or web address] Research Coordinator called and contacted Leann Antonior on January 15, 2024 to reminded patient of appointment with the [facility] Brain Study, Griselda Gonzalez, Research Coordinator also let pt. Know about the option to DocuSign the constant form or Sign in person. Research Coordinator gave patient Contact information for if the patient had any questions about the study and or their appointment. documented in this encounter [facility] 11-05-2023 Miscellaneous Notes IRB [id number]. [facility] Brain Study ([facility]) Inward Toll Operator: Layla Saenz MD, , Pascual Ames MD, Occupational Health Specialist: Katy Slater and Email: Contacted Leann Greenberg by phone to discuss the [facility] Brain Study ([facility]): Biomarkers and Predictors of Neurological Disorders IRB [id number]. Patient is eligible and agrees to participate. Requests call back December to schedule (going to [place]). Nathalie Mckeon APRN.MEE documented in this encounter [facility] 09-25-2023 Evaluation note Encounter Date Diagnosis Assessment [...] visit was counseling done by myself, Jasmin ROGEL. [employer] Other 01-08-2024 Evaluation note* Encounter Date [...] that were not corrected during review process. [employer] Other Evaluation noteNo assessment information available [facility] Work Phone: Evaluation noteNo [employer] Other Evaluation note* Diagnosis Examination of participant in clinical trial- Primary documented [facility] this [facility] Diagnosis Onset Date Resolution Status Chronic fatigue acute [facility] Work Phone: Hispdnl general Narrative - Reported* Type Description Date [...] surgery - torn menis cus repair 2020 [employer] Other Hismgdz general Narrative - Reported* Type Description Date [...] menisc us repair 2010 Surgical History Cholecystectomy 2020 Surgical History Right knee surgery - torn menis cus repair 2020 [employer] Other Summary Purpose Family History Relationship Condition Age at Onset Recorded Date/T demario daughter Multiple sclerosis Unknown father Unknown Aortic aneurysm Unknown Heart disease Unknown mother Heart disease Unknown Unknown Advance Directives Advance Directive Response Recorded Date/ Time Advance Directives No January 12 12:06pm Advance Directive Response Recorded Date/ Time Advance Directives No January 12 1:06pm Chief Complaint and Reason for Visit Chief Complaint r53.82 Chief Complaint r53.82 Lab Redraw Chief Complaint menopause symptoms Reason for Visit Chronic fatigue Additional Source Comments INFORMATION SOURCE (unrecogn ized section and content) DATE CREATED AUTHOR 10/23/2018 [facility] DATE CREATED AUTHOR AUTHOR'S ORGANIZ ATION 03/11/2021 [facility] DATE CREATED AUTHOR AUTHOR'S ORGANIZ ATION 09/30/2023 [facility] EPIC DATE CREATED AUTHOR AUTHOR'S ORGANIZ ATION 11/21/2023 [facility] DATE CREATED AUTHOR AUTHOR'S ORGANIZ ATION 04/10/2024 [facility] REASON FOR VISIT (unrecogniz ed section and [...] Jasmin Bobby APRN Primary Care Provider, Attend [facility] Provider Active It Specialist Relationship Specialty Start Date End Date Chicho Kauffman DO [address] [place] [address] Referring Family Medicine 08/18/20 It Specialist Relationship Specialty Start Date End Date Chicho Kauffman DO [address] [place] [address] Referring Family Medicine 08/18/20 It Specialist Relationship Specialty Start Date End Date Jasmin Bobby CNP [address] [place] [address] PCP - General Family Medicine 04/08/24 Chicho Kauffman DO [address] [place] [address] Referring Family Medicine 08/18/20 It Specialist Relationship Specialty Start Date End Date Jasmin Bobby CNP [address] [place] [address] PCP - General Family Medicine 04/08/24 Chicho Kauffman DO [address] [place] [address] Referring Family Medicine 08/18/20 Team Status: Inactive Member Role Status Dates Jasmin Bobby APRN Primary Care Pr kylah, Attending Provider Active Start: June 06, 2024 End: June 06, 2024 Goals (unrecognized section and content) Goals may be documented in a n alternate section Source Comments (unrecognize d section and content) In the event this informatio n is protected by the Federal Confidentiality of Alcohol and Drug Abuse Patient Records regulations: The Federal rules restrict any use of the information to criminally investigate or prosecute any alcohol or drug abuse patient.[facility] the event this information is protected by the Federal Confidentiality of Alcohol and Drug Abuse Patient Records regulations: The Federal rules restrict any use of the information to criminally investigate or prosecute any alcohol or drug abuse patient.[facility] the event this information is protected by the Federal Confidentiality of Alcohol and Drug Abuse Patient Records regulations: The Federal rules restrict any use of the information to criminally investigate or prosecute any alcohol or drug abuse patient.[facility] the event this information is protected by the Federal Confidentiality of Alcohol and Drug Abuse Patient Records regulations: The Federal rules restrict any use of the information to criminally investigate or prosecute any alcohol or drug abuse patient.[facility] the event this information is protected by the Federal Confidentiality of Alcohol and Drug Abuse Patient Records regulations: The Federal rules restrict any use of the information to criminally investigate or prosecute any alcohol or drug abuse patient.[facility] FOR RECORDS PERTAINING TO PATIENTS WHO ARE [...] BE BASED ON THE PRIMARY CLINICAL RECORDS. [employer] provides no warranty or guarantee of the accuracy or completeness of information in this document.
[2024-06-24 11:07] VITALS: PULSE 67; O2SAT 97
== END 2024-06-24 12:04 | disposition home or self-care (01) ==
LOC: VC 10:56
PROVIDERS: PCP Radiology Diagnostic Radiology; Visit Provider Radiology Diagnostic Radiology
DX: I83.813 Varicose veins of bilateral lower extremities with pain (principal)
CPT/HCPCS: 36466

== ENCOUNTER 2024-07-01 11:20 | Outpatient (OUT) | payer BC, SELFPAY ==
--- NOTE | 2024-07-01 09:09 | V.VEINS.HP ---
Vital Signs 07/01/24 11:35 Height 5 ft 2 in Weight 68 kg BMI 27.4 Varicose Veins Patient in today for follow up ultrasound of right lower extremity following treatment of Varithena/microfoam completed on 06/24/24. Haresh Yates MD personally performed the services described in this documentation, as scribed by Edel Sotelo RDMS in my presence and it is both accurate and complete. I, Edel Sotelo RDMS, am scribing for, and in the presence of, Dr. Haresh King and in the presence of the patient. thigh: bilateral (bilateral symptoms), knee: bilateral, calf: bilateral, ankle: bilateral and yousif: bilateral aching, cramping, intermittent and tender 4 36 years Worsened in recent months: Yes standing analgesics, elevating extremities, compression stockings and exercise Reports muscle spasms of leg, fatigue, heaviness, limb pain, edema and leg edema History of lower extremity trauma: No Superficial thrombophlebitis: No Family history of varicose veins: yes (Patient's grandmother) Has patient had previous lower extremity venous surgery: Yes Patient has previously received the following treatment(s) for lower extremity varicose veins: Reports vein ablation, sclerotherapy and foam therapy Does patient have a history of : yes Does patient intend to have future pregnancies: no Has patient had lower extremity venous scan with relux testing: Yes Support hose used: Yes Problems walking or doing physical activity: Yes How does it affect you: often has to stop exercise rest and elevate legs due to pain Do you walk much: Yes Do you stand much: Yes Review of Systems ROS Narrative Haresh Yates MD personally performed the services described in this documentation, as scribed by Edel Sotelo RDMS in my presence and it is both accurate and complete. I, Edel Sotelo RDMS, am scribing for, and in the presence of, Dr. Haresh King and in the presence of the patient. Status of ROS 10 or more systems reviewed and unremarkable except as noted in history and below Cardiovascular Reports: edema Integumentary/Breast Reports: itching and changes in skin color Neurological Reports: weakness in extremities [facility] Medical History (Updated 06/10/24 @ 09:13 by Edel Sotelo) Phlebitis and thrombophlebitis of superficial vessels of left lower extremity ?I80.02 - Phlebitis and thrombophlebitis of superficial vessels of left lower extremity (ICD-10) Phlebitis and thrombophlebitis of superficial vessels of right lower extremity ?I80.01 - Phlebitis and thrombophlebitis of superficial vessels of right lower extremity (ICD-10) Varicose veins of bilateral lower extremities with pain ?I83.813 - Varicose veins of bilateral lower extremities with pain (ICD-10) Surgical History (Updated 06/03/24 @ 09:53 by Sergo Ríos) S/P sclerotherapy of varicose veins ?Z98.890 - Other specified postprocedural states (ICD-10) ?Z86.79 - Personal history of other diseases of the circulatory system (ICD-10) S/P sclerotherapy of varicose veins ?Z98.890 - Other specified postprocedural states (ICD-10) ?Z86.79 - Personal history of other diseases of the circulatory system (ICD-10) H/O medial meniscus repair of left knee ?Z98.890 - Other specified postprocedural states (ICD-10) H/O lateral meniscus repair of right knee ?Z98.890 - Other specified postprocedural states (ICD-10) Hx laparoscopic cholecystectomy ?Z90.49 - Acquired absence of other specified parts of digestive tract (ICD-10) Family History (Updated 05/13/24 @ 12:50 by Sergo Ríos) Other Heart disease Parkinson disease Varicose veins of bilateral lower extremities with pain Social History (Updated 05/13/24 @ 12:49 by Sergo Ríos) Within the past year, how often did you have a drink containing alcohol: 2-4 times a month Smoking status: Never smoker Non-prescribed substance use: denies use Meds Home Medications and Allergies Home Medications ?Medication ?Instructions ?Recorded ?Confirmed ?Type No Known Home Medications 05/13/24 05/13/24 History Allergies Allergy/AdvReac Type Severity Reaction Status Date / Time No Known Drug Allergies Allergy Verified 05/13/24 12:03 Exam Narrative Exam Narrative: IHaresh MD personally performed the services described in this documentation, as scribed by Edel Sotelo RDMS in my presence and it is both accurate and complete. I, Edel Sotelo RDMS, am scribing for, and in the presence of, Dr. Haresh King and in the presence of the patient. 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 Haresh Yates MD personally performed the services described in this documentation, as scribed by Edel Sotelo RDMS in my presence and it is both accurate and complete. IEdel RDMS, am scribing for, and in the presence of, Dr. Haresh King and in the presence of the patient. Assessment and Plan Assessment and Plan (1) Phlebitis and thrombophlebitis of superficial vessels of right lower extremity: Plan Plan is to wait for approval from insurance to do sclerotherapy bilateral legs. Haresh Yates MD personally performed the services described in this documentation, as scribed by Edel Sotelo RDMS in my presence and it is both accurate and complete. Edel Yates RDMS, am scribing for, and in the presence of, Dr. Haresh King and in the presence of the patient.
--- NOTE | 2024-07-01 11:22 | VEIN_ITS ---
Patient Name: JS JETT MR#: [id number] : 1955 Exam Date: 07/01/2024 Ordering Doctor: DR HARESH KING M.D. RADIOLOGY REPORT PROCEDURE: FACILITY EST [facility] - OFFICE VISIT FOLLOW UP COMPARISON: [facility] EST LMT[facility], 06/10/2024. FACILITY EST LMTD, 05/20/2024. PROGRESS NOTES: The patient reports no significant problems following micro foam chemical ablation of right leg incompetent varicose veins. The patient did not require oral analgesics. The patient has exercised. The patient did wear compression stockings. Physical exam demonstrates multiple thrombosed varicose veins. No residual varicose veins are identified on the right or the left leg. No active ulceration. There is some mild hemosiderin staining, the patient was cautioned on sun exposure into either cover up or wear mechanical sunscreens to prevent permanent hemosiderin staining. The patient was cautioned that some hemosiderin staining can be permanent Review of the ultrasound performed the same day demonstrates occlusive thrombus extending throughout the treated right leg varicose veins. No deep vein thrombus. No residual incompetent varicose veins. The patient expressed a desire to proceed with treatment of reticular and spider veins. This will require preserve pre-certification from her insurance carrier. VEIN/ Facility EST LMTD IMPRESSION: 1. Successful ablation of treated right leg varicose veins 2. Persistent bilateral reticular and spider veins. PLAN: Injection sclerotherapy of bilateral reticular and spider veins Nurse notes, history and physical were reviewed and confirmed, see attached forms. The nurse was present throughout the physical exam and consultation Dictated by: Haresh King MD on 07/01/2024 at 13:00 Approved by: Haresh King MD on 07/01/2024 at 13:11
--- NOTE | 2024-07-01 11:22 | VEIN_ITS ---
Patient Name: JS JETT MR#: [id number] : 1955 Exam Date: 07/01/2024 Ordering Doctor: DR HARESH KING M.D. RADIOLOGY REPORT PROCEDURE: VC EXT VENOUS RT LMTD COMPARISON: [facility] EXT VENOUS RT LMTD, 05/20/2024. INDICATIONS: I80.01 - Phlebitis and thrombophlebitis of superficial veins right leg TECHNIQUE: Lower extremity johnson scale and Duplex Doppler evaluation of the deep venous system from the inguinal ligament through the calf veins. FINDINGS: REGION: Right lower extremity. THROMBI: Negative for DVT. 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 Thrombus extends into SSV prox calf. Thigh extension of SSV. COMPRESSIBILITY: Non-compressible segments corresponding to thrombus FLOW: Areas of no flow corresponding to thrombus OTHER: No significant varicose veins remain. 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 No residual varicose veins Dictated by: Haresh King MD on 07/01/2024 at 12:01 Approved by: Haresh King MD on 07/01/2024 at 12:59
[2024-07-01 11:35] VITALS: BMI 27.4
--- OUTSIDE RECORDS SUMMARY | 2024-07-01 11:42 | XMS_ITS | CCD ---
Author Organization [facility] Care Team Providers Care Freight Handler Name Role Phone SAIDA BENSON Admitting Unavailable SAIDA BENSON Attending Unavailable SAIDA BENSON Referring Unavailable Jasmin Bobby Unavailable TUTU Bobby Primary Care Provider TUTU Bobby Attending Provider [phone] SAMI ADAMS Attending Unavailable Chicho Kauffman DO Unavailable Jasmin Bobby Attending Unavailable Jasmin Bobby Admitting Unavailable Jasmin Bobby Primary Care Unavailable Jasmin Bobby Attending Unavailable Jasmin Bobby Admitting Unavailable Jasmin Bobby Primary Care Unavailable Jasmin Bobby CNP Primary Care Provider [phone] JENNIFER DEGROOT Attending Unavailable Medications Current Medications [...] Start: 09-25-2023 take 1 capsule by mo [facility] every twenty-four hours Esomeprazole Magnesium 40 MG [...] Translations: [Impetigo, unspecified] Episodic Unclassified (2 sources) 47951/G0121 - Epigastric pain, screening; Translations: [82537/G0121 - Epigastric pain, screening] Onset: 9 Unclassified (1 source) Chronic fatigue, unspecified; Translations: [Chronic fatigue, unspecified] Onset: 4 Varicose veins of lower extremity (4 sources) Varicose veins of lower extremity; Translations: [Asymptomatic varicose veins of bilateral lower extremities] 11-20-2023 Episodic Results Test Name Value Interpretation Reference Range Facility CNOVon 04-08-2024 CNOV Office Visit (NEUBSM ) LEANN GREENBERG ([id number]) 1955 F Date Time Provider Department 04/08/24 12:45 [facility] During your visit today, we recorded the following information about you: Jennifer Degroot, TUTU.BEADING INSTALLER 04/08/2024 6:01 PM Addendum PCP does not have one at present-see MASHA Bobby DATE: April 08, 2024 PT. NAME: Leann Greenberg [facility]#: [id number] IRB #: [id number] A. PROTOCOL: [facility] Mat Machine Tender: Layla Saenz MD, , Pascual Ames MD, [facility] service advocate contact for study related questions: Katy Slater Is [...] and for procedures related to study YES. Time:[id number] EKG/ECG was performed on patient. Patient tolerated [...] Wrist extension: Right 5 Left 5 Finger flexion/help desk analyst: Right 5 Left 5 Flexor pollicis longus: [...] Downgoing Weakness?: No Tremor: No Cerebellar/Coordination Assessment Cigsul-ie-Cejc: Abnormality present: No, Tkwv-vy-Rmxc: Abnormality present: No, Finger Tapping - Abnormality [...] Sensory/Sensation Sensory System-globlal assessment: Normal Jennifer Degroot APRN.BEADING INSTALLER Allergies As of Date: 04/08/2024 (Not on File) Date Reviewed: Never Reviewed Primary Visit Diagnosis:Examination of participant in clinical trial [Z00.6] Problem List As Of Date: 04/08/2024 (None) Disposition: Return in about 1 year (around 04/08/2025). Follow-up and Disposition History for Encounter Date Provider Department Center 04/08/2024 [id number] DEGROOT [facility] B[facility] Encounter Status:Closed by JENNIFER DEGROOT on (more content not included)... [facility] MEEN [facility] (KEYONA) LEANN GREENBERG ([id number]) 1955 F Date Time Provider Department 04/01/24 LIANA JACOBO During your visit today, we recorded the following information about you: Allergies As of Date: 04/01/2024 (Not on File) Date Reviewed: Never Reviewed Reason for Visit: Research [293] Cmt: IRB [id number] Problem List As Of Date: 04/01/2024 (None) Encounter Status:Closed by LIANA JACOBO on 04/02/24 [facility] 01-15-2024 CNPN Telephone (GridAnts) LEANN GREENBERG ([id number]) 1955 F Date Time Provider Department 01/15/24 GRISELDA GONZALEZ During your visit today, we recorded the following information about you: Griselda Gonzalez, Research Coordinator 01/15/2024 3:44 PM Signed IRB [id number]. [facility] ([facility]) Mat Machine Tender: Layla Saenz MD, , Pascual Ames MD, Hairmasters Manager: Katy Slater and Email:[email or web address] Research Coordinator called and contacted Leann Greenberg on January 15, 2024 to reminded patient of appointment with the [facility], Griselda Gonzalez, Research Coordinator [...] Encounter Status:Closed by GRISELDA GONZALEZ on 01/15/24 [facility] 11-05-2023 CNPN Telephone (GridAnts) DIONICIOLEANN ([id number]) 1955 F Date Time Provider Department 11/05/23 NATHALIE MCKEON During your visit today, we recorded the following information about you: Nathalie Mckeon APRN.BEADING INSTALLER 11/05/2023 12:12 PM Signed IRB [id number]. [facility] ([facility]) Mat Machine Tender: Layla Saenz MD, , aPscual Ames MD, Hairmasters Manager: Katy Slater and Email: Contacted Leann Greenberg by phone to discuss the [facility] ([facility]): Biomarkers and Predictors of Neurological Disorders IRB [id number]. Patient is eligible and agrees to participate. Requests call back December to schedule (going to [place]). Nathalie Mckeon APRN.BEADING INSTALLER Allergies As of Date: 11/05/2023 (Not on File) Date Reviewed: Never Reviewed Reason for Visit: Patient Update [1234] Problem List As Of Date: 11/05/2023 (None) Encounter Status:Closed by NATHALIE MCKEON on 11/05/23 Normal [facility] Basophils Auto (Bld) [#/Vol] Ordered By: Jasmin Bobby on 09-19-2023 Basophils (Bld) [#/Vol] 0.0 10*3/uL 0.0-0.2 [facility] Basophils/100 WBC Auto (Bld) Ordered By: Jasmin Bobby on 09-19-2023 Basophils/100 WBC (Bld) 0.6 % . [facility] Complete Blood Count Auto Di ffon 09-19-2023 Basophils (Bld) [#/Vol] 0.0 10*3/uL Normal 0.0-0.2 [facility] Comment on above: Result Comment: PERF ORMED BY: [facility] [address] [place] [address] PATHOLOGIST GREENSMAN TEODORA RAPHAEL M.D. Performed By: #### F E and TIBC, CRP, LIPID, MG, TSH3 wRFLX, B12, CMP, BALAJI, ESR #### [place] [address] [place] #### SJOGRENS, MENDEZ CHOICE, RA #### [facility] , Basophils/100 WBC (Bld) 0.6 % Normal . [facility] Comment on above: Performed By: #### F E and TIBC, CRP, LIPID, MG, TSH3 wRFLX, B12, CMP, BALAJI, ESR #### [place] [address] [place] #### SJOGRENS, MENDEZ CHOICE, RA #### [facility] , Eosinophils (Bld) [#/Vol] 0.0 10*3/uL Normal 0.0-0.45 [facility] Comment on above: Performed By: #### F E and TIBC, CRP, LIPID, MG, TSH3 wRFLX, B12, CMP, BALAJI, ESR #### [address] #### SJOGRENS, MENDEZ CHOICE, RA #### [facility] , Eosinophils/100 WBC (Bld) 1.0 % Normal . [facility] Comment on above: Performed By: #### F E and TIBC, CRP, LIPID, MG, TSH3 wRFLX, B12, CMP, BALAJI, ESR #### [address] #### SJOGRENS, MENDEZ CHOICE, RA #### [facility] , Erythrocyte distribution width (RBC) [Ratio] 13.6 % Normal 11.9-15.3 [facility] Comment on above: Performed By: #### F E and TIBC, CRP, LIPID, MG, TSH3 wRFLX, B12, CMP, BALAJI, ESR #### [place] [address] [place] #### SJOGRENS, MENDEZ CHOICE, RA #### [facility] , Hematocrit (Bld) [Volume fraction] 38.3 % Normal 34.0-46.4 [facility] Comment on above: Performed By: #### F E and TIBC, CRP, LIPID, MG, TSH3 wRFLX, B12, CMP, BALAJI, ESR #### [place] [address] [place] #### SJOGRENS, MENDEZ CHOICE, RA #### [facility] , Hemoglobin (Bld) [Mass/Vol] 12.9 g/dL Normal 11.8-15.4 [facility] Comment on above: Performed By: #### F E and TIBC, CRP, LIPID, MG, TSH3 wRFLX, B12, CMP, BALAJI, ESR #### [address] #### SJOGRENS, MENDEZ CHOICE, RA #### [facility] , Lymphocytes (Bld) [#/Vol] 1.3 10*3/uL Normal 1.00-4.8 [facility] Comment on above: Performed By: #### F E and TIBC, CRP, LIPID, MG, TSH3 wRFLX, B12, CMP, BALAJI, ESR #### [address] #### SJOGRENS, MENDEZ CHOICE, RA #### [facility] , Lymphocytes/100 WBC (Bld) 39.6 % Normal . [facility] Comment on above: Performed By: #### F E and TIBC, CRP, LIPID, MG, TSH3 wRFLX, B12, CMP, BALAJI, ESR #### [place] [address] [place] #### SJOGRENS, MENDEZ CHOICE, RA #### [facility] , MCH (RBC) [Entitic mass] 30.9 pg Normal 24.7-34.3 [facility] Comment on above: Performed By: #### F E and TIBC, CRP, LIPID, MG, TSH3 wRFLX, B12, CMP, BALAJI, ESR #### [place] [address] [place] #### SJOGRENS, MENDEZ CHOICE, RA #### [facility] , MCV (RBC) [Entitic vol] 91.6 fL Normal 80-100 [facility] Comment on above: Performed By: #### F E and TIBC, CRP, LIPID, MG, TSH3 wRFLX, B12, CMP, BALAJI, ESR #### [facility] [address] [place] [address] #### SJOGRENS, MENDEZ CHOICE, RA #### [facility] , Mean Corpuscular HGB Conc 33.7 g/dL Normal 32.0-35.0 [facility] Comment on above: Performed By: #### F E and TIBC, CRP, LIPID, MG, TSH3 wRFLX, B12, CMP, BALAJI, ESR #### [address] #### SJOGRENS, MENDEZ CHOICE, RA #### [facility] , Monocytes (Bld) [#/Vol] 0.2 10*3/uL Normal 0.0-0.8 [facility] Comment on above: Performed By: #### F E and TIBC, CRP, LIPID, MG, TSH3 wRFLX, B12, CMP, BALAJI, ESR #### [facility] [address] [place] [address] #### SJOGRENS, MENDEZ CHOICE, RA #### [facility] , Monocytes/100 WBC (Bld) 5.7 % Normal . [facility] Comment on above: Performed By: #### F E and TIBC, CRP, LIPID, MG, TSH3 wRFLX, B12, CMP, BALAJI, ESR #### [facility] [address] [place] [address] [place] #### SJOGRENS, MENDEZ CHOICE, RA #### [facility] , Neutrophils (Bld) [#/Vol] 1.7 10*3/uL Low 1.8-7.7 [facility] Comment on above: Performed By: #### F E and TIBC, CRP, LIPID, MG, TSH3 wRFLX, B12, CMP, BALAJI, ESR #### [place] [address] [place] #### SJOGRENS, MENDEZ CHOICE, RA #### [facility] , Neutrophils/100 WBC (Bld) 53.1 % Normal . [facility] Comment on above: Performed By: #### F E and TIBC, CRP, LIPID, MG, TSH3 wRFLX, B12, CMP, BALAJI, ESR #### [address] #### SJOGRENS, MENDEZ CHOICE, RA #### [facility] , NRBC% 0.1 /100{WBC} Normal 0-0.5 [facility] Comment on above: Performed By: #### F E and TIBC, CRP, LIPID, MG, TSH3 wRFLX, B12, CMP, BALAJI, ESR #### [address] #### SJOGRENS, MENDEZ CHOICE, RA #### [facility] , Platelet mean volume (Bld) [Entitic vol] 8.4 fL Normal 6.3-10.7 [facility] Comment on above: Performed By: #### F E and TIBC, CRP, LIPID, MG, TSH3 wRFLX, B12, CMP, BALAJI, ESR #### [facility] [address] [place] [address] [place] #### SJOGRENS, MENDEZ CHOICE, RA #### [facility] , Platelets (Bld) [#/Vol] 155 10*3/uL Normal 150-450 [facility] Comment on above: Performed By: #### F E and TIBC, CRP, LIPID, MG, TSH3 wRFLX, B12, CMP, BALAJI, ESR #### [place] [address] [place] #### SJOGRENS, MENDEZ CHOICE, RA #### [facility] , RBC (Bld) [#/Vol] 4.18 10*6/uL Normal 3.60-5.00 [facility] Comment on above: Performed By: #### F E and TIBC, CRP, LIPID, MG, TSH3 wRFLX, B12, CMP, BALAJI, ESR #### [facility] [address] [place] [address] [place] #### SJOGRENS, MENDEZ CHOICE, RA #### [facility] , WBC (Bld) [#/Vol] 3.2 10*3/uL Low 3.8-11.6 [facility] Comment on above: Performed By: #### F E and TIBC, CRP, LIPID, MG, TSH3 wRFLX, B12, CMP, BALAJI, ESR #### [facility] [address] #### SJOGRENS, MENDEZ CHOICE, RA #### [facility] , Eosinophils Auto (Bld) [#/Vo l]Ordered By: Jasmin Bobby on 09-19-2023 Eosinophils (Bld) [#/Vol] 0.0 10*3/uL 0.0-0.45 [facility] Eosinophils/100 WBC Auto (Bl d)Ordered By: Jasmin Bobby on 09-19-2023 Eosinophils/100 WBC (Bld) 1.0 % . [facility] Erythrocyte distribution wid th Auto (RBC) [Ratio]Ordered By: Jasmin Bobby on 09-19-2023 Erythrocyte distribution width (RBC) [Ratio] 13.6 % 11.9-15.3 [facility] Hematocrit Auto (Bld) [Volum e fraction]Ordered By: Jasmin Bobby on 09-19-2023 Hematocrit (Bld) [Volume fraction] 38.3 % 34.0-46.4 [facility] Hemoglobin [Mass/volume] in BloodOrdered By: Jasmin Bobby on 09-19-2023 Hemoglobin (Bld) [Mass/Vol] 12.9 g/dL 11.8-15.4 [facility] Leukocytes [#/volume] correc santos for nucleated erythrocytes in Blood by Automated counOrdered By: Jasmin Bobby on 09-19-2023 WBC corrected for nucl RBC Auto (Bld) [#/Vol] 3.2 10*3/uL 3.8-11.6 [facility] Lymphocytes Auto (Bld) [#/Vo l]Ordered By: Jasmin Bobby on 09-19-2023 Lymphocytes (Bld) [#/Vol] 1.3 10*3/uL 1.00-4.8 [facility] Lymphocytes/100 WBC Auto (Bl d)Ordered By: Jasmin Bobby on 09-19-2023 Lymphocytes/100 WBC (Bld) 39.6 % . [facility] MCH Auto (RBC) [Entitic mass ]Ordered By: Jasmin Bobby on 09-19-2023 MCH (RBC) [Entitic mass] 30.9 pg 24.7-34.3 [facility] MCHC Auto (RBC) [Mass/Vol]Or dered By: Jasmin Bobby on 09-19-2023 MCHC (RBC) [Mass/Vol] 33.7 g/dL 32.0-35.0 [facility] MCV Auto (RBC) [Entitic vol] Ordered By: Jasmin Bobby on 09-19-2023 MCV (RBC) [Entitic vol] 91.6 fL 80-100 [facility] Monocytes Auto (Bld) [#/Vol] Ordered By: Jasmin Bobby on 09-19-2023 Monocytes (Bld) [#/Vol] 0.2 10*3/uL 0.0-0.8 [facility] Monocytes/100 WBC Auto (Bld) Ordered By: Jasmin Bobby on 09-19-2023 Monocytes/100 WBC (Bld) 5.7 % . [facility] Neutrophils Auto (Bld) [#/Vo l]Ordered By: Jasmin Bobby on 09-19-2023 Neutrophils (Bld) [#/Vol] 1.7 10*3/uL 1.8-7.7 [facility] Neutrophils/100 WBC Auto (Bl d)Ordered By: Jasmin Bobby on 09-19-2023 Neutrophils/100 WBC (Bld) 53.1 % . [facility] Nucleated erythrocytes [Pres ence] in Blood by Automated countOrdered By: Jasmin Bobby on 09-19-2023 Nucleated RBC Auto Ql (Bld) 0.1 /100{WBC} 0-0.5 [facility] Platelet mean volume Auto (B ld) [Entitic vol]Ordered By: Jasmin Bobby on 09-19-2023 Platelet mean volume (Bld) [Entitic vol] 8.4 fL 6.3-10.7 [facility] Platelets Auto (Bld) [#/Vol] Ordered By: Jasmin Bobby on 09-19-2023 Platelets (Bld) [#/Vol] 155 10*3/uL 150-450 [facility] RBC Auto (Bld) [#/Vol]Ordere d By: Jasmin Bobby on 09-19-2023 RBC (Bld) [#/Vol] 4.18 10*6/uL 3.60-5.00 [facility] WBC Auto (Bld) [#/Vol]Ordere d By: Jasmin Bobby on 09-19-2023 WBC (Bld) [#/Vol] 3.2 10*3/uL 3.8-11.6 [facility] MENDEZ with Reflexon 09-18-2023 MENDEZ with Reflex Negative Normal Negative [facility] Comment on above: Order Comment: Reaso n for Exam Chronic fatigue Reason for Exam Chronic fatigue;Restless leg;Paresthesias Reason for Exam Restless leg Reason for Exam Chronic fatigue;Xerostomia;Dry skin Reason for Exam Screening for cardiovascular condition Reason for Exam Paresthesias Reason for Exam Chronic fatigue;Dry skin Result Comment: Perf ormed at: CB - [facility] [address] [place], [place] [id number] Settlement Clerk: Alphonse Harris PhD, Phone: [phone] Performed By: #### F E and TIBC, CRP, LIPID, MG, TSH3 wRFLX, B12, CMP, BALAJI, ESR #### [facility] [address] #### SJOGRENS, MENDEZ CHOICE, RA #### [facility] , Alanine aminotransferase [En zymatic activity/volume] in Serum or PlasmaOrdered By: Jasmin Bobby on 09-18-2023 ALT [Catalytic activity/Vol] 11 U/L 7-52 [facility] Albumin [Mass/volume] in Ser um or Plasma by Bromocresol green (BCG) dye binding methoOrdered By: Jasmin Bobby on 09-18-2023 Albumin BCG dye [Mass/Vol] 4.2 g/dL 3.5-5.7 [facility] Alkaline phosphatase [Enzyma tic activity/volume] in Serum or PlasmaOrdered By: Jasmin Bobby on 09-18-2023 ALP [Catalytic activity/Vol] 69 U/L 34-104 [facility] Aspartate aminotransferase [ Enzymatic activity/volume] in Serum or PlasmaOrdered By: Jasmin Bobby on 09-18-2023 AST [Catalytic activity/Vol] 17 U/L 13-39 [facility] Bilirubin.total [Mass/volume ] in Serum or PlasmaOrdered By: Jasmin Bobby on 09-18-2023 Bilirubin [Mass/Vol] 0.6 mg/dL 0.3-1.0 [facility] C reactive protein [Mass/vol ume] in Serum or PlasmaOrdered By: Jasmin Bobby on 09-18-2023 CRP [Mass/Vol] < 0.5 mg/dL 0.0-0.5 [facility] C-Reactive Proteinon 024 CRP [Mass/Vol] mg/L Normal 0.0-0.5 [facility] Comment on above: Order Comment: Reaso n for Exam Chronic fatigue Reason for Exam Chronic fatigue;Restless leg;Paresthesias Reason for Exam Restless leg Reason for Exam Chronic fatigue;Xerostomia;Dry skin Reason for Exam Screening for cardiovascular condition Reason for Exam Paresthesias Reason for Exam Chronic fatigue;Dry skin Performed By: #### F E and TIBC, CRP, LIPID, MG, TSH3 wRFLX, B12, CMP, BALAJI, ESR #### [address] #### SJOGRENS, MENDEZ CHOICE, RA #### [facility] , Calcium [Mass/volume] in Ser um or PlasmaOrdered By: Jasmin Bobby on 09-18-2023 Calcium [Mass/Vol] 9.3 mg/dL 8.6-10.3 [facility] Carbon dioxide, total [Moles /volume] in Serum or PlasmaOrdered By: Jasmin Bobby on 09-18-2023 CO2 [Moles/Vol] 30.1 mmol/L 21.0-31.0 [facility] Chloride [Moles/volume] in S wolf or PlasmaOrdered By: Jasmin Bobby on 09-18-2023 Chloride [Moles/Vol] 105 mmol/L 98-107 [facility] Cholesterol [Mass/volume] in Serum or PlasmaOrdered By: Jasmin Bobby on 09-18-2023 Cholesterol [Mass/Vol] 293 mg/dL 140-200 [facility] Comment on above: Chol less than 200 m g/dl low riskChol 201-239 mg/dl borderline riskChol 240 mg/dl and greater high risk Cholesterol in LDL Calc [Mas s/Vol]Ordered By: Jasmin Bobby on 09-18-2023 Cholesterol in LDL [Mass/Vol] 205 mg/dL 0-100 [facility] Comment on above: LDL ATP III CLASSIFI CATIONLDL less than 100 mg/dL OptimalLDL 100-129 mg/dL Near or above optimalLDL 130-159 mg/dL Borderline highLDL 160-189 mg/dL HighLDL greater than 189 mg/dL Very high Cholesterol in VLDL Calc [Ma ss/Vol]Ordered By: Jasmin Bobby on 09-18-2023 Cholesterol in VLDL [Mass/Vol] 15 mg/dL [facility] Comprehensive Metabolic Pane manolo 09-18-2023 Albumin [Mass/Vol] 4.2 g/dL Normal 3.5-5.7 [facility] Comment on above: Order Comment: [...] TSH3 wRFLX, B12, CMP, BALAJI, ESR #### [facility] [address] #### SJOGRENS, MENDEZ CHOICE, RA #### [facility] , Albumin/Globulin [Mass ratio] 1.6 {ratio} Normal [facility] Comment on above: Order Comment: Reaso n for Exam Chronic fatigue Reason for Exam Chronic fatigue;Restless leg;Paresthesias Reason for Exam Restless leg Reason for Exam Chronic fatigue;Xerostomia;Dry skin Reason for Exam Screening for cardiovascular condition Reason for Exam Paresthesias Reason for Exam Chronic fatigue;Dry skin Performed By: #### F E and TIBC, CRP, LIPID, MG, TSH3 wRFLX, B12, CMP, BALAJI, ESR #### [address] #### SJOGRENS, MENDEZ CHOICE, RA #### [facility] , ALP [Catalytic activity/Vol] 69 U/L Normal 34-104 [facility] Comment on above: Order Comment: Reaso n for Exam Chronic fatigue Reason for Exam Chronic fatigue;Restless leg;Paresthesias Reason for Exam Restless leg Reason for Exam Chronic fatigue;Xerostomia;Dry skin Reason for Exam Screening for cardiovascular condition Reason for Exam Paresthesias Reason for Exam Chronic fatigue;Dry skin Performed By: #### F E and TIBC, CRP, LIPID, MG, TSH3 wRFLX, B12, CMP, BALAJI, ESR #### [place] [address] [place] #### SJOGRENS, MENDEZ CHOICE, RA #### [facility] , ALT [Catalytic activity/Vol] 11 U/L Normal 7-52 [facility] Comment on above: Order Comment: Reaso [...] wRFLX, B12, CMP, BALAJI, ESR #### [address] [place] [address] [place] #### SJOGRENS, MENDEZ CHOICE, RA #### [facility] , Anion gap [Moles/Vol] 9.5 mmol/L Normal 6.0-15.0 [facility] Comment on above: Order Comment: [...] TSH3 wRFLX, B12, CMP, BALAJI, ESR #### [address] #### SJOGRENS, MENDEZ CHOICE, RA #### [facility] , AST [Catalytic activity/Vol] 17 U/L Normal 13-39 [facility] Comment on above: Order Comment: Reaso n for Exam Chronic fatigue Reason for Exam Chronic fatigue;Restless leg;Paresthesias Reason for Exam Restless leg Reason for Exam Chronic fatigue;Xerostomia;Dry skin Reason for Exam Screening for cardiovascular condition Reason for Exam Paresthesias Reason for Exam Chronic fatigue;Dry skin Performed By: #### F E and TIBC, CRP, LIPID, MG, TSH3 wRFLX, B12, CMP, BALAJI, ESR #### [facility] [address] [place] [address] [place] #### SJOGRENS, MENDEZ CHOICE, RA #### [facility] , Bilirubin [Mass/Vol] 0.6 mg/dL Normal 0.3-1.0 [facility] Comment on above: Order Comment: Reaso n for Exam Chronic fatigue Reason for Exam Chronic fatigue;Restless leg;Paresthesias Reason for Exam Restless leg Reason for Exam Chronic fatigue;Xerostomia;Dry skin Reason for Exam Screening for cardiovascular condition Reason for Exam Paresthesias Reason for Exam Chronic fatigue;Dry skin Performed By: #### F E and TIBC, CRP, LIPID, MG, TSH3 wRFLX, B12, CMP, BALAJI, ESR #### [facility] [address] [place] [address] [place] #### SJOGRENS, MENDEZ CHOICE, RA #### [facility] , Calcium [Mass/Vol] 9.3 mg/dL Normal 8.6-10.3 [facility] Comment on above: Order Comment: [...] TSH3 wRFLX, B12, CMP, BALAJI, ESR #### [address] #### SJOGRENS, MENDEZ CHOICE, RA #### [facility] , Chloride [Moles/Vol] 105 mmol/L Normal 98-107 [facility] Comment on above: Order Comment: Reaso n for Exam Chronic fatigue Reason for Exam Chronic fatigue;Restless leg;Paresthesias Reason for Exam Restless leg Reason for Exam Chronic fatigue;Xerostomia;Dry skin Reason for Exam Screening for cardiovascular condition Reason for Exam Paresthesias Reason for Exam Chronic fatigue;Dry skin Performed By: #### F E and TIBC, CRP, LIPID, MG, TSH3 wRFLX, B12, CMP, BALAJI, ESR #### [facility] [address] [place] [address] [place] #### SJOGRENS, MENDEZ CHOICE, RA #### [facility] , CO2 [Moles/Vol] 30.1 mmol/L Normal 21.0-31.0 [facility] Comment on above: Order Comment: [...] TSH3 wRFLX, B12, CMP, BALAJI, ESR #### [facility] [address] [place] [address] [place] #### SJOGRENS, MENDEZ CHOICE, RA #### [facility] , Creatinine [Mass/Vol] 0.62 mg/dL Normal 0.60-1.20 [facility] Comment on above: Order Comment: [...] TSH3 wRFLX, B12, CMP, BALAJI, ESR #### [address] #### SJOGRENS, MENDEZ CHOICE, RA #### [facility] , GFR/1.73 sq M.predicted MDRD (S/P/Bld) [Vol rate/Area] mL/min/{1.73_m2} [facility] Comment on above: Order Comment: Reaso n for Exam Chronic fatigue Reason for Exam Chronic fatigue;Restless leg;Paresthesias Reason for Exam Restless leg Reason for Exam Chronic fatigue;Xerostomia;Dry skin Reason for Exam Screening for cardiovascular condition Reason for Exam Paresthesias Reason for Exam Chronic fatigue;Dry skin Performed By: #### F E and TIBC, CRP, LIPID, MG, TSH3 wRFLX, B12, CMP, BALAJI, ESR #### [place] [address] [place] #### SJOGRENS, MENDEZ CHOICE, RA #### [facility] , Globulin (S) [Mass/Vol] 2.6 g/dL Normal [facility] Comment on above: Order Comment: [...] TSH3 wRFLX, B12, CMP, BALAJI, ESR #### [facility] [address] [place] [address] [place] #### SJOGRENS, MENDEZ CHOICE, RA #### [facility] , Glucose [Mass/Vol] 95 mg/dL Normal 70-100 [facility] Comment on above: Order Comment: Reaso n for Exam Chronic fatigue Reason for Exam Chronic fatigue;Restless leg;Paresthesias Reason for Exam Restless leg Reason for Exam Chronic fatigue;Xerostomia;Dry skin Reason for Exam Screening for cardiovascular condition Reason for Exam Paresthesias Reason for Exam Chronic fatigue;Dry skin Result Comment: [facility] Glucose Reference Range is dependent on time and content of last meal. Glucose of more than 200 mg/dL in a nonstressed, ambulatory subject supports the diagnosis of Diabetes Mellitus. ADA recommended reference range Performed By: #### F E and TIBC, CRP, LIPID, MG, TSH3 wRFLX, B12, CMP, BALAJI, ESR #### [facility] [address] [place] [address] [place] #### SJOGRENS, MENDEZ CHOICE, RA #### [facility] , Potassium [Moles/Vol] 4.6 mmol/L Normal 3.5-5.1 [facility] Comment on above: Order Comment: [...] TSH3 wRFLX, B12, CMP, BALAJI, ESR #### [facility] [address] [place] [address] [place] #### SJOGRENS, MENDEZ CHOICE, RA #### [facility] , Protein [Mass/Vol] 6.8 g/dL Normal 6.4-8.9 [facility] Comment on above: Order Comment: [...] TSH3 wRFLX, B12, CMP, BALAJI, ESR #### [facility] [address] [place] [address] [place] #### SJOGRENS, MENDEZ CHOICE, RA #### [facility] , Sodium [Moles/Vol] 140 mmol/L Normal 136-145 [facility] Comment on above: Order Comment: [...] TSH3 wRFLX, B12, CMP, BALAJI, ESR #### [facility] [address] [place] [address] [place] #### SJOGRENS, MENDEZ CHOICE, RA #### [facility] , Urea nitrogen [Mass/Vol] 13 mg/dL Normal 7-25 [facility] Comment on above: Order Comment: Reaso n for Exam Chronic fatigue Reason for Exam Chronic fatigue;Restless leg;Paresthesias Reason for Exam Restless leg Reason for Exam Chronic fatigue;Xerostomia;Dry skin Reason for Exam Screening for cardiovascular condition Reason for Exam Paresthesias Reason for Exam Chronic fatigue;Dry skin Performed By: #### F E and TIBC, CRP, LIPID, MG, TSH3 wRFLX, B12, CMP, BALAJI, ESR #### [facility] [address] [place] [address] [place] #### SJOGRENS, MENDEZ CHOICE, RA #### [facility] , Creatinine [Mass/volume] in Serum or PlasmaOrdered By: Jasmin Bobby on 09-18-2023 Creatinine [Mass/Vol] 0.62 mg/dL 0.60-1.20 [facility] Erythrocyte Sedimentation Ra chiara 09-18-2023 ESR (Bld) [Velocity] 37 mm/h High 0-29 [facility] Comment on above: Order Comment: Reaso n for Exam Chronic fatigue Reason for Exam Chronic fatigue;Xerostomia;Dry skin Result Comment: PERF ORMED BY: [place] [address] PATHOLOGIST GREENSMAN TEODORA RAHPAEL M.D. Performed By: #### F E and TIBC, CRP, LIPID, MG, TSH3 wRFLX, B12, CMP, BALAJI, ESR #### [facility] [address] [place] [address] #### SJOGRENS, MENDEZ CHOICE, RA #### [facility] , Erythrocyte sedimentation ra te by Photometric methodOrdered By: Jasmin Bobby on 09-18-2023 ESR Photometric method (Bld) [Velocity] 37 mm/hr 0-29 [facility] Ferritinon 09-18-2023 Ferritin [Mass/Vol] 221.1 ng/mL Normal 11.0-306.8 [facility] Comment on above: Order Comment: Reaso n for Exam Chronic fatigue Reason for Exam Chronic fatigue;Restless leg;Paresthesias Reason for Exam Restless leg Reason for Exam Chronic fatigue;Xerostomia;Dry skin Reason for Exam Screening for cardiovascular condition Reason for Exam Paresthesias Reason for Exam Chronic fatigue;Dry skin Performed By: #### F E and TIBC, CRP, LIPID, MG, TSH3 wRFLX, B12, CMP, BALAJI, ESR #### [facility] [address] [place] [address] [place] #### SJOGRENS, MENDEZ CHOICE, RA #### [facility] , Ferritin [Mass/volume] in Se rum or PlasmaOrdered By: Jasmin Bobby on 09-18-2023 Ferritin [Mass/Vol] 221.1 ng/mL 11.0-306.8 [facility] Globulin Calc (S) [Mass/Vol] Ordered By: Jasmin Bobby on 09-18-2023 Globulin (S) [Mass/Vol] 2.6 g/dL [facility] Glucose [Mass/volume] in Ser um or PlasmaOrdered By: Jasmin Bobby on 09-18-2023 Glucose [Mass/Vol] 95 mg/dL 70-100 [facility] Comment on above: ADA recommended refe rence rangeRandom Glucose Reference Range is dependent on time and content of last meal. Glucose of more than 200 mg/dL in a nonstressed, ambulatory subject supports the diagnosis of Diabetes Mellitus. Iron [Mass/volume] in Serum or PlasmaOrdered By: Jasmin Bobby on 09-18-2023 Iron [Mass/Vol] 115 ug/dL 50-212 [facility] Iron and TIBC Profileon 09-04 % Iron Saturation 40.5 % Normal 20-50 [facility] Comment on above: Order Comment: Reaso n for Exam Chronic fatigue Reason for Exam Chronic fatigue;Restless leg;Paresthesias Reason for Exam Restless leg Reason for Exam Chronic fatigue;Xerostomia;Dry skin Reason for Exam Screening for cardiovascular condition Reason for Exam Paresthesias Reason for Exam Chronic fatigue;Dry skin Performed By: #### F E and TIBC, CRP, LIPID, MG, TSH3 wRFLX, B12, CMP, BALAJI, ESR #### [facility] [address] [place] [address] [place] #### SJOGRENS, MENDEZ CHOICE, RA #### [facility] , Iron [Mass/Vol] 115 ug/dL Normal 50-212 [facility] Comment on above: Order Comment: Reaso n for Exam Chronic fatigue Reason for Exam Chronic fatigue;Restless leg;Paresthesias Reason for Exam Restless leg Reason for Exam Chronic fatigue;Xerostomia;Dry skin Reason for Exam Screening for cardiovascular condition Reason for Exam Paresthesias Reason for Exam Chronic fatigue;Dry skin Performed By: #### F E and TIBC, CRP, LIPID, MG, TSH3 wRFLX, B12, CMP, BALAJI, ESR #### [facility] [address] [place] [address] [place] #### SJOGRENS, MENDEZ CHOICE, RA #### [facility] , Total Iron Binding Capacity 284 ug/dL Normal 255-450 [facility] Comment on above: Order Comment: Reaso n for Exam Chronic fatigue Reason for Exam Chronic fatigue;Restless leg;Paresthesias Reason for Exam Restless leg Reason for Exam Chronic fatigue;Xerostomia;Dry skin Reason for Exam Screening for cardiovascular condition Reason for Exam Paresthesias Reason for Exam Chronic fatigue;Dry skin Performed By: #### F E and TIBC, CRP, LIPID, MG, TSH3 wRFLX, B12, CMP, BALAJI, ESR #### [facility] [address] [place] [address] #### SJOGRENS, MENDEZ CHOICE, RA #### [facility] , Transferrin [Mass/Vol] 203 mg/dL Normal 203-362 [facility] Comment on above: Order Comment: Reaso n for Exam Chronic fatigue Reason for Exam Chronic fatigue;Restless leg;Paresthesias Reason for Exam Restless leg Reason for Exam Chronic fatigue;Xerostomia;Dry skin Reason for Exam Screening for cardiovascular condition Reason for Exam Paresthesias Reason for Exam Chronic fatigue;Dry skin Performed By: #### F E and TIBC, CRP, LIPID, MG, TSH3 wRFLX, B12, CMP, BALAJI, ESR #### [facility] [address] [place] [address] [place] #### SJOGRENS, MENDEZ CHOICE, RA #### [facility] , Iron binding capacity [Mass/ volume] in Serum or PlasmaOrdered By: Jasmin Bobby on 09-18-2023 Iron binding capacity [Mass/Vol] 284 ug/dL 255-450 [facility] Iron saturation [Mass Fracti on] in Serum or PlasmaOrdered By: Jasmin Bobby on 09-18-2023 Iron saturation [Mass fraction] 40.5 % 20-50 [facility] Lipid Panelon 09-18-2023 Cholesterol [Mass/Vol] 293 mg/dL High 140-200 [facility] Comment on above: Order Comment: Reaso [...] TSH3 wRFLX, B12, CMP, BALAJI, ESR #### [address] #### SJOGRENS, MENDEZ CHOICE, RA #### [facility] , Cholesterol in HDL [Mass/Vol] 73 mg/dL Normal 23-92 [facility] Comment on above: Order Comment: Reaso [...] TSH3 wRFLX, B12, CMP, BALAJI, ESR #### [place] [address] [place] #### SJOGRENS, MENDEZ CHOICE, RA #### [facility] , Cholesterol.total/Fernanda sterol in HDL [Mass ratio] 4.0 {ratio} Normal <5.0 [facility] Comment on above: Order Comment: Reaso n for Exam Chronic fatigue Reason for Exam Chronic fatigue;Restless leg;Paresthesias Reason for Exam Restless leg Reason for Exam Chronic fatigue;Xerostomia;Dry skin Reason for Exam Screening for cardiovascular condition Reason for Exam Paresthesias Reason for Exam Chronic fatigue;Dry skin Performed By: #### F E and TIBC, CRP, LIPID, MG, TSH3 wRFLX, B12, CMP, BALAJI, ESR #### [address] #### SJOGRENS, MENDEZ CHOICE, RA #### [facility] , LDL Cholesterol,Calculated 205 mg/dL High 0-100 [facility] Comment on above: Order Comment: Reaso [...] TSH3 wRFLX, B12, CMP, BALAJI, ESR #### [facility] [address] [place] [address] [place] #### SJOGRENS, MENDEZ CHOICE, RA #### [facility] , Triglyceride w/Reflex 75 mg/dL Normal 0-149 [facility] Comment on above: Order Comment: [...] TSH3 wRFLX, B12, CMP, BALAJI, ESR #### [facility] [address] [place] [address] [place] #### SJOGRENS, MENDEZ CHOICE, RA #### [facility] , VLDL CHOLESTEROL 15 mg/dL Normal [facility] Comment on above: Order Comment: [...] TSH3 wRFLX, B12, CMP, BALAJI, ESR #### [facility] [address] [place] [address] [place] #### SJOGRENS, MENDEZ CHOICE, RA #### [facility] , Magnesiumon 09-18-2023 Magnesium [Mass/Vol] 2.0 mg/dL Normal 1.9-2.7 [facility] Comment on above: Order Comment: Reaso n for Exam Chronic fatigue Reason for Exam Chronic fatigue;Restless leg;Paresthesias Reason for Exam Restless leg Reason for Exam Chronic fatigue;Xerostomia;Dry skin Reason for Exam Screening for cardiovascular condition Reason for Exam Paresthesias Reason for Exam Chronic fatigue;Dry skin Performed By: #### F E and TIBC, CRP, LIPID, MG, TSH3 wRFLX, B12, CMP, BALAJI, ESR #### [facility] [address] [place] [address] [place] #### SJOGRENS, MENDEZ CHOICE, RA #### [facility] , Magnesium [Mass/volume] in S wolf or PlasmaOrdered By: Jasmin Bobby on 09-18-2023 Magnesium [Mass/Vol] 2.0 mg/dL 1.9-2.7 [facility] No Panel InformationOrdered By: Jasmin Bobby on 09-18-2023 Estimated GFR (CKD-EPI) > 60.0 mL/Min [facility] Creatinine Clearance (Chem N/A [facility] Potassium [Moles/volume] in Serum or PlasmaOrdered By: Jasmin Bobby on 09-18-2023 Potassium [Moles/Vol] 4.6 mmol/L 3.5-5.1 [facility] Protein [Mass/volume] in Ser um or PlasmaOrdered By: Jasmin Bobby on 09-18-2023 Protein [Mass/Vol] 6.8 g/dL 6.4-8.9 [facility] Rheumatoid Factoron 09-18-19 Rheumatoid Factor 10.6 Normal <14.0 [facility] Comment on above: Order Comment: Reaso n for Exam Chronic fatigue;Xerostomia;Dry skin Result Comment: Perf ormed at: CB - [facility] [address] [place], [place] [id number] Settlement Clerk: Alphonse Harris PhD, Phone: [phone] Performed By: #### F E and TIBC, CRP, LIPID, MG, TSH3 wRFLX, B12, CMP, BALAJI, ESR #### [facility] [address] #### SJOGRENS, MENDEZ CHOICE, RA #### [facility] , Serum Sjogrens syndrome-A ex tractable nuclear antibody assay (units/volume)Ordered By: Jasmin Bobby on 09-18-2023 Sjogrens syndrome-A extractable nuclear Ab Qn (S) <0.2 AI 0.0-0.9 [facility] Serum Sjogrens syndrome-B ex tractable nuclear antibody assay (units/volume)Ordered By: Jasmin Bobby on 09-18-2023 Sjogrens syndrome-B extractable nuclear Ab Qn (S) <0.2 AI 0.0-0.9 [facility] Serum or plasma albumin/glob ulin mass ratioOrdered By: Jasmin Bobby on 09-18-2023 Albumin/Globulin [Mass ratio] 1.6 {ratio} [facility] Serum or plasma anion gap de terminationOrdered By: Jasmin Bobby on 09-18-2023 Anion gap [Moles/Vol] 9.5 mmol/L 6.0-15.0 [facility] Serum or plasma free cefurox demario measurement (mass/volume)Ordered By: Jasmin Bobby on 09-18-2023 Cefuroxime free [Mass/Vol] Negative Negative [facility] Comment on above: Performed at: CB - [facility] [address] [id number] Director: Alphonse Harris PhD, Phone: [phone] Serum or plasma high density lipoprotein (HDL) cholesterol measurementOrdered By: Jasmin Bobby on 09-18-2023 Cholesterol in HDL [Mass/Vol] 73 mg/dL [facility] Comment on above: HDL CHOL ATP-III CLA SSIFICATION Cardiovascular RiskHDL > or equal to 60 mg/dL LOWHDL < 40 mg/dL HIGH Serum or plasma rheumatoid f actor measurement (units/volume)Ordered By: Jasmin Bobby on 09-18-2023 Rheumatoid factor Qn 10.6 [IU]/mL <14.0 [facility] Comment on above: Performed at: [place] [id number] Director: Alphonse Harris PhD, Phone: [phone] Serum or plasma total choles terol/high density lipoprotein (HDL) cholesterol mass ratOrdered By: Jasmin Bobby on 09-18-2023 Cholesterol.total/Fernanda sterol in HDL [Mass ratio] 4.0 {ratio} <5.0 [facility] Sjogrens Anti-SSA/SSBon 09-04 SS-A/Ro Sjogrens Antibody <0.2 Normal 0.0-0.9 [facility] Comment on above: Order Comment: Reaso n for Exam Chronic fatigue Reason for Exam Chronic fatigue;Restless leg;Paresthesias Reason for Exam Restless leg Reason for Exam Chronic fatigue;Xerostomia;Dry skin Reason for Exam Screening for cardiovascular condition Reason for Exam Paresthesias Reason for Exam Chronic fatigue;Dry skin Performed By: #### F E and TIBC, CRP, LIPID, MG, TSH3 wRFLX, B12, CMP, BALAJI, ESR #### [facility] [address] #### SJOGRENS, MENDEZ CHOICE, RA #### [facility] , SS-B/La Sjogrens Antibody <0.2 Normal 0.0-0.9 [facility] Comment on above: Order Comment: Reaso n for Exam Chronic fatigue Reason for Exam Chronic fatigue;Restless leg;Paresthesias Reason for Exam Restless leg Reason for Exam Chronic fatigue;Xerostomia;Dry skin Reason for Exam Screening for cardiovascular condition Reason for Exam Paresthesias Reason for Exam Chronic fatigue;Dry skin Result Comment: PERF ORMED BY: [place] [address] PATHOLOGIST GREENSMAN TEODORA RAPHAEL M.D. Performed By: #### F E and TIBC, CRP, LIPID, MG, TSH3 wRFLX, B12, CMP, BALAJI, ESR #### [address] #### SJOGRENS, MENDEZ CHOICE, RA #### [facility] , Sodium [Moles/volume] in Ser um or PlasmaOrdered By: Jasmin Bobby on 09-18-2023 Sodium [Moles/Vol] 140 mmol/L 136-145 [facility] Thyroid Stim Hormone w/Rflxo n 09-18-2023 Thyroid Stim Hormone w/Rflx 1.98 u[iU]/mL Normal 0.45-5.33 [facility] Comment on above: Order Comment: Reaso n for Exam Chronic fatigue Reason for Exam Chronic fatigue;Restless leg;Paresthesias Reason for Exam Restless leg Reason for Exam Chronic fatigue;Xerostomia;Dry skin Reason for Exam Screening for cardiovascular condition Reason for Exam Paresthesias Reason for Exam Chronic fatigue;Dry skin Result Comment: PERF ORMED BY: [place] [address] PATHOLOGIST GREENSMAN TEODORA RAPHAEL M.D. Performed By: #### F E and TIBC, CRP, LIPID, MG, TSH3 wRFLX, B12, CMP, BALAJI, ESR #### [facility] [address] [place] [address] #### SJOGRENSMENDEZ, RA #### [facility] , Thyrotropin [Units/volume] i n Serum or PlasmaOrdered By: Jasmin Bobby on 09-18-2023 TSH Qn 1.98 m[IU]/L 0.45-5.33 [facility] Transferrin [Mass/volume] in Serum or PlasmaOrdered By: Jasmin Bobby on 09-18-2023 Transferrin [Mass/Vol] 203 mg/dL 203-362 [facility] Triglyceride [Mass/volume] i n Serum or PlasmaOrdered By: Jasmin Bobby on 09-18-2023 Triglyceride [Mass/Vol] 75 mg/dL 0-149 [facility] Comment on above: TRIG ATP III CLASSIF ICATIONTRIG less than 150 mg/dL NormalTRIG 150-199 mg/dL Borderline highTRIG 200-500 mg/dL High TRIG greater than 500 mg/dL Very highStandard traceable to the Center for Disease Conrtrol and Prevention (CDC) test method. Urea nitrogen [Mass/volume] in Serum or PlasmaOrdered By: Jasmin Bobby on 09-18-2023 Urea nitrogen [Mass/Vol] 13 mg/dL 7 [facility] Vitamin B12on 09-18-2023 Cobalamin (Vitamin B12) [Mass/Vol] 1166 pg/mL High 180-[address] [place] [address] Comment on above: Order Comment: Reaso n for Exam Chronic fatigue Reason for Exam Chronic fatigue;Restless leg;Paresthesias Reason for Exam Restless leg Reason for Exam Chronic fatigue;Xerostomia;Dry skin Reason for Exam Screening for cardiovascular condition Reason for Exam Paresthesias Reason for Exam Chronic fatigue;Dry skin Performed By: #### F E and TIBC, CRP, LIPID, MG, TSH3 wRFLX, B12, CMP, BALAJI, ESR #### [facility] [address] [place] [address] #### SJOGRENS, MENDEZ CHOICE, RA #### [facility] , Vitamin B12 ser/plasOrdered By: Jasmin Bobby on 09-18-2023 Cobalamin (Vitamin B12) [Mass/Vol] 1166 pg/mL [address] [place] [address] CARDIAC SCORINGon 07-0 CT CARDIAC [...] of coronary arteries. COMPARISON: None. ACCESSION NUMBER(S): [id number] ORDERING CLINICIAN: JASMIN BOBBY TECHNIQUE: Using prospective [...] al. JACC 2015 (http://dx.doi.org/10.1 016/j.j acc.2015.08.035) [employer] Weaver: Dr. Gilmer Garcia, Date: 03/09/2021 12:46 pm Electronically signed by: NATALI SUNSHINE MD [facility] Surgical Specimenon 09-26-19 Surgical Specimen [facility] Comment on above: Result Comment: [facility] [address] [place] [id number] FINAL SURGICAL PATHOLOGY REPORT Patient Name: LEANN GREENBERG Accession No: [id number] Age Sex: 1955 Location: [facility] Account No: [id number] Collected: 09/26/2018 Med Rec No: [id number] Received: 09/27/2018 Attend Phys: SAIDA BENSON Completed: [...] dimension. In toto, one cassette. JARET/BRENDEN CPT: 10363 X3 49973 X2 ALEXI DEAL M.D. 10/05/2018 Electronically signed out by Page 1 of 1 Vital Signs Date Time Vital Sign Value Performing Clinician Facility 06-06-2024 14:30-0400 Body height 157.48 cm [facility] 06-06-2024 14:30-0400 Body mass index (BMI) [Ratio] 28.1 kg/m2 [facility] 06-06-2024 14:30-0400 Body temperature 97 [degF] [facility] 06-06-2024 14:30-0400 Body weight 69.85 kg [facility] 06-06-2024 14:30-0400 Diastolic blood pressure 80 mm[Hg] [facility] 06-06-2024 14:30-0400 Heart rate 76 /min [facility] 06-06-2024 14:30-0400 Respiratory rate 20 /min [facility] 06-06-2024 14:30-0400 SaO2% (BldA) [Mass fraction] 98 % [facility] 06-06-2024 14:30-0400 Systolic blood pressure 122 mm[Hg] [facility] 09-25-2023 09:45-0500 Body height 157.48 cm [employer] Other [employer] [facility] Jaco Solarsi Other 09-25-2023 09:45-0500 Body mass index (BMI) [Ratio] 28.53 kg/m2 [employer] Other [facility] Other 09-25-2023 09:45-0500 Body temperature 97.4 [degF] Jasmin [employer] Other [facility] Other 09-25-2023 09:45-0500 Body weight 70.76 kg Jasmin [employer] Other [facility] Other 09-25-2023 09:45-0500 Diastolic blood pressure 78 mm[Hg] Jasmin [employer] Other [facility] Other 09-25-2023 09:45-0500 Respiratory rate 20 /min Jasmin Easterwood Other [facility] Other 09-25-2023 09:45-0500 SaO2% (BldA) [Mass fraction] 98 % Jasmin Easterwood Other [facility] Other 09-25-2023 09:45-0500 Systolic blood pressure 126 mm[Hg] Jasmin Easterwood Other [facility] Other 09-11-2023 09:30-0500 Body height 157.48 cm Jasmin Easterwood Other [employer] Other 09-11-2023 09:30-0500 Body mass index (BMI) [Ratio] 28.53 kg/m2 Jasmin Easterwood Other [facility] Other 09-11-2023 09:30-0500 Body temperature 97.9 [degF] Jasmin Easterwood Other [facility] Other 09-11-2023 09:30-0500 Body weight 70.76 kg Jasmin Easterwood Other [facility] Other 09-11-2023 09:30-0500 Diastolic blood pressure 84 mm[Hg] Jasmin Easterwood Other [facility] Other 09-11-2023 09:30-0500 Respiratory rate 20 /min Jasmin Easterwood Other [facility] Other 09-11-2023 09:30-0500 SaO2% (BldA) [Mass fraction] 98 % Jasmin Bobby Other [facility] Other 09-11-2023 09:30-0500 Systolic blood pressure 132 mm[Hg] Jasmin Bobby Other [facility] Other Encounters Encounter Date Encounter Type Care Provider Facility Start: 06-06-2024 End: 06-06-2024 ambulatory [facility] Work Phone: Start: 06-06-2024 End: 06-06-2024 Patient encounter procedure [facility] Work Phone: Start: 04-08-2024 End: 04-08-2024 ambulatory Sharona Ervin Research Coordinator Work Phone: Neurology Comment on above: Informed Consent (IR B [id number]) Start: 04-08-2024 End: 04-08-2024 Patient encounter procedure Jennifer Degroot LAMP WIRER.BEADING INSTALLER Work Phone: Neurology Comment on above: Examination of parti cipant in clinical trial (Primary Dx) Start: 04-01-2024 Telephone encounter Liana carlisle Research Coordinator Work Phone: Neurology Comment on above: Research (IRB [id number] ) Start: 01-15-2024 Telephone encounter Griselda chavez Research Coordinator Neurology Comment on above: Appointment (IRB [phone]) Start: 11-05-2023 Telephone encounter Nathalie lazaro APRN.BEADING INSTALLER Work Phone: Neurology Comment on above: Patient Update Start: 09-29-2023 End: 09-29-2023 ambulatory SAMI ADAMS Not Available Start: 09-25-2023 End: 09-25-2023 ambulatory Jasmin Bobby Other [employer] Other Start: 09-25-2023 Office outpatient visit 40 minutes Jasmin Bobby [facility] Start: 09-21-2023 End: 09-21-2023 ambulatory Jasmin Bobby Other [employer] Other Start: 09-21-2023 Telephone encounter Jasmin Bobby [facility] Start: 09-19-2023 End: 09-19-2023 ambulatory Jasmin Bobby Facility:[facility] Start: 09-19-2023 End: 09-19-2023 ambulatory LAMP WIRER Jasmin Bobby Work Phone: [facility] Work Phone: Start: 09-19-2023 End: 09-19-2023 Patient encounter procedure LAMP WIRER Jasmin Bobby Work Phone: [facility] [address] Work Phone: Start: 09-18-2023 End: 09-18-2023 ambulatory Jasmin Bobby Facility:[facility] Start: 09-18-2023 End: 09-18-2023 ambulatory LAMP WIRER Jasmin Bobby Work Phone: [facility] Work Phone: Start: 09-18-2023 End: 09-18-2023 Patient encounter procedure LAMP WIRER Jasmin Bobby Work Phone: [facility] [address] Work Phone: Start: 09-11-2023 End: 09-11-2023 ambulatory Jasmin Bobby Other [facility] Other Start: 09-11-2023 Office outpatient visit 25 minutes Jasmin Bobby [facility] Start: 09-26-2018 End: 09-26-2018 Patient encounter procedure SAIDA BENSON [facility] Procedures Date Procedure Procedure Detail Performing [...] Detail Author Start: 05-05-2024 Influenza vaccination C [facility] Start: 04-08-2024 End: 04-08-2024 Patient encounter procedure 04/08/2024 12:45 PM EDT Office Visit Neurology [address] [place] [address] Anat Nieto PA-C [address] [place] [address] [facility] Comment on above: [facility] Start: 09-04-2023 Advance Directive Discussion Advance Directive Discussion [facility] Start: 09-04-2023 Behavioral Health Screening Behavioral Health Screening [facility] Start: 09-04-2023 Depression Assessment Depression Ass essment [facility] Start: 05-05-2023 Covid-19 Vaccine ( season) Covid-19 Vaccine ( season) [facility] Start: 05-05-2023 Covid-19 Vaccine ( season) Covid-19 Vaccine ( season) [facility] Start: 05-05-2023 Influenza vaccination Influenza Vacc ine (#1) [facility] Start: 2022 Pneumococcal Vaccine : 65+ (1 of 1 - PCV) Pneumococcal Vaccine: 65+ (1 of 1 - PCV) [facility] Start: 2022 Screening for osteoporosis Bone Density Screening [facility] Start: 2017 RSV Vaccine (1 - 1-d ose 60+ series) RSV Vaccine (1 - 1-dose 60+ series) [facility] Start: 11-24-2007 Shingrix Vaccine (1 of 2) Shingrix Vaccine (1 of 2) [facility] Start: 2002 Diabetes Screening Diabetes Screenin g [facility] Start: 2002 Lipid panel Lipid Screening [facility] Start: 2002 Screening for malign ant neoplasm of colon [facility] Start: 1997 Screening for malign ant neoplasm of breast Mammogram Screening [facility] Start: 1976 Urine microalbumin profile DTaP,Tdap,Td Vaccine (1 - Tdap) [facility] Start: 11-24-1975 Anxiety Screening Anxiety Screening [facility] Start: 11-24-1975 Depression Screening Depression Scre ening [facility] Start: 11-24-1975 Hepatitis C screening Hepatitis C Sc reening [facility] Start: 11-24-1975 HIV screening HIV Screening [facility] Start: 05-26-1958 Covid-19 Vaccine (#1) Covid-19 Vacci ne (#1) [facility] Cefuroxime free [Mass/volume] in Serum or Plasma [facility] Rheumatoid factor [Units/volume] in Serum or Plasma [facility] Sjogrens syndrome-A extractable nuclear Ab [Units/volume] in Serum [facility] Sjogrens syndrome-B extractable nuclear Ab [Units/volume] in Serum [facility] Payers Date Payer Category Payer Medicare [id number] 2023 Self-pay [id number] 2022 Blue Cross Blue Shield [id number] 2019 Unknown [employer] PPO OOS [id number] 2019-Present [phone] [address] [place] [address] PPO [id number] 2015 Unknown [id number] 1957 Unknown [id number] 1957 Unknown [id number] Unknown [place] KATARZYNA/BRIANNA [id number] Unknown [id number] Unknown [id number] Social History Date Type Detail Facility Sex Assigned At [facility] Start: 1955 Sex Assigned At Female [facility] Tobacco smoking status [facility] Tobacco smoking consumption unknown [facility] Work Phone: Start: 1955 Sex Assigned At Not on file [facility] Start: 06-06-2024 Tobacco smoking status MNIS Ex-smoker (finding) [facility] Clinical Notes 09-11-2023 to 04-08-2024 Sharona Ervin, Research Coordinator - 04/08/2024 4:43 PM EDJennfier Sawant APRN.BEADING INSTALLER - 04/08/2024 12:45 PM EDTTelephone Encounter - Griselda Gonzalez Research Coordinator - 01/15/2024 3:44 PM EDT Note Date & Type Note Facility 04-08-2024 Note HNO ID: [id number] Author: SHARONA ERVIN, Research Coordinator Service: ? Author Type: Research Type: Progress Notes Filed: 04/08/2024 16:43 Note Text: DATE:April 08, 2024 PT. NAME: Leann Greenberg [facility]#: [id number] IRB #: [id number]. PROTOCOL: [facility] Brain Study Mat Machine Tender: Layla Saenz MD, , Pascual Ames MD, [facility] service advocate contact for study related questions: Katy Slater Subject [...] tolerated procedure well. Sharona Ervin Research Coordinator [facility] 04-08-2024 History of Present illness Narrative DATE:April 08, 2024 PT. NAME: Leann Dionicio CC#: [id number] IRB #: [id number]. PROTOCOL: [facility] Brain Study Mat Machine Tender: Layla Saenz MD, , Pascual Ames MD, [facility] service advocate contact for study related questions: Katy Slater Subject [...] Ervin Research Coordinator documented in this encounter [facility] 04-08-2024 History of Present illness Narrative PCP does not have one at present-see MASHA Bobby DATE: April 08, 2024 PT. NAME: Leann Greenberg CC#: [id number] IRB #: [id number]. PROTOCOL: [facility] Brain Study Mat Machine Tender: Layla Saenz MD, , Pascual Ames MD, [facility] service advocate contact for study related questions: Katy Slater Is [...] and for procedures related to study YES. Time:470070 EKG/ECG was performed on patient. Patient tolerated [...] Wrist extension: Right 5 Left 5 Finger flexion/help desk analyst: Right 5 Left 5 Flexor pollicis longus: [...] Downgoing Weakness?: No Tremor: No Cerebellar/Coordination Assessment Pivykf-lo-Zebl: Abnormality present: No, Bsux-vl-Fixy: Abnormality present: No, Finger Tapping - Abnormality [...] Sensory/Sensation Sensory System-globlal assessment: Normal Jennifer Degroot APRN.BEADING INSTALLER documented in this encounter [facility] 04-08-2024 Note HNO ID: [id number] Author: JENNIFER DEGROOT APRN.BEADING INSTALLER Service: ? Author Type: Nurse Practitioner Type: Progress Notes Filed: 04/08/2024 18:01 Note Text: PCP does not have one at present-see MASHA Bobby DATE: April 08, 2024 PT. NAME: Leann Greenberg [facility]#: [id number] IRB #: [id number]. PROTOCOL: [facility] Brain Study Mat Machine Tender: Layla Saenz MD, , Pascual Ames MD, [facility] service advocate contact for study related questions: Katy Slater Is [...] and for procedures related to study YES. Time:[id number] EKG/ECG was performed on patient. Patient tolerated [...] Wrist extension: Right 5 Left 5 Finger flexion/help desk analyst: Right 5 Left 5 Flexor pollicis longus: [...] Downgoing Weakness?: No Tremor: No Cerebellar/Coordination Assessment Ecpmqq-gq-Dyti: Abnormality present: No, Ghqf-qr-Jkdz: Abnormality present: No, Finger Tapping - Abnormality [...] Sensory/Sensation Sensory System-globlal assessment: Normal Jennifer Degroot APRN.BEADING INSTALLER [facility] 01-15-2024 Telephone encounter Note IRB [id number]. [facility] Brain Study ([facility]) Mat Machine Tender: Layla Saenz MD, , Pascual Ames MD, Hairmasters Manager: Katy Slater and Email:[email or web address] Research Coordinator called and contacted Leann Greenberg on January 15, 2024 to reminded patient of appointment with the [facility] Brain Study, Griselda Gonzalez, Research Coordinator also let pt. Know about the option to DocuSign the constant form or Sign in person. Research Coordinator gave patient Contact information for if the patient had any questions about the study and or their appointment. [facility] 01-15-2024 Miscellaneous Notes IRB [id number]. [facility] Brain Study ([facility]) Mat Machine Tender: Layla Saenz MD, , Pascual Ames MD, Hairmasters Manager: Katy Slater and Email:[email or web address] Research Coordinator called and contacted Leann Antonior on January 15, 2024 to reminded patient of appointment with the [facility] Brain Study, Griselda Gonzalez, Research Coordinator also let pt. Know about the option to DocuSign the constant form or Sign in person. Research Coordinator gave patient Contact information for if the patient had any questions about the study and or their appointment. documented in this encounter [facility] 11-05-2023 Miscellaneous Notes IRB [id number]. [facility] Brain Study ([facility]) Mat Machine Tender: Layla Saenz MD, , Pascual Ames MD, Hairmasters Manager: Katy Slater and Email: Contacted Leann Greenberg by phone to discuss the [facility] Brain Study ([facility]): Biomarkers and Predictors of Neurological Disorders IRB [id number]. Patient is eligible and agrees to participate. Requests call back December to schedule (going to [place]). Nathalie Mckeon APRN.MEE documented in this encounter [facility] 09-25-2023 Evaluation note Encounter Date Diagnosis [...] was counseling done by myself, Jasmin ROGEL. [facility] 01-08-2024 Evaluation note* Encounter Date Diagnosis [...] that were not corrected during review process. [facility] Other Evaluation noteNo assessment information available [facility] Work Phone: Evaluation noteNo InformationNort [facility] Other Evaluation note* Diagnosis Examination of participant in clinical trial- Primary [facility] Diagnosis Onset Date Resolution Status Chronic fatigue acute [facility] Work Phone: Hisqsin general Narrative - Reported* Type Description Date [...] surgery - torn menis cus repair 2020 [facility]iskbcw general Narrative - Reported* Type Description Date [...] surgery - torn menis cus repair 2020 [facility] Other Summary Purpose Family History Relationship Condition [...] section and content) DATE CREATED AUTHOR 10/23/2018 [facility] DATE CREATED AUTHOR AUTHOR'S ORGANIZ ATION 03/11/2021 [facility] DATE CREATED AUTHOR AUTHOR'S ORGANIZ ATION 09/30/2023 [facility] EPIC DATE CREATED AUTHOR AUTHOR'S ORGANIZ ATION 11/21/2023 [facility] DATE CREATED AUTHOR AUTHOR'S ORGANIZ ATION 04/10/2024 [facility] REASON FOR VISIT (unrecogniz ed section [...] Bobby APRN Primary Care Provider, Attend [facility] Provider Active Freight Handler Relationship Specialty Start Date End Date Chicho Kauffman DO [address] [place] [address] Referring Family Medicine 08/18/20 Freight Handler Relationship Specialty Start Date End Date Chicho Kauffman DO [address] [place] [address] Referring Family Medicine 08/18/20 Freight Handler Relationship Specialty Start Date End Date Jasmin Bobby CNP [address] [place] [address] PCP - General Family Medicine 04/08/24 Chicho Kauffman DO [address] [place] [address] Referring Family Medicine 08/18/20 Freight Handler Relationship Specialty Start Date End Date Jasmin Bobby CNP [address] [place] [address] PCP - General Family Medicine 04/08/24 Chicho Kauffman DO [address] [place] [address] Referring Family Medicine 08/18/20 Team Status: Inactive [...] or prosecute any alcohol or drug abuse patient.[facility] the event this information is protected by the Federal Confidentiality of Alcohol and Drug Abuse Patient Records regulations: The Federal rules restrict any use of the information to criminally investigate or prosecute any alcohol or drug abuse patient.[facility] the event this information is protected by the Federal Confidentiality of Alcohol and Drug Abuse Patient Records regulations: The Federal rules restrict any use of the information to criminally investigate or prosecute any alcohol or drug abuse patient.[facility] Hospital[facility] the event this information is protected by the Federal Confidentiality of Alcohol and Drug Abuse Patient Records regulations: The Federal rules restrict any use of the information to criminally investigate or prosecute any alcohol or drug abuse patient.[facility] Hospital[facility] the event this information is protected by the Federal Confidentiality of Alcohol and Drug Abuse Patient Records regulations: The Federal rules restrict any use of the information to criminally investigate or prosecute any alcohol or drug abuse patient.[facility] FOR RECORDS PERTAINING TO PATIENTS WHO [...] BE BASED ON THE PRIMARY CLINICAL RECORDS. [employer] provides no warranty or guarantee of the accuracy or completeness of information in this document.
--- NOTE | 2024-07-01 15:05 | P.DS_ITS ---
Discharge Plan Discharge Disposition: Home, Self-Care Outpatient Diagnostics: VC INJ Sclerosing SOLMULT Vein (Routine) Timeframe: 2 Months Facility: [facility] - Location: [facility] Ordered By: Haresh King Plan of Treatment: Sclerotherapy bilateral legs Print Language: [place] Citizen Discharge Date/Time: 07/01/24 15:06
== END 2024-07-01 15:06 | disposition home or self-care (01) ==
PROVIDERS: PCP Radiology Diagnostic Radiology; Visit Provider Radiology Diagnostic Radiology
DX: I80.01 Phlebitis and thrombophlebitis of superficial vessels of right lower extremity (principal)
CPT/HCPCS: 93971; G0463